=== PATIENT | female | born 1970 | race Caucasian/White ===

== ENCOUNTER 2024-12-01 16:26 | Emergency (ER) | payer OTHER, SELFPAY ==
--- NOTE | ~2024-12-01 | XR_ITS ---
CLINICAL HISTORY: no BM x 5 days, nausea, pain 1 view abdomen Comparison: None provided Findings: No abnormal calcifications. No acute fractures. Large colorectal stool burden. Nonobstructive bowel-gas pattern. Right upper quadrant clips. IMPRESSION: Large colorectal stool burden. This document has been electronically signed by: Chiki Tafoya MD on 12/01/2024 18:13:39
[2024-12-01 16:50] VITALS: BP 136/98; PULSE 112; RESP 16; TEMP 36.6; O2SAT 95; BMI 31.0
--- NOTE | 2024-12-01 16:51 | ED_ITS ---
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 Patient states she is on chronic opiate therapy, she has not had a bowel movement in 5 days. Associated diffuse myalgia, nausea, vomiting and abdominal distention. Patient states she feels as if she is having a lupus flare. Denies inability to pass flatus. Denies fever. Patient is still amidst a steroid taper. Patient states she is currently on Benlysta, she just completed her 3rd infusion. Related Data Home Medications ?Medication ?Instructions ?Recorded ?Confirmed calcium carbonate (Calcium 500) 500 mg PO BID 12/02/24 12/02/24 fludrocortisone 0.1 mg tablet 0.1 mg PO DAILY 12/02/24 folic acid 1 mg tablet 1 mg PO DAILY 12/02/2412/02 gabapentin 400 mg capsule 400 mg PO BEDTIME 12/02/24 0 12/02/24 hydroxychloroquine 200 mg tablet 400 mg PO DAILY 12/0212/02/24 lisdexamfetamine 40 mg capsule 40 mg PO DAILY PRN ADHD 12/02/24 12/02/24 methotrexate sodium 2.5 mg tablet 20 mg PO CLAROS@0900 01/1912/02/24 omeprazole 20 mg capsule,delayed 20 mg PO BEDTIME 01/1912/02/24 release ondansetron 4 mg disintegrating 4 mg PO Q8H PRN nausea /vomiting 12/02/24 12/02/24 tablet oxycodone 10 mg tablet 10 mg PO Q4H PRN Pain (Scale Score 12/02/24 12/02/24 4-6) prednisone 5 mg tablet 15 mg PO DAILY 12/02/240 8/25 semaglutide (weight loss) 1 mg/0.5 1 mg subcut FR@0900 12/02/24 12/02/24 mL subcutaneous pen injector (Tarah) vitamin A 3,000 mcg (10,000 unit) 3,000 mcg PO DAILY 0 12/02/24 12/02/24 capsule Allergies Allergy/AdvReac Type Severity Reaction Status Date / Time metoclopramide (From Reglan) Allergy Anaphylaxis Verified 12/01/24 16:57 ondansetron (From Zofran) Allergy Anaphylaxis Verified 12/01/24 16:57 prochlorperazine (From Allergy Anaphylaxis Verified 12/01/24 16:57 Compazine) promethazine (From Phenergan) Allergy Anaphylaxis Verified 12/01/24 16:57 Review of Systems Review of Systems Yes all other systems are reviewed and are negative Constitutional: Denies fatigue and Denies fever(s) Cardiovascular: Denies chest pain and Denies dyspnea Respiratory: Denies dyspnea Gastrointestinal: Reports abdominal pain, Reports constipation, Reports nausea and Reports vomiting Musculoskeletal: Reports myalgias Skin/Breast: Reports rash Endocrine: Denies fatigue [facility] Past Medical History Attestation statement: The following information was validated with the patient. Social History Social History Smoked in Last 30 Days: No Use of substances other than those prescribed or required for medical reasons: No Advance Directives: No Advance Directives Information Provided: Yes Do you have a plan to hurt others: No Plan Physical Exam ED Vital Signs: Vital Signs - 24 hr 12/03/24 20:48 12/03/24 21:48 Temperature 98.3 F 98.3 F Pulse Rate 87 87 Respiratory Rate 16 1 L Blood Pressure 140/82 H 140/82 H Pulse Oximetry 100 100 Oxygen Delivery Method Room Air Room Air BMI result Body Mass Index 31.0 Const Other: Alert Orientation/consciousness: patient oriented x3 Resp Effort & Inspection: normal respiratory effort Cardio Other: Normal peripheral perfusion GI Other: Abdomen is soft, generalized tenderness to palpation without guarding, no fecal impaction after enema administered, she had a large bowel movement Skin Other: Malar rash noted over cheeks Neuro General: patient oriented x3, gait normal, no focal motor deficits and CN's II- XI intact bilaterally Psych Other: Cooperative, tearful at times Course Course Course Narrative: This is an RME performed by Hunter Thakkar CNP: Additional HPI, ROS, PE not included below will be deferred to primary provider. Patient is a 53-year-old female who presents emergency department for evaluation. Over the past few days she has been experiencing severe left-sided abdominal pain, nausea, a single episode of vomiting. Is concerned about a possible bowel blockage though she has not previously has been, admits no bowel movement for the past 5 days. 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 Denies fevers or chills. Plan: serum labs, urinalysis, KUB Reevaluation(s) Reevaluation #1: I had attempted to admit the patient to the hospital service, I spoke with Dr. Petty, unfortunately we do not have rheumatology coverage. The patient's publication distributor team is at [facility], I will expedite transfer....the patient's publication distributor is name Dr. Gaona Time: 04:37 Reevaluation #2: Spoke with the transfer line at [facility], they are going to reach out to [facility] and call back, they are closed to outside transfers, but given she is a patient there, they may accept her as a transfer Time: 04:52 Reevaluation #3: Patient will be accepted for transfer to [facility] though she will be placed on a wait list as there are no beds available at this time. Do expect a bed by the end of the day today though. Accepting physician Dr. Irish Tate (hospitalist medicine) Time: 06:23 Additional Reevaluation(s): 12/02/24 1400 Juan Antonio De La Cruz MD The patient presented to the emergency department for a flare-up of her lupus which she describes as lower abdominal pain and constipation. The patient did have an enema with a good bowel movement. Patient did receive Solu-Medrol 125 mg IV at 00:17 hours. The patient has required repeat doses of Dilaudid 1 mg IV and Benadryl 25 mg IV. The patient is still waiting for a bed at [facility]. Therefore I ordered Dilaudid 1 mg IV q.4 hours prn pain with Benadryl 25 mg IV. I also ordered Tylenol 650 mg q.6 hours PRN pain. Patient will be started on Solu-Medrol 40 mg IV q.12 hours as well. The patient was also ordered a diet since I do not think that she needs to be kept NPO. 12/03/242147 Juan Antonio De La Cruz MD The patient's inpatient bed at [facility] became available, nursing gave report to the inpatient unit and the patient was transferred via ambulance. 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 Patient states she is on chronic opiate therapy, she has not had a bowel movement in 5 days. Associated diffuse myalgia, nausea, vomiting and abdominal distention. Patient states she feels as if she is having a lupus flare. Denies inability to pass flatus. Denies fever. Patient is still amidst a steroid taper. Patient states she is currently on Benlysta, she just completed her 3rd infusion. Problem: Irion's disease, lupus, chronic pain History: Per patient I have considered the following differential diagnoses: Lupus flare, bowel obstruction, constipation Plan: Screening labs including urinalysis are in process. KUB obtained, the patient is constipated. She is concerned for lupus flare. We will be loading her with 125 mg of Solu-Medrol, managing her pain, treating her nausea with Benadryl. We will give an enema. There was no obstructive pattern on the KUB, she does not require CT scan at this time. I have independently reviewed the following tests: Labs: Leukocytosis of 12.4, left shift noted, not anemic, mild hyponatremia at 1:32 a.m., LFTs minimally elevated at AST 32 and ALT 43, urine not infected, it is turbid, trace protein, no blood KUB:Findings: No abnormal calcifications. No acute fractures. Large colorectal stool burden. Nonobstructive bowel-gas pattern. Right upper quadrant clips. IMPRESSION: Large colorectal stool burden. Admission/Observation Consideration of admission/observation: Escalation of care including admission/observation considered ( yes) Consult Healthcare Provider Management of the patient was discussed with: Employee Development Manager Lab Data MDM Lab Attestation statement: I reviewed the patient's lab results. 12/01/24 17:08 12/01/24 17:08 Labs: Lab Results 12/01/24 12/01/24 Range/Units 17:08 19:36 WBC 12.4 H (4.8-10.8) X10*3/uL RBC 5.51 H (4.20-5.50) X10*6/uL Hgb 16.7 H (12.0-16.0) g/dl Hct 49.3 H (37.0-47.0) % MCV 89.5 (80.0-98.0) fL MCH 30.3 (27.0-33.0) pg MCHC 33.9 (31.0-35.0) g/dl RDW 14.1 (11.0-16.0) % Plt Count 340 (160-400) X10*3/uL MPV 9.8 (9.4-12.3) fL Immature Gran % (Auto) 0.9 H (0.0-0.4) % Neut % (Auto) 87.2 H (45-73) % Lymph % (Auto) 6.7 L (20-40) % Wolfe % (Auto) 4.9 (2-11) % Eos % (Auto) 0.1 (0-4) % Baso % (Auto) 0.2 (0-2) % Lymph # (Auto) 0.8 L (1.2-4.9) X10*3/uL Wolfe # (Auto) 0.6 (0.1-1.2) X10*3/uL Eos # (Auto) 0.0 (0.0-0.4) X10*3/uL Baso # (Auto) 0.0 (0.0-0.2) X10*3/uL Abs Immat Gran (auto) 0.11 H (0.00-0.03) X10*3/uL Absolute Neuts (auto) 10.8 H (2.0-8.3) x10*3/uL Absolute Nucleated RBC 0.000 (0.0-0.012) X10*3/uL Nucleated RBC % (auto) 0.0 (0.0-0.2) /100WBC Sodium 132 L (135-145) mmol/L Potassium 4.8 (3.3-5.1) mmol/L Chloride 102 (96-108) mmol/L Carbon Dioxide 21 L (22-29) mmol/L Anion Gap 14 (12-20) BUN 24 H (9-16) mg/dL Creatinine 0.98 (0.5-1.4) mg/dL Estim Creat Clear Calc 67.0 Estimated GFR 60 Random Glucose 142 H (60-115) mg/dL Lactic Acid 1.4 (0.5-2.0) mmol/L Calcium 10.3 H (8.4-10.2) mg/dL Total Bilirubin 0.8 (0.0-1.0) mg/dL AST 32 H (5-31) U/L ALT 43 H (0-31) U/L Alkaline Phosphatase 75 (39-117) U/L Total Protein 7.8 (6.5-8.0) g/dL Albumin 4.8 (3.5-5.0) g/dL Lipase 23 (8-78) U/L Urine Color Yellow Urine Appearance Turbid Urine pH 8.0 (5.0-9.0) Ur Specific [place] 1.020 (1.005-1.025) Urine Protein Trace (Neg-Trace) mg/dL Urine Glucose (UA) Negative (Negative) mg/dL Urine Ketones Negative (Negative) mg/dL Urine Blood Negative (Negative) Urine Nitrite Negative (Negative) Ur Leukocyte Esterase Negative (Negative) Chronic Conditions Patient?s care impacted by: Other ( lupus, Irion's disease) Medications Administered Discontinued Medications Generic Name Dose Route Start Last Admin Trade Name Freq PRN Reason Stop Dose Admin Diphenhydramine HCl 50 mg 12/02/24 00:17 12/02/24 00:29 Diphenhydramine Hcl 50 Mg/Ml Vial IVPUSH 12/02/24 00:18 50 mg ONCE ONE Administration Diphenhydramine HCl 50 mg 12/02/24 04:43 12/02/24 05:03 Diphenhydramine Hcl 50 Mg/Ml Vial IVPUSH 12/02/24 04:44 50 mg ONCE ONE Administration Diphenhydramine HCl 25 mg 12/02/24 08:35 12/02/24 09:23 Diphenhydramine Hcl 50 Mg/Ml Vial IVPUSH 12/02/24 08:36 25 mg ONCE ONE Administration Diphenhydramine HCl 25 mg 12/02/24 13:50 12/03/24 20:43 Diphenhydramine Hcl 50 Mg/Ml Vial IVPUSH 25 mg Q4H PRN Administration give with dilaudid dose Hydromorphone HCl 1 mg 12/02/24 02:54 12/02/24 03:13 Hydromorphone Hcl 1 Mg/Ml Syringe IVPUSH 12/02/24 02:55 1 mg ONCE ONE Administration Protocol Hydromorphone HCl 1 mg 12/02/24 05:10 12/02/24 05:33 Hydromorphone Hcl 1 Mg/Ml Syringe IVPUSH 12/02/24 05:11 1 mg ONCE ONE Administration Protocol Hydromorphone HCl 1 mg 12/02/24 08:35 12/02/24 09:23 Hydromorphone Hcl 1 Mg/Ml Syringe IVPUSH 12/02/24 08:36 1 mg ONCE STA Administration Protocol Hydromorphone HCl 1 mg 12/02/24 13:50 12/02/24 15:29 Hydromorphone Hcl 1 Mg/Ml Syringe IVPUSH 1 mg ONCE PRN Administration Pain, Severe (Pain Scale 7-10) Protocol Hydromorphone HCl 1 mg 12/02/24 20:27 12/02/24 20:32 Hydromorphone Hcl 1 Mg/Ml Syringe IVPUSH 12/02/24 20:28 1 mg ONCE ONE Administration Protocol Hydromorphone HCl 1 mg 12/02/24 20:28 12/03/24 20:44 Hydromorphone Hcl 1 Mg/Ml Syringe IVPUSH 1 mg Q4H PRN Administration pain, moderate Protocol Sodium Chloride 1,000 mls @ 999 mls/hr 12/02/24 00:30 12/02/24 01:25 Ns IV 12/02/24 01:30 Infused .Q1H1M HUGH Infusion Magnesium Hydroxide 30 ml 12/02/24 04:43 12/02/24 05:03 Milk Of Magnesia 30 Ml Oral.Susp PO 12/02/24 04:44 30 ml ONCE ONE Administration Methylprednisolone Sodium Succinate 125 mg 12/02/24 00:17 12/02/24 00:31 Methylprednisolone Sod Succ 125 Mg/2 Ml Vial IVPUSH 12/02/24 00:18 125 mg ONCE ONE Administration Methylprednisolone Sodium Succinate 40 mg 12/02/24 14:15 12/03/24 13:53 Methylprednisolone Sod Succ 40 Mg Vial IVPUSH 40 mg Q12H HUGH Administration Methylprednisolone Sodium Succinate 40 mg 12/02/24 14:08 12/02/24 15:29 Methylprednisolone Sod Succ 40 Mg Vial IVPUSH 12/02/24 14:09 40 mg ONCE ONE Administration Morphine Sulfate 10 mg 12/02/24 00:19 12/02/24 00:33 Morphine Sulfate 10 Mg/Ml Cartridge IVPUSH 12/02/24 00:20 10 mg ONCE ONE Administration Protocol Scopolamine 1.5 mg 12/02/24 02:54 12/02/24 03:13 Scopolamine 1.5 Mg Patch.Td.3 EAR-BEHIND 12/02/24 02:55 1.5 mg ONCE ONE Administration Sodium Biphosphate/Sodium Phosphate 133 ml 12/02/24 00:17 12/02/24 01:04 Sodium Phosphate,Wolfe-Dibasic 133 Ml Enema GA 12/02/24 00:18 133 ml ONCE ONE Administration Discharge Plan Discharge Clinical Impression: Exacerbation of systemic lupus, Constipation, Nausea & vomiting Patient Disposition: General Acute Hospital Transfer Details: [facility] for rheumatology (accepted by Dr. Tate, hospitalist) Prescriptions: No Action gabapentin 400 mg capsule 400 mg PO BEDTIME prednisone 5 mg tablet 15 mg PO DAILY methotrexate sodium 2.5 mg tablet 20 mg PO CLAROS@0900 omeprazole 20 mg capsule,delayed release(DR/EC) 20 mg PO BEDTIME folic acid 1 mg tablet 1 mg PO DAILY hydroxychloroquine 200 mg tablet 400 mg PO DAILY ondansetron 4 mg tablet,disintegrating 4 mg PO Q8H PRN (Reason: nausea/vomiting) lisdexamfetamine 40 mg capsule 40 mg PO DAILY PRN (Reason: ADHD) oxycodone 10 mg tablet 10 mg PO Q4H PRN (Reason: Pain (Scale Score 4-6)) Wegovy 1 mg/0.5 mL pen injector 1 mg subcut FR@0900 vitamin A 3,000 mcg (10,000 unit) Capsule 3,000 mcg PO DAILY calcium carbonate [Calcium 500] 500 mg calcium (1,250 mg) Tablet,Chewable 500 mg PO BID fludrocortisone 0.1 mg Tablet 0.1 mg PO DAILY Rx Instructions: ONLY TAKES WHEN NOT ON HIGHER DOSE OF PREDNISONE - NOT CURRENTLY TAKING Interventions: Acute Care Transfer Worksheet (ED) Last Done: 12/03/24 21:48 Discharge Date/Time: 12/03/24 20:50 Print Language: Romansh
[2024-12-01 17:17] LABS: MANUAL DIFF FLAG NO
[2024-12-01 17:26] LABS: Hematocrit 49.3 % (37.0-47.0); Hemoglobin 16.7 g/dl (12.0-16.0); Imm Gran Abs Auto 0.11 X10*3/uL (0.00-0.03); Imm Gran Pct Auto 0.9 % (0.0-0.4); Lymphocytes Absolute Auto 0.8 X10*3/uL (1.2-4.9); Mean Corpuscular HGB Conc 33.9 g/dl (31.0-35.0); Mean Corpuscular Hemoglobin 30.3 pg (27.0-33.0); Mean Corpuscular Volume 89.5 fL (80.0-98.0); NRBC Abs Auto 0.000 X10*3/uL (0.0-0.012); NRBC Pct Auto 0.0 /100WBC (0.0-0.2); Platelet Count 340 X10*3/uL (160-400); Red Blood Count 5.51 X10*6/uL (4.20-5.50); White Blood Count 12.4 X10*3/uL (4.8-10.8)
[2024-12-01 17:31] LABS: Alanine Aminotransferase 43 U/L (0-31); Albumin Level 4.8 g/dL (3.5-5.0); Alkaline Phosphatase 75 U/L (39-117); Anion Gap 14 (12-20); Aspartate Amino Transferase 32 U/L (5-31); Blood Urea Nitrogen 24 mg/dL (9-16); Calcium 10.3 mg/dL (8.4-10.2); Carbon Dioxide 21 mmol/L (22-29); Chloride 102 mmol/L (96-108); Creatinine Clr Calc Pharmacy 67.0; Estimated Glomerular Filt Rate 60; Lipase 23 U/L (8-78); Potassium 4.8 mmol/L (3.3-5.1); Sodium 132 mmol/L (135-145); Total Protein 7.8 g/dL (6.5-8.0)
[2024-12-01 19:52] LABS: Appearance Urine Turbid; Glucose Urine UA Negative (Negative); PH 8.0 (5.0-9.0); Specific Gravity - Urine 1.020 (1.005-1.025)
--- NOTE | 2024-12-01 21:24 | PC.NURSE ---
Late Entry During patient's initial triage, frustrated by WC's tight fit into triage room. T/w assisted in wheeling patient into triage. Pt's verbally aggressive with this staff member, threw registration survey clip board at T/W. approximately 2 hours later, pt's knocks on triage door, apologizes for behavior, requesting update on 's status. Informed by provider Daniel additional testing (CT scan) most likely necessary, cannot be done in [place]. Pt's verbalized understanding. approximately @ 1999, pt's returns to triage door, request hot packs. Hot packs given.
[2024-12-02] VITALS (8 sets, daily range): BP systolic 94–140; BP diastolic 65–102; PULSE 79–104; RESP 16–20; TEMP 36.2–37.1; O2SAT 94–99
[2024-12-02] MEDS: Milk of Magnesia 30 ML ORAL.SUSP PO (05:03)
--- NOTE | 2024-12-02 09:35 | PC.NURSE ---
Pt a&ox4. breathing unlabored, skin p/w/d. Pt reporting nausea and 10/10 left-sided abdominal pain, medicated per JUL. +BSx4. Pt aware of plan, awaiting transfer to [facility] for rheumatology consult.
--- NOTE | 2024-12-02 15:28 | MHC.EDTECH ---
Pt resting in bed, requesting medication, RN made aware
--- NOTE | 2024-12-02 16:20 | PHA.MEDREC ---
Pharmacy Consult ? Medication Reconciliation Pharmacy has completed the medication reconciliation. Spoke with patient in overflow. Patient knew all medications and doses. When patient has a flare up her prednisone dose increases, and then does not take fludricortisone. She only takes vyvanse when needed and has not taken it in a few weeks because of her flare up.
[2024-12-03 00:24] VITALS: RESP 16
[2024-12-03 04:44] VITALS: BP 97/59; PULSE 65; RESP 14; TEMP 36.6; O2SAT 95
--- NOTE | 2024-12-03 10:14 | MHC.EDTECH ---
THIS US CALLS [facility] TRANSFER LINE TO INQUIRE ABOUT PATIENT BED PLACEMENT. GEOTHERMAL POWERPLANT MECHANIC ISHAN STATES SHE IS WAITING FOR DISCHARGES BEFORE CONFIRMING BED ASSIGNMENT, BUT STATED THAT THIS PATIENT IS #2 PRIORITY FOR THEM
[2024-12-03 14:04] VITALS: BP 114/74; PULSE 86; RESP 18; TEMP 36.7; O2SAT 98
--- NOTE | 2024-12-03 18:23 | PC.NURSE ---
called report to [address]
[2024-12-03 18:53] VITALS: BP 101/71; PULSE 75; RESP 16; TEMP 36.3; O2SAT 99
[2024-12-03 20:48] VITALS: BP 140/82; PULSE 87; RESP 16; TEMP 36.8; O2SAT 100
[2024-12-03 21:48] VITALS: BP 140/82; PULSE 87; RESP 1; TEMP 36.8; O2SAT 100
== END 2024-12-03 20:50 | disposition short-term general hospital (02) ==
PROVIDERS: Nurse Practitioner Family; Emergency Provider Emergency Medicine
DX: L93.0 Discoid lupus erythematosus (principal); K59.00 Constipation, unspecified; R11.2 Nausea with vomiting, unspecified; Z79.891 Long term (current) use of opiate analgesic
CPT/HCPCS: 36415; 74018; 80053; 81003; 83605; 83690; 85025; 96361; 96374; 96375; 96376; 99285; J1171; J1200; J2270; J2919

== ENCOUNTER → 2024-12-01 16:58 | Outpatient (BNV) | payer SELFPAY | PROVIDERS: Visit Provider Radiology Diagnostic Radiology | DX: K56.41 Fecal impaction (principal) | CPT/HCPCS: 74018 ==

== ENCOUNTER 2024-12-27 04:17 | Inpatient (IN) | payer OTHER, SELFPAY ==
[2024-12-27] VITALS (11 sets, daily range): BP systolic 99–124; BP diastolic 61–75; PULSE 87–97; RESP 14–22; TEMP 36.2–37.5; O2SAT 92–100; BMI 31.4; BMI 32.4
--- NOTE | ~2024-12-27 | CT_ITS ---
CLINICAL HISTORY: redness, swelling CT scan of the elbow with IV contrast. Comparison: None Findings: There is olecranon bursitis with inflammatory changes extending along the ulnar surface into the proximal forearm. There are no acute bony abnormalities. Subchondral cysts are seen in the capitellum. There is no joint effusion. Impression: There is olecranon bursitis with inflammatory changes extending along the ulnar surface into the proximal forearm. This document has been electronically signed by: Humberto Perez MD on 12/27/2024 10:50:13
--- NOTE | 2024-12-27 04:25 | PC.NURSE ---
d/t pt hx and difficult stick, asked MD keller regarding what labs to order including blood cultures, etc. Per MD Keller will see patient first. pt is in ED1. vitals stable, afebrile. pt aware of plan of care.
--- OUTSIDE RECORDS SUMMARY | 2024-12-27 04:45 | XMS_ITS | Encounter Summary ---
Author Organization [facility] Address [address] [place] [address] Care Team Providers Care Salesperson Floor Coverings Name Role Phone Santino Palomino Primary Care Provider Reason for Visit * Reason Onset Date Comments PAC Rx Questions- 08/19/2024 Encounter Details Date Type Department Care Team (Late st Contact Info) Description 08/19/2024 Telephone [facility] [address] [place] [id number] Telephone Intake, Staff PAC Rx Questions- Social History Tobacco Use Types Packs/Day Years Used Date Smoking Tobacco: Never Passive Smoke Exposure: Never Smokeless Tobacco: Never Alcohol Use Standard Drinks/Week Comments Not Currently 0 (1 standard drink = 0.6 oz pur e alcohol) Comments Unknown Sex and Gender Information Value Date Recorded Sex Assigned at Female 11/02/2023 7:47 AM EDT Legal Sex Female 2:55 PM EDT Gender Identity Female 11/02/2023 7:47 AM EDT Sexual Orientation Straight 11/02/2023 7 :47 AM EDT documented as of this encounter Miscellaneous Notes * Telephone Encounter - Amado Smart LPN - 08/20/2024 4:12 PM EDT Nurse LMOM for the pt pharmacist to call office back * Telephone Encounter - Ana Thomas - 08/19/2024 10:15 AM EDT Alexey calling from [facility] pharmacy for patient Pt is established with Patient told pharmacy she was going to be switching over from [facility] & switching back to benlysta Pharmacy just needs someone to confirm Please contact pharmacy @ [phone] and you can ask for alexey Thank you PAC documented in this encounter Plan of Treatment Upcoming Encounters Date Type Department Care Team (Late st Contact Info) Description 01/01/2025 3:20 PM EDT Follow-Up [facility] [address] [place] [id number] Bulk Pallet Builder: Adonis Stone MD [address] [place] [phone] 01/27/2025 9:40 AM EDT Follow-Up [facility] [address] [place] [id number] Bulk Pallet Builder: Maurice England MD [address] [place] [id number] 03/19/2025 1:40 PM EDT Follow-Up [facility] [address] [place] [id number] Bulk Pallet Builder: Adonis Stone MD [address] [place] [phone] documented as of this encounter Visit Diagnoses Not on filedocumented in this encounter Care Teams Salesperson Floor Coverings Relationship Specialty Start Date End Date Santino Palomino PA [address] [place] [address] PCP - General 11/02/23 documented as of this encounter
--- OUTSIDE RECORDS SUMMARY | 2024-12-27 04:46 | XMS_ITS | Clinical Summary ---
Author Organization Patient Business Ser [facility] Address [address] [place] [address] Care Team Providers Care Lump Inspector Name Role Phone Mejia Triplett Primary Care Provider [phone] Allergies Active Allergy Reactions Criticality Noted Date Comments Metoclopramide Anxiety High 11/11/2013 Ondansetron Hcl Anxiety High 11/11/2013 Prochlorperazine Anaphylaxis High 02/11/2013 dysphoric reaction Promethazine Anxiety High 11/11/2013 Medications anifrolumab-fni a (Saphnelo) injection Infuse 2 mL (300 mg total) into a venous catheter 1 (one) time. 4 Active diazePAM (VALIUM) 5 mg tablet Take 1 tablet (5 mg total) by mouth 1 (one) time each day if needed for anxiety. Max Daily Amount: 5 mg 4 Active fludrocortisone (FLORINEF) 0.1 mg tablet Take 1 tablet (0.1 mg total) by mouth 1 (one) time each day. 4 Active folic acid (FOLVITE) 1 mg tablet Take 1 tablet (1,000 mcg total) by mouth 1 (one) time each day. Active gabapentin (NEURONTIN) 400 mg capsule Take 1 capsule (400 mg total) by mouth at bedtime. 5 Active hydroxychloroqu ine (PLAQUENIL) 200 mg tablet Take 2 tablets (400 mg total) by mouth 1 (one) time each day. 4 01/11/20 25 Active Vyvanse 40 mg capsule Take 1 capsule (40 mg total) by mouth 1 (one) time each day in the morning. Max Daily Amount: 40 mg 5 Active methotrexate 2.5 mg tablet Take 8 tablets (20 mg total) by mouth 1 (one) time per week Active methylPREDNISol one acetate (DEPO-Medrol) 40 mg/mL injection Inject 1 mL (40 mg total) into the shoulder, thigh, or buttocks 1 (one) time each day if needed (arthralgia). 4 Active oxyCODONE-aceta minophen (PERCOCET) 7.5-325 mg per tablet Take 1 tablet by mouth 1 (one) time each day if needed for moderate pain. Max Daily Amount: 1 tablet Active Nurtec 75 mg dispersible tablet Take 1 tablet (75 mg total) by mouth 1 (one) time each day if needed for migraine. 4 Active prednisoLONE (STERANE) 5 mg tablet tablet Take 1 tablet (5 mg total) by mouth 1 (one) time each day. Take prednisolone 15 mg daily from 07/11 to 07/12. Then continue with your regular dose 90 each 5 Active diphenhydrAMINE (BENADRYL) 25 mg tablet Take 1 tablet (25 mg total) by mouth every 6 (six) hours if needed (Nausea) for up to 15 doses. 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, [facility] V28) Lupus (systemic lupus erythematosus) ([facility] V2 4, [facility] V28) Neri's disease Social History Tobacco Use Types Packs/Day Years Used Date Smoking Tobacco: Never Smokeless Tobacco: Current Tobacco Cessation:Ready to Q uit: Not Asked; Counseling Given: Not Answered Alcohol Use Standard Drinks/Week Comments Never 0 (1 standard drink = 0.6 oz pur e alcohol) Interpersonal Safety Answer Date Record ed Physical Abuse 07/11/2024 Verbal Abuse 07/11/2024 Comments Unknown Sex and Gender Information Value Date Recorded Sex Assigned at Not on file Legal Sex Female 1:19 AM EST Gender Identity Not on file Sexual Orientation Not on file Obstetrics History Last Filed Vital Signs Vital Sign Reading Time Taken Comments Blood Pressure 91/60 07/11/2024 7:42 AM EST Pulse 72 07/11/2024 7:42 AM EST Temperature 36.2 C (97.2 F) 07/11/2024 7:42 AM EST Respiratory Rate 24 07/11/2024 7:42 AM EST Oxygen Saturation 96% 07/11/2024 7:42 AM EST Inhaled Oxygen Concentration - - Weight 77.1 kg (170 lb) 07/09/2024 1:00 PM EST Height 160 cm (5' 3 ) 07/09/2024 1:00 PM EST Body Mass Index 30.11 07/09/2024 1:00 PM EST Plan of Treatment Health Maintenance Due Date Last Done Comments Breast Cancer Screening 1970 Hepatitis B Vaccines (1 of 3 - 19+ 3-dose series) 12/11/1990 Cervical Cancer Screening: P ap Smear 12/11/1992 Cholesterol Screening (Lipid Panel) 04/07/2021 Colorectal Cancer Screening: Colonoscopy 04/07/2021 HIV Screening 04/07/2021 Hepatitis C Screening 04/07/2021 Social Influencers of Health Screening 04/07/2021 Pneumococcal Vaccine: 50+ Years (1 of 1 - PCV) 12/11/2021 Zoster Vaccines (1 of 2) 12/11/2021 COVID-19 Vaccine (4 - 2023-2 5 season) 2024 05/18/2021, 10/07/2020, 09/16/2020 Depression Screening 05/28/2024 Influenza Vaccine (#1) 2025 DTaP,Tdap,and Td Vaccines (2 - Td or Tdap) 02/12/2030 02/13/2020 HIB Vaccines Aged Out No longer eligi ble based on patient's age to complete this topic HPV Vaccines Aged Out No longer eligi ble based on patient's age to complete this topic Hepatitis A Vaccines Aged Out No long er eligible based on patient's age to complete this topic IPV Vaccines Aged Out No longer eligi ble based on patient's age to complete this topic MMR Vaccines Aged Out No longer eligi ble based on patient's age to complete this topic Meningococcal ACWY Vaccine Aged Out N o longer eligible based on patient's age to complete this topic Meningococcal B Vaccine Aged Out No l onger eligible based on patient's age to complete this topic RSV Immunization Patients Under 20 months Aged Out No longer eligible b ased on patient's age to complete this topic Varicella Vaccines Aged Out No longer eligible based on patient's age to complete this topic Additional Health Concerns Infection Onset Date Last Indicated Coronavirus 07/10/2024 07/10/2024 Insurance [employer] Advance Directives * Full Code - Default (Latest Code Status on File) Date Activated Date Inactivated Comments 07/09/2024 8:45 PM 07/11/2024 2:08 PM This is orde r is used when code status has not been discussed with the patient, or code status is otherwise unknown/unconfirmed To update the patient's code status, place a code status order. Do not modify or discontinue any currently active code status orders. Care Teams Lump Inspector Relationship Specialty Start Date End Date Mejia Triplett PA [address] [place] [address] PCP - General Occupational Medicine 02/15/18
--- OUTSIDE RECORDS SUMMARY | 2024-12-27 04:46 | XMS_ITS ---
Author Name [facility] Organization Unknown Care Team Organization Name Specialty Phone Email Start Date End [facility] 04/17/2024
--- OUTSIDE RECORDS SUMMARY | 2024-12-27 04:46 | XMS_ITS | Encounter Summary ---
Author Organization [facility] Address [address] [place] [address] Phone Care Team Providers Care Electric Motor And Generator Assembler Name Role Phone Santino Palomino PA-C Primary Care Provider [phone] Encounter Details Date Type Department Care Team (Late st Contact Info) Description 11/14/2024 Office Communication [facility] [address] [place] [phone] David Figueroa MD [address] [place] [id number] Social History Tobacco Use Types Packs/Day Years Used Date Smoking Tobacco: Never Assessed Comments Unknown Sex and Gender Information Value Date Recorded Sex Assigned at Not on file Legal Sex Female 2:21 PM EDT Gender Identity Not on file Sexual Orientation Not on file documented as of this encounter Plan of Treatment Upcoming Encounters Date Type Department Care Team (Late st Contact Info) Description 03/27/2025 3:45 PM EDT Office Visit [facility] [address] [place] [phone] Robinson Enciso DO [address] [place] [address] documented as of this encounter Visit Diagnoses Not on filedocumented in this encounter Care Teams Electric Motor And Generator Assembler Relationship Specialty Start Date End Date Santino Palomino PA-C [address] [place] [address] PCP - General Physician [employer] Application Developer 11/11/24 documented as of this encounter
--- NOTE | 2024-12-27 05:18 | PC.NURSE ---
pt a&ox4, respirations even and unlabored. pt reports she had possibly been bit by a tick on her right elbow and she has since developed a rash on the elbow. pt reports she had been seen for a biopsy yesterday in which they noman a [place] around the spot and since it has grown out of the [place]. pt reports it is painful and tender to touch. pt is tearful at this time. 22g placed in left hand, labs obtained, at bedside
--- NOTE | 2024-12-27 05:28 | ED_ITS ---
HPI - Skin/Abscess/Foreign Bdy General Chief complaint: Skin/Abscess/Foreign Body Stated complaint: Elbow bursitis? Time Seen by Provider: 12/27/24 05:10 Source: patient Mode of arrival: ambulatory Limitations: no limitations History of Present Illness ED Provider: Dr. Wilma Day HPI narrative: patient comes to the emergency room complaining of right elbow pain. According to the patient, out 4 days ago she started having erythema around the right elbow. Patient states it is very tender to palpation. Yesterday, she had an appointment in [facility] to get a biopsy of her kidney done, patient known to have lupus. Patient states that she showed the radiologist the erythema in her elbow, it was marked with a purple marker and asked to come to the emergency room if the erythema progress beyond the line. The erythema is progressing. Patient denies fever chills. Patient denies any obvious injuries. Also, patient reports that about a week ago she noted that she had a tick on her right thigh. Patient was able to remove it. Patient states that she does not have any issues in her thigh. However, patient states that it had been latched On her for a proximally 24 hours. Related Data Home Medications ?Medication ?Instructions ?Recorded ?Confirmed calcium carbonate (Calcium 500) 500 mg PO BID 12/02/24 12/02/24 fludrocortisone 0.1 mg tablet 0.1 mg PO DAILY 12/02/24 folic acid 1 mg tablet 1 mg PO DAILY 12/02/2412/02 gabapentin 400 mg capsule 400 mg PO BEDTIME 12/02/24 0 12/02/24 hydroxychloroquine 200 mg tablet 400 mg PO DAILY 12/0212/02/24 lisdexamfetamine 40 mg capsule 40 mg PO DAILY PRN ADHD 12/02/24 12/02/24 methotrexate sodium 2.5 mg tablet 20 mg PO CLAROS@0900 01/1912/02/24 omeprazole 20 mg capsule,delayed 20 mg PO BEDTIME 01/1912/02/24 release ondansetron 4 mg disintegrating 4 mg PO Q8H PRN nausea /vomiting 12/02/24 12/02/24 tablet oxycodone 10 mg tablet 10 mg PO Q4H PRN Pain (Scale Score 12/02/24 12/02/24 4-6) prednisone 5 mg tablet 15 mg PO DAILY 12/02/24 07/01/19 semaglutide (weight loss) 1 mg/0.5 1 mg subcut FR@0900 12/02/24 12/02/24 mL subcutaneous pen injector ([employer]) vitamin A 3,000 mcg (10,000 unit) 3,000 mcg PO DAILY 0 12/02/24 12/02/24 capsule Allergies Allergy/AdvReac Type Severity Reaction Status Date / Time metoclopramide (From Reglan) Allergy Anaphylaxis Verified 12/27/24 04:24 ondansetron (From Zofran) Allergy Anaphylaxis Verified 12/27/24 04:24 prochlorperazine (From Allergy Anaphylaxis Verified 12/27/24 04:24 Compazine) promethazine (From Phenergan) Allergy Anaphylaxis Verified 12/27/24 04:24 Review of Systems 2 Review of Systems: Constitutional : No Weight loss, No Fever, No Chills, No Night Sweats, No Fatigue, No Malaise ENT/Mouth : No Hearing loss, No Ear Pain, No Nasal Congestion, No Sinus Pain, No Hoarseness, No sore throat, No Rhinorrhea, No Swallowing Difficulty Eyes: No Eye Pain, No Swelling, No Redness, No Foreign Body, No Discharge, No Vision Changes Cardiovascular : No Chest Pain, No SOB, No Dyspnea on Exertion, No Orthopnea, No Edema, No Palpitations Respiratory : No Cough, No Sputum, No Wheezing, No Smoke Exposure, No Dyspnea Gastrointestinal : No Nausea, No Vomiting, No Diarrhea, No Constipation, No abdominal Pain, No Hematochezia, No Melena Genitourinary : no irregular bleeding, No Dysuria, No Urinary Frequency, No Hematuria, No Urinary Incontinence, No Urgency, No Flank Pain, No Urinary Flow Changes, No Hesitancy Musculoskeletal : complaining of elbow pain in the right Skin : No Skin Lesions, No rash Neuro : No Weakness, No Numbness, No Paresthesias, No Loss of Consciousness, No Dizziness, No Headache Psych : No Anxiety/Panic, No Depression, No SI/HI/AH/VH, No Social Issues, Heme/Lymph: No Bruising, No Bleeding,No Lymphadenopathy Endocrine : No Polyuria, No Polydipsia, No Temperature Intolerance [facility] Past Medical History Medical History (Updated 12/27/24 @ 08:25 by Wilma Day MD) Lupus (systemic lupus erythematosus) Social History Social History Smoked in Last 30 Days: No Use of substances other than those prescribed or required for medical reasons: No Advance Directives: No Advance Directives Information Provided: No Do you have a plan to hurt others: No Plan Patient : No Physical Exam 2 Exam: Exam: Appearance: Alert. Oriented X3. No acute distress. Eyes: Pupils equal, round and reactive to light. ENT: Pharynx normal. Neck: Normal inspection. Neck supple. No lymph nodes noted. No crepitus CVS: Normal heart rate and rhythm. Pulses normal. Normal S1 and S2 Respiratory: No respiratory distress. Breath sounds normal. No Wheezing. No rales Abdomen: Soft and nontender. No rigidity. No distention. Skin: Skin warm and dry. Normal skin color. Normal skin turgor. she extremities below Extremities: No lower extremity edema. No Lacerations. No Rash. On the right elbow, there is significant erythema, pain to palpation around the elbow, patient is able to flex and extends the elbow but hurts doing so. limited bedside ultrasound at bedside shows cobblestoning pattern around the elbow area with no drainable fluid collection Neuro: Oriented X 3. No motor deficit. No sensory deficit. Moving all extremities. No slurred speech. CN 2 through 12 grossly intact Psych: calm, cooperative, normal affect Vital Signs: Vital Signs: Last Vital Signs Temp 98.7 F 12/27/24 07:52 Pulse 95 12/27/24 07:52 Resp 18 12/27/24 07:52 BP 113/75 12/27/24 07:52 Pulse Ox 100 12/27/24 07:52 O2 Del Method Room Air 12/27/24 07:52 BMI result Body Mass Index 31.4 Course Course Course Narrative: Patient comes in complaining of right elbow pain. Possible bursitis versus septic joint. Patient denies fever or chills. Given her history of lupus, it is most likely that patient has bursitis. However, the skin is warm, erythematous. We will empirically start treatment for cellulitis/septic joint, patient receiving IV fluids, Zosyn and vanco Medications Administered Discontinued Medications Generic Name Dose Route Start Last Admin Trade Name Freq PRN Reason Stop Dose Admin Diphenhydramine HCl 25 mg 12/27/24 07:57 12/27/24 08:07 Diphenhydramine Hcl 50 Mg/Ml Vial IVPUSH 12/27/24 07:58 25 mg ONCE ONE Administration Hydromorphone HCl 1 mg 12/27/24 05:27 12/27/24 05:35 Hydromorphone Hcl 1 Mg/Ml Syringe IVPUSH 12/27/24 05:28 1 mg ONCE ONE Administration Protocol Hydromorphone HCl 1 mg 12/27/24 07:31 12/27/24 07:49 Hydromorphone Hcl 1 Mg/Ml Syringe IVPUSH 12/27/24 07:32 1 mg ONCE ONE Administration Protocol Vancomycin HCl 2,000 mg in 500 mls @ 250 mls/hr 12/27/24 05:26 12/27/24 06:33 Vancomycin/Ns IV 12/27/24 07:25 250 mls/hr ONCE ONE Administration Piperacillin Sod/Tazobactam 50 mls @ 100 mls/hr 12/27/24 05:26 12/27/24 06:13 Sod 3.375 gm/ Sodium Chloride IV 12/27/24 05:55 Infused ONCE ONE Infusion Sodium Chloride 1,000 mls @ 999 mls/hr 12/27/24 05:26 12/27/24 06:33 Ns IVCONT 12/27/24 06:26 Infused .Q1H1M ONE Infusion Medical Decision Making Medical Decision Making [facility] Narrative: my interpretation of labs: Patient's white blood cell count 13, today a bit more anemic than usual. No significant abnormality in patient's electrolytes, lactic acid 2.1, repeat pending. Patient's ESR and CRP slightly elevated. As mentioned above, the bedside ultrasound did not show any fluid collection in the elbow, only cobblestone pattern, mostly consistent with cellulitis. Patient has been getting multiple doses of Dilaudid to control the pain. Patient takes high doses of oxycodone at home. Given patient's past medical history and current presentation , admission has been considered. I discussed the patient with Dr. Jade from the Medicine team, patient getting admitted Differential Diagnosis Differential Diagnoses: The differential diagnosis associated with the presentation includes ( less likely septic joint, bursitis, cellulitis) Admission/Observation Consideration of admission/observation: Escalation of care including admission/observation considered Consult Healthcare Provider Management of the patient was discussed with: Hospitalist Lab Data [facility] Lab Attestation statement: I reviewed the patient's lab results. 12/27/24 05:41 12/27/24 05:41 Labs: Lab Results 12/27/24 Range/Units 05:41 WBC 13.0 H (4.8-10.8) X10*3/uL RBC 3.77 L D (4.20-5.50) X10*6/uL Hgb 11.7 L D (12.0-16.0) g/dl Hct 33.9 L D (37.0-47.0) % MCV 89.9 (80.0-98.0) fL MCH 31.0 (27.0-33.0) pg MCHC 34.5 (31.0-35.0) g/dl RDW 14.4 (11.0-16.0) % Plt Count 254 D (160-400) X10*3/uL MPV 9.0 L (9.4-12.3) fL Immature Gran % (Auto) 0.9 H (0.0-0.4) % Neut % (Auto) 71.2 (45-73) % Lymph % (Auto) 19.4 L (20-40) % Alfalfa % (Auto) 6.5 (2-11) % Eos % (Auto) 1.5 (0-4) % Baso % (Auto) 0.5 (0-2) % Lymph # (Auto) 2.5 (1.2-4.9) X10*3/uL Alfalfa # (Auto) 0.9 (0.1-1.2) X10*3/uL Eos # (Auto) 0.2 (0.0-0.4) X10*3/uL Baso # (Auto) 0.1 (0.0-0.2) X10*3/uL Abs Immat Gran (auto) 0.12 H (0.00-0.03) X10*3/uL Absolute Neuts (auto) 9.3 H (2.0-8.3) x10*3/uL Absolute Nucleated RBC 0.000 (0.0-0.012) X10*3/uL Nucleated RBC % (auto) 0.0 (0.0-0.2) /100WBC ESR 44 H (0-20) MM/HR Sodium 134 L (135-145) mmol/L Potassium 3.5 D (3.3-5.1) mmol/L Chloride 99 (96-108) mmol/L Carbon Dioxide 25 (22-29) mmol/L Anion Gap 14 (12-20) BUN 18 H (9-16) mg/dL Creatinine 0.75 (0.5-1.4) mg/dL Estim Creat Clear Calc 87.1 Estimated GFR > 60 Random Glucose 102 (60-115) mg/dL Lactic Acid 2.1 H* (0.5-2.0) mmol/L Calcium 8.5 D (8.4-10.2) mg/dL Total Bilirubin 0.3 (0.0-1.0) mg/dL Direct Bilirubin 0.1 (0.0-0.5) mg/dL AST 35 H (5-31) U/L ALT 58 H (0-31) U/L Alkaline Phosphatase 92 (39-117) U/L C-Reactive Protein 8.07 H (< or = 0.50) mg/dL Total Protein 6.1 L (6.5-8.0) g/dL Albumin 3.5 (3.5-5.0) g/dL Critical Care Time Critical Care Time Critical Care Time: Yes Total Critical Care Time: 60 Attestation: I have personally provided critical care time. Time includes review of lab data, radiology results, discussion with consultants, and monitoring for potential decompensation. Intervention performed as documented. Discharge Plan Discharge Clinical Impression: Cellulitis Patient Disposition: Admitted As Inpatient Print Language: Ghanaian
[2024-12-27 05:53] LABS: MANUAL DIFF FLAG NO
[2024-12-27 05:56] LABS: Hematocrit 33.9 % (37.0-47.0); Hemoglobin 11.7 g/dl (12.0-16.0); Imm Gran Abs Auto 0.12 X10*3/uL (0.00-0.03); Imm Gran Pct Auto 0.9 % (0.0-0.4); Lymphocytes Absolute Auto 2.5 X10*3/uL (1.2-4.9); Mean Corpuscular HGB Conc 34.5 g/dl (31.0-35.0); Mean Corpuscular Hemoglobin 31.0 pg (27.0-33.0); Mean Corpuscular Volume 89.9 fL (80.0-98.0); NRBC Abs Auto 0.000 X10*3/uL (0.0-0.012); NRBC Pct Auto 0.0 /100WBC (0.0-0.2); Platelet Count 254 X10*3/uL (160-400); Red Blood Count 3.77 X10*6/uL (4.20-5.50); White Blood Count 13.0 X10*3/uL (4.8-10.8)
[2024-12-27 06:10] LABS: Alanine Aminotransferase 58 U/L (0-31); Albumin Level 3.5 g/dL (3.5-5.0); Alkaline Phosphatase 92 U/L (39-117); Anion Gap 14 (12-20); Aspartate Amino Transferase 35 U/L (5-31); Blood Urea Nitrogen 18 mg/dL (9-16); Calcium 8.5 mg/dL (8.4-10.2); Carbon Dioxide 25 mmol/L (22-29); Chloride 99 mmol/L (96-108); Creatinine Clr Calc Pharmacy 87.1; Estimated Glomerular Filt Rate > 60; Potassium 3.5 mmol/L (3.3-5.1); Sodium 134 mmol/L (135-145); Total Protein 6.1 g/dL (6.5-8.0)
[2024-12-27] MEDS: vancomycin/NS 2,000 MG/500 ML PLAST..BAG 250 MG IV (06:33)
--- NOTE | 2024-12-27 07:17 | PC.NURSE ---
RN to bedside to ensure 2 BPs obtained s/p the completion of her IVF. Pt tearful, stating I'm waiting for someone to get me some pain medicine and something for nausea . pt reports 10/10 right elbow pain at this time. Provider to be made aware as soon as they are available.
[2024-12-27 07:49] LABS: Reflex Lactate? Lactic Acid Added
[2024-12-27 08:35] LABS: ~Lactic Acid-LAB USE ONLY 2.1 mmol/L (0.5-2.0)
--- NOTE | 2024-12-27 08:40 | PM.IMHP ---
History of Present Illness Date of Service: 12/27/24 Chief Complaint: skin infection This has a 54-year-old female with pertinent history of SLE, Panora's disease, gastroesophageal reflux disease, peripheral neuropathy, mood disorder who presents to the emergency department for evaluation of elbow pain. Patient states 4 days ago she noted redness around the right elbow. No inciting factor. Patient had an appointment with radiologist for kidney biopsy at [facility] where her erythema was marked with a surgical marker. Patient states the redness has extended beyond the marked site. Also has associated pain and warmth. No fever or chills. Associated swelling present. No chest pain, palpitations, shortness of breath, abdominal pain, changes in urinary or bowel habits. Patient also stated that about a week ago she noticed a tick on her right thigh and was able to remove it after 24 hours. It has been more than 72 hours since she removed the tick. No redness or swelling at the site of tick bite. In the emergency department, patient was found to be septic and initiated on empiric IV antibiotics. Imaging concerning for olecranon bursitis. Review of Systems Constitutional: Constitutional: Reports no additional constitutional complaints Cardiovascular: Cardiovascular: Reports no additional cardiovascular complaints Respiratory: Respiratory: Reports no additional respiratory complaints Gastrointestinal: Gastrointestinal: Reports no additional gastrointestinal complaints Genitourinary: Genitourinary: Reports no additional female genitourinary complaints Musculoskeletal: Musculoskeletal: Reports arthralgias and Reports joint swelling ON LICENSE OF [facility] Medical History Lupus (systemic lupus erythematosus) Pertinent family history: No family history of early CAD Social History Patient Tobacco Use Status: Never used Tobacco Smoked in Last 30 Days: No Use of substances other than those prescribed or required for medical reasons: No Advance Directives: No Advance Directives Information Provided: No Do you have a plan to hurt others: No Plan Nutrition Risks: No Nutritional Risk Patient : No Meds Allergies Allergy/AdvReac Type Severity Reaction Status Date / Time metoclopramide (From Reglan) Allergy Anaphylaxis Verified 12/27/24 04:24 ondansetron (From Zofran) Allergy Anaphylaxis Verified 12/27/24 04:24 prochlorperazine (From Allergy Anaphylaxis Verified 12/27/24 04:24 Compazine) promethazine (From Phenergan) Allergy Anaphylaxis Verified 12/27/24 04:24 Home Medications ?Medication ?Instructions ?Recorded ?Confirmed ?Last Taken ?Type calcium carbonate (Calcium 500) 500 mg PO BID 12/02/24 12/27/24 12/01/24 History fludrocortisone 0.1 mg tablet 0.1 mg PO DAILY 12/02/24 12/27/24 Unknown History folic acid 1 mg tablet 1 mg PO DAILY 12/02/24 12/27/24 11/30/24 History gabapentin 400 mg capsule 400 mg PO BEDTIME 12/02/24 12/27/24 11/30/24 History hydroxychloroquine 200 mg tablet 400 mg PO DAILY 12/02/24 12/27/24 11/30/24 History lisdexamfetamine 40 mg capsule 40 mg PO DAILY PRN ADHD 12/02/24 12/27/24 Unknown History methotrexate sodium 2.5 mg tablet 15 mg PO FR 12/02/24 12/27/24 12/26/24 History omeprazole 20 mg capsule,delayed 20 mg PO BEDTIME 12/02/24 12/27/24 11/30/24 History release ondansetron 4 mg disintegrating 4 mg PO Q8H PRN nausea/vomiting 12/02/24 12/27/24 Unknown History tablet oxycodone 10 mg tablet 10 mg PO Q4H PRN Pain (Scale Score 12/02/24 12/27/24 Unknown History 4-6) semaglutide (weight loss) 1 mg/0.5 1 mg subcut FR@0900 12/02/24 12/27/24 12/26/24 History mL subcutaneous pen injector (Wegovy) vitamin A 3,000 mcg (10,000 unit) 3,000 mcg PO DAILY 12/02/24 12/27/24 Unknown History capsule duloxetine 30 mg capsule,delayed 30 mg PO DAILY 12/27/24 12/27/24 Unknown History release nystatin 100,000 unit/mL oral 5 ml PO QID PRN infection 12/27/24 12/27/24 Unknown History suspension prednisone 1 mg tablet 3 mg PO DAILY 12/27/24 12/27/24 Unknown History prednisone 20 mg tablet 20 mg PO DAILY 12/27/24 12/27/24 Unknown History Physical Exam Vital Signs and Narrative: Vital Signs: Last Vital Signs Temp 98.7 F 12/27/24 07:52 Pulse 95 12/27/24 07:52 Resp 18 12/27/24 07:52 BP 113/75 12/27/24 07:52 Pulse Ox 100 12/27/24 07:52 O2 Del Method Room Air 12/27/24 07:52 BMI result Body Mass Index 31.4 Const: Other: Middle-aged female lying in bed in no distress Neck supple, no JVD Regular rate and rhythm, S1-S2 heard Regular breath sounds bilaterally, no wheezing or crackles appreciated Abdomen soft nontender, no guarding, no rigidity Patient is awake, alert and oriented to self, place, time and person ; no focal motor deficit Psych: Normal mood Erythema, warmth and tenderness around right elbow, limited flexion and extension of elbow due to pain Results Labs 12/27/24 05:41 12/27/24 05:41 Labs: Laboratory Results - last 24 hr 12/27/24 12/27/24 05:41 08:13 MCV 89.9 MCH 31.0 MCHC 34.5 RDW 14.4 Plt Count 254 D MPV 9.0 L Immature Gran % (Auto) 0.9 H Neut % (Auto) 71.2 Lymph % (Auto) 19.4 L [place] % (Auto) 6.5 Eos % (Auto) 1.5 Baso % (Auto) 0.5 Lymph # (Auto) 2.5 [place] # (Auto) 0.9 Eos # (Auto) 0.2 Baso # (Auto) 0.1 Abs Immat Gran (auto) 0.12 H Absolute Neuts (auto) 9.3 H Absolute Nucleated RBC 0.000 Nucleated RBC % (auto) 0.0 ESR 44 H Anion Gap 14 Estim Creat Clear Calc 87.1 Estimated GFR > 60 Random Glucose 102 Lactic Acid 2.1 H* Lactic Acid F/U @ 2Hr 2.1 H* Calcium 8.5 D Total Bilirubin 0.3 Direct Bilirubin 0.1 AST 35 H ALT 58 H Alkaline Phosphatase 92 C-Reactive Protein 8.07 H Total Protein 6.1 L Albumin 3.5 Assessment and Plan (1) Cellulitis: Status: Acute Plan This has a 54-year-old female with pertinent history of SLE, Jun's disease, gastroesophageal reflux disease, peripheral neuropathy, mood disorder who presents to the emergency department for evaluation of elbow pain. #. Sepsis due to right elbow cellulitis: Resuscitated with IV crystalloids. Lactic acid and blood culture obtained. Initiated empiric IV vancomycin. Ortho eval #. 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 Gastroesophageal reflux disease: On PPI #. Peripheral neuropathy: Gabapentin #. SLE: On hydroxychloroquine and methotrexate DVT prophylaxis: Tamarax Full code Admit as inpatient and will require two night minimum hospital stay for IV antibiotics (as above), which is not possible in a lesser acute setting. Quality Stroke Does the patient have a stroke diagnosis?: No VTE Prior VTE?: No VTE Risk Level:: Medical - moderate - high VTE Device Contraindication: Treatment Not Indicated VTE Drug Contraindication: N/A - Med Ordered
[2024-12-27] MEDS: iohexoL 350 MG/ML 100 ML INFUS..BTL IV (09:17)
[2024-12-27 10:16] LABS: Reflex Lactate? 2 Y
--- NOTE | 2024-12-27 10:31 | PHA.MEDREC ---
Addendum entered by Rita Gorman RPh 12/27/24 10:57: reviewed by [facility]. Original Note: Pharmacy Consult ? Medication Reconciliation Pharmacy has completed the medication reconciliation. Spoke with patient to confirm. She takes Wegovy and methotrexate (6 tabs) on Sunday, had both yesterday. She reports she did not start taking risendronate. She is currently taking 23 mg of prednisone daily. She is not taking fludrocortisone right now - see rx comments. Patient reports she last took her medications yesterday morning.
[2024-12-27 11:10] LABS: ~Lactic Acid-LAB USE ONLY 2.0 mmol/L (0.5-2.0)
--- NOTE | 2024-12-27 11:20 | PC.NURSE ---
Pt oral temp 99.5- medicated per MAR with PO Tylenol. Tolerated PO- became nauseous shortly after. No vomiting.
--- NOTE | 2024-12-27 11:50 | PC.NURSE ---
Morning PO meds delayed d/t pt nauseous. Pt medicated per MAR for pain. MD Bolivar made aware of pt nausea/medications delayed. Will reattempt PO meds when pt is more comfortable.
--- NOTE | 2024-12-27 11:54 | PHA.PROG ---
Admission Date/Time: December 27, 2024 08:39 Indication: SEPSIS Weight in k.5 kg Adjusted body weight in K.64 Roy body weight in K.4 Obesity Dosing Indication % IBW: 31.4 BMI Serum Creatinine - Last 168 Hours 12/27/24 05:41 Creatinine 0.75 Estimated CrCl and GFR - Last 168 Hours 12/27/24 05:41 Estim Creat Clear Calc 87.1 Estimated GFR > 60 Vancomycin Loading Dose: 2000 Current Vancomycin Dosing Regimen: 1250 Q12 Vancomycin Monitoring using AUC goal of 400 - 600 range with trough as surrogate marker: Date and Time for next Vancomycin Level to be drawn: 12/28 @1600 Pharmacist Comments on Vancomycin Plan: Vancomycin dosing will take advantage of [employer] as a clinical decision support tool that uses Bayesian modeling to calculate individual patient's pharmacokinetic parameters and forecast the patient's drug concentration time course with the target goal AUC 24 range of 400 - 600 mg/L/hr.
--- NOTE | 2024-12-27 12:28 | PC.NURSE ---
Pt requesting Benadryl for nausea. MD Bolivar made aware. Per JOSE corrigan to give PRN Benadryl early.
--- NOTE | 2024-12-27 14:15 | PC.NURSE ---
Pt medicated per MAR for nausea and reassessed- pt stating she still feels nauseous and doesn't want to take PO medications. Pt to be transferred to room 373. This RN spoke with inpatient primary RN Liberty about pt refusing PO meds. Care of pt transferred at this time.
[2024-12-27] MEDS: 0.9 % Sodium Chloride Flush 3 ML SYRINGE IVFLUSH ×2 (15:55→20:40)
[2024-12-28 00:40] VITALS: BP 109/66
[2024-12-28 03:35] VITALS: BP 114/72; PULSE 86; RESP 20; TEMP 37.2; O2SAT 95
[2024-12-28 07:19] VITALS: BP 106/54; PULSE 82; RESP 16; TEMP 36.6; O2SAT 96
[2024-12-28 07:25] LABS: MANUAL DIFF FLAG NO
[2024-12-28 07:41] LABS: Anion Gap 13 (12-20); Blood Urea Nitrogen 11 mg/dL (9-16); Calcium 8.6 mg/dL (8.4-10.2); Carbon Dioxide 26 mmol/L (22-29); Chloride 100 mmol/L (96-108); Creatinine Clr Calc Pharmacy 100.6; Estimated Glomerular Filt Rate > 60; Potassium 3.5 mmol/L (3.3-5.1); Sodium 135 mmol/L (135-145)
[2024-12-28 07:44] LABS: Hematocrit 34.5 % (37.0-47.0); Hemoglobin 11.7 g/dl (12.0-16.0); Imm Gran Abs Auto 0.13 X10*3/uL (0.00-0.03); Imm Gran Pct Auto 1.0 % (0.0-0.4); Lymphocytes Absolute Auto 2.4 X10*3/uL (1.2-4.9); Mean Corpuscular HGB Conc 33.9 g/dl (31.0-35.0); Mean Corpuscular Hemoglobin 30.5 pg (27.0-33.0); Mean Corpuscular Volume 89.8 fL (80.0-98.0); NRBC Abs Auto 0.000 X10*3/uL (0.0-0.012); NRBC Pct Auto 0.0 /100WBC (0.0-0.2); Platelet Count 272 X10*3/uL (160-400); Red Blood Count 3.84 X10*6/uL (4.20-5.50); White Blood Count 12.4 X10*3/uL (4.8-10.8)
[2024-12-28] MEDS: oxyCODONE HCl Immed Release 5 MG TABLET 10 MG PO ×2 (08:28→12:33)
[2024-12-28] MEDS: 0.9 % Sodium Chloride Flush 3 ML SYRINGE IVFLUSH ×3 (08:29→19:31)
--- NOTE | 2024-12-28 08:49 | P.PNIM_ITS ---
Subjective Subjective Date of Service: 12/28/24 Interval History: Improvement in erythema noted. Continues to have pain and swelling Constitutional Constitutional: Reports no additional constitutional complaints Cardiovascular Cardiovascular: Reports no additional cardiovascular complaints Respiratory Respiratory: Reports no additional respiratory complaints Gastrointestinal Gastrointestinal: Reports no additional gastrointestinal complaints Musculoskeletal Musculoskeletal: Reports arthralgias and Reports joint swelling Physical Exam 2 Vital Signs: Vital Signs: Last Vital Signs Temp 98 F 12/28/24 07:19 Pulse 82 12/28/24 07:19 Resp 16 12/28/24 07:19 BP 106/54 L 12/28/24 07:19 Pulse Ox 96 12/28/24 07:19 O2 Del Method Room Air 12/28/24 07:19 BMI result Body Mass Index 32.4 Const: Other: Middle-aged female lying in bed in no distress Neck supple, no JVD Regular rate and rhythm, S1-S2 heard Regular breath sounds bilaterally, no wheezing or crackles appreciated Abdomen soft nontender, no guarding, no rigidity Patient is awake, alert and oriented to self, place, time and person ; no focal motor deficit Psych: Normal mood Erythema, warmth and tenderness around right elbow, limited flexion and extension of elbow due to pain Objective Data Active Medications Acetaminophen (Acetaminophen 325 Mg Tablet) 650 mg PO Q6H PRN PRN Reason: Pain, Mild 1-3,fever,headache Last Admin: 12/27/24 11:10 Dose: 650 mg Documented By: JOSE Calcium Carbonate (Calcium Carbonate 750 Mg Tab.Chew) 750 mg PO Q4H PRN PRN Reason: Heartburn Diphenhydramine HCl (Diphenhydramine Hcl 50 Mg/Ml Vial) 25 mg IVPUSH Q6H PRN PRN Reason: Nausea and Vomiting Last Admin: 12/28/24 06:26 Dose: 25 mg Documented By: HARSHAL Docusate Sodium (Docusate Sodium 100 Mg Capsule) 200 mg PO ONCE ONE Stop: 12/28/24 08:50 Duloxetine HCl (Duloxetine Hcl 30 Mg Capsule.Dr) 30 mg PO DAILY [facility] Last Admin: 12/28/24 08:27 Dose: 30 mg Documented By: AMAN Enoxaparin Sodium (Enoxaparin Sodium 40 Mg/0.4 Ml Syringe) 40 mg SUBCUT Q24H [facility] Last Admin: 12/28/24 08:28 Dose: 40 mg Documented By: AMAN Folic Acid (Folic Acid 1 Mg Tablet) 1 mg PO DAILY [facility] Last Admin: 12/28/24 08:27 Dose: 1 mg Documented By: AMAN Gabapentin (Gabapentin 400 Mg Capsule) 400 mg PO BEDTIME [facility] Last Admin: 12/27/24 20:39 Dose: 400 mg Documented By: HARSHAL Hydromorphone HCl (Hydromorphone Hcl 1 Mg/Ml Syringe) 1 mg IVPUSH Q4H PRN; Protocol PRN Reason: Pain, Severe (Pain Scale 7-10) Last Admin: 12/28/24 05:45 Dose: 1 mg Documented By: HARSHAL Hydroxychloroquine Sulfate (Hydroxychloroquine Sulfate 200 Mg Tablet) 400 mg PO DAILY [facility] Last Admin: 12/28/24 08:26 Dose: 400 mg Documented By: AMAN Vancomycin HCl 1,250 mg/ (Sodium Chloride) 250 mls @ 166.667 mls/hr IV Q12H [facility] Last Infusion: 12/28/24 08:18 Dose: Infused Documented By: AMAN Magnesium Hydroxide (Milk Of Magnesia 30 Ml Oral.Susp) 30 ml PO DAILY PRN PRN Reason: Constipation Melatonin (Melatonin 3 Mg Tablet) 6 mg PO BEDTIME PRN PRN Reason: Insomnia Methotrexate (Methotrexate Sodium 2.5 Mg Tablet) 15 mg PO FR [facility] Non-Formulary Medication (Lisdexamfetamine) 40 mg PO DAILY PRN PRN Reason: ADHD Omeprazole (Omeprazole 20 Mg Capsule.Dr) 20 mg PO BEDTIME [facility] Last Admin: 12/27/24 20:39 Dose: 20 mg Documented By: HARSHAL Oxycodone HCl (Oxycodone Hcl Immed Release 5 Mg Tablet) 10 mg PO Q4H PRN PRN Reason: Pain (Scale Score 4-6) Last Admin: 12/28/24 08:28 Dose: 10 mg Documented By: AMAN Pharmacy Consult (Consult Rx Vancomycin Dosing) 1 each MISCELLANE DAILY PRN PRN Reason: Consult order Prednisone (Prednisone 1 Mg Tablet) 3 mg PO DAILY [facility] Last Admin: 12/28/24 08:27 Dose: 3 mg Documented By: AMAN Prednisone (Prednisone 20 Mg Tablet) 20 mg PO DAILY [facility] Last Admin: 12/28/24 08:27 Dose: 20 mg Documented By: REGISEBTANI Sodium Chloride (0.9 % Sodium Chloride Flush 3 Ml Syringe) 3 ml IVFLUSH QSHIFT [facility] Last Admin: 12/28/24 08:29 Dose: 3 ml Documented By: LEFEBVA Labs 12/28/24 06:51 12/28/24 06:51 Labs: Laboratory Results - last 24 hr 12/27/24 12/28/24 10:38 06:51 MCV 89.8 MCH 30.5 MCHC 33.9 RDW 14.4 Plt Count 272 MPV 9.3 L Immature Gran % (Auto) 1.0 H Neut % (Auto) 73.1 H Lymph % (Auto) 19.1 L [place] % (Auto) 5.7 Eos % (Auto) 0.8 Baso % (Auto) 0.3 Lymph # (Auto) 2.4 [place] # (Auto) 0.7 Eos # (Auto) 0.1 Baso # (Auto) 0.0 Abs Immat Gran (auto) 0.13 H Absolute Neuts (auto) 9.1 H Absolute Nucleated RBC 0.000 Nucleated RBC % (auto) 0.0 Anion Gap 13 Estim Creat Clear Calc 100.6 Estimated GFR > 60 Random Glucose 98 Lactic Acid F/U @ 4Hr 2.0 Calcium 8.6 Microbiology Microbiology Results: Microbiology 12/27/24 05:38 Blood Culture - Preliminary Blood - Venous No growth after 24 hours. 12/27/24 05:38 Blood Culture - Preliminary Blood - Venous No growth after 24 hours. Assessment and Plan (1) Cellulitis: Status: Acute Plan This has a 54-year-old female with pertinent history of SLE, Rappahannock's disease, gastroesophageal reflux disease, peripheral neuropathy, mood disorder who presents to the emergency department for evaluation of elbow pain. #. Sepsis due to right elbow cellulitis: Improvement in erythema noted with IV vancomycin, continue for 1 more day as she has significant swelling, warmth and tenderness (started: 12/27). Ortho eval pending #. Chronic adrenal insufficiency due to Rappahannock's: On chronic prednisone and fludrocortisone #. Gastroesophageal reflux disease: On PPI #. Peripheral neuropathy: Gabapentin #. SLE: On hydroxychloroquine and methotrexate DVT prophylaxis: Lovenox Full code Reason for continued hospitalization: IV antibiotics. Specialist consult pending Quality Stroke Does the patient have a stroke diagnosis?: No VTE Prior VTE?: No VTE Risk Level:: Medical - moderate - high VTE Device Contraindication: Treatment Not Indicated VTE Drug Contraindication: N/A - Med Ordered
--- NOTE | 2024-12-28 09:52 | P.CONOP_ITS ---
History of Present Illness HPI Consult date: 12/28/24 Chief complaint: Skin infection Narrative: Patient is a 54-year-old female admitted to the hospital for cellulitis of the right elbow with associated olecranon bursitis Patient reports that she has had issues with all tennis elbow in the olecranon bursitis and bilateral elbows in the past, but has never had redness or pain like this before Patient reports that she is on chronic steroids for lupus at baseline Reports that pain and redness have both improved with IV antibiotics Patient reports that her range of motion is still fairly limited due to pain Reports tenderness over the olecranon process of the right elbow, and adjacent to this States all of her pain is on the posterior aspect of the right elbow at skin level, reports no deep pain No other acute complaints or concerns at this time Review of Systems 2 Review of Systems: Yes all other systems are reviewed and are negative PMFSH Past Medical History Medical History Lupus (systemic lupus erythematosus) Social History Social History Household Members: Spouse Housing: House Do you presently have visiting nurse or other home services: Yes Patient Tobacco Use Status: Never used Tobacco Meds Allergies Allergy/AdvReac Type Severity Reaction Status Date / Time metoclopramide (From Reglan) Allergy Anaphylaxis Verified 12/27/24 04:24 ondansetron (From Zofran) Allergy Anaphylaxis Verified 12/27/24 04:24 prochlorperazine (From Allergy Anaphylaxis Verified 12/27/24 04:24 Compazine) promethazine (From Phenergan) Allergy Anaphylaxis Verified 12/27/24 04:24 Active Medications: Current Medications Acetaminophen (Acetaminophen 325 Mg Tablet) 650 mg PO Q6H PRN PRN Reason: Pain, Mild 1-3,fever,headache Last Admin: 12/27/24 11:10 Dose: 650 mg Calcium Carbonate (Calcium Carbonate 750 Mg Tab.Chew) 750 mg PO Q4H PRN PRN Reason: Heartburn Diphenhydramine HCl (Diphenhydramine Hcl 50 Mg/Ml Vial) 25 mg IVPUSH Q6H PRN PRN Reason: Nausea and Vomiting Last Admin: 12/28/24 06:26 Dose: 25 mg Duloxetine HCl (Duloxetine Hcl 30 Mg Capsule.) 30 mg PO DAILY [facility] Last Admin: 12/28/24 08:27 Dose: 30 mg Enoxaparin Sodium (Enoxaparin Sodium 40 Mg/0.4 Ml Syringe) 40 mg SUBCUT Q24H [facility] Last Admin: 12/28/24 08:28 Dose: 40 mg Folic Acid (Folic Acid 1 Mg Tablet) 1 mg PO DAILY [facility] Last Admin: 12/28/24 08:27 Dose: 1 mg Gabapentin (Gabapentin 400 Mg Capsule) 400 mg PO BEDTIME [facility] Last Admin: 12/27/24 20:39 Dose: 400 mg Hydromorphone HCl (Hydromorphone Hcl 1 Mg/Ml Syringe) 1 mg IVPUSH Q4H PRN; Protocol PRN Reason: Pain, Severe (Pain Scale 7-10) Last Admin: 12/28/24 05:45 Dose: 1 mg Hydroxychloroquine Sulfate (Hydroxychloroquine Sulfate 200 Mg Tablet) 400 mg PO DAILY [facility] Last Admin: 12/28/24 08:26 Dose: 400 mg Vancomycin HCl 1,250 mg/ (Sodium Chloride) 250 mls @ 166.667 mls/hr IV Q12H [facility] Last Infusion: 12/28/24 08:18 Dose: Infused Magnesium Hydroxide (Milk Of Magnesia 30 Ml Oral.Susp) 30 ml PO DAILY PRN PRN Reason: Constipation Melatonin (Melatonin 3 Mg Tablet) 6 mg PO BEDTIME PRN PRN Reason: Insomnia Methotrexate (Methotrexate Sodium 2.5 Mg Tablet) 15 mg PO [facility] Non-Formulary Medication (Lisdexamfetamine) 40 mg PO DAILY PRN PRN Reason: ADHD Omeprazole (Omeprazole 20 Mg Capsule.) 20 mg PO BEDTIME [facility] Last Admin: 12/27/24 20:39 Dose: 20 mg Oxycodone HCl (Oxycodone Hcl Immed Release 5 Mg Tablet) 10 mg PO Q4H PRN PRN Reason: Pain (Scale Score 4-6) Last Admin: 12/28/24 08:28 Dose: 10 mg Pharmacy Consult (Consult Rx Vancomycin Dosing) 1 each MISCELLANE DAILY PRN PRN Reason: Consult order Prednisone (Prednisone 1 Mg Tablet) 3 mg PO DAILY [facility] Last Admin: 12/28/24 08:27 Dose: 3 mg Prednisone (Prednisone 20 Mg Tablet) 20 mg PO DAILY [facility] Last Admin: 12/28/24 08:27 Dose: 20 mg Sodium Chloride (0.9 % Sodium Chloride Flush 3 Ml Syringe) 3 ml IVFLUSH QSHIFT [facility] Last Admin: 12/28/24 08:29 Dose: 3 ml Home Medications ?Medication ?Instructions ?Recorded ?Confirmed ?Last Taken ?Type calcium carbonate (Calcium 500) 500 mg PO BID 12/02/24 12/27/24 12/01/24 History fludrocortisone 0.1 mg tablet 0.1 mg PO DAILY 12/02/24 12/27/24 Unknown History folic acid 1 mg tablet 1 mg PO DAILY 12/02/2412/2711/30/24 History gabapentin 400 mg capsule 400 mg PO BEDTIME 12/02/24 0 12/27/24 11/30/24 History hydroxychloroquine 200 mg tablet 400 mg PO DAILY 12/0212/27/24 11/30/24 History lisdexamfetamine 40 mg capsule 40 mg PO DAILY PRN ADHD 12/02/24 12/27/24 Unknown History methotrexate sodium 2.5 mg tablet 15 mg PO FR 12/02/24 12/27/24 12/26/24 History omeprazole 20 mg capsule,delayed 20 mg PO BEDTIME 01/1912/27/24 11/30/24 History release ondansetron 4 mg disintegrating 4 mg PO Q8H PRN nausea /vomiting 12/02/24 12/27/24 Unknown History tablet oxycodone 10 mg tablet 10 mg PO Q4H PRN Pain (Scale Score 12/02/24 12/27/24 Unknown History 4-6) semaglutide (weight loss) 1 mg/0.5 1 mg subcut FR@0912/02/24 12/27/24 12/26/24 History mL subcutaneous pen injector (Wegovy) vitamin A 3,000 mcg (10,000 unit) 3,000 mcg PO DAILY 0 12/02/24 12/27/24 Unknown History capsule duloxetine 30 mg capsule,delayed 30 mg PO DAILY 12/27/24 Unknown History release nystatin 100,000 unit/mL oral 5 ml PO QID PRN infectio n 12/27/24 12/27/24 Unknown History suspension prednisone 1 mg tablet 3 mg PO DAILY 12/27/2412/27 Unknown History prednisone 20 mg tablet 20 mg PO DAILY 12/27/24 08/07/22 Unknown History Physical Exam 2 Vital Signs: Vital Signs: Last Vital Signs Temp 98 F 12/28/24 07:19 Pulse 82 12/28/24 07:19 Resp 16 12/28/24 07:19 BP 106/54 L 12/28/24 07:19 Pulse Ox 96 12/28/24 07:19 O2 Del Method Room Air 12/28/24 07:19 BMI result Body Mass Index 32.4 Extrem: Other: Patient's right elbow is noted to have erythema at and surrounding the olecranon bursa There is noted to be swelling of the olecranon bursa itself Redness does extend slightly into the forearm and up into the proximal arm No lacerations, abrasions, open areas No evidence of infection Patient reports significant tenderness to palpation of the olecranon bursa and surrounding skin of the right elbow Range of motion limited due to pain, patient is able to extend to approximately 30 degrees and is able to flex to approximately 100 degrees Distal sensation intact Capillary refill brisk Results Labs 12/28/24 06:51 12/28/24 06:51 Labs: Abnormal lab results 12/28/24 Range/Units 06:51 WBC 12.4 H (4.8-10.8) X10*3/uL RBC 3.84 L (4.20-5.50) X10*6/uL Hgb 11.7 L (12.0-16.0) g/dl Hct 34.5 L (37.0-47.0) % MPV 9.3 L (9.4-12.3) fL Immature Gran % (Auto) 1.0 H (0.0-0.4) % Neut % (Auto) 73.1 H (45-73) % Lymph % (Auto) 19.1 L (20-40) % Abs Immat Gran (auto) 0.13 H (0.00-0.03) X10*3/uL Absolute Neuts (auto) 9.1 H (2.0-8.3) x10*3/uL H & H 12/27/24 12/28/24 Range/Units 05:41 06:51 Hgb 11.7 L D 11.7 L (12.0-16.0) g/dl Hct 33.9 L D 34.5 L (37.0-47.0) % All other labs normal. Diagnostic results Elbow CT: report reviewed and image reviewed Assessment and Plan (1) Septic olecranon bursitis of right elbow: Status: Acute (2) Cellulitis: Status: Acute Plan 1. Infected olecranon bursitis of right elbow Patient is educated about this condition Patient is educated about the typical recovery course Continue IV antibiotics No aspiration or surgical intervention indicated at this time As pain improves, would recommend OT for range of motion of the right elbow Continue with all other recommendations per Medicine Procedures Date of Service Date of Service: 12/28/24
[2024-12-28 16:00] VITALS: BP 94/59; PULSE 82; RESP 16; TEMP 37; O2SAT 94
--- NOTE | 2024-12-28 16:25 | HE.PHANOTE ---
RE: Vanco Renal function improving, trough returned at 12.2, pt is subtherapeutic. Dose increased to 1,000 q8h with predicted trough 16.2, predicted AUC 528. Next trough 12/29 @ 1600.
--- NOTE | 2024-12-28 16:37 | MHC.CM.PN ---
PT REPORTS SHE LIVES WITH HER AND IS INDEPENDENT WITH CARE SHE HAS ASPIRE FOR ONCE PER MONTH HOME INFUSIONS COPY OF HCP REQUESTED PCP: RAZA FERRARO DCP: HOME WITH NO NEW SERVICES PT TO ARRANGE TRANSPORT
[2024-12-28 18:39] VITALS: BP 107/68; PULSE 92
[2024-12-29 03:12] VITALS: BP 111/72; PULSE 84; RESP 20; TEMP 36.6; O2SAT 97
[2024-12-29 07:53] VITALS: BP 101/71; PULSE 83; RESP 18; TEMP 36; O2SAT 94
[2024-12-29] MEDS: 0.9 % Sodium Chloride Flush 3 ML SYRINGE IVFLUSH ×3 (07:56→20:01)
[2024-12-29 08:55] LABS: MANUAL DIFF FLAG NO
[2024-12-29 08:59] LABS: Hematocrit 34.4 % (37.0-47.0); Hemoglobin 11.6 g/dl (12.0-16.0); Imm Gran Abs Auto 0.25 X10*3/uL (0.00-0.03); Imm Gran Pct Auto 2.6 % (0.0-0.4); Lymphocytes Absolute Auto 2.7 X10*3/uL (1.2-4.9); Mean Corpuscular HGB Conc 33.7 g/dl (31.0-35.0); Mean Corpuscular Hemoglobin 30.6 pg (27.0-33.0); Mean Corpuscular Volume 90.8 fL (80.0-98.0); NRBC Abs Auto 0.000 X10*3/uL (0.0-0.012); NRBC Pct Auto 0.0 /100WBC (0.0-0.2); Platelet Count 270 X10*3/uL (160-400); Red Blood Count 3.79 X10*6/uL (4.20-5.50); White Blood Count 9.5 X10*3/uL (4.8-10.8)
[2024-12-29 09:11] LABS: Anion Gap 12 (12-20); Blood Urea Nitrogen 13 mg/dL (9-16); Calcium 8.6 mg/dL (8.4-10.2); Carbon Dioxide 26 mmol/L (22-29); Chloride 103 mmol/L (96-108); Creatinine Clr Calc Pharmacy 99.0; Estimated Glomerular Filt Rate > 60; Potassium 3.5 mmol/L (3.3-5.1); Sodium 137 mmol/L (135-145)
--- NOTE | 2024-12-29 10:27 | MHC.CM.PN ---
PER MD ROUNDS, PT EXPECTED TO BE CLEARED FOR DC TOMORROW DCP: HOME WITH NO NEW SERVICES VIA PRIVATE TRANSPORT
--- NOTE | 2024-12-29 11:03 | P.PNOP_ITS ---
Subjective Subjective Date of Service: 12/29/24 Interval history: 54-year-old female admitted to the hospital for olecranon bursitis and cellulitis of right elbow Patient resting comfortably in bed this morning Pain fairly well managed Patient reports improvements in redness, swelling, pain since yesterday Reports improved range of motion of the elbow No acute events overnight No other acute complaints or concerns at this time Physical Exam Vital Signs: Vital Signs: Last Vital Signs Temp 96.8 F 12/29/24 07:53 Pulse 83 12/29/24 07:53 Resp 18 12/29/24 07:53 BP 101/71 12/29/24 07:53 Pulse Ox 94 12/29/24 07:53 O2 Del Method Room Air 12/29/24 07:53 BMI result Body Mass Index 32.4 Extrem: Other: Patient's right elbow is noted to have erythema at and surrounding the olecranon bursa, has improved significantly from yesterday There is noted to be swelling of the olecranon bursa itself Redness no longer extends into forearm or proximal arm, has localized around the elbow No lacerations, abrasions, open areas No evidence of infection Patient reports significant tenderness to palpation of the olecranon bursa, mi nimal tenderness to surrounding skin Range of motion limited due to pain, patient is able to extend to approximately 15-20 degrees and is able to flex to approximately 100 degrees Distal sensation intact Capillary refill brisk Procedures Date of Service Date of Service: 12/29/24 Progress Note: A&P Assessment and plan (1) Cellulitis: Status: Acute (2) Septic olecranon bursitis of right elbow: Status: Acute Plan 1. Infected olecranon bursitis of the left elbow Continue IV antibiotics Might recommend OT for range of motion of the elbow Continue pain management No need for acute orthopedic intervention at this time Continue with all other recommendations per Medicine Time Spent With Patient Time: Total time managing care of this patient today ____ minutes. Quality Stroke Does the patient have a stroke diagnosis?: No VTE Prior VTE?: No VTE Risk Level:: Medical - moderate - high VTE Device Contraindication: Treatment Not Indicated VTE Drug Contraindication: N/A - Med Ordered
--- NOTE | 2024-12-29 12:23 | HO.PM.IMPN ---
Subjective Subjective Date of Service: 12/29/24 Interval History: f/u infection right olecranon bursitis Continued pain, and swelling. Improvement of erythema Review of Systems Review of Systems: Yes all other systems are reviewed and are negative Physical Exam Exam: Exam: General: AOx3, no acute distress Resp: CTA bilaterally CVS: S1, S2, RRR GI: +BS, NT, no distention Skin: Warm, dry. Improvement of erythema from marked cellulitis on border. UA was increased warmth concern for since at elbow. Painful to touch. Neuro: Cranial nerves II-XII grossly intact bilaterally. Motor grossly intact bilaterally Extremities: No LE edema Psych: Appropriate affect Vital Signs: Vital Signs: Last Vital Signs Temp 96.8 F 12/29/24 07:53 Pulse 83 12/29/24 07:53 Resp 18 12/29/24 07:53 BP 101/71 12/29/24 07:53 Pulse Ox 94 12/29/24 07:53 O2 Del Method Room Air 12/29/24 07:53 BMI result Body Mass Index 32.4 Objective Data Active Medications Acetaminophen (Acetaminophen 325 Mg Tablet) 650 mg PO Q6H PRN PRN Reason: Pain, Mild 1-3,fever,headache Last Admin: 12/27/24 11:10 Dose: 650 mg Documented By: JOSE Calcium Carbonate (Calcium Carbonate 750 Mg Tab.Chew) 750 mg PO Q4H PRN PRN Reason: Heartburn Diphenhydramine HCl (Diphenhydramine Hcl 50 Mg/Ml Vial) 25 mg IVPUSH Q6H PRN PRN Reason: Nausea and Vomiting Last Admin: 12/29/24 07:54 Dose: 25 mg Documented By: МАРИНА Duloxetine HCl (Duloxetine Hcl 30 Mg Capsule.Dr) 30 mg PO DAILY [facility] Last Admin: 12/29/24 07:56 Dose: 30 mg Documented By: МАРИНА Enoxaparin Sodium (Enoxaparin Sodium 40 Mg/0.4 Ml Syringe) 40 mg SUBCUT Q24H [facility] Last Admin: 12/29/24 08:00 Dose: 40 mg Documented By: МАРИНА Folic Acid (Folic Acid 1 Mg Tablet) 1 mg PO DAILY [facility] Last Admin: 12/29/24 07:56 Dose: 1 mg Documented By: МАРИНА Gabapentin (Gabapentin 400 Mg Capsule) 400 mg PO BEDTIME [facility] Last Admin: 12/28/24 19:31 Dose: 400 mg Documented By: RICARDO Hydromorphone HCl (Hydromorphone Hcl 1 Mg/Ml Syringe) 1 mg IVPUSH Q4H PRN; Protocol PRN Reason: Pain, Severe (Pain Scale 7-10) Last Admin: 12/29/24 07:55 Dose: 1 mg Documented By: МАРИНА Hydroxychloroquine Sulfate (Hydroxychloroquine Sulfate 200 Mg Tablet) 400 mg PO DAILY [facility] Last Admin: 12/29/24 07:56 Dose: 400 mg Documented By: МАРИНА Vancomycin HCl 1,000 mg/ (Sodium Chloride) 270 mls @ 270 mls/hr IV Q8H [facility] Last Infusion: 12/29/24 10:57 Dose: Infused Documented By: МАРИНА Magnesium Hydroxide (Milk Of Magnesia 30 Ml Oral.Susp) 30 ml PO DAILY PRN PRN Reason: Constipation Melatonin (Melatonin 3 Mg Tablet) 6 mg PO BEDTIME PRN PRN Reason: Insomnia Methotrexate (Methotrexate Sodium 2.5 Mg Tablet) 15 mg PO [facility] Non-Formulary Medication (Lisdexamfetamine) 40 mg PO DAILY PRN PRN Reason: ADHD Omeprazole (Omeprazole 20 Mg Capsule.Dr) 20 mg PO BEDTIME [facility] Last Admin: 12/28/24 19:31 Dose: 20 mg Documented By: RICARDO Oxycodone HCl (Oxycodone Hcl Immed Release 5 Mg Tablet) 10 mg PO Q4H PRN PRN Reason: Pain (Scale Score 4-6) Last Admin: 12/28/24 12:33 Dose: 10 mg Documented By: AMAN Pharmacy Consult (Consult Rx Vancomycin Dosing) 1 each MISCELLANE DAILY PRN PRN Reason: Consult order Prednisone (Prednisone 1 Mg Tablet) 3 mg PO DAILY [facility] Last Admin: 12/29/24 07:55 Dose: 3 mg Documented By: МАРИНА Prednisone (Prednisone 20 Mg Tablet) 20 mg PO DAILY [facility] Last Admin: 12/29/24 07:56 Dose: 20 mg Documented By: МАРИНА Sodium Chloride (0.9 % Sodium Chloride Flush 3 Ml Syringe) 3 ml IVFLUSH QSHIFT [facility] Last Admin: 12/29/24 07:56 Dose: 3 ml Documented By: МАРИНА Labs 12/29/24 08:51 12/29/24 08:51 Labs: Laboratory Results - last 24 hr 12/28/24 12/29/24 15:53 08:51 MCV 90.8 MCH 30.6 MCHC 33.7 RDW 14.2 Plt Count 270 MPV 9.0 L Immature Gran % (Auto) 2.6 H Neut % (Auto) 58.7 Lymph % (Auto) 28.7 [place] % (Auto) 7.1 Eos % (Auto) 2.5 Baso % (Auto) 0.4 Lymph # (Auto) 2.7 [place] # (Auto) 0.7 Eos # (Auto) 0.2 Baso # (Auto) 0.0 Abs Immat Gran (auto) 0.25 H Absolute Neuts (auto) 5.6 Absolute Nucleated RBC 0.000 Nucleated RBC % (auto) 0.0 Anion Gap 12 Estim Creat Clear Calc 99.0 Estimated GFR > 60 Random Glucose 89 Calcium 8.6 Vancomycin Trough 12.2 Microbiology Microbiology Results: Microbiology 12/27/24 05:38 Blood Culture - Preliminary Blood - Venous No growth after 48 hours. 12/27/24 05:38 Blood Culture - Preliminary Blood - Venous No growth after 48 hours. Assessment and Plan (1) Septic olecranon bursitis of right elbow: Status: Acute (2) Cellulitis: Status: Acute Plan This has a 54-year-old female with pertinent history of SLE, [place]'s disease, gastroesophageal reflux disease, peripheral neuropathy, mood disorder who presents to the emergency department for evaluation of elbow pain. Sepsis due to right elbow cellulitis, sepsis resolved - Improvement in erythema noted - continue IV vancomycin (started 12/27) - ortho consult: Continue vancomycin. No aspiration or surgical intervention indicated at this time. As pain improves, recommend OT for range of motion. Chronic adrenal insufficiency due to [place]'s - On chronic prednisone and fludrocortisone Gastroesophageal reflux disease - PPI Peripheral neuropathy - Gabapentin SLE - On hydroxychloroquine and methotrexate DVT prophylaxis: Lovenox Full code Reason for continued hospitalization: IV antibiotics, will need OT eval when pain improves Quality Stroke Does the patient have a stroke diagnosis?: No VTE Prior VTE?: No VTE Risk Level:: Medical - moderate - high VTE Device Contraindication: Treatment Not Indicated VTE Drug Contraindication: N/A - Med Ordered
[2024-12-29 15:50] VITALS: BP 94/69; PULSE 78; RESP 16; TEMP 36.8; O2SAT 95
[2024-12-29 19:47] VITALS: BP 102/67; PULSE 101; RESP 17; TEMP 36.6; O2SAT 98
[2024-12-29 20:33] LABS: Lyme Abs Screen <0.90 index
[2024-12-30 00:13] LABS: A. Phagocytphilium DNA,RT-PCR NOT DETECTED (NOT DETECTED); Babesia Microti DNA, RT-PCR NOT DETECTED (NOT DETECTED); Borrelia Miyamotoi,DNA RT-PCR NOT DETECTED (NOT DETECTED); E.Chaffeensis DNA RT-PCR NOT DETECTED (NOT DETECTED); Lyme(Borrelia ssp)DNA RT-PCR NOT DETECTED (NOT DETECTED)
[2024-12-30 02:08] VITALS: BP 123/88; PULSE 94; RESP 18; TEMP 36.6; O2SAT 98
[2024-12-30 05:54] LABS: MANUAL DIFF FLAG NO
[2024-12-30 06:27] LABS: Anion Gap 11 (12-20); Blood Urea Nitrogen 14 mg/dL (9-16); Calcium 8.8 mg/dL (8.4-10.2); Carbon Dioxide 27 mmol/L (22-29); Chloride 103 mmol/L (96-108); Creatinine Clr Calc Pharmacy 99.0; Estimated Glomerular Filt Rate > 60; Potassium 3.2 mmol/L (3.3-5.1); Sodium 138 mmol/L (135-145)
[2024-12-30 06:50] LABS: Hematocrit 36.2 % (37.0-47.0); Hemoglobin 12.2 g/dl (12.0-16.0); Imm Gran Abs Auto 0.41 X10*3/uL (0.00-0.03); Imm Gran Pct Auto 3.7 % (0.0-0.4); Lymphocytes Absolute Auto 3.0 X10*3/uL (1.2-4.9); Mean Corpuscular HGB Conc 33.7 g/dl (31.0-35.0); Mean Corpuscular Hemoglobin 30.0 pg (27.0-33.0); Mean Corpuscular Volume 88.9 fL (80.0-98.0); NRBC Abs Auto 0.000 X10*3/uL (0.0-0.012); NRBC Pct Auto 0.0 /100WBC (0.0-0.2); Platelet Count 322 X10*3/uL (160-400); Red Blood Count 4.07 X10*6/uL (4.20-5.50); White Blood Count 11.1 X10*3/uL (4.8-10.8)
[2024-12-30 07:22] VITALS: BP 106/63; PULSE 77; RESP 16; TEMP 36.5; O2SAT 98
[2024-12-30] MEDS: 0.9 % Sodium Chloride Flush 3 ML SYRINGE IVFLUSH ×2 (08:07→14:04)
--- NOTE | 2024-12-30 14:13 | PC.NURSE ---
Pt in room crying, sobbing in pain, DANIEL osborne connect to give Diludid dose early, Okay to give one hour ealry.
--- NOTE | 2024-12-30 14:34 | P.PNIM_ITS ---
Subjective Subjective Date of Service: 12/30/24 Interval History: f/u infection right olecranon bursitis Continued pain, and swelling but improving. Improvement of erythema Review of Systems Review of Systems: Yes all other systems are reviewed and are negative Physical Exam 2 Exam: Exam: General: AOx3, no acute distress Resp: CTA bilaterally CVS: S1, S2, RRR GI: +BS, NT, no distention Skin: Warm, dry. continued improvement of erythema, still warm and painful to touch. ROM improving. Neuro: Cranial nerves II-XII grossly intact bilaterally. Motor grossly intact bilaterally Extremities: No edema Psych: Appropriate affect Vital Signs: Vital Signs: Last Vital Signs Temp 97.7 F 12/30/24 07:22 Pulse 77 12/30/24 07:22 Resp 16 12/30/24 07:22 BP 106/63 12/30/24 07:22 Pulse Ox 98 12/30/24 07:22 O2 Del Method Room Air 12/30/24 07:22 BMI result Body Mass Index 32.4 Objective Data Active Medications Acetaminophen (Acetaminophen 325 Mg Tablet) 650 mg PO Q6H PRN PRN Reason: Pain, Mild 1-3,fever,headache Last Admin: 12/27/24 11:10 Dose: 650 mg Documented By: JOSE Calcium Carbonate (Calcium Carbonate 750 Mg Tab.Chew) 750 mg PO Q4H PRN PRN Reason: Heartburn Diphenhydramine HCl (Diphenhydramine Hcl 50 Mg/Ml Vial) 25 mg IVPUSH Q6H PRN PRN Reason: Nausea and Vomiting Last Admin: 12/30/24 14:09 Dose: 25 mg Documented By: GUILLERMINA Duloxetine HCl (Duloxetine Hcl 30 Mg Capsule.Dr) 30 mg PO DAILY [facility] Last Admin: 12/30/24 07:59 Dose: 30 mg Documented By: МАРИНА Enoxaparin Sodium (Enoxaparin Sodium 40 Mg/0.4 Ml Syringe) 40 mg SUBCUT Q24H [facility] Last Admin: 12/30/24 07:58 Dose: 40 mg Documented By: МАРИНА Folic Acid (Folic Acid 1 Mg Tablet) 1 mg PO DAILY [facility] Last Admin: 12/30/24 07:58 Dose: 1 mg Documented By: МАРИНА Gabapentin (Gabapentin 400 Mg Capsule) 400 mg PO BEDTIME [facility] Last Admin: 12/29/24 20:00 Dose: 400 mg Documented By: RICARDO Hydromorphone HCl (Hydromorphone Hcl 1 Mg/Ml Syringe) 1 mg IVPUSH Q4H PRN; Protocol PRN Reason: Pain, Severe (Pain Scale 7-10) Last Admin: 12/30/24 14:03 Dose: 1 mg Documented By: GUILLERMINA Hydroxychloroquine Sulfate (Hydroxychloroquine Sulfate 200 Mg Tablet) 400 mg PO DAILY [facility] Last Admin: 12/30/24 07:58 Dose: 400 mg Documented By: МАРИНА Vancomycin HCl 1,250 mg/ (Sodium Chloride) 250 mls @ 166.667 mls/hr IV Q12H [facility] Last Infusion: 12/30/24 07:52 Dose: Infused Documented By: МАРИНА Magnesium Hydroxide (Milk Of Magnesia 30 Ml Oral.Susp) 30 ml PO DAILY PRN PRN Reason: Constipation Melatonin (Melatonin 3 Mg Tablet) 6 mg PO BEDTIME PRN PRN Reason: Insomnia Methotrexate (Methotrexate Sodium 2.5 Mg Tablet) 15 mg PO [facility] Omeprazole (Omeprazole 20 Mg Capsule.Dr) 20 mg PO BEDTIME [facility] Last Admin: 12/29/24 20:01 Dose: 20 mg Documented By: RICARDO Oxycodone HCl (Oxycodone Hcl Immed Release 5 Mg Tablet) 10 mg PO Q4H PRN PRN Reason: Pain (Scale Score 4-6) Last Admin: 12/28/24 12:33 Dose: 10 mg Documented By: AMAN Comments: per pt request Pharmacy Consult (Consult Rx Vancomycin Dosing) 1 each MISCELLANE DAILY PRN PRN Reason: Consult order Prednisone (Prednisone 1 Mg Tablet) 3 mg PO DAILY [facility] Last Admin: 12/30/24 07:59 Dose: 3 mg Documented By: МАРИНА Prednisone (Prednisone 20 Mg Tablet) 20 mg PO DAILY [facility] Last Admin: 12/30/24 07:59 Dose: 20 mg Documented By: МАРИНА Sodium Chloride (0.9 % Sodium Chloride Flush 3 Ml Syringe) 3 ml IVFLUSH QSHIFT [facility] Last Admin: 12/30/24 14:04 Dose: 3 ml Documented By: GUILLERMINA Labs 12/30/24 05:40 12/30/24 05:40 Labs: Laboratory Results - last 24 hr 12/27/24 12/29/24 12/30/24 05:41 14:37 05:40 MCV 88.9 MCH 30.0 MCHC 33.7 RDW 14.1 Plt Count 322 MPV 8.9 L Immature Gran % (Auto) 3.7 H Neut % (Auto) 58.2 Lymph % (Auto) 26.9 [place] % (Auto) 8.9 Eos % (Auto) 1.8 Baso % (Auto) 0.5 Lymph # (Auto) 3.0 [place] # (Auto) 1.0 Eos # (Auto) 0.2 Baso # (Auto) 0.1 Abs Immat Gran (auto) 0.41 H Absolute Neuts (auto) 6.4 Absolute Nucleated RBC 0.000 Nucleated RBC % (auto) 0.0 Anion Gap 11 L Estim Creat Clear Calc 99.0 Estimated GFR > 60 Random Glucose 94 Calcium 8.8 Vancomycin Trough 22.5 H A.phagocytophil DNA PCR NOT DETECTED Babesia microti DNA PCR NOT DETECTED Borrelia sp DNA (PCR) NOT DETECTED Lyme Screen IgG & IgM <0.90 Lyme Progressive Test TNP Borrelia miyamotoi (PCR) NOT DETECTED E.chaffeensis DNA (PCR) NOT DETECTED Tick-borne Disease PCR SEE NOTE Assessment and Plan (1) Septic olecranon bursitis of right elbow: Status: Acute (2) Cellulitis: Status: Acute Plan This has a 54-year-old female with pertinent history of SLE, [place]'s disease, gastroesophageal reflux disease, peripheral neuropathy, mood disorder admitted for sepsis due to infected right elbow olecranon bursitis. Sepsis due to right elbow cellulitis, sepsis resolved - Improvement in erythema noted - continue IV vancomycin (started 12/27) - ortho consult: Continue vancomycin. No aspiration or surgical intervention indicated at this time. As pain improves, recommend OT for range of motion. - OT eval placed Chronic adrenal insufficiency due to Jun's - On chronic prednisone and fludrocortisone Gastroesophageal reflux disease - PPI Peripheral neuropathy - Gabapentin SLE - On hydroxychloroquine and methotrexate DVT prophylaxis: Lovenox Full code Reason for continued hospitalization: IV antibiotics, pain management, OT dispo: D/C home tomorrow with PO abx Quality Stroke Does the patient have a stroke diagnosis?: No VTE Prior VTE?: No VTE Risk Level:: Medical - moderate - high VTE Device Contraindication: Treatment Not Indicated VTE Drug Contraindication: N/A - Med Ordered
[2024-12-30 15:39] VITALS: BP 111/71; PULSE 82; RESP 16; TEMP 36.3; O2SAT 96
[2024-12-30 19:19] VITALS: BP 97/61; PULSE 81; RESP 18; TEMP 35.8; O2SAT 98
[2024-12-31] MEDS: 0.9 % Sodium Chloride Flush 3 ML SYRINGE IVFLUSH ×4 (02:45→20:06)
[2024-12-31 03:30] VITALS: BP 113/54; PULSE 77; RESP 18; TEMP 36.7; O2SAT 95
[2024-12-31 07:01] LABS: Creatinine Clr Calc Pharmacy 93.5; Estimated Glomerular Filt Rate > 60
[2024-12-31 07:51] VITALS: BP 140/85; PULSE 80; RESP 18; TEMP 36.3; O2SAT 99
--- NOTE | 2024-12-31 11:07 | PM.PNORT ---
Subjective Subjective Date of Service: 12/31/24 Interval history: 54-year-old female admitted to the hospital for olecranon bursitis and cellulitis of right elbow on 12/27/24 Patient resting comfortably in bed Pain is managed Patient says right elbow significantly improving - less red and swollen Reports improved range of motion of the elbow No other acute complaints at this time Physical Exam Vital Signs: Vital Signs: Last Vital Signs Temp 97.4 F 12/31/24 07:51 Pulse 80 12/31/24 07:51 Resp 18 12/31/24 07:51 BP 140/85 H 12/31/24 07:51 Pulse Ox 99 12/31/24 07:51 O2 Del Method Room Air 12/31/24 07:51 BMI result Body Mass Index 32.4 Const: General: cooperative, healthy appearing and no acute distress Resp: Effort & Inspection: normal respiratory effort and able to speak in complete sentences Cardio: Rate: regular rate Peripheral pulses: Peripheral pulses 2+ throughout GI: Palpation (GI): Soft to palpation Skin: Lesions: no lesions Rashes: no rashes Extrem: Other: Right elbow: Erythema significantly decreased around the line of demarcation. Tenderness to palpation over the olecranon bursa and mildly edematous. Able to flex and extend as well as pronate and supinate at the elbow. NVI. Procedures Date of Service Date of Service: 12/31/24 Progress Note: A&P Assessment and plan (1) Septic olecranon bursitis of right elbow: Status: Acute (2) Cellulitis: Status: Acute Plan Continue abx per medicine recommendation Pain management as needed May apple RAOUL for gentle compression Encourage ROM Time Spent With Patient Time: Total time managing care of this patient today ____ minutes. Quality Stroke Does the patient have a stroke diagnosis?: No VTE Prior VTE?: No VTE Risk Level:: Medical - moderate - high VTE Device Contraindication: Treatment Not Indicated VTE Drug Contraindication: N/A - Med Ordered
--- NOTE | 2024-12-31 14:47 | MHC.CM.PN ---
Per MD patient not medically cleared for dc. CM will continue to follow.
[2024-12-31 15:32] VITALS: BP 120/74; PULSE 87; RESP 18; TEMP 36.4; O2SAT 96
--- NOTE | 2024-12-31 15:41 | P.PNIM_ITS ---
Subjective Subjective Date of Service: 12/31/24 Interval History: Extremely nauseous this a.m.. Declined switch to p.o. meds at this time Review of Systems Denies chest pain Denies shortness of breath Admits to nausea vomiting but denies diarrhea Denies fever chills Physical Exam 2 Vital Signs: Vital Signs: Last Vital Signs Temp 97.6 F 12/31/24 15:32 Pulse 87 12/31/24 15:32 Resp 18 12/31/24 15:32 BP 120/74 12/31/24 15:32 Pulse Ox 96 12/31/24 15:32 O2 Del Method Room Air 12/31/24 15:32 BMI result Body Mass Index 32.4 Const: Other: Awake alert oriented x3 Resp: Other: Clear to auscultation bilaterally no rales rhonchi or wheezes Cardio: Other: No S4; positive S1-S2; no S3 murmurs rubs or gallops GI: Other: Soft nontender nondistended normoactive bowel sounds Extrem: Other: No edema bilaterally Objective Data Active Medications Acetaminophen (Acetaminophen 325 Mg Tablet) 650 mg PO Q6H PRN PRN Reason: Pain, Mild 1-3,fever,headache Last Admin: 12/27/24 11:10 Dose: 650 mg Documented By: JOSE Calcium Carbonate (Calcium Carbonate 750 Mg Tab.Chew) 750 mg PO Q4H PRN PRN Reason: Heartburn Diphenhydramine HCl (Diphenhydramine Hcl 50 Mg/Ml Vial) 25 mg IVPUSH Q6H PRN PRN Reason: Nausea and Vomiting Last Admin: 12/31/24 11:27 Dose: 25 mg Documented By: BEATRIZ Docusate Sodium (Docusate Sodium 100 Mg Capsule) 200 mg PO BEDTIME [facility] Duloxetine HCl (Duloxetine Hcl 30 Mg Capsule.Dr) 30 mg PO DAILY [facility] Last Admin: 12/31/24 08:51 Dose: 30 mg Documented By: BEATRIZ Enoxaparin Sodium (Enoxaparin Sodium 40 Mg/0.4 Ml Syringe) 40 mg SUBCUT Q24H [facility] Last Admin: 12/31/24 08:51 Dose: 40 mg Documented By: BEATRIZ Folic Acid (Folic Acid 1 Mg Tablet) 1 mg PO DAILY [facility] Last Admin: 12/31/24 08:51 Dose: 1 mg Documented By: BEATRIZ Gabapentin (Gabapentin 400 Mg Capsule) 400 mg PO BEDTIME [facility] Last Admin: 12/30/24 22:31 Dose: 400 mg Documented By: HARLEY Hydromorphone HCl (Hydromorphone Hcl 1 Mg/Ml Syringe) 1 mg IVPUSH Q4H PRN; Protocol PRN Reason: Pain, Severe (Pain Scale 7-10) Last Admin: 12/31/24 12:15 Dose: 1 mg Documented By: BEATRIZ Hydroxychloroquine Sulfate (Hydroxychloroquine Sulfate 200 Mg Tablet) 400 mg PO DAILY [facility] Last Admin: 12/31/24 08:51 Dose: 400 mg Documented By: BEATRIZ Vancomycin HCl 1,250 mg/ (Sodium Chloride) 250 mls @ 166.667 mls/hr IV Q12H [facility] Last Infusion: 12/31/24 08:50 Dose: Infused Documented By: BEATRIZ Magnesium Hydroxide (Milk Of Magnesia 30 Ml Oral.Susp) 30 ml PO DAILY PRN PRN Reason: Constipation Melatonin (Melatonin 3 Mg Tablet) 6 mg PO BEDTIME PRN PRN Reason: Insomnia Methotrexate (Methotrexate Sodium 2.5 Mg Tablet) 15 mg PO [facility] Omeprazole (Omeprazole 20 Mg Capsule.Dr) 20 mg PO BEDTIME [facility] Last Admin: 12/30/24 22:31 Dose: 20 mg Documented By: HARLEY Oxycodone HCl (Oxycodone Hcl Immed Release 5 Mg Tablet) 10 mg PO Q4H PRN PRN Reason: Pain (Scale Score 4-6) Last Admin: 12/28/24 12:33 Dose: 10 mg Documented By: AMAN Comments: per pt request Pharmacy Consult (Consult Rx Vancomycin Dosing) 1 each MISCELLANE DAILY PRN PRN Reason: Consult order Prednisone (Prednisone 1 Mg Tablet) 3 mg PO DAILY [facility] Last Admin: 12/31/24 08:51 Dose: 3 mg Documented By: BEATRIZ Prednisone (Prednisone 20 Mg Tablet) 20 mg PO DAILY [facility] Last Admin: 12/31/24 08:51 Dose: 20 mg Documented By: BEATRIZ Sodium Chloride (0.9 % Sodium Chloride Flush 3 Ml Syringe) 3 ml IVFLUSH QSHIFT [facility] Last Admin: 12/31/24 08:52 Dose: 3 ml Documented By: BEATRIZ Labs 12/30/24 05:40 12/31/24 05:52 Labs: Laboratory Results - last 24 hr 12/30/24 12/31/24 15:19 05:52 Hold Purple Top SEE NOTE Estim Creat Clear Calc 93.5 Estimated GFR > 60 Vancomycin Trough 18.2 Assessment and Plan (1) Septic olecranon bursitis of right elbow: Status: Acute (2) Lupus (systemic lupus erythematosus): Status: Acute Plan This has a 54-year-old female with pertinent history of SLE, Jun's disease, gastroesophageal reflux disease, peripheral neuropathy, mood disorder admitted for sepsis due to infected right elbow olecranon bursitis. 1.Sepsis due to right elbow cellulitis(sepsis resolved) -ortho re-evaluate today appreciated. .. Continues to improve -vancomycin (5).. If nausea continues may need to complete 7 days of IV antibiotics -OT eval placed 2.Chronic adrenal insufficiency due to Jun's -stable and well compensated -continue current therapies 3.SLE -no acute issues -hydroxychloroquine/methotrexate DVT prophylaxis: Lovenox Full code Reason for continued hospitalization: IV antibiotics, pain management, OT dispo: D/C home tomorrow with PO abx Quality Stroke Does the patient have a stroke diagnosis?: No VTE Prior VTE?: No VTE Risk Level:: Medical - moderate - high VTE Device Contraindication: Treatment Not Indicated VTE Drug Contraindication: N/A - Med Ordered
[2024-12-31 19:01] VITALS: BP 110/74; PULSE 81; RESP 17; TEMP 36; O2SAT 98
[2025-01-01 03:19] VITALS: BP 114/64; PULSE 82; RESP 18; TEMP 36.2; O2SAT 98
[2025-01-01 06:48] LABS: Alanine Aminotransferase 42 U/L (0-31); Albumin Level 3.2 g/dL (3.5-5.0); Alkaline Phosphatase 89 U/L (39-117); Anion Gap 16 (12-20); Aspartate Amino Transferase 32 U/L (5-31); Blood Urea Nitrogen 17 mg/dL (9-16); Calcium 8.5 mg/dL (8.4-10.2); Carbon Dioxide 23 mmol/L (22-29); Chloride 104 mmol/L (96-108); Creatinine Clr Calc Pharmacy 86.2; Estimated Glomerular Filt Rate > 60; Potassium 3.5 mmol/L (3.3-5.1); Sodium 139 mmol/L (135-145); Total Protein 5.6 g/dL (6.5-8.0)
[2025-01-01 07:01] LABS: Hematocrit 36.2 % (37.0-47.0); Hemoglobin 12.7 g/dl (12.0-16.0); Mean Corpuscular HGB Conc 35.1 g/dl (31.0-35.0); Mean Corpuscular Hemoglobin 30.7 pg (27.0-33.0); Mean Corpuscular Volume 87.4 fL (80.0-98.0); NRBC Abs Auto 0.000 X10*3/uL (0.0-0.012); NRBC Pct Auto 0.0 /100WBC (0.0-0.2); PLT CLUMP 1; Red Blood Count 4.14 X10*6/uL (4.20-5.50)
[2025-01-01 07:31] VITALS: BP 138/76; PULSE 72; RESP 16; TEMP 36.8; O2SAT 99
[2025-01-01 07:56] LABS: Band Neutrophils Percent 3 % (3-5); Eosinophils Percent Manual 2 % (0-4); Lymphocytes Percent Manual 18 % (20-40); Metamyelocytes Percent 2 %; Monocytes Percent Manual 5 % (2-11); Myelocytes Percent 2 %; Neutrophils Percent Manual 68 % (45-73)
[2025-01-01 07:58] LABS: RBC Morphology NORMAL
[2025-01-01] MEDS: 0.9 % Sodium Chloride Flush 3 ML SYRINGE IVFLUSH ×3 (08:08→20:18)
[2025-01-01 09:09] LABS: Eosinophils Absolute Manual 0.3 X10*3/uL (0.0-0.4); Lymphocytes Absolute Manual 2.3 X10*3/uL (1.2-4.9); Metamyelocytes Absolute 0.3 X10*3/uL; Monocytes Absolute Manual 0.6 X10*3/uL (0.1-1.2); Myelocytes Absolute 0.3 X10*/uL; Neutrophils Absolute Manual 9.2 X10*3/uL (2.0-8.3); Platelet Count 268 X10*3/uL (160-400); White Blood Count 12.9 X10*3/uL (4.8-10.8)
--- NOTE | 2025-01-01 14:46 | HO.PM.IMPN ---
Subjective Subjective Date of Service: 01/01/25 Interval History: Continues to be nauseous and not be able to tolerate p.o. meds Review of Systems Denies chest pain Denies shortness of breath Admits to nausea vomiting but denies diarrhea Denies fever chills Physical Exam Vital Signs: Vital Signs: Last Vital Signs Temp 98.3 F 01/01/25 07:31 Pulse 72 01/01/25 07:31 Resp 16 01/01/25 07:31 BP 138/76 01/01/25 07:31 Pulse Ox 99 01/01/25 07:31 O2 Del Method Room Air 01/01/25 07:31 BMI result Body Mass Index 32.4 Const: Other: Awake alert oriented x3 Resp: Other: Clear to auscultation bilaterally no rales rhonchi or wheezes Cardio: Other: No S4; positive S1-S2; no S3 murmurs rubs or gallops GI: Other: Soft nontender nondistended normoactive bowel sounds Extrem: Other: No edema bilaterally Objective Data Active Medications Acetaminophen (Acetaminophen 325 Mg Tablet) 650 mg PO Q6H PRN PRN Reason: Pain, Mild 1-3,fever,headache Last Admin: 12/27/24 11:10 Dose: 650 mg Documented By: JOSE Calcium Carbonate (Calcium Carbonate 750 Mg Tab.Chew) 750 mg PO Q4H PRN PRN Reason: Heartburn Diphenhydramine HCl (Diphenhydramine Hcl 50 Mg/Ml Vial) 25 mg IVPUSH Q6H PRN PRN Reason: Nausea and Vomiting Last Admin: 01/01/25 12:02 Dose: 25 mg Documented By: GUZMAN Docusate Sodium (Docusate Sodium 100 Mg Capsule) 200 mg PO BEDTIME [facility] Last Admin: 12/31/24 20:06 Dose: 200 mg Documented By: LEXUS Duloxetine HCl (Duloxetine Hcl 30 Mg Capsule.Dr) 30 mg PO DAILY [facility] Last Admin: 01/01/25 08:07 Dose: 30 mg Documented By: GUZMAN Enoxaparin Sodium (Enoxaparin Sodium 40 Mg/0.4 Ml Syringe) 40 mg SUBCUT Q24H [facility] Last Admin: 01/01/25 08:07 Dose: 40 mg Documented By: GUZMAN Folic Acid (Folic Acid 1 Mg Tablet) 1 mg PO DAILY [facility] Last Admin: 01/01/25 08:07 Dose: 1 mg Documented By: GUZMAN Gabapentin (Gabapentin 400 Mg Capsule) 400 mg PO BEDTIME [facility] Last Admin: 12/31/24 20:06 Dose: 400 mg Documented By: LEXUS Hydromorphone HCl (Hydromorphone Hcl 1 Mg/Ml Syringe) 1 mg IVPUSH Q4H PRN PRN Reason: Pain, Severe (Pain Scale 7-10) Last Admin: 01/01/25 12:52 Dose: 1 mg Documented By: GUZMAN Hydroxychloroquine Sulfate (Hydroxychloroquine Sulfate 200 Mg Tablet) 400 mg PO DAILY [facility] Last Admin: 01/01/25 08:07 Dose: 400 mg Documented By: GUZMAN Vancomycin HCl 1,000 mg/ (Sodium Chloride) 270 mls @ 270 mls/hr IV Q12H [facility] Last Infusion: 01/01/25 07:03 Dose: Infused Documented By: GUZMAN Magnesium Hydroxide (Milk Of Magnesia 30 Ml Oral.Susp) 30 ml PO DAILY PRN PRN Reason: Constipation Melatonin (Melatonin 3 Mg Tablet) 6 mg PO BEDTIME PRN PRN Reason: Insomnia Methotrexate (Methotrexate Sodium 2.5 Mg Tablet) 15 mg PO [facility] Omeprazole (Omeprazole 20 Mg Capsule.Dr) 20 mg PO BEDTIME [facility] Last Admin: 12/31/24 20:06 Dose: 20 mg Documented By: LEXUS Oxycodone HCl (Oxycodone Hcl Immed Release 5 Mg Tablet) 10 mg PO Q4H PRN PRN Reason: Pain, Moderate(Pain Scale 4-6) Pharmacy Consult (Consult Rx Vancomycin Dosing) 1 each MISCELLANE DAILY PRN PRN Reason: Consult order Prednisone (Prednisone 1 Mg Tablet) 3 mg PO DAILY [facility] Last Admin: 01/01/25 08:07 Dose: 3 mg Documented By: GUZMAN Prednisone (Prednisone 20 Mg Tablet) 20 mg PO DAILY [facility] Last Admin: 01/01/25 08:07 Dose: 20 mg Documented By: GUZMAN Sodium Chloride (0.9 % Sodium Chloride Flush 3 Ml Syringe) 3 ml IVFLUSH QSHIFT [facility] Last Admin: 01/01/25 08:08 Dose: 3 ml Documented By: GUZMAN Labs 01/01/25 05:26 01/01/25 05:26 Labs: Laboratory Results - last 24 hr 12/31/24 01/01/25 16:09 05:26 MCV 87.4 MCH 30.7 MCHC 35.1 H RDW 14.6 Plt Count 268 MPV 10.0 Immature Gran % (Auto) Cancelled Neut % (Auto) Cancelled Lymph % (Auto) Cancelled [place] % (Auto) Cancelled Eos % (Auto) Cancelled Baso % (Auto) Cancelled Lymph # (Auto) Cancelled [place] # (Auto) Cancelled Eos # (Auto) Cancelled Baso # (Auto) Cancelled Abs Immat Gran (auto) Cancelled Absolute Neuts (auto) Cancelled Absolute Nucleated RBC 0.000 Nucleated RBC % (auto) 0.0 Neutrophils % (Manual) 68 Band Neutrophils % 3 Lymphocytes % (Manual) 18 L Monocytes % (Manual) 5 Eosinophils % (Manual) 2 Metamyelocytes % 2 Myelocytes % 2 Abs Neuts (Manual) 9.2 H Lymphocytes # (Manual) 2.3 Monocytes # (Manual) 0.6 Eosinophils # (Manual) 0.3 Metamyelocytes # 0.3 Myelocytes # 0.3 Platelet Estimate NORMAL Plt Morphology Comment NORMAL RBC Morphology NORMAL Anion Gap 16 Estim Creat Clear Calc 86.2 Estimated GFR > 60 Fasting Glucose 109 H Calcium 8.5 Total Bilirubin 0.2 AST 32 H ALT 42 H Alkaline Phosphatase 89 Total Protein 5.6 L Albumin 3.2 L Random Vancomycin 19.5 Microbiology Microbiology Results: Microbiology 12/27/24 05:38 Blood Culture - Final Blood - Venous No growth after 5 days. 12/27/24 05:38 Blood Culture - Final Blood - Venous No growth after 5 days. Assessment and Plan (1) Septic olecranon bursitis of right elbow: Status: Acute (2) Cellulitis: Status: Acute Plan This has a 54-year-old female with pertinent history of SLE, Titus's disease, gastroesophageal reflux disease, peripheral neuropathy, mood disorder admitted for sepsis due to infected right elbow olecranon bursitis. 1.Sepsis due to right elbow cellulitis(sepsis resolved) -ortho re-evaluate today appreciated. .. Continues to improve -vancomycin (6).. 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
[2025-01-01 15:51] VITALS: BP 95/61; PULSE 76; RESP 18; TEMP 36.1; O2SAT 95
[2025-01-01 19:51] VITALS: BP 91/54; PULSE 75; RESP 18; TEMP 36.1; O2SAT 96
[2025-01-01 21:30] VITALS: BP 97/66; PULSE 82
[2025-01-02 03:18] VITALS: BP 101/73; PULSE 85; RESP 18; TEMP 36.1; O2SAT 100
[2025-01-02 07:01] LABS: Creatinine Clr Calc Pharmacy 81.9; Estimated Glomerular Filt Rate > 60
[2025-01-02 07:22] VITALS: BP 113/59; PULSE 69; RESP 17; TEMP 36; O2SAT 95
--- NOTE | 2025-01-02 11:17 | MHC.CM.PN ---
Per MD rounds patient not medically cleared for dc. CM will continue to follow. DP: home self care
[2025-01-02 16:00] VITALS: BP 95/53; PULSE 80; RESP 18; TEMP 36.6; O2SAT 94
[2025-01-02] MEDS: oxyCODONE HCl Immed Release 5 MG TABLET 10 MG PO ×2 (17:10→21:11)
[2025-01-02] MEDS: 0.9 % Sodium Chloride Flush 3 ML SYRINGE IVFLUSH (17:12)
[2025-01-02 20:00] VITALS: BP 97/60; PULSE 85; RESP 18; TEMP 36; O2SAT 97
[2025-01-02 21:10] VITALS: BP 104/62
[2025-01-03] VITALS (10 sets, daily range): BP systolic 100–119; BP diastolic 54–82; PULSE 76–90; RESP 16–18; TEMP 36–36.7; O2SAT 93–100
[2025-01-03] MEDS: 0.9 % Sodium Chloride Flush 3 ML SYRINGE IVFLUSH ×4 (00:22→23:57)
[2025-01-03] MEDS: oxyCODONE HCl Immed Release 5 MG TABLET 10 MG PO (05:41)
[2025-01-03 06:49] LABS: MANUAL DIFF FLAG NO
[2025-01-03 07:14] LABS: Alanine Aminotransferase 41 U/L (0-31); Albumin Level 3.7 g/dL (3.5-5.0); Alkaline Phosphatase 93 U/L (39-117); Anion Gap 13 (12-20); Aspartate Amino Transferase 30 U/L (5-31); Blood Urea Nitrogen 16 mg/dL (9-16); Calcium 8.9 mg/dL (8.4-10.2); Carbon Dioxide 29 mmol/L (22-29); Chloride 99 mmol/L (96-108); Creatinine Clr Calc Pharmacy 92.1; Estimated Glomerular Filt Rate > 60; Potassium 3.3 mmol/L (3.3-5.1); Sodium 138 mmol/L (135-145); Total Protein 6.3 g/dL (6.5-8.0)
[2025-01-03 07:20] LABS: Hematocrit 40.3 % (37.0-47.0); Hemoglobin 13.2 g/dl (12.0-16.0); Imm Gran Abs Auto 0.43 X10*3/uL (0.00-0.03); Imm Gran Pct Auto 3.1 % (0.0-0.4); Lymphocytes Absolute Auto 2.2 X10*3/uL (1.2-4.9); Mean Corpuscular HGB Conc 32.8 g/dl (31.0-35.0); Mean Corpuscular Hemoglobin 29.7 pg (27.0-33.0); Mean Corpuscular Volume 90.8 fL (80.0-98.0); NRBC Abs Auto 0.000 X10*3/uL (0.0-0.012); NRBC Pct Auto 0.0 /100WBC (0.0-0.2); Platelet Count 357 X10*3/uL (160-400); Red Blood Count 4.44 X10*6/uL (4.20-5.50); White Blood Count 13.9 X10*3/uL (4.8-10.8)
[2025-01-03] MEDS: oxyCODONE HCl Immed Release 15 MG TABLET PO ×3 (11:05→23:54)
--- NOTE | 2025-01-03 13:24 | P.PNIM_ITS ---
Subjective Subjective Date of Service: 01/03/25 Interval History: Pain control poor overnight with Dilaudid Q 8. No other acute events Review of Systems Denies chest pain Denies shortness of breath Admits to nausea vomiting but denies diarrhea Denies fever chills Physical Exam 2 Vital Signs: Vital Signs: Last Vital Signs Temp 97.7 F 01/03/25 07:57 Pulse 78 01/03/25 07:57 Resp 18 01/03/25 07:57 BP 119/82 01/03/25 07:57 Pulse Ox 96 01/03/25 07:57 O2 Del Method Room Air 01/03/25 07:57 BMI result Body Mass Index 32.4 Const: Other: Awake alert oriented x3 Resp: Other: Clear to auscultation bilaterally no rales rhonchi or wheezes Cardio: Other: No S4; positive S1-S2; no S3 murmurs rubs or gallops GI: Other: Soft nontender nondistended normoactive bowel sounds Extrem: Other: No edema bilaterally Objective Data Active Medications Acetaminophen (Acetaminophen 325 Mg Tablet) 650 mg PO Q6H PRN PRN Reason: Pain, Mild 1-3,fever,headache Last Admin: 01/03/25 08:06 Dose: 650 mg Documented By: CATERINA Calcium Carbonate (Calcium Carbonate 750 Mg Tab.Chew) 750 mg PO Q4H PRN PRN Reason: Heartburn Diphenhydramine HCl (Diphenhydramine Hcl 50 Mg/Ml Vial) 25 mg IVPUSH Q6H PRN PRN Reason: Nausea and Vomiting Last Admin: 01/03/25 08:06 Dose: 25 mg Documented By: CATERINA Docusate Sodium (Docusate Sodium 100 Mg Capsule) 200 mg PO BEDTIME [facility] Last Admin: 01/02/25 21:09 Dose: 200 mg Documented By: MARICHUY Duloxetine HCl (Duloxetine Hcl 30 Mg Capsule.Dr) 30 mg PO DAILY [facility] Last Admin: 01/03/25 08:05 Dose: 30 mg Documented By: CATERINA Enoxaparin Sodium (Enoxaparin Sodium 40 Mg/0.4 Ml Syringe) 40 mg SUBCUT Q24H [facility] Last Admin: 01/03/25 08:07 Dose: 40 mg Documented By: CATERINA Folic Acid (Folic Acid 1 Mg Tablet) 1 mg PO DAILY [facility] Last Admin: 01/03/25 08:06 Dose: 1 mg Documented By: CATERINA Gabapentin (Gabapentin 400 Mg Capsule) 400 mg PO BEDTIME [facility] Last Admin: 01/02/25 21:08 Dose: 400 mg Documented By: MARICHUY Hydromorphone HCl (Hydromorphone Hcl 1 Mg/Ml Syringe) 1 mg IVPUSH Q6H PRN PRN Reason: Pain, Severe (Pain Scale 7-10) Hydroxychloroquine Sulfate (Hydroxychloroquine Sulfate 200 Mg Tablet) 400 mg PO DAILY [facility] Last Admin: 01/03/25 08:06 Dose: 400 mg Documented By: CATERINA Vancomycin HCl 1,000 mg/ (Sodium Chloride) 270 mls @ 270 mls/hr IV Q12H [facility] Last Infusion: 01/03/25 07:01 Dose: Infused Documented By: CATERINA Magnesium Hydroxide (Milk Of Magnesia 30 Ml Oral.Susp) 30 ml PO DAILY PRN PRN Reason: Constipation Melatonin (Melatonin 3 Mg Tablet) 6 mg PO BEDTIME PRN PRN Reason: Insomnia Methotrexate (Methotrexate Sodium 2.5 Mg Tablet) 15 mg PO FR [facility] Last Admin: 01/02/25 09:18 Dose: 15 mg Documented By: GUZMAN Omeprazole (Omeprazole 20 Mg Capsule.) 20 mg PO BEDTIME [facility] Last Admin: 01/02/25 21:09 Dose: 20 mg Documented By: MARICHUY Oxycodone HCl (Oxycodone Hcl Immed Release 15 Mg Tablet) 15 mg PO Q4H PRN PRN Reason: Pain, Moderate(Pain Scale 4-6) Last Admin: 01/03/25 11:05 Dose: 15 mg Documented By: CATERINA Pharmacy Consult (Consult Rx Vancomycin Dosing) 1 each MISCELLANE DAILY PRN PRN Reason: Consult order Prednisone (Prednisone 1 Mg Tablet) 3 mg PO DAILY [facility] Last Admin: 01/03/25 08:05 Dose: 3 mg Documented By: CATERINA Prednisone (Prednisone 20 Mg Tablet) 20 mg PO DAILY [facility] Last Admin: 01/03/25 08:06 Dose: 20 mg Documented By: CATERINA Sodium Chloride (0.9 % Sodium Chloride Flush 3 Ml Syringe) 3 ml IVFLUSH QSHIFT [facility] Last Admin: 01/03/25 07:42 Dose: 3 ml Documented By: CATERINA Labs 01/03/25 06:47 01/03/25 06:56 Labs: Laboratory Results - last 24 hr 01/02/25 01/03/25 01/03/25 16:14 05:34 06:47 MCV 90.8 MCH 29.7 MCHC 32.8 RDW 14.5 Plt Count 357 D MPV 9.2 L Immature Gran % (Auto) 3.1 H Neut % (Auto) 73.8 H Lymph % (Auto) 15.6 L [place] % (Auto) 6.2 Eos % (Auto) 0.9 Baso % (Auto) 0.4 Lymph # (Auto) 2.2 [place] # (Auto) 0.9 Eos # (Auto) 0.1 Baso # (Auto) 0.1 Abs Immat Gran (auto) 0.43 H Absolute Neuts (auto) 10.3 H Absolute Nucleated RBC 0.000 Nucleated RBC % (auto) 0.0 Hold Purple Top Cancelled Anion Gap Estim Creat Clear Calc Cancelled Estimated GFR Cancelled Fasting Glucose Calcium Total Bilirubin AST ALT Alkaline Phosphatase Total Protein Albumin Random Vancomycin 15.5 01/03/25 06:56 MCV MCH MCHC RDW Plt Count MPV Immature Gran % (Auto) Neut % (Auto) Lymph % (Auto) [place] % (Auto) Eos % (Auto) Baso % (Auto) Lymph # (Auto) [place] # (Auto) Eos # (Auto) Baso # (Auto) Abs Immat Gran (auto) Absolute Neuts (auto) Absolute Nucleated RBC Nucleated RBC % (auto) Hold Purple Top Anion Gap 13 Estim Creat Clear Calc 92.1 Estimated GFR > 60 Fasting Glucose 127 H Calcium 8.9 Total Bilirubin 0.3 AST 30 ALT 41 H Alkaline Phosphatase 93 Total Protein 6.3 L Albumin 3.7 Random Vancomycin Assessment and Plan (1) Septic olecranon bursitis of right elbow: Status: Acute (2) Lupus (systemic lupus erythematosus): Status: Acute Plan This has a 54-year-old female with pertinent history of SLE, Mason's disease, gastroesophageal reflux disease, peripheral neuropathy, mood disorder admitted for sepsis due to infected right elbow olecranon bursitis. 1.Sepsis due to right elbow cellulitis(sepsis resolved) -ortho re-evaluate today appreciated. .. Continues to improve -vancomycin (7).. DC in a.m. -pain control poor; we will increase oxycodone to 15 mg every 4 hours and make Dilaudid q.6. Patient wishes to be discharged in a.m. if pain control 2.Chronic adrenal insufficiency due to Jun's -stable and well compensated -continue current therapies 3.SLE -no acute issues -hydroxychloroquine/methotrexate DVT prophylaxis: Lovenox Full code Reason for continued hospitalization: IV antibiotics, pain management, OT dispo: D/C home tomorrow with PO abx Quality Stroke Does the patient have a stroke diagnosis?: No VTE Prior VTE?: No VTE Risk Level:: Medical - moderate - high VTE Device Contraindication: Treatment Not Indicated VTE Drug Contraindication: N/A - Med Ordered
[2025-01-04] VITALS (7 sets, daily range): BP systolic 96–120; BP diastolic 58–70; PULSE 75–81; RESP 14–18; TEMP 36.2–36.4; O2SAT 96–99
--- NOTE | 2025-01-04 01:41 | PC.NURSE ---
Patient reports her pain is much more under control this night. She is content, in better spirits, and resting comfortably.
[2025-01-04 06:24] LABS: MANUAL DIFF FLAG NO
[2025-01-04] MEDS: oxyCODONE HCl Immed Release 15 MG TABLET PO ×2 (06:32→12:09)
[2025-01-04 06:36] LABS: Creatinine Clr Calc Pharmacy 93.5; Estimated Glomerular Filt Rate > 60; Hematocrit 36.8 % (37.0-47.0); Hemoglobin 12.4 g/dl (12.0-16.0); Imm Gran Abs Auto 0.32 X10*3/uL (0.00-0.03); Imm Gran Pct Auto 2.7 % (0.0-0.4); Lymphocytes Absolute Auto 2.9 X10*3/uL (1.2-4.9); Mean Corpuscular HGB Conc 33.7 g/dl (31.0-35.0); Mean Corpuscular Hemoglobin 30.3 pg (27.0-33.0); Mean Corpuscular Volume 90.0 fL (80.0-98.0); NRBC Abs Auto 0.000 X10*3/uL (0.0-0.012); NRBC Pct Auto 0.0 /100WBC (0.0-0.2); Platelet Count 339 X10*3/uL (160-400); Red Blood Count 4.09 X10*6/uL (4.20-5.50); White Blood Count 11.7 X10*3/uL (4.8-10.8)
[2025-01-04] MEDS: 0.9 % Sodium Chloride Flush 3 ML SYRINGE IVFLUSH (07:51)
--- NOTE | 2025-01-04 11:22 | P.DS_ITS ---
DS: Providers Provider Date of Service: 01/04/25 Date of admission: 12/27/24 08:39 Date of discharge: 01/04/25 Primary care physician: DANIEL Reo Consults: 12/27/24 10:54 Consult to Orthopedics Routine Consulting Provider: [facility] Reason for consultation: elbow cellulitis with olecronon bursitis DS: Diagnosis Discharge Diagnosis (1) Septic olecranon bursitis of right elbow: Status: Acute (2) Lupus (systemic lupus erythematosus): Status: Acute DS: Summary Hospital Course Hospital Course: 54-year-old female with pertinent history of SLE, Jun's disease, gastroesophageal reflux disease, peripheral neuropathy, mood disorder who presents to the emergency department for evaluation of elbow pain. Patient states 4 days ago she noted redness around the right elbow. No inciting factor. Patient had an appointment with radiologist for kidney biopsy at [facility] where her erythema was marked with a surgical marker. Patient states the redness has extended beyond the marked site. Also has associated pain and warmth. No fever or chills. Associated swelling present. No chest pain, palpitations, shortness of breath, abdominal pain, changes in urinary or bowel habits. Hospital [facility] Patient was admitted to general medical floor and started on IV vancomycin. She progressed slowly but developed extreme nausea. Patient could not tolerate oral therapies. This nausea was intermittent however multiple attempts at oral antibiotics 1 successful. It was decided that she will complete a 7 day course of vancomycin as she will be a high risk of outpatient therapy. She was seen by Orthopedics who felt there was no need for surgical intervention. On the day of discharge, her right elbow range of motion is markedly improved as is her erythema. She will be discharged home to complete a course of oral doxycycline clean and follow up with PCP Time Attestation Discharge Coordination Time (in mins): 35 Quality: Safe Use of Opioids Does Pt have an Active Cancer Diagnosis on the Problem List?: No Quality: Stroke Does the patient have a stroke diagnosis?: No Physical Exam Vital Signs: Vital Signs: Last Vital Signs Temp 97.2 F 01/04/25 07:48 Pulse 75 01/04/25 07:48 Resp 16 01/04/25 09:55 BP 115/68 01/04/25 09:55 Pulse Ox 97 01/04/25 07:48 O2 Del Method Room Air 01/04/25 07:48 BMI result Body Mass Index 32.4 Const: Other: Awake alert oriented x3 Resp: Other: Clear to auscultation bilaterally no rales rhonchi or wheezes Cardio: Other: No S4; positive S1-S2; no S3 murmurs rubs or gallops GI: Other: Soft nontender nondistended normoactive bowel sounds Extrem: Other: No edema bilaterally DS: Data Data Completed and Pending Labs on day of discharge: Laboratory Results - last 24 hr 01/03/25 01/04/25 15:42 06:05 WBC 11.7 H RBC 4.09 L Hgb 12.4 Hct 36.8 L MCV 90.0 MCH 30.3 MCHC 33.7 RDW 14.6 Plt Count 339 MPV 9.1 L Immature Gran % (Auto) 2.7 H Neut % (Auto) 64.8 Lymph % (Auto) 24.8 [place] % (Auto) 5.8 Eos % (Auto) 1.1 Baso % (Auto) 0.8 Lymph # (Auto) 2.9 [place] # (Auto) 0.7 Eos # (Auto) 0.1 Baso # (Auto) 0.1 Abs Immat Gran (auto) 0.32 H Absolute Neuts (auto) 7.6 Absolute Nucleated RBC 0.000 Nucleated RBC % (auto) 0.0 Creatinine 0.71 Estim Creat Clear Calc 93.5 Estimated GFR > 60 Random Vancomycin 14.2 L Discharge Plan Discharge Anticipated Discharge Date/Time: 01/04/25 11:17 Patient Disposition: Home, Self-Care Discharge Diagnosis: Right septic olecranon bursitis Referrals: Santino Palomino PA [Primary Care Provider, Internal Medicine] - 1 Week Discharge Medications: New doxycycline hyclate 100 mg tablet 100 mg PO BID Qty: 14 0RF Continued gabapentin 400 mg capsule 400 mg PO BEDTIME methotrexate sodium 2.5 mg tablet 15 mg PO FR omeprazole 20 mg capsule,delayed release(DR/EC) 20 mg PO BEDTIME folic acid 1 mg tablet 1 mg PO DAILY hydroxychloroquine 200 mg tablet 400 mg PO DAILY ondansetron 4 mg tablet,disintegrating 4 mg PO Q8H PRN (Reason: nausea/vomiting) lisdexamfetamine 40 mg capsule 40 mg PO DAILY PRN (Reason: ADHD) oxycodone 10 mg tablet 10 mg PO Q4H PRN (Reason: Pain (Scale Score 4-6)) Wegovy 1 mg/0.5 mL pen injector 1 mg subcut FR@0900 vitamin A 3,000 mcg (10,000 unit) Capsule 3,000 mcg PO DAILY calcium carbonate [Calcium 500] 500 mg calcium (1,250 mg) Tablet,Chewable 500 mg PO BID fludrocortisone 0.1 mg Tablet 0.1 mg PO DAILY Rx Instructions: ONLY TAKES WHEN NOT ON HIGHER DOSE OF PREDNISONE - NOT CURRENTLY TAKING nystatin 100,000 unit/mL suspension 5 ml PO QID PRN (Reason: infection) prednisone 20 mg tablet 20 mg PO DAILY prednisone 1 mg tablet 3 mg PO DAILY duloxetine 30 mg capsule,delayed release(DR/EC) 30 mg PO DAILY Discharge Orders: Discharge Order (Routine); Ordered 01/04/25 Ordered By: Jefe Soliz Diet: Advance to usual diet Activity on Discharge: As tolerated Stand Alone Forms: Patient Portal Discharge page Print Language: Mongolian Care Plan Goals: Continue all medications as taken prior to hospitalization Health Concerns: Doxycycline 100 mg twice daily x1 week has been added to complete your regimen Plan of Treatment: Follow up with the PCP and supervisor matrix as scheduled Assessment: See discharge summary
--- NOTE | 2025-01-04 12:22 | MHC.CM.PN ---
pt dcd home self care
== END 2025-01-04 12:38 | disposition home or self-care (01) | DRG 872 ==
LOC: HO.ED 08:25 → HO.EDOVER 08:44 → HO.S3 12:19
PROVIDERS: Physician Assistant; Admitting Provider Student in an Organized Health Care Education/Training Program; Emergency Provider Emergency Medicine; PCP Physician Assistant; Visit Provider Hospitalist
DX: A41.9 Sepsis, unspecified organism (principal); L03.113 Cellulitis of right upper limb; E27.1 Primary adrenocortical insufficiency; M71.121 Other infective bursitis, right elbow; G62.9 Polyneuropathy, unspecified; K21.9 Gastro-esophageal reflux disease without esophagitis; M32.9 Systemic lupus erythematosus, unspecified; Z79.52 Long term (current) use of systemic steroids; Z79.631 Long term (current) use of antimetabolite agent; Z79.899 Other long term (current) drug therapy
CPT/HCPCS: 36415; 73201; 80048; 80053; 80076; 80202; 82565; 83605; 85007; 85025; 85027; 85652; 86140; 86617; 86618; 87040; 87468; 87469; 87478; 87484; 87798; 97110; 97165; 99285; J1171; J1200; J1650; J2543; J3373; J3374; Q9967

== ENCOUNTER → 2024-12-27 08:03 | Outpatient (BNV) | payer OTHER, SELFPAY | PROVIDERS: Admitting Provider Student in an Organized Health Care Education/Training Program; Emergency Provider Emergency Medicine; PCP Physician Assistant; Visit Provider Radiology Diagnostic Radiology | DX: M70.21 Olecranon bursitis, right elbow (principal) | CPT/HCPCS: 73201 ==

== ENCOUNTER → 2024-12-27 08:39 | Outpatient (BNV) | payer OTHER, SELFPAY | PROVIDERS: Admitting Provider Student in an Organized Health Care Education/Training Program; Emergency Provider Emergency Medicine; PCP Physician Assistant; Visit Provider Student in an Organized Health Care Education/Training Program | DX: M71.121 Other infective bursitis, right elbow (principal); L03.90 Cellulitis, unspecified | CPT/HCPCS: 99222; 99232 ==

== ENCOUNTER → 2024-12-27 08:39 | Outpatient (BNV) | payer OTHER, SELFPAY | PROVIDERS: Admitting Provider Student in an Organized Health Care Education/Training Program; Emergency Provider Emergency Medicine; PCP Physician Assistant | DX: L03.90 Cellulitis, unspecified (principal); M71.121 Other infective bursitis, right elbow | CPT/HCPCS: 99222; 99232 ==

== ENCOUNTER 2025-01-23 12:43 | Inpatient (IN) | payer OTHER, SELFPAY ==
[2025-01-23] VITALS (7 sets, daily range): BP systolic 93–122; BP diastolic 63–70; PULSE 88–114; RESP 17–18; TEMP 36–36.6; O2SAT 94–99; BMI 30.1
--- NOTE | ~2025-01-23 | CT_ITS ---
EXAMINATION: CT ABDOMEN PELVIS WITHOUT IV CONTRAST HISTORY: Abdominal pain COMPARISON: Comparison is made with the prior examination dated 01/23/2025. TECHNIQUE: CT scan of the abdomen and pelvis was performed without contrast using standard departmental protocol. Coronal and sagittal reformatted images were generated and reviewed. Oral contrast material was not administered at the request of the referring physician. This CT exam was performed with one or more of the following dose reduction techniques: automated exposure control, adjustment of the mA and/or kV according to patient size, use of iterative reconstruction technique. DLP: 506 mGy-cm FINDINGS: LOWER CHEST: The visualized lung bases are clear. There is no pleural effusion. CARDIOVASCULATURE: The heart is normal in size. There is no pericardial effusion. LIVER: The liver is normal in size and contour. Multiple hypodense foci are seen scattered throughout the liver measuring up to 1.5 cm in size. These may represent cysts, although the majority are too small to accurately characterize. GALLBLADDER / BILE DUCTS: The gallbladder is surgically absent. Gas is seen within biliary radicles in the left lobe of the liver and in the common bile duct, compatible with prior sphincterotomy. There is no intra or extrahepatic biliary ductal dilatation. SPLEEN: The spleen is normal in size and has an unremarkable unenhanced appearance. PANCREAS: The pancreas has an unremarkable unenhanced appearance. ADRENAL GLANDS: Unremarkable. KIDNEYS/RETROPERITONEUM: No renal or ureteral calculi are identified. There is no hydronephrosis or hydroureter. Subcentimeter hyperdense foci in the right kidney are again noted which are too small to accurately characterize.. LYMPH NODES: No retroperitoneal lymphadenopathy is identified in the abdomen or pelvis. VASCULATURE: The abdominal aorta is normal in caliber. MESENTERY/PERITONEUM: No free fluid. No masses. There is no free intraperitoneal gas. STOMACH: The stomach is unremarkable. SMALL BOWEL: The small bowel is normal in caliber. COLON: There is diverticulosis of the descending and sigmoid colon, without evidence of diverticulitis. APPENDIX: Normal. URINARY BLADDER/PELVIC ORGANS: The urinary bladder is unremarkable. The patient is status post hysterectomy. BONES / SOFT TISSUES: No suspicious bony or soft tissue abnormalities. CT/CT abdomen pelvis wo IV con IMPRESSION: No acute abnormality is identified on this unenhanced examination. Incidental findings as discussed above. Electronically signed by: Stas Scherer MD 02/03/2025 11:47 AM EDT
--- NOTE | ~2025-01-23 | CT_ITS ---
EXAMINATION: CT ABDOMEN AND PELVIS WITHOUT CONTRAST CLINICAL INFORMATION: Left flank pain COMPARISON: None available. TECHNIQUE: Multidetector volumetric imaging was performed from the superior aspect of the liver through the pubic symphysis. Sagittal and coronal reformatted images were obtained on the technologist's workstation. This CT examination was performed using dose optimization techniques as appropriate, variously including the following: *Automated exposure control *Adjustment of mA and/or kV according to patient size (this includes techniques or standardized protocols for targeted exams where dose is matched to indication/reason for exam; i.e. extremities or head) *Use of iterative reconstruction technique DLP: 573 mGY*cm FINDINGS: LUNG BASES: The visualized lung bases are unremarkable. LIVER, GALLBLADDER, AND BILIARY TREE: Multiple hypoattenuating lesions are present in the liver. Most are too small to characterize. There is a septated lesion in the right hepatic lobe measuring 2.2 cm long axis with fluid density consistent with a benign simple hepatic cyst. The gallbladder is surgically absent and there are clips in the gallbladder fossa. The extra hepatic bile duct is mildly dilated with a gas bubble, likely related to sphincterotomy. PANCREAS: Unremarkable. SPLEEN: Unremarkable. ADRENAL GLANDS: Unremarkable. KIDNEYS AND URETERS: There are 2 foci of medullary nephrocalcinosis in the right kidney. No stones are identified. There is no hydronephrosis or hydroureter. BLADDER: Unremarkable. GASTROINTESTINAL TRACT: Pseudodiverticula are present in the descending and sigmoid colon without wall thickening or inflammatory changes. ABDOMINAL WALL: No significant hernia is appreciated. LYMPH NODES: Normal. VASCULAR: Unremarkable. PELVIC VISCERA: Uterus is surgically absent. Right ovary is unremarkable. Left ovary is not visualized and may be surgically absent. OSSEOUS STRUCTURES: Unremarkable. 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 Pseudodiverticula are present in the descending and sigmoid colon without sign of infection Hysterectomy and probable left oophorectomy. Fleischner guidelines were followed. Electronically signed by: Spencer Gooden MD 01/23/2025 02:43 PM EDT
--- NOTE | 2025-01-23 13:00 | MHC.EDTECH ---
Patient asked me if we can do the blood work at the same time when IV be insert RN and PA aware.
--- NOTE | 2025-01-23 13:03 | ED.GENADULT ---
HPI - General Adult General Chief complaint: General Medical Stated complaint: Kidney pain, blood in stool Time Seen by Provider: 01/23/25 13:19 Source: patient Mode of arrival: ambulatory Limitations: no limitations History of Present Illness ED Provider: HPI narrative: 54-year-old woman with a history of [place]'s disease, being worked up for potential loin pain hematuria syndrome, lupus, on steroid taper now 20 mg, on methotrexate, on hydrochloroquine, follows up at [facility] a new mass, presenting with she describes as abdominal pain and left flank pain/kidney pain, reports diarrhea for the past 6 days and bright red blood in stool. Related Data Home Medications ?Medication ?Instructions ?Recorded ?Confirmed calcium carbonate (Calcium 500) 500 mg PO BID 12/02/24 12/27/24 fludrocortisone 0.1 mg tablet 0.1 mg PO DAILY 12/02/24 12/27/24 folic acid 1 mg tablet 1 mg PO DAILY 12/02/24 12/27/24 gabapentin 400 mg capsule 400 mg PO BEDTIME 12/02/24 12/27/24 hydroxychloroquine 200 mg tablet 400 mg PO DAILY 12/02/24 12/27/24 lisdexamfetamine 40 mg capsule 40 mg PO DAILY PRN ADHD 12/02/24 12/27/24 methotrexate sodium 2.5 mg tablet 15 mg PO FR 12/02/24 12/27/24 omeprazole 20 mg capsule,delayed 20 mg PO BEDTIME 12/02/24 12/27/24 release ondansetron 4 mg disintegrating 4 mg PO Q8H PRN nausea/vomiting 12/02/24 12/27/24 tablet oxycodone 10 mg tablet 10 mg PO Q4H PRN Pain (Scale Score 12/02/24 12/27/24 4-6) semaglutide (weight loss) 1 mg/0.5 1 mg subcut FR@0900 12/02/24 12/27/24 mL subcutaneous pen injector (Olenay) vitamin A 3,000 mcg (10,000 unit) 3,000 mcg PO DAILY 12/02/24 12/27/24 capsule duloxetine 30 mg capsule,delayed 30 mg PO DAILY 12/27/24 12/27/24 release nystatin 100,000 unit/mL oral 5 ml PO QID PRN infection 12/27/24 12/27/24 suspension prednisone 1 mg tablet 3 mg PO DAILY 12/27/24 12/27/24 prednisone 20 mg tablet 20 mg PO DAILY 12/27/24 12/27/24 Previous Rx's ?Medication ?Instructions ?Recorded doxycycline hyclate 100 mg tablet 100 mg PO BID #14 tabs 01/04/25 Allergies Allergy/AdvReac Type Severity Reaction Status Date / Time metoclopramide (From Reglan) Allergy Anaphylaxis Verified 01/23/25 13:07 ondansetron (From Zofran) Allergy Anaphylaxis Verified 01/23/25 13:07 prochlorperazine (From Allergy Anaphylaxis Verified 01/23/25 13:07 Compazine) promethazine (From Phenergan) Allergy Anaphylaxis Verified 01/23/25 13:07 Review of Systems Constitutional: Constitutional: Reports as per [facility] Past Medical History Medical History (Updated 01/23/25 @ 16:06 by Wili Willson DO) Lupus (systemic lupus erythematosus) Social History Social History Household Members: Spouse Housing: House Do you presently have visiting nurse or other home services: Yes Patient Tobacco Use Status: Never used Tobacco Smoked in Last 30 Days: No Use of substances other than those prescribed or required for medical reasons: No Advance Directives: No Advance Directives Information Provided: Yes Patient : No service: No Physical Exam ED Vital Signs: Vital Signs - 24 hr 01/23/25 13:03 01/23/25 14:09 01/23/25 15:51 Temperature 97.9 F Pulse Rate 114 H 88 Respiratory Rate 18 18 18 Blood Pressure 122/68 103/65 Pulse Oximetry 96 94 Oxygen Delivery Method Room Air Room Air 01/23/25 16:00 Temperature 97.9 F Pulse Rate 100 Respiratory Rate 18 Blood Pressure 120/70 Pulse Oximetry 99 Oxygen Delivery Method Room Air BMI result Body Mass Index 30.1 Const Other: Gen: ?In discomfort, body habitus consistent with the chronic steroid use CV: RRR, no obvious murmurs appreciated Resp: ?No wheezing rales rhonchi no stridor moving air well Abd: ?No rebound no rigidity, nonspecific tenderness left mid quadrant, left paraspinal pain and CVA tenderness MSK: FROM, strength 5/5 all extremities Skin: Warm, dry, intact, Neuro: ?Alert and oriented x3, moving upper and lower extremities symmetrically, no obvious facial asymmetry noted Course Course Course Narrative: RME, this is a rapid medical exam performed by Deni Laws please refer to primary provider for complete H&P- 54 year old female with a history of multiple autoimmune disorders presenting for evaluation of abdominal pain and bloody stool. Plan for labs and inflammatory markers as wellas a UA Medications Administered Discontinued Medications Generic Name Dose Route Start Last Admin Trade Name Kailey PRN Reason Stop Dose Admin Dexamethasone Sodium Phosphate 10 mg 01/23/25 15:31 01/23/25 15:47 Dexamethasone Sod Phosphate 10 Mg/Ml Vial IVPUSH 01/23/25 15:32 10 mg ONCE ONE Administration Diphenhydramine HCl 12.5 mg 01/23/25 13:32 01/23/25 14:09 Diphenhydramine Hcl 50 Mg/Ml Vial IVPUSH 01/23/25 13:33 12.5 mg ONCE ONE Administration Hydromorphone HCl 2 mg 01/23/25 13:32 01/23/25 14:09 Hydromorphone Hcl 2 Mg/Ml Vial IVPUSH 01/23/25 13:33 2 mg ONCE ONE Administration Protocol Sodium Chloride 1,000 mls @ 999 mls/hr 01/23/25 13:45 01/23/25 15:46 Ns IV 01/23/25 14:45 Infused .Q1H1M HUGH Infusion Medical Decision Making Medical Decision Making [facility] Narrative: Patient has significant amount of distress, does take immunosuppressants, we will initiate pain medications, imaging for renal stones, abdominal infectious etiology, we will workup for pyelonephritis, SBO, perforation with CT, 15:30 patient re-evaluated, she is stone discomfort, thus far workup has been reassuring still awaiting urinalysis CT without any kidney stones or infectious etiology, leukocytosis fairly chronic and explained by her steroid use, we will dose her up with steroids, nephrocalcinosis without nephrolithiasis should not be causing these issues based on my uptodate research I did research into Werner David outpatient workup at [facility], in 11/08/2024 she was admitted with consideration for lupus nephritis, December 26 patient had left kidney biopsy, 11/08/2024 a [facility] had CT angio abdomen and pelvis with a patent renal arteries and veins. on Benlysta infusions 0356: Patient is still having pain, because of her prior workup at [facility] and similar presentation there on November 12 2024 have attempted to transfer her to [facility] but they are at capacity at this time, patient wishes to be admitted here however I told her that she would be best served with a [facility] but as long as I can admit her at [facility] I will admit her here for pain control. Differential Diagnosis Differential Diagnoses: The differential diagnosis associated with the presentation includes (Renal colic, diverticulitis, lung pain hematuria syndrome, dehydration, endocrine emergency) Admission/Observation Consideration of admission/observation: Escalation of care including admission/observation considered 2022 Emergency Medicine Coding Guide from [employer] on 01/23/2025 All calculations should be rechecked by clinician prior to use RESULT SUMMARY: 5 Estimated Level of Service Problems: High (5) Risk: High (5) Data: Extensive (5) NARRATIVE MDM: This patient's problem complexity is High as patient: may have an acute or chronic illness/injury posing a threat to life or body function. This patient's risk is High due to: overall presentation requiring evaluation for a potentially High-risk process. This patient's data complexity is Extensive due to: -multiple tests ordered/reviewed -independent interpretation of imaging or EKG INPUTS: Number and Complexity ?> 2 = 5: illness/injury w/life or body threat (b) Risk level ?> 4 = High Tests ordered ?> 3 = >= Tests results reviewed (excluding labs) ?> 2 = 2 Prior external notes reviewed ?> 0 = 0 Assessment requiring and independent historian ?> 0 = No Independent interpretation of tests ?> 1 = Yes Discussed management/test interpretation w/external professional ?> 0 = No Lab Data MDM Lab Attestation statement: I reviewed the patient's lab results. 01/23/25 14:00 01/23/25 14:00 Labs: Lab Results 01/23/25 Range/Units 14:00 WBC 16.0 H (4.8-10.8) X10*3/uL RBC 4.88 (4.20-5.50) X10*6/uL Hgb 14.8 (12.0-16.0) g/dl Hct 42.8 (37.0-47.0) % MCV 87.7 (80.0-98.0) fL MCH 30.3 (27.0-33.0) pg MCHC 34.6 (31.0-35.0) g/dl RDW 15.4 (11.0-16.0) % Plt Count 264 (160-400) X10*3/uL MPV 9.2 L (9.4-12.3) fL Immature Gran % (Auto) 1.6 H (0.0-0.4) % Neut % (Auto) 88.6 H (45-73) % Lymph % (Auto) 5.9 L (20-40) % [place] % (Auto) 3.4 (2-11) % Eos % (Auto) 0.1 (0-4) % Baso % (Auto) 0.4 (0-2) % Lymph # (Auto) 0.9 L (1.2-4.9) X10*3/uL [place] # (Auto) 0.6 (0.1-1.2) X10*3/uL Eos # (Auto) 0.0 (0.0-0.4) X10*3/uL Baso # (Auto) 0.1 (0.0-0.2) X10*3/uL Abs Immat Gran (auto) 0.25 H (0.00-0.03) X10*3/uL Absolute Neuts (auto) 14.2 H (2.0-8.3) x10*3/uL Absolute Nucleated RBC 0.000 (0.0-0.012) X10*3/uL Nucleated RBC % (auto) 0.0 (0.0-0.2) /100WBC ESR 7 (0-20) MM/HR Sodium 136 (135-145) mmol/L Potassium 4.7 D (3.3-5.1) mmol/L Chloride 100 (96-108) mmol/L Carbon Dioxide 24 (22-29) mmol/L Anion Gap 17 (12-20) BUN 24 H (9-16) mg/dL Creatinine 1.05 (0.5-1.4) mg/dL Estim Creat Clear Calc 60.9 Estimated GFR 55 Random Glucose 149 H (60-115) mg/dL Calcium 9.4 (8.4-10.2) mg/dL Total Bilirubin 0.3 (0.0-1.0) mg/dL AST 43 H (5-31) U/L ALT 49 H (0-31) U/L Alkaline Phosphatase 78 (39-117) U/L C-Reactive Protein 0.35 (< or = 0.50) mg/dL Total Protein 6.9 (6.5-8.0) g/dL Albumin 4.2 (3.5-5.0) g/dL Lipase 28 (8-78) U/L TSH 0.48 (0.32-4.0) uIU/mL Critical Care Time Critical Care Time Critical Care Time: Yes Total Critical Care Time: 35 Attestation: Time is exclusive of separately billable procedures. Time includes: direct patient care, patient reassessment, coordination of patient care, interpretation of data (laboratory data, pulse oximetry, arterial blood gases and chest xrays), review of patient's medical records, medical consultation and documentation of patient care. Procedures excluded from critical care time: central intravenous line placement and electrocardiography. Discharge Plan Discharge Clinical Impression: Acute left flank pain, Systemic lupus erythematosus Patient Disposition: Admitted As Inpatient Print Language: Kyrgyz
--- OUTSIDE RECORDS SUMMARY | 2025-01-23 13:50 | XMS_ITS | Clinical Summary ---
Author Organization [facility] [address] [address] Phone Care Team Providers Care Sampler First Name Role Phone Santino Palomino PA-C Primary Care Provider Encounters Date Type Department Care Team Description 11/21/2024 Documentation Only [facility] [address] [place] [address] Ana Chau 11/14/2024 Office Communication [facility] [address] [place] [phone] David Figueroa MD from Last 3 Months Social History Tobacco Use Types Packs/Day Years Used Date Smoking Tobacco: Never Assessed Comments Unknown Sex and Gender Information Value Date Recorded Sex Assigned at Not on file Legal Sex Female 2:21 PM EDT Gender Identity Not on file Sexual Orientation Not on file Plan of Treatment Upcoming Encounters Date Type Department Care Team (Late st Contact Info) Description 03/27/2025 3:45 PM EDT Office Visit [facility] [address] [place] [address] Robinson Enciso DO [address] [place] [address] [place] [address] Health Maintenance Due Date Last Done Comments Breast Cancer Screening 1970 Hepatitis B Vaccine (1 of 3 - 19+ 3-dose series) 12/11 Pneumococcal Vaccine: 50+ Years (1 of 2 - PCV) 991 Colorectal Cancer Screening: Annual FOBT 12/11/2020 Colorectal Cancer Screening: Colonoscopy 12/11/2020 Colorectal Cancer Screening: Sigmoidoscopy 12/11/2020 Influenza Vaccine (#1) 2025 Insurance [facility] Care Teams Sampler First Relationship Specialty Start Date End Date Santino Palomino PA-C [address] [place] [address] PCP - General Physician Spray Painting Machine Operator 11/11/24
--- OUTSIDE RECORDS SUMMARY | 2025-01-23 13:50 | XMS_ITS | Encounter Summary ---
Author Organization [facility] Address [address] [place] [address] Care Team Providers Care Physician Specialist Name Role Phone Santino Palmoino Primary Care Provider [phone] Reason for Visit * Reason Onset Date Comments PAC Rx Questions- 08/19/2024 Encounter Details Date Type Department Care Team (Late st Contact Info) Description 08/19/2024 Telephone [facility] [address] [place] [phone] Telephone Intake, Staff PAC Rx Questions- Social [...] 7:47 AM EDT Sexual Orientation Straight 11/02/2023 7: 47 AM EDT documented as of this encounter Miscellaneous Notes * Telephone Encounter - Amado Smart LPN - 08/20/2024 4:12 PM EDT Nurse LMOM for the pt pharmacist to call office back * Telephone Encounter - Ana Thomas - 08/19/2024 10:15 AM EDT Alexey calling from [facility] pharmacy for patient Pt is established with Patient told pharmacy she was going to be switching over from [facility] & switching back to [facility] Pharmacy just needs someone to confirm Please contact pharmacy @ [phone] and you can ask for alexey Thank you PAC documented in this encounter Plan of Treatment Upcoming Encounters Date Type Department Care Team (Late st Contact Info) Description 01/27/2025 9:40 AM EDT Follow-Up [facility] Nephrology [facility] [address] [place] [address] Hearing Dog Trainer: Maurice England MD [address] [place] [phone] 03/19/2025 1:40 PM EDT Follow-Up [facility] Rheumatology Clinic [address] [place] [phone] Hearing Dog Trainer: Adonis Stone MD [address] [place] [phone] 04/17/2025 9:45 AM EST Appointment [facility] [address] [place] [address] documented as of this encounter Visit Diagnoses Not on filedocumented in this encounter Care Teams Physician Specialist Relationship Specialty Start Date End Date Santino Palomino PA [address] [facility] [place] [address] PCP - General 11/02/23 documented as of this encounter
--- OUTSIDE RECORDS SUMMARY | 2025-01-23 13:50 | XMS_ITS | Encounter Summary ---
Author Organization [facility] Address [address] [place] [address] Care Team Providers Care Boss Dyer Name Role Phone Santino Palomino Primary Care Provider [phone] Encounter Details Date Type Department Care Team (Late st Contact Info) Description 01/19/2025 [facility]ICAt Message [facility] Rhe[facility]ology Clinic [address] [place] [address] Talking Books Library Clerk: Adonis Stone MD [address] [place] [address] Please help Social History Tobacco Use Types Packs/Day Years Used Date Smoking Tobacco: Never Passive Smoke Exposure: Never Smokeless Tobacco: Never Alcohol Use Standard Drinks/Week Comments Not Currently 0 (1 standard drink = 0.6 oz pur e alcohol) [facility] Utilities Answer Date Recorded In the past 12 months has e [employer], gas, oil, or water [employer] threatened to shut off services in your home? No 12/04/2024 Hunger Vital Sign Answer Date Recorded Within the past 12 months, y ou worried that your food would run out before you got the money to buy more. Never true 12/05/19 25 Within the past 12 months, t he food you bought just didn't last and you didn't have money to get more. Never true 12/04/2024 Transportation Answer Date Recorded In the past 12 months, has l ack of reliable transportation kept you from medical appointments, meetings, work or from getting things needed for daily living? No 12/04/2024 Housing Answer Date Recorded Housing Risk Low 2 12/03/2024 Housing Risk Medium Not on file 12/03/2024 Housing Risk High Not on file 12/03/2024 What is your living situation today? [facility] 12/03/2024 Comments Unknown Sex and Gender Information Value Date Recorded Sex Assigned at Female 11/02/2023 7:47 AM EDT Legal Sex Female 2:55 PM EDT Gender Identity Female 11/02/2023 7:47 AM EDT Sexual Orientation Straight 11/02/2023 7: 47 AM EDT documented as of this encounter Plan of Treatment Upcoming Encounters Date Type Department Care Team (Late st Contact Info) Description 01/27/2025 9:40 AM EDT Follow-Up [facility] Nephrology Clinic [address] [place] [address] [employer] Library Clerk: Maurice England MD [address] [place] [address] 03/19/2025 1:40 PM EDT Follow-Up [facility] Rheumatology Clinic [address] [place] [address] [employer] Library Clerk: Adonis Stone MD [address] [place] [phone] 04/17/2025 9:45 AM EST Appointment [facility] [address] [place] [address] documented as of this encounter Visit Diagnoses Not on filedocumented in this encounter Care Teams Boss Dyer Relationship Specialty Start Date End Date Santino Palomino PA [address] [facility] [place] [address] PCP - General 11/02/23 documented as of this encounter
--- OUTSIDE RECORDS SUMMARY | 2025-01-23 13:50 | XMS_ITS | Encounter Summary ---
Author Organization [facility] Address [address] [place] [address] Care Team Providers Care Set Up Mechanic Coil Winding Machines Name Role Phone Santino Palomino Primary Care Provider [phone] Encounter Details Date Type Department Care Team (Late st Contact Info) Description 12/23/2024 Telephone [facility] Interventional Radiology [address] [place] [address] Traci Robertson RN Social History Tobacco Use Types Packs/Day Years Used Date Smoking Tobacco: Never Passive Smoke Exposure: Never Smokeless Tobacco: Never Alcohol Use Standard Drinks/Week Comments Not Currently 0 (1 standard drink = 0.6 oz pur e alcohol) [facility] Utilities Answer Date Recorded In the past 12 months has th e electric, gas, oil, or water company threatened to shut off services in your [...] Info) Description 01/27/2025 9:40 AM EDT Follow-Up [facility] Nephrology Clinic [address] [place] [address] Inclusion Internship: Maurice England MD [address] [place] [address] 03/19/2025 1:40 PM EDT Follow-Up [facility] [address] [place] [address] Inclusion Internship: Adonis Stone MD [address] [place] [phone] 04/17/2025 9:45 AM EST Appointment [facility] [address] [place] [address] documented as of this encounter Visit Diagnoses Not on filedocumented in this encounter Care Teams Set Up Mechanic Coil Winding Machines Relationship Specialty Start Date End Date Santino Palomino PA [address] [place] [address] PCP - General 11/02/23 documented as of this encounter
--- OUTSIDE RECORDS SUMMARY | 2025-01-23 13:50 | XMS_ITS | Clinical Summary ---
Author Organization [facility] Address [address] [place] [address] Care Team Providers Care Veterinary Radiologist Name Role Phone Santino Palomino Primary Care Provider [phone] Allergies Active Allergy Reactions Criticality Noted Date Comments Metoclopramide Hcl Anaphylaxis,Dysphoria High 2023 Ondansetron Anaphylaxis,Dysphoria High 11/02/2023 Promethazine Anaphylaxis,Anxiety,Dysphoria High 11/2023 Medications * This document contains information received from the source organization and may not represent a complete record from that organization. Vyvanse 40 mg capsuleIndication s:SLE (systemic lupus erythematosus related syndrome) ([facility]) Take 40 mg by mouth. 020 Active BD Luer-Ovi Syringe 3 mL 18 x 1 05/29 syringeIndication s:SLE (systemic lupus erythematosus related syndrome) ([facility]) USE WITH SOLUMEDROL FOR ADRENAL CRISIS 024 Active hydroxychloroquin e (PLAQUENIL) 200 mg tabletIndications :SLE (systemic lupus erythematosus related syndrome) ([facility]) Take 1 tablet (200 mg total) by mouth 2 times a day. 60 tablet 11 024 Active Additional Information Patient taking differently: 400 mgoralDaily, Reported on 12/04/2024 gabapentin (NEURONTIN) 400 mg capsule SMARTSI Capsule(s) By Mouth Daily Active rimegepant ODT 75 mg (Nurtec ODT) 75 mg tablet,disintegra ting disintegrating tabletIndications :Cervicalgia,Othe r forms of systemic lupus erythematosus, unspecified organ involvement status ([facility]),Cognitive deficits,Other migraine without status migrainosus, not intractable Dissolve 1 tablet (75 mg total) in the mouth as needed (for really bad headache) for up to 9 doses. 9 tablet Active folic acid (FOLVITE) 1 mg tabletIndications :SLE (systemic lupus erythematosus related syndrome) ([facility]) TAKE 1 TABLET BY MOUTH EVERY DAY 30 tablet 5 Active Benlysta 400 mg recon soln IV solutionIndicatio ns:SLE (systemic lupus erythematosus related syndrome) ([facility]) Infuse 5 mL (400 mg total) intravenously every 28 days. 5 mL 2025 Active oxyCODONE IR (ROXICODONE) 10 mg tablet Take 10 mg by mouth every 4 hours as needed for pain. Active omeprazole (PriLOSEC) 20 mg capsule Take 20 mg by mouth once a day. Active semaglutide (WEGOVY SUBCUTANEO) Inject under the skin. Active risedronate (ActoneL) 35 mg tablet Take 1 tablet (35 mg total) by mouth once a week. Take on an empty stomach. Do not lie down or eat for 1/2 hour after taking. 4 tablet 2025 Active predniSONE (DELTASONE) 1 mg tablet Use as directed to facilitate slow prednisone taper 70 tablet Active methotrexate (TREXALL) 2.5 mg tabletIndications :SLE (systemic lupus erythematosus related syndrome) ([facility]) Take 6 tablets (15 mg total) by mouth once a week. [address] (CYMBALTA) 30 mg capsule Take 1 capsule (30 mg total) by mouth once a day. 30 capsule Active predniSONE (DELTASONE) 20 mg tablet Take 24mg daily for 6 days (last day at that dose 12/24), then decrease by 1mg per week until you reach 10mg, then stay at that dose. 14 tablet Active polyethylene glycol 3350 (MIRALAX) 17 gram packet Take 1 packet (17 g total) by mouth 2 times a day. Mix powder in 4 to 8 oz of water, juice, coffee, or tea prior to administration. 2024 bisacodyL (DULCOLAX) 10 mg suppository Insert 1 suppository (10 mg total) into the rectum daily as needed for constipation. 12 suppository 025 2024 Active Problems Problem Noted Date Diagnosed Date Flank pain 12/10/2024 Assessment & Plan (2024 3:29 PM EDT): Outpatient physician president concern for LPHS due to symptom presentation and complex rheumalogic history on multiple immunosuppressive agents. Lower suspicion as doers not have hematuria on latest UA. -Nephrology via [facility] chat said no further workup required inpatient, should follow-up outpatient Assessment & Plan (12/11/2024 5:26 PM EDT): Outpatient physician president concern for LPHS due to symptom presentation and complex rheumalogic history on multiple immunosuppressive agents. -Nephrology via [place] said no further workup required inpatient, should follow-up outpatient Flank pain 12/09/2024 Assessment & Plan (12/17/2024 8:47 AM EDT): Patient's flank pain thus far undifferentiated. Low suspicion for lupus flare given normal ESR/CRP on admission, relatively normal urine studies as above. Does have causes for abdominal pain such as constipation (high stool burden seen on CT AP) and possibly gastroparesis iso GLP-1 given stomach contents seen on CT. CT AP otherwise fairly unremarkable. PVR showed 25 mL residual, indicating no retention. Repeat UAs returned without gross or microscopic hematuria. Outpatient physician president concern for loin pain hematuria syndrome due to symptom presentation and complex rheumalogic history on multiple immunosuppressive agents. Lower suspicion as she does not have hematuria on latest UA. Discussed case with IR; patient is appropriate for outpatient renal biopsy as long as she is otherwise medically stable. - Transaminitis workup as below - Constipation management as below - Patient amenable to kidney biopsy; will follow-up with physician president outpatient Assessment & Plan (12/16/2024 3:03 PM EDT): Patient's flank pain thus far undifferentiated. Low suspicion for lupus flare given normal ESR/CRP on admission, relatively normal urine studies as above. Does have causes for abdominal pain such as constipation (high stool burden seen on CT AP) and possibly gastroparesis iso GLP-1 given stomach contents seen on CT. CT AP otherwise fairly unremarkable. PVR showed 25 mL residual, indicating no retention. Repeat UAs returned without gross or microscopic hematuria. Outpatient physician president concern for loin pain hematuria syndrome due to symptom presentation and complex rheumalogic history on multiple immunosuppressive agents. Lower suspicion as she does not have hematuria on latest UA. Discussed case with IR; patient is appropriate for outpatient renal biopsy as long as she is otherwise medically stable. - Transaminitis workup as below - Constipation management as below - Patient amenable to kidney biopsy; will follow-up with physician president outpatient Assessment & Plan (12/15/2024 1:42 PM EDT): Patient's flank pain thus far undifferentiated. Low suspicion for lupus flare given normal ESR/CRP on admission, relatively normal urine studies as above. Does have causes for abdominal pain such as constipation (high stool burden seen on CT AP) and possibly gastroparesis iso GLP-1 given stomach contents seen on CT. CT AP otherwise fairly unremarkable. PVR showed 25 mL residual, indicating no retention. Repeat UAs returned without gross or microscopic hematuria. Outpatient physician president concern for loin pain hematuria syndrome due to symptom presentation and complex rheumalogic history on multiple immunosuppressive agents. Lower suspicion as she does not have hematuria on latest UA. - Transaminitis workup as below - Constipation management as below - Patient amenable to kidney biopsy; appreciate nephrology recs Assessment & Plan (12/14/2024 11:34 AM EDT): Patient's flank pain thus far undifferentiated. Low suspicion for lupus flare given normal ESR/CRP on admission, relatively normal urine studies as above. Does have causes for abdominal pain such as constipation (high stool burden seen on CT AP) and possibly gastroparesis iso GLP-1 given stomach contents seen on CT. CT AP otherwise fairly unremarkable. PVR showed 25 mL residual, indicating no retention. Repeat UAs returned without gross or microscopic hematuria. Outpatient physician president concern for loin pain hematuria syndrome due to symptom presentation and complex rheumalogic history on multiple immunosuppressive agents. Lower suspicion as she does not have hematuria on latest UA. - Transaminitis workup as below - Constipation management as below - Offered kidney biopsy by nephrology but she declines; outpatient workup of possible LPHS Assessment & Plan (12/13/2024 6:23 PM EDT): Patient's flank pain thus far undifferentiated. Low suspicion for lupus flare given normal ESR/CRP on admission, relatively normal urine studies as above. Does have causes for abdominal pain such as constipation (high stool burden seen on CT AP) and possibly gastroparesis iso GLP-1 given stomach contents seen on CT. CT AP otherwise fairly unremarkable. PVR showed 25 mL residual, indicating no retention. Repeat UAs returned without gross or microscopic hematuria. Outpatient physician president concern for loin pain hematuria syndrome due to symptom presentation and complex rheumalogic history on multiple immunosuppressive agents. Lower suspicion as doers not have hematuria on latest UA. -Transaminitis workup as below -Constipation management as below - Offered kidney biopsy by nephrology but she declines; outpatient workup of possible LPHS Assessment & Plan (2024 3:29 PM EDT): Patient's flank pain thus far undifferentiated. Low suspicion for lupus flare given normal ESR/CRP on admission, relatively normal urine studies as above. Does have causes for abdominal pain such as constipation (high stool burden seen on CT AP) and possibly gastroparesis iso GLP-1 given stomach contents seen on CT. CT AP otherwise fairly unremarkable. PVR showed 25 mL residual, indicating no retention. Repeat UAs returned without gross or microscopic hematuria. -Nephrology consulted, appreciate recs -Transaminitis workup as below -Constipation management as below Assessment & Plan (12/11/2024 5:26 PM EDT): Patient's flank pain thus far undifferentiated. Low suspicion for lupus flare given normal ESR/CRP on admission, relatively normal urine studies as above. Does have causes for abdominal pain such as constipation (high stool burden seen on CT AP) and possibly gastroparesis iso GLP-1 given stomach contents seen on CT. CT AP otherwise fairly unremarkable. PVR showed 25 mL residual, indicating no retention. -Awaiting microalbumin, random urine with creatine and urinalysis w/ reflex to microscope & culture -Transaminitis workup as below -Constipation management as below Assessment & Plan (12/10/2024 5:31 PM EDT): Patient's flank pain thus far undifferentiated. Low suspicion for lupus flare given normal ESR/CRP on admission, relatively normal urine studies as above. Does have causes for abdominal pain such as constipation (high stool burden seen on CT AP) and possibly gastroparesis iso GLP-1 given stomach contents seen on CT. CT AP otherwise fairly unremarkable. -Nephrology consulted as patient said that her physician president informed her that patient may be having loin pain hematuria syndrome [LPHS] -Nephrology via [employer] said no further workup required inpatient, should follow-up outpatient -PVR to assess bladder retention and suprapubic pain -Transaminitis workup as below -Constipation management as below Assessment & Plan (12/10/2024 12:24 PM EDT): Patient's flank pain thus far undifferentiated. Low suspicion for lupus flare given normal ESR/CRP on admission, relatively normal urine studies as above. Does have causes for abdominal pain such as constipation (high stool burden seen on CT AP) and possibly gastroparesis iso GLP-1 given stomach contents seen on CT. CT AP otherwise fairly unremarkable. -Nephrology consulted as patient said that her physician president informed her that patient may be having loin pain hematuria syndrome [LPHS] -Nephrology via [facility] chat said no further workup required inpatient, should follow-up outpatient -PVR to assess bladder retention and suprapubic pain -Transaminitis workup as below -Constipation management as below Assessment & Plan (12/09/2024 5:23 PM EDT): Patient's flank pain thus far undifferentiated. Low suspicion for lupus flare given normal ESR/CRP on admission, relatively normal urine studies as above. Does have causes for abdominal pain such as constipation (high stool burden seen on CT AP) and possibly gastroparesis iso GLP-1 given stomach contents seen on CT. CT AP otherwise fairly unremarkable. - Nephrology consulted as patient said that her physician president informed her that patient may be having loin pain hematuria syndrome [LPHS] - Transaminitis workup as below - Constipation management as below Chronic pain 12/04/2024 Assessment & Plan (12/17/2024 3:53 PM EDT): Home meds: gabapentin 400mg daily, Oxycodone 10mg q4h PRN pain Due to her multiple autoimmune conditions, including Lupus and Stearns's disease, patient experiences chronic pain. This is medically managed by outpatient pain clinic with a multimodal regimen. After discussion with Dr. Lorenz, patient agreed to adding duloxetine to pain regimen. Received one dose of methocarbamol; patient could not tolerate. Reached out to anesthesia pain service for further suggestions. Patient expressed desire to discharge home as soon as tomorrow; will work on weaning off IV dilaudid and benadryl. -Gabapentin to 3 times a day 200, 200, 300mg -PO oxycodone 15mg q4H PRN -Duloxetine 30mg QD -Space out 0.5 mg IV Dilaudid to q8H PRN for breakthrough pain -Bowel regimen as above Assessment & Plan (12/16/2024 3:03 PM EDT): Home meds: gabapentin 400mg daily, Oxycodone 10mg q4h PRN pain Due to her multiple autoimmune conditions, including Lupus and Jun's disease, patient experiences chronic pain. This is medically managed by outpatient pain clinic with a multimodal regimen. After discussion with Dr. Lorenz, patient agreed to adding duoxetine to pain regimen. Reached out to anesthesia pain service for further suggestions. -Changed gabapentin to 3 times a day 200, 200, 300mg -Received one dose of methocarbamol; patient could not tolerate -Start PO oxycodone 15mg q4H PRN -Space out 0.5 mg IV Dilaudid to q8H PRN for breakthrough pain -Started duloxetine 30mg QD -Bowel regimen as above Assessment & Plan (12/15/2024 6:56 AM EDT): Home meds: gabapentin 400mg daily, Oxycodone 10mg q4h PRN pain Due to her multiple autoimmune conditions, including Lupus and Jun's disease, patient experiences chronic pain. This is medically managed by outpatient pain clinic with a multimodal regimen. -Continue home nightly gabapentin -Start PO oxycodone 15mg q4H PRN -Space out 0.5 mg IV Dilaudid to q8H PRN for breakthrough pain -Bowel regimen as above Assessment & Plan (12/14/2024 11:34 AM EDT): Home meds: gabapentin 400mg daily, Oxycodone 10mg q4h PRN pain Due to her multiple autoimmune conditions, including Lupus and Jun's disease, patient experiences chronic pain. This is medically managed by outpatient pain clinic with a multimodal regimen. -Continue home nightly gabapentin -Start PO oxycodone 15mg q4H PRN -Space out 0.5 mg IV Dilaudid to q8H PRN for breakthrough pain -Bowel regimen as above Assessment & Plan (12/13/2024 6:53 AM EDT): Home meds: gabapentin 400mg daily, Oxycodone 10mg q4h PRN pain Due to her multiple autoimmune conditions, including Lupus and Jun's disease, patient experiences chronic pain. This is medically managed by outpatient pain clinic with a multimodal regimen. -Continue home nightly gabapentin -Start PO oxycodone 15mg q4H PRN -Start 0.5 mg IV Dilaudid q6H for breakthrough pain -Bowel regimen as above Assessment & Plan (2024 3:29 PM EDT): Home meds: gabapentin 400mg daily, Oxycodone 10mg q4h PRN pain Due to her multiple autoimmune conditions, including Lupus and Stearns's disease, patient experiences chronic pain. This is medically managed by outpatient pain clinic with a multimodal regimen. -Continue home nightly gabapentin -Start PO oxycodone 15mg q4H PRN -Start 0.5 mg IV Dilaudid q6H for breakthrough pain -Bowel regimen as above Assessment & Plan (12/11/2024 5:26 PM EDT): Home meds: gabapentin 400mg daily, Oxycodone 10mg q4h PRN pain Due to her multiple autoimmune conditions, including Lupus and Jun's disease, patient experiences chronic pain. This is medically managed by outpatient pain clinic with a multimodal regimen. -Continue home nightly gabapentin -Start PO oxycodone 10mg q4H PRN -Discontinue 1 mg IV Dilaudid q6H -Bowel regimen as above Assessment & Plan (12/10/2024 5:31 PM EDT): Home meds: gabapentin 400mg daily, Oxycodone 10mg q4h PRN pain Due to her multiple autoimmune conditions, including Lupus and Stearns's disease, patient experiences chronic pain. This is medically managed by outpatient pain clinic with a multimodal regimen. -Continue home nightly gabapentin -Switch to home oral pain regimen 7/17 -1 mg IV Dilaudid q6H -Bowel regimen as above Assessment & Plan (12/10/2024 1:08 PM EDT): Home meds: gabapentin 400mg daily, Oxycodone 10mg q4h PRN pain Due to her multiple autoimmune conditions, including Lupus and Jun's disease, patient experiences chronic pain. This is medically managed by outpatient pain clinic with a multimodal regimen. -Continue home nightly gabapentin -Switch to home oral pain regimen 7/17 -1 mg IV Dilaudid q6H -Bowel regimen as above Assessment & Plan (12/09/2024 5:23 PM EDT): Home meds: gabapentin 400mg daily, Oxycodone 10mg q4h PRN pain Due to her multiple autoimmune conditions, including Lupus and Stearns's disease, patient experiences chronic pain. This is medically managed by outpatient pain clinic with a multimodal regimen. -Continue home nightly gabapentin -HOLD home oxycodone -1 mg IV Dilaudid Q4H -Bowel regimen as above Assessment & Plan (12/08/2024 3:20 PM EDT): Home meds: gabapentin 400mg daily, Oxycodone 10mg q4h PRN pain Due to her multiple autoimmune conditions, including Lupus and Stearns's disease, patient experiences chronic pain. This is medically managed by outpatient pain clinic with a multimodal regimen. -Continue home nightly gabapentin -HOLD home oxycodone -1 mg IV Dilaudid Q4H -Bowel regimen as above Assessment & Plan (12/07/2024 8:54 AM EDT): Home meds: gabapentin 400mg daily, Oxycodone 10mg q4h PRN pain Due to her multiple autoimmune conditions, including Lupus and Stearns's disease, patient experiences chronic pain. This is medically managed by outpatient pain clinic with a multimodal regimen. -Continue home nightly gabapentin -HOLD home oxycodone -1 mg IV Dilaudid Q4H d/c'd -Bowel regimen as above Assessment & Plan (12/06/2024 12:04 PM EDT): Home meds: gabapentin 400mg daily, Oxycodone 10mg q4h PRN pain Due to her multiple autoimmune conditions, including Lupus and Stearns's disease, patient experiences chronic pain. This is medically managed by outpatient pain clinic with a multimodal regimen. -Continue home nightly gabapentin -HOLD home oxycodone -1 mg IV Dilaudid Q4H d/c'd -Bowel regimen -d/c'd dilaudid, restarted home oxy po -Patient has required 3 doses of dilaudid 1mg x 2 and 0.5 x 1 for breakthrough pain Assessment & Plan (12/05/2024 1:20 PM EDT): Home meds: gabapentin 400mg daily, Oxycodone 10mg q4h PRN pain Due to her multiple autoimmune conditions, including Lupus and Stearns's disease, patient experiences chronic pain. This is medically managed by outpatient pain clinic with a multimodal regimen. -Continue home nightly gabapentin -HOLD home oxycodone -1 mg IV Dilaudid Q4H, consider transitioning back to her home oxycodone once acute flare resolves -Bowel regimen -d/c'd dilaudid, restarted home oxy po Assessment & Plan (12/04/2024 4:35 PM EDT): Home meds: gabapentin 400mg daily, Oxycodone 10mg q4h PRN pain Due to her multiple autoimmune conditions, including Lupus and Stearns's disease, patient experiences chronic pain. This is medically managed by outpatient pain clinic with a multimodal regimen. -Continue home nightly gabapentin -HOLD home oxycodone -1 mg IV Dilaudid Q4H, consider transitioning back to her home oxycodone once acute flare resolves -Bowel regimen Assessment & Plan (12/04/2024 3:37 AM EDT): Due to her multiple autoimmune conditions, including Lupus and Jun's disease, patient experiences chronic pain. This is medically managed by outpatient pain clinic with a multimodal regimen. - Continue home nightly gabapentin - HOLD home oxycodone - 1 mg IV Dilaudid Q4H, consider transitioning back to her home oxycodone once acute flare resolves - bowel regimen Nausea 12/04/2024 Assessment & Plan (12/17/2024 3:53 PM EDT): Home meds: benadryl IV 25mg Patient with nausea, she has anaphylactic reactions to zofran, reglan, and promethazine. Her nausea improves with benadryl. Of note, patient recently started Wegovy which may be exacerbating her GI symptoms. -Transition IV benadryl to PO benadryl Assessment & Plan (12/16/2024 3:03 PM EDT): Home meds: benadryl IV 25mg Patient with nausea, she has anaphylactic reactions to zofran, reglan, and promethazine. Her nausea improves with benadryl. Of note, patient recently started Wegovy which may be exacerbating her GI symptoms. -Continue Benadryl IV 25mg q6h PRN for nausea Assessment & Plan (12/15/2024 6:56 AM EDT): Home meds: benadryl IV 25mg Patient with nausea, she has anaphylactic reactions to zofran, reglan, and promethazine. Her nausea improves with benadryl. Of note, patient recently started Wegovy which may be exacerbating her GI symptoms. -Continue Benadryl 25mg q6h PRN for nausea Assessment & Plan (12/14/2024 11:34 AM EDT): Home meds: benadryl IV 25mg Patient with nausea, she has anaphylactic reactions to zofran, reglan, and promethazine. Her nausea improves with benadryl. Of note, patient recently started Wegovy which may be exacerbating her GI symptoms. -Continue Benadryl 25mg q6h PRN for nausea Assessment & Plan (12/13/2024 6:53 AM EDT): Home meds: benadryl IV 25mg Patient with nausea, she has anaphylactic reactions to zofran, reglan, and promethazine. Her nausea improves with benadryl. Of note, patient recently started Wegovy which may be exacerbating her GI symptoms. -Continue Benadryl 25mg q6h PRN for nausea Assessment & Plan (2024 3:29 PM EDT): Home meds: benadryl IV 25mg Patient with nausea, she has anaphylactic reactions to zofran, reglan, and promethazine. Her nausea improves with benadryl. Of note, patient recently started Wegovy which may be exacerbating her GI symptoms. -Continue Benadryl 25mg q6h PRN for nausea Assessment & Plan (12/11/2024 5:26 PM EDT): Home meds: benadryl IV 25mg Patient with nausea, she has anaphylactic reactions to zofran, reglan, and promethazine. Her nausea improves with benadryl. Of note, patient recently started Wegovy which may be exacerbating her GI symptoms. -Continue Benadryl 25mg q6h PRN for nausea Assessment & Plan (12/10/2024 5:31 PM EDT): Home meds: benadryl IV 25mg Patient with nausea, she has anaphylactic reactions to zofran, reglan, and promethazine. Her nausea improves with benadryl. Of note, patient recently started Wegovy which may be exacerbating her GI symptoms. -Continue Benadryl 25mg q6h PRN for nausea Assessment & Plan (12/10/2024 12:24 PM EDT): Home meds: benadryl IV 25mg Patient with nausea, she has anaphylactic reactions to zofran, reglan, and promethazine. Her nausea improves with benadryl. Of note, patient recently started Wegovy which may be exacerbating her GI symptoms. -Continue Benadryl 25mg q6h PRN for nausea Assessment & Plan (12/09/2024 5:23 PM EDT): Home meds: benadryl IV 25mg Patient with nausea, she has anaphylactic reactions to zofran, reglan, and promethazine. Her nausea improves with benadryl. Of note, patient recently started Wegovy which may be exacerbating her GI symptoms. -Continue Benadryl 25mg q6h PRN for nausea Assessment & Plan (12/08/2024 3:20 PM EDT): Home meds: benadryl IV 25mg Patient with nausea, she has anaphylactic reactions to zofran, reglan, and promethazine. Her nausea improves with benadryl. Of note, patient recently started Wegovy which may be exacerbating her GI symptoms. -Continue Benadryl 25mg q6h PRN for nausea Assessment & Plan (12/07/2024 8:54 AM EDT): Home meds: benadryl IV 25mg Patient with nausea, she has anaphylactic reactions to zofran, reglan, and promethazine. Her nausea improves with benadryl. Of note, patient recently started Wegovy which may be exacerbating her GI symptoms. -Continue Benadryl 25mg q6h PRN for nausea Assessment & Plan (12/06/2024 6:49 AM EDT): Home meds: benadryl IV 25mg Patient with nausea, she has anaphylactic reactions to zofran, reglan, and promethazine. Her nausea improves with benadryl. Of note, patient recently started Wegovy which may be exacerbating her GI symptoms. -Continue Benadryl 12.5mg q4h PRN for nausea Assessment & Plan (12/05/2024 1:20 PM EDT): Home meds: benadryl IV 25mg Patient with nausea, she has anaphylactic reactions to zofran, reglan, and promethazine. Her nausea improves with benadryl. Of note, patient recently started Wegovy which may be exacerbating her GI symptoms. -Continue Benadryl 12.5mg q4h PRN for nausea Assessment & Plan (12/04/2024 4:35 PM EDT): Home meds: benadryl IV 25mg Patient with nausea, she has anaphylactic reactions to zofran, reglan, and promethazine. Her nausea improves with benadryl. Of note, patient recently started Wegovy which may be exacerbating her GI symptoms. -Continue Benadryl 12.5mg q4h PRN for nausea Assessment & Plan (12/04/2024 3:37 AM EDT): Patient with nausea, she has anaphylactic reactions to zofran, reglan and promethazine. Her nausea improve with benadryl. Of note, patient recently started Wegovy which may be exacerbating her GI symptoms. - Continue Benadryl 12.5mg BID PRN for nausea Leukocytosis 12/04/2024 Assessment & Plan (12/17/2024 8:47 AM EDT): Patient has a mild leukocytosis on admission, likely iso chronic steroids. She does not have signs concerning for infection at this time. In the setting of tapering steroids, the patient is having increased leukocytosis. Consulted rheum regarding whether this can be explained by steroid taper. Heme suggests leukocytosis likely due to steroid use, smear unremarkable. -Daily CBC Assessment & Plan (12/16/2024 8:33 AM EDT): Patient has a mild leukocytosis on admission, likely iso chronic steroids. She does not have signs concerning for infection at this time. In the setting of tapering steroids, the patient is having increased leukocytosis. Consulted rheum regarding whether this can be explained by steroid taper. Heme suggests leukocytosis likely due to steroid use, smear unremarkable. -Daily CBC Assessment & Plan (12/15/2024 6:56 AM EDT): Patient has a mild leukocytosis on admission, likely iso chronic steroids. She does not have signs concerning for infection at this time. In the setting of tapering steroids, the patient is having increased leukocytosis. Consulted rheum regarding whether this can be explained by steroid taper. Heme suggests leukocytosis likely due to steroid use, smear unremarkable. -Daily CBC Assessment & Plan (12/14/2024 11:34 AM EDT): Patient has a mild leukocytosis on admission, likely iso chronic steroids. She does not have signs concerning for infection at this time. In the setting of tapering steroids, the patient is having increased leukocytosis. Consulted rheum regarding whether this can be explained by steroid taper. Heme suggests leukocytosis likely due to steroid use, smear unremarkable. -Daily CBC Assessment & Plan (12/13/2024 6:53 AM EDT): Patient has a mild leukocytosis on admission, likely iso chronic steroids. She does not have signs concerning for infection at this time. In the setting of tapering steroids, the patient is having increased leukocytosis. Consulted rheum regarding whether this can be explained by steroid taper. Heme suggests leukocytosis likely due to steroid use, smear unremarkable. -Daily CBC Assessment & Plan (2024 3:29 PM EDT): Patient has a mild leukocytosis on admission, likely iso chronic steroids. She does not have signs concerning for infection at this time. In the setting of tapering steroids, the patient is having increased leukocytosis. Consulted rheum regarding whether this can be explained by steroid taper. Heme suggests leukocytosis likely due to steroid use, smear unremarkable. -Daily CBC Assessment & Plan (12/11/2024 5:26 PM EDT): Patient has a mild leukocytosis on admission, likely iso chronic steroids. She does not have signs concerning for infection at this time. In the setting of tapering steroids, the patient is having increased leukocytosis. Consulted rheum regarding whether this can be explained by steroid taper. Heme suggests leukocytosis likely due to steroid use, smear unremarkable. -Daily CBC Assessment & Plan (12/10/2024 5:31 PM EDT): Patient has a mild leukocytosis on admission, likely iso chronic steroids. She does not have signs concerning for infection at this time. In the setting of tapering steroids, the patient is having increased leukocytosis. Consulted rheum regarding whether this can be explained by steroid taper. Heme suggests leukocytosis likely due to steroid use, smear unremarkable. -Daily CBC Assessment & Plan (12/10/2024 1:08 PM EDT): Patient has a mild leukocytosis on admission, likely iso chronic steroids. She does not have signs concerning for infection at this time. In the setting of tapering steroids, the patient is having increased leukocytosis. Consulted rheum regarding whether this can be explained by steroid taper. Heme suggests leukocytosis likely due to steroid use, smear unremarkable. -Daily CBC Assessment & Plan (12/09/2024 5:23 PM EDT): Patient has a mild leukocytosis on admission, likely iso chronic steroids. She does not have signs concerning for infection at this time. In the setting of tapering steroids, the patient is having increased leukocytosis. Consulted rheum regarding whether this can be explained by steroid taper. Heme suggests leukocytosis likely due to steroid use. -Consulted heme/onc, they recommend monitoring CBC -No blasts or anything remarkable on smear per onc -Daily CBC Assessment & Plan (12/08/2024 3:20 PM EDT): Patient has a mild leukocytosis on admission, likely iso chronic steroids. She does not have signs concerning for infection at this time. In the setting of tapering steroids, the patient is having increased leukocytosis. Consulted rheum regarding whether this can be explained by steroid taper. -consulted Rheum, recs pending -Daily CBC Assessment & Plan (12/07/2024 7:15 AM EDT): Patient has a mild leukocytosis on admission, likely iso chronic steroids. She does not have signs concerning for infection at this time. Downtrending on (12/05). -Daily CBC Assessment & Plan (12/06/2024 6:49 AM EDT): Patient has a mild leukocytosis on admission, likely iso chronic steroids. She does not have signs concerning for infection at this time. Downtrending on (12/05). -Daily CBC Assessment & Plan (12/05/2024 1:20 PM EDT): Patient has a mild leukocytosis on admission, likely iso chronic steroids. She does not have signs concerning for infection at this time. Downtrending on (12/05). -Daily CBC Assessment & Plan (12/04/2024 4:35 PM EDT): Patient has a mild leukocytosis on admission, likely iso chronic steroids. She does not have signs concerning for infection at this time. -Daily CBC Assessment & Plan (12/04/2024 3:37 AM EDT): Patient has a mild leukocytosis on admission, likely iso chronic steroids. She does not have signs concerning for infection at this time. - daily CBC Constipation 12/04/2024 Assessment & Plan (12/17/2024 8:47 AM EDT): Patient passed stool on 12/01/2024 with use of enema. Endorsing constipation, on chronic opioids. Patient was able to make a large BM on 12/05 with a fleet enema. Possible gastroparesis due to recent Wegovy use. -Continue Miralax 17g BID orally -Continue Milk of Magnesia 10mL daily -Continue Colace 100mg BID -Fleet enema PRN -Continue simethicone 80mg PRN Assessment & Plan (12/16/2024 8:33 AM EDT): Patient passed stool on 12/01/2024 with use of enema. Endorsing constipation, on chronic opioids. Patient was able to make a large BM on 12/05 with a fleet enema. Possible gastroparesis due to recent Wegovy use. -Continue Miralax 17g BID orally -Continue Milk of Magnesia 10mL daily -Continue Colace 100mg BID -Fleet enema PRN -Continue simethicone 80mg PRN Assessment & Plan (12/15/2024 6:56 AM EDT): Patient passed stool on 12/01/2024 with use of enema. Endorsing constipation, on chronic opioids. Patient was able to make a large BM on 12/05 with a fleet enema. Possible gastroparesis due to recent Wegovy use. -Continue Miralax 17g BID orally -Continue Milk of Magnesia 10mL daily -Continue Colace 100mg BID -Fleet enema PRN -Continue simethicone 80mg PRN Assessment & Plan (12/14/2024 11:34 AM EDT): Patient passed stool on 12/01/2024 with use of enema. Endorsing constipation, on chronic opioids. Patient was able to make a large BM on 12/05 with a fleet enema. Possible gastroparesis due to recent Wegovy use. -Continue Miralax 17g BID orally -Continue Milk of Magnesia 10mL daily -Continue Colace 100mg BID -Fleet enema PRN -Continue simethicone 80mg PRN Assessment & Plan (12/13/2024 6:53 AM EDT): Patient passed stool on 12/01/2024 with use of enema. Endorsing constipation, on chronic opioids. Patient was able to make a large BM on 12/05 with a fleet enema. Possible gastroparesis due to recent Wegovy use. -Continue Miralax 17g BID orally -Continue Milk of Magnesia 10mL daily -Continue Colace 100mg BID -Fleet enema PRN -Continue simethicone 80mg PRN Assessment & Plan (2024 3:29 PM EDT): Patient passed stool on 12/01/2024 with use of enema. Endorsing constipation, on chronic opioids. Patient was able to make a large BM on 12/05 with a fleet enema. Possible gastroparesis due to recent Wegovy use. -Continue Miralax 17g BID orally -Continue Milk of Magnesia 10mL daily -Continue Colace 100mg BID -Fleet enema PRN -Continue simethicone 80mg PRN Assessment & Plan (12/11/2024 5:26 PM EDT): Patient passed stool on 12/01/2024 with use of enema. Endorsing constipation, on chronic opioids. Patient was able to make a large BM on 12/05 with a fleet enema. Possible gastroparesis due to recent Wegovy use. -Continue Miralax 17g BID orally -Continue Milk of Magnesia 10mL daily -Continue Colace 100mg BID -Fleet enema PRN -Continue simethicone 80mg PRN Assessment & Plan (12/10/2024 5:31 PM EDT): Patient passed stool on 12/01/2024 with use of enema. Endorsing constipation, on chronic opioids. Patient was able to make a large BM on 12/05 with a fleet enema. Possible gastroparesis due to recent Wegovy use. -Continue Miralax 17g BID orally -Continue Milk of Magnesia 10mL daily -Continue Colace 100mg BID -Fleet enema PRN -Continue simethicone 80mg PRN Assessment & Plan (12/10/2024 12:24 PM EDT): Patient passed stool on 12/01/2024 with use of enema. Endorsing constipation, on chronic opioids. Patient was able to make a large BM on 12/05 with a fleet enema. Possible gastroparesis due to recent Wegovy use. -Continue Miralax 17g BID orally -Continue Milk of Magnesia 10mL daily -Continue Colace 100mg BID -Fleet enema PRN -Continue simethicone 80mg PRN Assessment & Plan (12/09/2024 5:23 PM EDT): Patient passed stool on 12/01/2024 with use of enema. Endorsing constipation, on chronic opioids. Patient was able to make a large BM on 12/05 with a fleet enema. Possible gastroparesis due to recent Wegovy use. -Continue Miralax 17g BID orally -Continue Milk of Magnesia 10mL daily -Continue Senna 17.2mg PRN -Continue Colace 100mg BID -Fleet enema PRN Assessment & Plan (12/08/2024 3:20 PM EDT): Patient passed stool on 12/01/2024 with use of enema. Endorsing constipation, on chronic opioids. Has not had a bowel movement since 12/01, but is passing flatus. Patient was able to make a large BM on 12/05 with a fleet enema -Continue Miralax 17g BID orally -Continue Milk of Magnesia 10mL daily -Continue Senna 17.2mg PRN -Continue Colace 100mg BID -Fleet enema PRN Assessment & Plan (12/07/2024 10:07 AM EDT): Patient passed stool on 12/01/2024 with use of enema. Endorsing constipation, on chronic opioids. Has not had a bowel movement since 12/01, but is passing flatus. Patient was able to make a large BM on 12/05 with a fleet enema -Continue Miralax 17g BID orally -Continue Milk of Magnesia 10mL daily -Continue Senna 17.2mg PRN -Continue Colace 100mg BID -Fleet enema PRN Assessment & Plan (12/06/2024 12:04 PM EDT): Patient passed stool on 12/01/2024 with use of enema. Endorsing constipation, on chronic opioids. Has not had a bowel movement since 12/01, but is passing flatus. Patient was able to make a large BM on 12/05 with a fleet enema -Continue Miralax 17g BID orally -Continue Milk of Magnesia 10mL daily -Continue Senna 17.2mg PRN -Added Colace 100mg BID -Fleet enema PRN Assessment & Plan (12/05/2024 1:20 PM EDT): Patient passed stool on 12/01/2024 with use of enema. Endorsing constipation, on chronic opioids. Has not had a bowel movement since 12/01, but is passing flatus. -Continue Miralax 17g BID orally -Continue Milk of Magnesia 10mL daily -Continue Senna 17.2mg PRN -Added Colace 100mg BID Assessment & Plan (12/04/2024 4:35 PM EDT): Patient passed stool on 12/01/2024 with use of enema. Endorsing constipation, on chronic opioids. -Continue Miralax 17g BID orally -Continue Milk of Magnesia 10mL daily -Continue Senna 17.2mg PRN Lupus (systemic lupus erythematosus) 12/03/2024 Assessment & Plan (12/17/2024 2:56 PM EDT): Home meds: Belimumab 200mg/mL weekly, Benlysta 400mg IV q28 days, Hydroxychloroquine 200mg BID daily, Methotrexate 20mg weekly (self discontinued 3 weeks prior to admission), prednisone 15mg daily Patient with hx of seronegative lupus, managed by [facility] rheumatology, receives Benlysta infusions every 28 days. Last infusion November 29, 2024. Patient is on maintenance therapy with plaquenil, methotrexate, and prednisone. She started Wegovy recently and self-discontinued her maintenance methotrexate ~ 3 weeks prior to admission, this may be contributing to her malaise. ESR and CRP not elevated. C3/C4 WNL, protein/cr ratio WNL. Overall low suspicion of active lupus nephritis. CT of the A/P did not show any acute abnormalities; there was evidence of moderate stool burden, could explain abd pain. Noted to have mild hyperkalemia and hyponatremia with elevated urine sodium after dropping steroid dose, concerning for adrenal insufficiency iso chronic steroids. Patient still experiencing abdominal pain even after bowel movements -Consulted endocrine, recs appreciated -Continue PO prednisone 25 mg daily -Prolonged taper with 1mg decrease weekly (decrease on Sunday to 24mg) -Once prednisone daily dose reaches 10mg, closely monitor symptoms, BP, electrolytes to assess if fludrocortisone required -Continue protonix 40mg daily while inpatient for [facility] ppx -Continue home plaquenil 400mg daily -Rheumatology following, appreciate recs -Patient currently on plaquenil and methotrexate, however -Home methotrexate reduced to 15 mg weekly d/t increased liver enzymes Assessment & Plan (12/16/2024 3:03 PM EDT): Home meds: Belimumab 200mg/mL weekly, Benlysta 400mg IV q28 days, Hydroxychloroquine 200mg BID daily, Methotrexate 20mg weekly (self discontinued 3 weeks prior to admission), prednisone 15mg daily Patient with hx of seronegative lupus, managed by [facility] rheumatology, receives Benlysta infusions every 28 days. Last infusion November 29, 2024. Patient is on maintenance therapy with plaquenil, methotrexate, and prednisone. She started Wegovy recently and self-discontinued her maintenance methotrexate ~ 3 weeks prior to admission, this may be contributing to her malaise. ESR and CRP not elevated. C3/C4 WNL, protein/cr ratio WNL. Overall low suspicion of active lupus nephritis. CT of the A/P did not show any acute abnormalities; there was evidence of moderate stool burden, could explain abd pain. Noted to have mild hyperkalemia and hyponatremia with elevated urine sodium after dropping steroid dose, concerning for adrenal insufficiency iso chronic steroids. Patient still experiencing abdominal pain even after bowel movements -Consulted endocrine, recs appreciated -Continue PO prednisone 25 mg daily -Prolonged taper with 1mg decrease weekly (decrease on Sunday to 24mg) -Once prednisone daily dose reaches 10mg, closely monitor symptoms, BP, electrolytes to assess if fludrocortisone required -Started fludrocortisone 0.1mg daily d/t soft BP, electrolyte derangements. -Continue protonix 40mg daily while inpatient for [facility] ppx -Continue home plaquenil 400mg daily -Rheumatology following, appreciate recs -Patient currently on plaquenil and methotrexate, however -Patient's LFTs are showing upward trend,? MASH,? Steroid-induced,? Methotrexate induced. Reduced home methotrexate to 15 mg weekly Assessment & Plan (12/15/2024 1:42 PM EDT): Home meds: Belimumab 200mg/mL weekly, Benlysta 400mg IV q28 days, Hydroxychloroquine 200mg BID daily, Methotrexate 20mg weekly (self discontinued 3 weeks prior to admission), prednisone 15mg daily Patient with hx of seronegative lupus, managed by [facility] rheumatology, receives Benlysta infusions every 28 days. Last infusion November 29, 2024. Patient is on maintenance therapy with plaquenil, methotrexate, and prednisone. She started Wegovy recently and self-discontinued her maintenance methotrexate ~ 3 weeks prior to admission, this may be contributing to her malaise. ESR and CRP not elevated. C3/C4 WNL, protein/cr ratio WNL. Overall low suspicion of active lupus nephritis. CT of the A/P did not show any acute abnormalities; there was evidence of moderate stool burden, could explain abd pain. Noted to have mild hyperkalemia and hyponatremia with elevated urine sodium after dropping steroid dose, concerning for adrenal insufficiency iso chronic steroids. -Consulted endocrine, recs appreciated -Continue PO prednisone 25 mg daily -Prolonged taper with 1mg decrease weekly (decrease on Sunday to 24mg) -Once prednisone daily dose reaches 10mg, closely monitor symptoms, BP, electrolytes to assess if fludrocortisone required -Started fludrocortisone 0.1mg daily d/t soft BP, electrolyte derangements. -Continue protonix 40mg daily while inpatient for [facility] ppx -Continue home plaquenil 400mg daily -Rheumatology following, appreciate recs -Patient currently on plaquenil and methotrexate, however -Patient's LFTs are showing upward trend,? MASH,? Steroid-induced,? Methotrexate induced. Reduced home methotrexate to 15 mg weekly Assessment & Plan (12/14/2024 11:34 AM EDT): Home meds: Belimumab 200mg/mL weekly, Benlysta 400mg IV q28 days, Hydroxychloroquine 200mg BID daily, Methotrexate 20mg weekly (self discontinued 3 weeks prior to admission), prednisone 15mg daily Patient with hx of seronegative lupus, managed by [facility] rheumatology, receives Benlysta infusions every 28 days. Last infusion November 29, 2024. Patient is on maintenance therapy with plaquenil, methotrexate, and prednisone. She started Wegovy recently and self-discontinued her maintenance methotrexate ~ 3 weeks prior to admission, this may be contributing to her malaise. ESR and CRP not elevated. C3/C4 WNL, protein/cr ratio WNL. Overall low suspicion of active lupus nephritis. CT of the A/P did not show any acute abnormalities; there was evidence of moderate stool burden, could explain abd pain. Noted to have mild hyperkalemia and hyponatremia with elevated urine sodium after dropping steroid dose, concerning for adrenal insufficiency iso chronic steroids. -Consulted endocrine, recs appreciated -Continue PO prednisone 25 mg daily -Prolonged taper with 1mg decrease weekly -Once prednisone daily dose reaches 10mg, closely monitor symptoms, BP, electrolytes to assess if fludrocortisone required -Started fludrocortisone 0.1mg daily d/t soft BP, electrolyte derangements. -Continue protonix 40mg daily while inpatient for [facility] ppx -Continue home plaquenil 400mg daily -Rheumatology following, appreciate recs -Patient currently on plaquenil and methotrexate, however -Patient's LFTs are showing upward trend,? MASH,? Steroid-induced,? Methotrexate induced. Reduced home methotrexate to 15 mg weekly Assessment & Plan (12/13/2024 6:23 PM EDT): Home meds: Belimumab 200mg/mL weekly, Benlysta 400mg IV q28 days, Hydroxychloroquine 200mg BID daily, Methotrexate 20mg weekly (self discontinued 3 weeks prior to admission), prednisone 15mg daily Patient with hx of seronegative lupus, managed by [facility] rheumatology, receives Benlysta infusions every 28 days. Last infusion November 29, 2024. Patient is on maintenance therapy with plaquenil, methotrexate, and prednisone. She started Wegovy recently and self-discontinued her maintenance methotrexate ~ 3 weeks prior to admission, this may be contributing to her malaise. ESR and CRP not elevated. C3/C4 WNL, protein/cr ratio WNL. Overall low suspicion of active lupus nephritis. CT of the A/P did not show any acute abnormalities; there was evidence of moderate stool burden, could explain abd pain. Noted to have mild hyperkalemia and hyponatremia with elevated urine sodium after dropping steroid dose, concerning for adrenal insufficiency iso chronic steroids. -Consulted endocrine, recs appreciated -Continue PO prednisone 25 mg daily -Prolonged taper with 1mg decrease weekly -Once prednisone daily dose reaches 10mg, closely monitor symptoms, BP, electrolytes to assess if fludrocortisone required -Started fludrocortisone 0.1mg daily d/t soft BP, electrolyte derangements. - Follow up repeat urine studies -Continue protonix 40mg daily while inpatient for [facility] ppx -Continue home plaquenil 400mg daily -Decrease home methotrexate to 15 mg weekly -Rheumatology following, appreciate recs -Patient currently on plaquenil and methotrexate, however patient LFTs are showing upward trend,? MASH,? Steroid-induced,? Methotrexate induced. Possibly planning to reduce/modify/stop methotrexate Assessment & Plan (2024 3:29 PM EDT): Home meds: Belimumab 200mg/mL weekly, Benlysta 400mg IV q28 days, Hydroxychloroquine 200mg BID daily, Methotrexate 20mg weekly (self discontinued 3 weeks prior to admission), prednisone 15mg daily Patient with hx of seronegative lupus, managed by [facility] rheumatology, receives Benlysta infusions every 28 days. Last infusion November 29, 2024. Patient is on maintenance therapy with plaquenil, methotrexate, and prednisone. She started Wegovy recently and self-discontinued her maintenance methotrexate ~ 3 weeks prior to admission, this may be contributing to her malaise. ESR and CRP not elevated. C3/C4 WNL, protein/cr ratio WNL. Overall low suspicion of active lupus nephritis. CT of the A/P did not show any acute abnormalities; there was evidence of moderate stool burden, could explain abd pain. Noted to have mild hyperkalemia and hyponatremia with elevated urine sodium after dropping steroid dose, concerning for adrenal insufficiency iso chronic steroids. -Continue PO prednisone 25 mg daily -Consulted endocrine, recs appreciated -Will follow up final recs on prednisone dose -Prolonged taper with 1mg decrease weekly -Once prednisone daily dose reaches 10mg, closely monitor symptoms, BP, electrolytes to assess if fludrocortisone required -Start fludrocortisone 0.1mg daily d/t soft BP, electrolyte derangements. check urine studies and BMP 12/13 -Continue protonix 40mg daily while inpatient for [facility] ppx -Continue home plaquenil 400mg daily -Decrease home methotrexate to 15 mg weekly -Rheumatology following, appreciate recs -Patient currently on plaquenil and methotrexate, however patient LFTs are showing upward trend,? MASH,? Steroid-induced,? Methotrexate induced. Possibly planning to reduce/modify/stop methotrexate Assessment & Plan (12/11/2024 5:26 PM EDT): Home meds: Belimumab 200mg/mL weekly, Benlysta 400mg IV q28 days, Hydroxychloroquine 200mg BID daily, Methotrexate 20mg weekly (self discontinued 3 weeks prior to admission), prednisone 15mg daily Patient with hx of seronegative lupus, managed by [facility] rheumatology, receives Benlysta infusions every 28 days. Last infusion November 29, 2024. Patient is on maintenance therapy with plaquenil, methotrexate, and prednisone. She started Wegovy recently and self-discontinued her maintenance methotrexate ~ 3 weeks prior to admission, this may be contributing to her malaise. ESR and CRP not elevated. C3/C4 WNL, protein/cr ratio WNL. Overall low suspicion of active lupus nephritis. CT of the A/P did not show any acute abnormalities; there was evidence of moderate stool burden, could explain abd pain. Noted to have mild hyperkalemia and hyponatremia with elevated urine sodium after dropping steroid dose, concerning for adrenal insufficiency iso chronic steroids. -Start PO prednisone 25 mg daily on 12/10, steroid plan pending endocrine recs -Continue protonix 40mg daily while inpatient for DANIEL ppx -Continue home plaquenil 400mg daily -Decrease home methotrexate to 15 mg weekly -Rheumatology following, appreciate recs -Patient currently on plaquenil and methotrexate, however patient LFTs are showing upward trend,? MASH,? Steroid-induced,? Methotrexate induced. Possibly planning to reduce/modify/stop methotrexate Assessment & Plan (12/10/2024 5:36 PM EDT): Home meds: Belimumab 200mg/mL weekly, Benlysta 400mg IV q28 days, Hydroxychloroquine 200mg BID daily, Methotrexate 20mg weekly (self discontinued 3 weeks prior to admission), prednisone 15mg daily Patient with hx of seronegative lupus, managed by [facility] rheumatology, receives Benlysta infusions every 28 days. Last infusion November 29, 2024. Patient is on maintenance therapy with plaquenil, methotrexate, and prednisone. She started Wegovy recently and self-discontinued her maintenance methotrexate ~ 3 weeks prior to admission, this may be contributing to her malaise. ESR and CRP not elevated. C3/C4 WNL, protein/cr ratio WNL. Overall low suspicion of active lupus nephritis. CT of the A/P did not show any acute abnormalities; there was evidence of moderate stool burden, could explain abd pain. Noted to have mild hyperkalemia and hyponatremia with elevated urine sodium after dropping steroid dose, concerning for adrenal insufficiency iso chronic steroids. -Start PO prednisone 25 mg daily on 12/10, steroid plan pending endocrine recs -Continue protonix 40mg daily while inpatient for DANIEL ppx -Continue home plaquenil 400mg daily -Decreased home methotrexate to 15 mg weekly -Rheumatology following, appreciate recs - Patient currently on plaquenil and methotrexate, however patient LFTs are showing upward trend,? MASH,? Steroid-induced,? Methotrexate induced. Possibly planning to reduce/modify/stop methotrexate Assessment & Plan (12/10/2024 1:08 PM EDT): Home meds: Belimumab 200mg/mL weekly, Benlysta 400mg IV q28 days, Hydroxychloroquine 200mg BID daily, Methotrexate 2.5mg weekly (self discontinued 3 weeks prior to admission), prednisone 15mg daily Patient with hx of seronegative lupus, managed by [facility] rheumatology, receives Benlysta infusions every 28 days. Last infusion November 29, 2024. Patient is on maintenance therapy with plaquenil, methotrexate, and prednisone. She started Wegovy recently and self-discontinued her maintenance methotrexate ~ 3 weeks prior to admission, this may be contributing to her malaise. ESR and CRP not elevated. C3/C4 WNL, protein/cr ratio WNL. Overall low suspicion of active lupus nephritis. CT of the A/P did not show any acute abnormalities; there was evidence of moderate stool burden, could explain abd pain. -Start PO prednisone 25 mg daily on 12/10, steroid plan pending endocrine recs -Continue protonix 40mg daily while inpatient for DANIEL ppx -Continue home plaquenil 400mg daily -Continue home methotrexate -Rheumatology following, appreciate recs - Patient currently on plaquenil and methotrexate, however patient LFTs are showing upward trend,? MASH,? Steroid-induced,? Methotrexate induced. Possibly planning to reduce/modify/stop methotrexate Assessment & Plan (12/09/2024 5:23 PM EDT): Home meds: Belimumab 200mg/mL weekly, Benlysta 400mg IV q28 days, Hydroxychloroquine 200mg BID daily, Methotrexate 2.5mg weekly (self discontinued 3 weeks prior to admission), prednisone 15mg daily Patient with hx of seronegative lupus, managed by [facility] rheumatology, receives Benlysta infusions every 28 days. Last infusion November 29, 2024. Patient is on maintenance therapy with plaquenil, methotrexate, and prednisone. She started Wegovy recently and self-discontinued her maintenance methotrexate ~ 3 weeks prior to admission, this may be contributing to her malaise. ESR and CRP not elevated. UA returned showing a high specific gravity, trace protein and glucose, and 3 RBCs. C3/C4 WNL, protein/cr ratio WNL. Overall low suspicion of active lupus nephritis. CT of the A/P did not show any acute abnormalities; there was evidence of moderate stool burden, could explain abd pain. -Start PO prednisone 25 mg daily on 12/10 -Restart home plaquenil 400mg daily -Continue home methotrexate -Stop IV solumedral 20mg BID 12/09 -Continue protonix 40mg daily while inpatient for DANIEL ppx -Rheumatology following, appreciate recs - Patient currently on plaquenil and methotrexate, however patient LFTs are showing upward trend,? MASH,? Steroid-induced,? Methotrexate induced. Possibly planning to reduce/modify/stop methotrexate - Previous CT scan with large stool burden, likely 2/2 to opiods, which may be contributing to patients symptom -Nephrology consulted, will see her 12/10 in the AM Assessment & Plan (12/08/2024 3:20 PM EDT): Home meds: Belimumab 200mg/mL weekly, Benlysta 400mg IV q28 days, Hydroxychloroquine 200mg BID daily, Methotrexate 2.5mg weekly (self discontinued 3 weeks prior to admission), prednisone 15mg daily Patient with hx of seronegative lupus, managed by [facility] rheumatology, receives Benlysta infusions every 28 days. Last infusion November 29, 2024. Patient is on maintenance therapy with plaquenil, methotrexate, and prednisone. She started Wegovy recently and self-discontinued her maintenance methotrexate ~ 3 weeks prior to admission, this may be contributing to her malaise. ESR and CRP returned unremarkable. UA returned showing a high specific gravity, trace urine and glucose, and 3 RBCs. C3/C4 WNL, protein/cr ratio WNL. CT of the A/P did not show any acute abnormalities; there was evidence of moderate stool burden, could explain abd pain. -HOLD home prednisone -Restart home methotrexate -Restart home plaquenil -Decrease IV solumedral 20mg today, reach out to rheumatology to consider PO steroids 12/08 -Continue protonix 40mg daily while inpatient for DNAIEL ppx while on solumedrol -Consider anti-complement and anti-DS DNA after rheum recommendations -Rheumatology following, appreciate recs Assessment & Plan (12/07/2024 10:07 AM EDT): Home meds: Belimumab 200mg/mL weekly, Benlysta 400mg IV q28 days, Hydroxychloroquine 200mg BID daily, Methotrexate 2.5mg weekly (self discontinued 3 weeks prior to admission), prednisone 15mg daily Patient with hx of seronegative lupus, managed by [facility] rheumatology, receives Benlysta infusions every 28 days. Last infusion November 29, 2024. Patient is on maintenance therapy with plaquenil, methotrexate, and prednisone. She started Wegovy recently and self-discontinued her maintenance methotrexate ~ 3 weeks prior to admission, this may be contributing to her malaise. ESR and CRP returned unremarkable. UA returned showing a high specific gravity, trace urine and glucose, and 3 RBCs. C3/C4 WNL, protein/cr ratio WNL. CT of the A/P did not show any acute abnormalities; there was evidence of moderate stool burden, could explain abd pain. -HOLD home prednisone -Restart home methotrexate -Restart home plaquenil -Decrease IV solumedral 20mg today, reach out to rheumatology to consider PO steroids 12/08 -Continue protonix 40mg daily while inpatient for DANIEL ppx while on solumedrol -Consider anti-complement and anti-DS DNA after rheum recommendations -Rheumatology following, appreciate recs Assessment & Plan (12/06/2024 12:04 PM EDT): Home meds: Belimumab 200mg/mL weekly, Benlysta 400mg IV q28 days, Hydroxychloroquine 200mg BID daily, Methotrexate 2.5mg weekly (self discontinued 3 weeks prior to admission), prednisone 15mg daily Patient with hx of seronegative lupus, managed by [facility] rheumatology, receives Benlysta infusions every 28 days. Last infusion November 29, 2024. Patient is on maintenance therapy with plaquenil, methotrexate, and prednisone. She started Wegovy recently and self-discontinued her maintenance methotrexate ~ 3 weeks prior to admission, this may be contributing to her malaise. ESR and CRP returned unremarkable. UA returned showing a high specific gravity, trace urine and glucose, and 3 RBCs. -HOLD home prednisone -restart home methotrexate -restart home plaquenil -Continue IV solumedrol 40mg BID d/c'd 12/05 -Continue protonix 40mg daily while inpatient for DANIEL ppx while on solumedrol -Consider anti-complement and anti-DS DNA after rheum recommendations -CT of the A/P did not show any acute abnormalities; there was evidence of moderate stool burden, could explain abd pain (fill read of CT above) -Rheumatology following, appreciate recs: - evaluate flank pain for kidney stones - will plan to wean off some steroids starting tomorrow. Suspect steroids used to treat pain - check protein/cr ratio (however it was normal few months ago); results normal - check C3/C4; results normal - continue with Plaqunil and methotrexate - previous CT scan with large stool burden, likely 2/2 to opioids, which may be contributing to patients symptoms. -Weaning steroids -30mg IV solumedrol starting 12/05PM -20mg IV solumedral starting 12/07PM -Potentially PO steroids starting Sunday; defer to rheum Assessment & Plan (12/05/2024 1:20 PM EDT): Home meds: Belimumab 200mg/mL weekly, Benlysta 400mg IV q28 days, Hydroxychloroquine 200mg BID daily, Methotrexate 2.5mg weekly (self discontinued 3 weeks prior to admission), prednisone 15mg daily Patient with hx of seronegative lupus, managed by [facility] rheumatology, receives Benlysta infusions every 28 days. Last infusion November 29, 2024. Patient is on maintenance therapy with plaquenil, methotrexate, and prednisone. She started Wegovy recently and self-discontinued her maintenance methotrexate ~ 3 weeks prior to admission, this may be contributing to her malaise. ESR and CRP returned unremarkable. UA returned showing a high specific gravity, trace urine and glucose, and 3 RBCs. -HOLD home prednisone -restart home methotrexate -restart home plaquenil -Continue IV solumedrol 40mg BID; will plan to taper this week -Continue protonix 40mg daily while inpatient for DANIEL ppx while on solumedrol -Consider anti-complement and anti-DS DNA after rheum recommendations -CT of the A/P did not show any acute abnormalities; there was evidence of moderate stool burden, could explain abd pain (fill read of CT above) -Rheumatology following, appreciate recs: - evaluate flank pain for kidney stones - will plan to wean off some steroids starting tomorrow. Suspect steroids used to treat pain - check protein/cr ratio (however it was normal few months ago); results normal - check C3/C4; results normal - continue with Plaqunil and methotrexate - previous CT scan with large stool burden, likely 2/2 to opioids, which may be contributing to patients symptoms. Assessment & Plan (12/04/2024 4:35 PM EDT): Home meds: Belimumab 200mg/mL weekly, Benlysta 400mg IV q28 days, Hydroxychloroquine 200mg BID daily, Methotrexate 2.5mg weekly (self discontinued 3 weeks prior to admission), prednisone 15mg daily Patient with hx of seronegative lupus, managed by [facility] rheumatology, receives Benlysta infusions every 28 days. Last infusion November 29, 2024. Patient is on maintenance therapy with plaquenil, methotrexate, and prednisone. She started Wegovy recently and self-discontinued her maintenance methotrexate ~ 3 weeks prior to admission, this may be contributing to her malaise. ESR and CRP returned unremarkable. UA returned showing a high specific gravity, trace urine and glucose, and 3 RBCs. -HOLD home prednisone -HOLD home plaquenil -Continue IV solumedrol 40mg BID -Continue protonix 40mg daily while inpatient for DANIEL ppx while on solumedrol -Consider anti-complement and anti-DS DNA after rheum recommendations -Follow up KUB -Rheumatology following, appreciate recs Assessment & Plan (12/04/2024 3:37 AM EDT): Patient with hx of seronegative lupus, managed by [facility] rheumatology, receives Benlysta infusions every 28 days. Last infusion November 29, 2024. Patient is on maintenance therapy with plaquenil, methotrexate and prednisone. She started Wegovy recently and self-discontinued her maintenance methotrexate ~ 3 weeks prior to admission, this may be contributing to her malaise. 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 Patient lab trends suggestive of mild adrenal insufficiency with hyponatremia, hyperkalemia, and high urine sodium iso chronic steroid use. -See Lupus for steroid plan Assessment & Plan (12/16/2024 8:33 AM EDT): Home meds: Fludrocortisone 0.1mh/mL Patient with history of Stearns disease, under good control. Patient lab trends suggestive of mild adrenal insufficiency with hyponatremia, hyperkalemia, and high urine sodium iso chronic steroid use. -See Lupus for steroid plan Assessment & Plan (12/15/2024 6:56 AM EDT): Home meds: Fludrocortisone 0.1mh/mL Patient with history of Stearns disease, under good control. Patient lab trends suggestive of mild adrenal insufficiency with hyponatremia, hyperkalemia, and high urine sodium iso chronic steroid use. -See Lupus for steroid plan Assessment & Plan (12/14/2024 11:34 AM EDT): Home meds: Fludrocortisone 0.1mh/mL Patient with history of Jun disease, under good control. Patient lab trends suggestive of mild adrenal insufficiency with hyponatremia, hyperkalemia, and high urine sodium iso chronic steroid use. -See Lupus for steroid plan Assessment & Plan (12/13/2024 6:53 AM EDT): Home meds: Fludrocortisone 0.1mh/mL Patient with history of Stearns disease, under good control. Patient lab trends suggestive of mild adrenal insufficiency with hyponatremia, hyperkalemia, and high urine sodium iso chronic steroid use. -See Lupus for steroid plan Assessment & Plan (2024 3:29 PM EDT): Home meds: Fludrocortisone 0.1mh/mL Patient with history of Stearns disease, under good control. Patient lab trends suggestive of mild adrenal insufficiency with hyponatremia, hyperkalemia, and high urine sodium iso chronic steroid use. -See Lupus for steroid plan Assessment & Plan (12/11/2024 5:26 PM EDT): Home meds: Fludrocortisone 0.1mh/mL Patient with history of Stearns disease, under good control. Patient lab trends suggestive of mild adrenal insufficiency with hyponatremia, hyperkalemia, and high urine sodium iso chronic steroid use. -Endocrine consulted, recs pending for steroid regimen and fludrocortisone -See Lupus for steroid plan Assessment & Plan (12/10/2024 5:31 PM EDT): Home meds: Fludrocortisone 0.1mh/mL Patient with history of Stearns disease, under good control. Patient lab trends suggestive of mild adrenal insufficiency with hyponatremia and abdominal pain iso chronic steroid use. -Endocrine consulted, recs pending -See Lupus for steroid plan Assessment & Plan (12/10/2024 1:08 PM EDT): Home meds: Fludrocortisone 0.1mh/mL Patient with history of Stearns disease, under good control. Patient lab trends suggestive of mild adrenal insufficiency with hyponatremia and abdominal pain iso chronic steroid use. -Endocrine consulted, recs pending -See Lupus for steroid plan Assessment & Plan (12/09/2024 5:23 PM EDT): Home meds: Fludrocortisone 0.1mh/mL Patient with history of Stearns disease, under good control. -See Lupus for steroid plan Assessment & Plan (12/08/2024 3:20 PM EDT): Home meds: Fludrocortisone 0.1mh/mL Patient with history of Jun disease, under good control. -See Lupus for steroid plan Assessment & Plan (12/07/2024 7:15 AM EDT): Home meds: Fludrocortisone 0.1mh/mL Patient with history of Stearns disease, under good control. -See Lupus for steroid plan Assessment & Plan (12/06/2024 6:49 AM EDT): Home meds: Fludrocortisone 0.1mh/mL Patient with history of Stearns disease, under good control. -See Lupus for steroid plan Assessment & Plan (12/05/2024 1:20 PM EDT): Home meds: Fludrocortisone 0.1mh/mL Patient with history of Stearns disease, under good control. -See Lupus for steroid plan Assessment & Plan (12/04/2024 4:35 PM EDT): Home meds: Fludrocortisone 0.1mh/mL Patient with history of Jun disease, under good control. -See Lupus for steroid plan Assessment & Plan (12/04/2024 3:37 AM EDT): Patient with history of Jun disease, under good control. - see Lupus for steroid plan Neri's thyroiditis 12/15/1991 Resolved Problems Problem Noted Date Diagnosed Date Resolved Date Hyperkalemia 12/10/2024 12/11/2024 Assessment & Plan (12/11/2024 5:26 PM EDT): Mild hyperkalemia noted on BMP. -Given IV saline bolus, will monitor BMP Assessment & Plan (12/10/2024 5:31 PM EDT): Mild hyperkalemia noted on BMP. -Given IV saline bolus, will monitor BMP Assessment & Plan (12/10/2024 1:08 PM EDT): Mild hyperkalemia noted on BMP. -Given IV saline bolus, will monitor BMP Hyponatremia 12/04/2024 12/18/2024 Assessment & Plan (12/17/2024 8:47 AM EDT): Patient reported significant reduction in PO intake since onset of symptoms, likely contributing to low sodium levels. Patient also reported ~20lb weight loss in past few months. Urine studies with high urine sodium and urine osmolality suggestive of SIADH vs. adrenal insufficiency. -Trend BMP Assessment & Plan (12/16/2024 8:33 AM EDT): Patient reported significant reduction in PO intake since onset of symptoms, likely contributing to low sodium levels. Patient also reported ~20lb weight loss in past few months. Urine studies with high urine sodium and urine osmolality suggestive of SIADH vs. adrenal insufficiency. -Trend BMP Assessment & Plan (12/15/2024 6:56 AM EDT): Patient reported significant reduction in PO intake since onset of symptoms, likely contributing to low sodium levels. Patient also reported ~20lb weight loss in past few months. Urine studies with high urine sodium and urine osmolality suggestive of SIADH vs. adrenal insufficiency. -Trend BMP Assessment & Plan (12/14/2024 11:34 AM EDT): Patient reported significant reduction in PO intake since onset of symptoms, likely contributing to low sodium levels. Patient also reported ~20lb weight loss in past few months. Urine studies with high urine sodium and urine osmolality suggestive of SIADH vs. adrenal insufficiency. -Trend BMP Assessment & Plan (12/13/2024 6:53 AM EDT): Patient reported significant reduction in PO intake since onset of symptoms, likely contributing to low sodium levels. Patient also reported ~20lb weight loss in past few months. Urine studies with high urine sodium and urine osmolality suggestive of SIADH vs. adrenal insufficiency. -Trend BMP Assessment & Plan (2024 3:29 PM EDT): Patient reported significant reduction in PO intake since onset of symptoms, likely contributing to low sodium levels. Patient also reported ~20lb weight loss in past few months. Urine studies with high urine sodium and urine osmolality suggestive of SIADH vs. adrenal insufficiency. -Trend BMP Assessment & Plan (12/11/2024 5:26 PM EDT): Patient reported significant reduction in PO intake since onset of symptoms, likely contributing to low sodium levels. Patient also reported ~20lb weight loss in past few months. Urine studies with high urine sodium and urine osmolality suggestive of SIADH vs. adrenal insufficiency. -Trend BMP -See Stearns disease for endocrine recs -Fluid restriction due to decrease in Na levels following IVF Assessment & Plan (12/10/2024 5:31 PM EDT): Patient reported significant reduction in PO intake since onset of symptoms, likely contributing to low sodium levels. Patient also reported ~20lb weight loss in past few months. Urinalysis, urine osmolality, and serum osmolality returned unremarkable, elevated yet within normal range urine sodium. -Daily BMP Assessment & Plan (12/10/2024 1:08 PM EDT): Patient reported significant reduction in PO intake since onset of symptoms, likely contributing to low sodium levels. Patient also reported ~20lb weight loss in past few months. Urinalysis, urine osmolality, and serum osmolality returned unremarkable, elevated yet within normal range urine sodium. -Daily BMP Assessment & Plan (12/09/2024 5:23 PM EDT): Patient reported significant reduction in PO intake since onset of symptoms, likely contributing to low sodium levels. Patient also reported ~20lb weight loss in past few months. -Monitor BMP -Urinalysis, urine osmolality, and serum osmolality returned unremarkable Assessment & Plan (12/08/2024 3:20 PM EDT): Patient reported significant reduction in PO intake since onset of symptoms, likely contributing to low sodium levels. Patient also reported ~20lb weight loss in past few months. -Monitor BMP -Manage nausea in hopes of increasing PO intake Assessment & Plan (12/07/2024 7:15 AM EDT): Patient reported significant reduction in PO intake since onset of symptoms, likely contributing to low sodium levels. Patient also reported ~20lb weight loss in past few months. -Monitor BMP -Manage nausea in hopes of increasing PO intake Assessment & Plan (12/06/2024 6:49 AM EDT): Patient reported significant reduction in PO intake since onset of symptoms, likely contributing to low sodium levels. Patient also reported ~20lb weight loss in past few months. -Monitor BMP -Manage nausea in hopes of increasing PO intake Assessment & Plan (12/05/2024 1:20 PM EDT): Patient reported significant reduction in PO intake since onset of symptoms, likely contributing to low sodium levels. Patient also reported ~20lb weight loss in past few months. -Monitor BMP -Manage nausea in hopes of increasing PO intake Assessment & Plan (12/04/2024 4:35 PM EDT): Patient reported significant reduction in PO intake since onset of symptoms, likely contributing to low sodium levels. Patient also reported ~20lb weight loss in past few months. -Monitor BMP -Manage nausea in hopes of increasing PO intake SLE (systemic lupus erythema tosus related syndrome) 11/02/2023 11/02/2023 Assessment & Plan (11/02/2023 4:46 PM EDT): Her mechanical striper is: Rafael Mcdonough , I will endeavor to contact her On examination today, here with her , rather demoralized, looked unwell, severely cushingoid, conjunctival injection, positive synovitis of the right second and third MCP joints otherwise no specific manifestations of SLE such as aphthous ulcers, patchy alopecia, skin lesions etc. Assessment and plan The presumptive lupus does not seem to be responding to treatments Many of the manifestations may be iatrogenic i.e. corticosteroid related We discussed possible strategies from here to include firstly reduction of prednisone, secondly introduction of a steroid sparing agent such as methotrexate (which she favors) and possibly Saphnelo Commenced low-dose methotrexate, 10 mg with folic acid. Counseled about this treatment. And need to monitor liver function tests which we will repeat in 4 weeks Liaise with her mechanical striper, who is: Rafael Mcdonough Transaminitis 10/12/2023 12/18/2024 Assessment & Plan (12/17/2024 3:53 PM EDT): Mild transaminitis on admission, with multiple liver cysts visualized on OSH CT AP. AST and ALT have been rising. Differential includes MASH or steroid-induced vs drug-induced DILI. Abdominal US and workup of acute viral hepatitis panel, celiac panel, and ceruloplasmin returned unremarkable. AST normalized, ALT trending down, Alk Phos WNL. -Consulted GI, appreciate recs -If steroids needed for lupus, would opt to continue while trending LFTs -Continue to trend LFTs -Outpatient fibroscan -Consulted rheum, decreased methotrexate to 15mg weekly Assessment & Plan (12/16/2024 3:03 PM EDT): Mild transaminitis on admission, with multiple liver cysts visualized on OSH CT AP. AST and ALT have been rising. Differential includes MASH or steroid-induced vs drug-induced DILI. Abdominal US and workup of acute viral hepatitis panel, celiac panel, and ceruloplasmin returned unremarkable. AST normalized, ALT trending down, Alk Phos WNL. -Consulted GI, appreciate recs -If steroids needed for lupus, would opt to continue while trending LFTs -Continue to trend LFTs -Outpatient fibroscan -Consulted rheum, decrease methotrexate to 15mg weekly Assessment & Plan (12/15/2024 6:56 AM EDT): Mild transaminitis on admission, with multiple liver cysts visualized on OSH CT AP. AST and ALT have been rising. Differential includes MASH or steroid-induced vs drug-induced DILI. Abdominal US and workup of acute viral hepatitis panel, celiac panel, and ceruloplasmin returned unremarkable. -Consulted GI, appreciate recs -If steroids needed for lupus, would opt to continue while trending LFTs -Continue to trend LFTs -Outpatient fibroscan -Consulted rheum, decrease methotrexate to 15mg weekly Assessment & Plan (12/14/2024 11:34 AM EDT): Mild transaminitis on admission, with multiple liver cysts visualized on OSH CT AP. AST and ALT have been rising. Differential includes MASH or steroid-induced vs drug-induced DILI. Abdominal US and workup of acute viral hepatitis panel, celiac panel, and ceruloplasmin returned unremarkable. -Consulted GI, appreciate recs -If steroids needed for lupus, would opt to continue while trending LFTs -Continue to trend LFTs -Outpatient fibroscan -Consulted rheum, decrease methotrexate to 15mg weekly Assessment & Plan (12/13/2024 6:53 AM EDT): Mild transaminitis on admission, with multiple liver cysts visualized on OSH CT AP. AST and ALT have been rising. Differential includes MASH or steroid-induced vs drug-induced DILI. Abdominal US and workup of acute viral hepatitis panel, celiac panel, and ceruloplasmin returned unremarkable. -Consulted GI, appreciate recs -If steroids needed for lupus, would opt to continue while trending LFTs -Continue to trend LFTs -Outpatient fibroscan -Consulted rheum, decrease methotrexate to 15mg weekly Assessment & Plan (2024 3:29 PM EDT): Mild transaminitis on admission, with multiple liver cysts visualized on OSH CT AP. AST and ALT have been rising. Differential includes MASH or steroid-induced vs drug-induced DILI. Abdominal US and workup of acute viral hepatitis panel, celiac panel, and ceruloplasmin returned unremarkable. -Consulted GI, appreciate recs -If steroids needed for lupus, would opt to continue while trending LFTs -Continue to trend LFTs -Outpatient fibroscan -Consulted rheum, decrease methotrexate to 15mg weekly Assessment & Plan (12/11/2024 5:26 PM EDT): Mild transaminitis on admission, with multiple liver cysts visualized on OSH CT AP. AST and ALT have been rising. Differential includes MASH or steroid-induced vs drug-induced DILI. Abdominal US and workup of acute viral hepatitis panel, celiac panel, and ceruloplasmin returned unremarkable. -Consulted GI, appreciate recs -If steroids needed for lupus, would opt to continue while trending LFTs -Continue to trend LFTs -Outpatient fibroscan -Consulted rheum, decrease methotrexate to 15mg weekly Assessment & Plan (12/10/2024 5:31 PM EDT): Mild transaminitis on admission, with multiple liver cysts visualized on OSH CT AP. AST and ALT have been rising. Differential includes MASH or steroid-induced vs drug-induced DILI. Abdominal US and workup of acute viral hepatitis panel, celiac panel, and ceruloplasmin returned unremarkable. -Consulted GI, appreciate recs -If steroids needed for lupus would opt to continue while trending LFTs -Continue to trend LFTs, PT-INR -Outpatient fibroscan -Consulted rheum, pending recs regarding methotrexate and elevated LFTs Assessment & Plan (12/10/2024 12:24 PM EDT): Mild transaminitis on admission, with multiple liver cysts visualized on OSH CT AP. AST and ALT have been rising. Differential includes MASH or steroid-induced vs drug-induced DILI. Abdominal US and workup of acute viral hepatitis panel, celiac panel, and ceruloplasmin returned unremarkable. -Consulted GI, appreciate recs -If steroids needed for lupus would opt to continue while trending LFTs -Continue to trend LFTs, PT-INR -Outpatient fibroscan -Consulted rheum, pending recs regarding methotrexate and elevated LFTs Assessment & Plan (12/09/2024 5:23 PM EDT): Mild transaminitis on admission, with multiple liver cysts visualized on OSH CT AP or methotrexate use. AST and ALT have been rising and she developed a new onset RUQ pain. Differential includes MASH or steroid-induced vs drug-induced DILI. -Consulted GI, appreciate recs -If steroids needed for lupus would opt to continue while trending LFTs -Continue to trend LFTs, PT-INR -Abdominal US unremarkable -Acute viral hepatitis panel, including HAV total antibody, HBsAb, and HBcAb to assess for immunity/past exposure -Celiac panel -Ceruloplasmin -Outpatient fibroscan Assessment & Plan (12/08/2024 3:20 PM EDT): Mild transaminitis on admission, likely iso multiple liver cysts visualized on OSH CT AP or methotrexate use. AST and ALT increased from 43 and 52 to 58 and 95 respectively (12/05) to 44 and 84 (12/06). Her LFTs are increasing and she developed a new onset RUQ pain. Will consult GI to differentiate between GI pathology vs. Methotrexate use vs. Related to high dose steroids. -consulted GI -Abdominal ultrasound pending -Monitor LFTs Assessment & Plan (12/07/2024 7:15 AM EDT): Mild transaminitis on admission, likely iso multiple liver cysts visualized on OSH CT AP or methotrexate use. AST and ALT increased from 43 and 52 to 58 and 95 respectively (12/05) to 44 and 84 (12/06). -Monitor LFTs Assessment & Plan (12/06/2024 12:04 PM EDT): Mild transaminitis on admission, likely iso multiple liver cysts visualized on OSH CT AP or methotrexate use. AST and ALT increased from 43 and 52 to 58 and 95 respectively (12/05) to 44 and 84 (12/06). -Monitor LFTs Assessment & Plan (12/05/2024 1:20 PM EDT): Mild transaminitis on admission, likely iso multiple liver cysts visualized on OSH CT AP or methotrexate use. AST and ALT increased from 43 and 52 to 58 and 95 respectively (12/05). -Monitor LFTs Assessment & Plan (12/04/2024 4:35 PM EDT): Mild transaminitis on admission, likely iso multiple liver cysts visualized on OSH CT AP or methotrexate use. -Monitor LFTs Encounters Date Type Department Care Team Description 01/19/2025 [facility] Rheumatology Clinic [address] [place] [id number] Can Stacker: Adnois Stone MD Please help 01/13/2025 [facility] Rhe[facility]ology Clinic [address] [place] [id number] Can Stacker: Adonis Stone MD Last 3 weeks 01/08/2025 [facility] Rheumatology Clinic [address] [place] [phone] Can Stacker: Adonis Stone MD Joao Masterson missed our appt 12/30/2024 Telephone [facility] Interventional Radiology [address] [place] [address] Patricia Clements LPN 12/26/2024 10:05 AM EDT - 12/26/2024 11:59 PM EDT Hospital Encounter [facility] Ultrasound [address] [place] [address] Richa Lorenz, DO Flank pain Discharge Disposition: Home or Self Care () 12/25/2024 Telephone [facility] Interventional Radiology [address] [place] [address] Nicci Brown RN 12/25/2024 Insp[facility] Message [facility] Rheumatology Clinic [address] [place] [address] Can Stacker: Adonis Stone MD New Right Elbow bursitis 12/23/2024 Telephone [facility] Interventional Radiology [address] [place] [address] Traci Robertson RN 12/16/2024 Orders Only [facility] Rheumatology Clinic [address] [place] [phone] Can Stacker: Adonis Stone MD intermediate manager current use of systemic steroids (Primary Dx) 12/16/2024 [facility] Message [facility] Rheumatology Clinic [address] [place] [phone] Can Stacker: Adonis Stone MD Bones and calcium 12/03/2024 10:23 PM EDT - 12/18/2024 3:32 PM EDT Hospital Encounter [facility] [address] [place] [phone] Irish Tate MD PhD Claudette, Neel H, MD ThampattyYudelka MD Hebert, Christine M., MD Esposito, Sara A., Flank pain (Primary Dx); SLE (systemic lupus erythematosus related syndrome) (HCC) Discharge Disposition: Home or Self Care () 11/27/2024 [facility]o Message [facility] Rheumatology Clinic [address] [place] [phone] Can Stacker: Adonis Stone MD Genetic testing 11/07/2024 [facility] Message [facility] Rheumatology Clinic [address] [place] [address] Can Stacker: Adonis Stone MD Discharged yesterday 11/07/2024 Telephone [facility] Rheumatology Clinic [address] [place] [address] Can Stacker: Adonis Stone MD Prior Authorization (PA for [employer] Approved) 11/07/2024 Telephone [facility] Rheumatology [facility] [address] [place] [address] Can Stacker: Adonis Stone MD 11/05/2024 Telephone [facility] Rheumatology [facility] [address] [place] [address] Can Stacker: Maddison Fish Telephone Intake, Staff PAC Provider Requested Call Back 10/29/2024 Orders Only [facility] Rheumatology Clinic [address] [place] [address] Can Stacker: Adonis Stone MD Other forms of systemic lupus erythematosus, unspecified organ involvement status (HCC) (Primary Dx); 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) 10/27/2024 [facility] Rheumatology Clinic [address] [place] [phone] Can Stacker: Adonis Stone MD Benlysta, [place], [facility] 10/24/2024 Refill [facility] Rheumatology Clinic [address] [place] [address] Can Stacker: Adonis Stone MD SLE (systemic lupus erythematosus related syndrome) (HCC) from Last 3 Months Social History Tobacco Use Types Packs/Day Years Used Date Smoking Tobacco: Never Passive Smoke Exposure: Never Smokeless Tobacco: Never Tobacco Cessation:Counseling Given: Not Answered Alcohol Use Standard Drinks/Week Comments Not Currently 0 (1 standard drink = 0.6 oz pur e alcohol) [facility] Utilities Answer Date Recorded In the past [...] Orientation Straight 11/02/2023 7: 47 AM EDT Last Filed Vital Signs Vital Sign Reading Time Taken Comments Blood Pressure 117/79 12/26/2024 1:28 PM EDT Pulse 83 12/26/2024 1:28 PM EDT Temperature 36.8 C (98.2 F) 12/18/2024 7:39 AM EDT Respiratory Rate 18 12/26/2024 1:28 PM EDT Oxygen Saturation 94% 12/26/2024 1:28 PM EDT Inhaled Oxygen Concentration - - Weight 79.1 kg (174 lb 6.1 oz) 12/18/2024 6:00 A M EDT Height 160 cm (5' 3 ) 12/03/2024 10:28 PM EDT Body Mass Index 30.89 12/03/2024 10:28 PM EDT Plan of Treatment Upcoming Encounters Date Type Department Care Team (Late st Contact Info) Description 01/27/2025 9:40 AM EDT Follow-Up [facility] Nephrology Clinic [address] [place] [address] Can Stacker: Maurice England MD [address] [place] [address] 03/19/2025 1:40 PM EDT Follow-Up [facility] Rheumatology Clinic [address] [place] [phone] Can Stacker: Adonis Stone MD [address] [place] [address] 04/17/2025 9:45 AM EST Appointment [facility] ACC Building Bone Density [address] [place] [address] Health Maintenance Due Date Last Done Comments Cervical Cancer Screening 1971 Cologuard 1971 Colon Cancer Screening 1971 Colonoscopy 1971 Controlled Substance Agreement 1971 FOBT / Fit Test 1971 HIV Screening 1971 HPV and Pap Smear 1971 Pap Smear 1971 Sigmoidoscopy 1971 Hepatitis B Vaccines (1 of 3 - 19+ 3-dose series) 12/11/1990 Mammogram 2011 Pneumococcal Vaccine: 50+ Ye ars (1 of 1 - PCV) 12/11/2021 Zoster Vaccines (1 of 2) 12/11/2021 COVID-19 Vaccine (2023-2 5 season) 2024 05/18/2021, 10/07/2020, 09/16/2020 Alcohol/Substance Use Screening 05/28/2024 Depression Screening and Follow-Up 05/28/2024 Influenza Vaccine (#1) 2025 Social Drivers of Health Sommer ual Screening 12/04/2025 12/04/2024 Diabetes Screening 12/19/2027 12/18/2024, 0 12/17/2024, 12/16/2024, Additional history exists DTaP,Tdap,and Td Vaccines (2 - Td or Tdap) 02/12/2030 02/13/2020 RSV Vaccine (60+ years old a nd patients) (1 - 1-dose 75+ series) 12/11/2046 Hepatitis C Screening Completed 12/09/2024 Procedures * Due to [place] state law, this organization might not be sharing negative HIV tests. Procedure Name Priority Date/Time Associated Diagnosis Comments US GUIDED BIOPSY KIDNEY PERCUTANEOUS LEFT Routine 12/26/2024 11:32 AM EDT Flank pain TISSUE EXAM Routine 12/26/2024 11:28 AM EDT Flank pain PROTIME-INR Timed 12/18/2024 1:40 PM EDT HEPATIC FUNCTION PANEL Routine 5 4:41 AM EDT CBC AUTO DIFFERENTIAL Routine 12/18/2024 4:41 AM EDT BASIC METABOLIC PANEL Routine 12/18/2024 4:41 AM EDT HEPATIC FUNCTION PANEL STAT 5 10:03 AM EDT CBC AUTO DIFFERENTIAL STAT 12/17/2024 10:03 AM EDT BASIC METABOLIC PANEL STAT 12/17/2024 10:03 AM EDT HEPATIC FUNCTION PANEL Routine 5 6:19 AM EDT CBC AUTO DIFFERENTIAL Routine 12/16/2024 6:19 AM EDT BASIC METABOLIC PANEL Routine 12/16/2024 6:19 AM EDT HEPATIC FUNCTION PANEL Routine 3:35 AM EDT CBC AUTO DIFFERENTIAL Routine 12/15/2024 3:35 AM EDT BASIC METABOLIC PANEL Routine 12/15/2024 3:35 AM EDT HEPATIC FUNCTION PANEL Routine 5:30 AM EDT CBC AUTO DIFFERENTIAL Routine 12/14/2024 5:30 AM EDT BASIC METABOLIC PANEL Routine 12/14/2024 5:30 AM EDT SODIUM, RANDOM URINE Routine 12/13/2024 9:02 PM EDT URINALYSIS W/REFLEX TO MICROSCOPIC (NO CULTURE) Routine 12/13/2024 9:02 PM EDT HEPATIC FUNCTION PANEL Routine 4:12 AM EDT CBC AUTO DIFFERENTIAL Routine 12/13/2024 4:12 AM EDT BASIC METABOLIC PANEL Routine 12/13/2024 4:12 AM EDT MANUAL DIFFERENTIAL Routine 2024 4 :38 AM EDT HEPATIC FUNCTION PANEL Routine 4:38 AM EDT CBC AUTO DIFFERENTIAL Routine 2024 4:38 AM EDT BASIC METABOLIC PANEL Routine 2024 4:38 AM EDT SHAH TOP, URN Routine 12/11/2024 10:33 AM EDT UA/CULTURE REFLEX Routine 12/11/2024 10: 33 AM EDT URINALYSIS W/REFLEX TO MICROSCOPIC & CULTURE Routine 12/11/2024 10:33 AM EDT MICROALBUMIN, RANDOM URINE WITH CREATININE Routine 12/11/2024 10:33 AM EDT URINE CULTURE, ROUTINE Routine 10:33 AM EDT HEPATIC FUNCTION PANEL Routine 4:55 AM EDT CBC AUTO DIFFERENTIAL Routine 12/11/2024 4:55 AM EDT BASIC METABOLIC PANEL Routine 12/11/2024 4:55 AM EDT BASIC METABOLIC PANEL Timed 12/10/2024 2:56 PM EDT MANUAL DIFFERENTIAL Routine 12/10/2024 4 :32 AM EDT HEPATITIS B SURFACE ANTIBODY Routine 12/10/2024 4:32 AM EDT HEPATITIS A ANTIBODY, TOTAL Routine 12/10/2024 4:32 AM EDT HEPATIC FUNCTION PANEL Routine 4:32 AM EDT CBC AUTO DIFFERENTIAL Routine 12/10/2024 4:32 AM EDT BASIC METABOLIC PANEL Routine 12/10/2024 4:32 AM EDT OSMOLALITY Routine 12/09/2024 5:00 PM EDT [facility] [employer]ER PICC Routine 2:30 PM EDT SODIUM, RANDOM URINE Routine 12/09/2024 11:58 AM EDT OSMOLALITY, URINE Routine 12/09/2024 11: 58 AM EDT URINALYSIS W/REFLEX TO MICROSCOPIC (NO CULTURE) Routine 12/09/2024 11:58 AM EDT HEPATITIS PANEL, ACUTE STAT 11:14 AM EDT CERULOPLASMIN STAT 12/09/2024 11:14 AM EDT MANUAL DIFFERENTIAL Routine 12/09/2024 5 :53 AM EDT FOLLICLE STIMULATING HORMONE Add-On 12/09/2024 5:53 AM EDT HEPATIC FUNCTION PANEL Routine 5:53 AM EDT CBC AUTO DIFFERENTIAL Routine 12/09/2024 5:53 AM EDT BASIC METABOLIC PANEL Routine 12/09/2024 5:53 AM EDT US ABDOMEN COMPLETE Routine 12/08/2024 1 0:43 PM EDT CELIAC DISEASE DIAGNOSITC PANEL Routine 12/08/2024 6:37 PM EDT SMEAR REVIEW Routine 12/08/2024 5:25 AM EDT HEPATIC FUNCTION PANEL Routine 5:25 AM EDT CBC AUTO DIFFERENTIAL Routine 12/08/2024 5:25 AM EDT BASIC METABOLIC PANEL Routine 12/08/2024 5:25 AM EDT XR ABDOMEN 2 VIEWS Routine 12/07/2024 10 :53 AM EDT HEPATIC FUNCTION PANEL Routine 4:10 AM EDT CBC AUTO DIFFERENTIAL Routine 12/07/2024 4:10 AM EDT BASIC METABOLIC PANEL Routine 12/07/2024 4:10 AM EDT HEPATIC FUNCTION PANEL Routine 5:55 AM EDT CBC AUTO DIFFERENTIAL Routine 12/06/2024 5:55 AM EDT BASIC METABOLIC PANEL Routine 12/06/2024 5:55 AM EDT PROTEIN, RANDOM URINE WITH CREATININE Routine 12/05/2024 11:25 AM EDT RED TOP Routine 12/05/2024 7:27 AM EDT EXTRA TUBES Routine 12/05/2024 7:27 AM EDT COMPLEMENT C3C AND C4C Routine 7:20 AM EDT HEPATIC FUNCTION PANEL Routine 6:06 AM EDT CBC AUTO DIFFERENTIAL Routine 12/05/2024 6:06 AM EDT BASIC METABOLIC PANEL Routine 12/05/2024 6:[address] ABDOMEN PELVIS W CONTRAST Routine 12/04/2024 8:23 PM EDT SHAH TOP, URN Routine 12/04/2024 11:40 AM EDT UA/CULTURE REFLEX Routine 12/04/2024 11: 40 AM EDT URINALYSIS W/REFLEX TO MICROSCOPIC & CULTURE Routine 12/04/2024 11:40 AM EDT VITAMIN D 1,25 DIHYDROXY Routine 12/04/2024 4:41 AM EDT TSH REFLEX FREE T4 Routine 12/04/2024 4: 41 AM EDT HEPATIC FUNCTION PANEL Routine 4:41 AM EDT SEDIMENTATION RATE, AUTOMATED Routine 12/04/2024 4:41 AM EDT C-REACTIVE PROTEIN Routine 12/04/2024 4: 41 AM EDT CBC Routine 12/04/2024 4:41 AM EDT BASIC METABOLIC PANEL Routine 12/04/2024 4:41 AM EDT RENAL FUNCTION PANEL STAT 12/03/2024 11:25 PM EDT MAGNESIUM STAT 12/03/2024 11:25 PM EDT CBC AUTO DIFFERENTIAL STAT 12/03/2024 11:25 PM EDT from Last 3 Months Results * Due to [place] state law, this organization might not be sharing negative HIV tests. * US Guided Biopsy Kidney Percutaneous Left (12/26/2024 11:32 AM EDT) Anatomical Region Laterality Modality Body Left Ultrasound Kidney Biopsy Impressions 12/26/2024 3:57 PM EDT Successful ultrasound-guided biopsy of the left kidney. Multiple 18 gauge core needle biopsy samples obtained. Narrative 12/26/2024 3:57 PM EDT Table formatting from the original result was not included. PROCEDURE: Percutaneous biopsy of the left kidney under ultrasound guidance. INDICATION: 54 y.o. female with a PMH of SLE, Jun's disease, Grave's disease, who with left flank pain and hematuria which has been ongoing for several months, intermittently worse. She was admitted at [facility] 10/2024 with similar symptoms and treated for possible lupus flare with IV steroids. 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 ATTENDING: Dr. Gopal Tate MD, the Attending physician, was on site and available for the entire procedure. SALES CONSULTANT: Mahin Vazquez NP MEDICATIONS: Medications Medication Event Details Admin User Admin Time sodium chloride 0.9% (NS) premix infusion Medication New Bag/Syringe Dose: 500 mL; Rate: 100 mL/hr; Route: intravenous Santino Rios RN 12/26/2024 11:15 AM fentaNYL (PF) injection Medication Given Dose: 50 mcg; Route: intravenous Santino Rios RN 12/26/2024 11:16 AM midazolam (VERSED) injection Medication Given Dose: 1 mg; Route: intravenous Santino Rios RN 12/26/2024 11:16 AM midazolam (VERSED) injection Medication Given Dose: 1 mg; Route: intravenous Santino Rios RN 12/26/2024 11:21 AM fentaNYL (PF) injection Medication Given Dose: 50 mcg; Route: intravenous Santino Rios RN 12/26/2024 11:21 AM lidocaine PF (XYLOCAINE) 1% (10 mg/mL) injection Medication Given Dose: 10 mL; Route: subcutaneous; Site: Back Mahin Vazquez NP 12/26/2024 11:22 AM SEDATION: Moderate procedural sedation was monitored by the radiology nursing staff. DURATION: 30 minutes. CONTRAST: None. GUIDANCE: Ultrasound. DEVICE: Temno 18 gauge core needle biopsy device. TECHNIQUE: Informed consent was obtained from the patient after discussion of risks, benefits, and alternatives. Maximal sterile barrier technique and sterile ultrasound technique was used for the entire procedure. A timeout was performed. The patient was positioned prone. Targeted ultrasound was performed of the kidney. Local anesthesia was obtained with 10 cc of 1% lidocaine solution. Under real-time ultrasound guidance, a 17 gauge coaxial needle introducer was positioned near the lower pole of the left kidney. Through the introducer, multiple core biopsy samples were obtained from the of the lower pole kidney by using an 18 gauge Temno core needle biopsy device. Samples were adequate by on site pathologist evaluation. The biopsy device was removed from the introducer needle. As the introducer needle was removed from the patient, gelfoam slurry was injected through it to prevent hemorrhage. A post procedure ultrasound was performed. Patient tolerated the procedure well. FINDINGS: 1. Normal appearance of the left kidney by ultrasound without hydronephrosis. Biopsy images show the biopsy needle traversing the renal cortex. 2. No evidence of post-procedure hematoma or other complication. us Richa Lorenz DO IMG US PROCEDURES Final Resu lt * Tissue Exam (12/26/2024 11:28 AM EDT) Final Diagnosis Left Kidney, Needle Biopsy: - Thin glomerular basement membranes. - Minimal chronic changes. - Global glomerulosclerosis 11% - Tubular atrophy / interstitial fibrosis 5% - Vascular sclerosis none NOTE: Thin glomerular basement membranes are typically the manifestation of a hereditary abnormality in glomerular basement membrane collagens, and generally lead to non-progressive, benign but persistent microscopic hematuria. Ultrastructural features of Alport syndrome are not present. Reference: Kolby SALINAS, et al. Alport syndrome: a unified classification of genetic disorders of collagen IV a345: a position paper of the Alport Syndrome Classification Working Group. [employer] International (2018) 93, 7286-1491. CHRONICITY: # of glomeruli Global Sclerosis Segmental Sclerosis # Active Crescents / Necrosis # Healed Crescents LM 11 1 0 0 0 FM 5 0 0 0 0 EM 3 1 0 0 0 Total 19 2 0 0 0 LIGHT MICROSCOPY DESCRIPTION: Preparations examined: H&E, PAS, PMS (silver), and trichrome. Granado's space No collapse or crescents. Glomerular capillaries No glomerulitis, thrombosis, or intraluminal deposits. Glomerular basement membranes No spikes, craters, or double contours. Mesangium within normal limits. Tubules / casts Rare tubular epithelial cell pigment. Interstitium No significant inflammation. Vessels within normal limits. Other All controls show appropriate reactivity. IMMUNOFLUORESCENCE MICROSCOPY DESCRIPTION: Preparations examined: Frozen sections (IgG, IgA, IgM, kappa, lambda, C3, C1q, albumin, fibrin). Glomeruli No significant immune complexes. Tubules / casts Few IgA-reactive casts. Tubular basement membranes within normal limits. Interstitium Moderate fibrin. Vessels within normal limits. Light chains No restriction. ELECTRON MICROSCOPY DESCRIPTION: Preparations examined: toluidine blue-stained semithins and thin sections. Foot processes Preserved. Glomerular basement membranes Thin lamina densa (163 nm mean harmonic thickness by orthogonal intercept method). Normal texture. No basketweave or lamination. Endothelium Largely intact fenestrations. No tubuloreticular structures. Deposits No deposits. Other No fibrils. [facility] MANUAL 5 10:13 AM EDT [facility] [employer] [facility] at 1013 EDT Clinical History LEFT RENAL [facility] MANUAL 5 10:13 AM T [facility] Gross Description 1. Renal Pelvis, Left Received fresh, labeled with the patient's name, MRN, date of , and left renal biopsy , are multiple gomez, cylindrical soft tissue cores (ranging from 0.6 x 0.1 x 0.1 cm to 1.7 x 0.1 x 0.1 cm). Model Engine Mechanic sections are submitted in cassette 1A. 2. Kidney, Left Received fresh, labeled with the patient's name, MRN, date of , and left renal biopsy , are multiple gomez, cylindrical soft tissue cores (ranging from 0.6 x 0.1 x 0.1 cm to 1.7 x 0.1 x 0.1 cm). A petroleum products sales representative section is submitted in [employer] transport and forwarded to histology for immunofluorescence studies. 3. Kidney, Left Received fresh, labeled with the patient's name, MRN, date of , and left renal biopsy , are multiple gomez, cylindrical soft tissue cores (ranging from 0.6 x 0.1 x 0.1 cm to 1.7 x 0.1 x 0.1 cm). A petroleum products sales representative section is submitted in glutaraldehyde and forwarded for electron microscopy. [facility] MANUAL 5 10:13 AM T [facility] ANATOMIC PATHOLOGY LABORATORY Gross Description User Grossing complete by Marissa Starr on 12/26/2024 1:49 PM [facility] MANUAL 5 10:13 AM T [facility] ANATOMIC PATHOLOGY LABORATORY Embedded Images [facility] MANUAL 5 10:13 AM T [facility] ANATOMIC PATHOLOGY LABORATORY Disclaimer Some of these tests were developed and their performance characteristics determined by the Immunoperoxidase[facility] of [facility]. They have not been cleared or approved by the U.S. Food and Drug Administration. The FDA has determined that such clearance or approval is not necessary. This test is used for clinical purposes. It should not be regarded as investigational or for research. This laboratory is certified under the Clinical Laboratory Improvement Amendments of 1988 (CLIA-88) as qualified to perform high complexity clinical laboratory testing. [facility] MANUAL 5 10:13 AM EDT [facility] [employer] THREE ANATOMIC PATHOLOGY LABORATORY Resulting Agency Case was signed out at [facility], Department of Pathology, [employer] 3 CLIA [id number] [facility] MANUAL 5 10:13 AM EDT [facility] [employer] [facility] ANATOMIC PATHOLOGY LABORATORY Report Header Surgical Pathology Report Case: [id number] Authorizing Provider: Richa Lorenz DO Collected: 12/26/2024 1128 Ordering Location: [facility] Ultrasound Received: 12/26/2024 1138 Pathologist: Jonny Messina MD Specimens: 1) - Renal Pelvis, Left, LEFT RENAL BIOPSY 2) - Kidney, Left 3) - Kidney, Left 10:13 AM EDT [facility] [employer] [facility] PATHOLOG[facility]AT[facility] Tissue Entire left kidney / Unknown 12/26/2024 11:28 AM EDT 12/26/2024 11:38 AM EDT Comment:LEFT RENAL Tissue specimen (specimen) Entire left kidney / Unknown 12/26/2024 11:28 AM EDT 12/26/2024 11:38 AM EDT Tissue specimen (specimen) Entire left kidney / Unknown 12/26/2024 11:28 AM EDT 12/26/2024 11:38 AM EDT us Richa Lorenz DO LAB PATHOLOGY/CYTOLOGY ORDER MONET Final Result [facility] [address] ANATOMIC PATHOLOGY LABORATORY [address] [place] [address], * (ABNORMAL) Protime-INR (12/18/2024 1:40 PM EDT) PT 9.5(L) 9.6 - 12.4 Seconds 12/18/2024 2:01 PM EDT [facility] INR 0.9 0.9 - 1.1 12/18/2024 2:01 PM EDT [facility] Comment:The optimal therapeu tic INR range for patients treated with Vitamin K antagonists (VKAS, e.g., Warfarin) is 2.0 to 3.5. Discuss the desired range with your doctor/care team. Blood Structure of peripheral vein / Unknown Venipuncture / Unknown 12/18/2024 1:40 PM EDT 12/18/2024 1:43 PM EDT us Richa Lorenz DO LAB BLOOD ORDERABLES Final R esult [facility] [address] [place] [address], [place] * (ABNORMAL) CBC Auto Differential (12/18/2024 4:41 AM EDT) Only the most recent of15 resultswithin the time period is included. WBC 12.9(H) 3.8 - 10.8 10*3/uL 12/18/2024 4:57 AM EDT [facility] RBC 4.24 3.80 - 5.10 10*6/uL 12/18/2024 4:57 AM EDT [facility] Hemoglobin 13.0 11.7 - 15.5 g/dL 12/18/2024 4:57 AM EDT [facility] Hematocrit 38.7 35.0 - 45.0 % 12/18/2024 4:57 AM EDT [facility] MCV 91.3 80.0 - 100.0 fL 12/18/2024 4:57 AM EDT [facility] MCH 30.7 27.0 - 33.0 pg 12/18/2024 4:57 AM EDT [facility] MCHC 33.6 32.0 - 36.0 g/dL 12/18/2024 4:57 AM EDT [facility] RDW 13.9 11.0 - 15.0 % 12/18/2024 4:57 AM EDT [facility] Platelets 253 140 - 400 10*3/uL 12/[facility]24 4:[facility] MPV 9.4 7.5 - 12.5 fL 12/18/2024 4:57 AM EDT [facility] Neutrophil % 71.4 % 12/18/2024 4:57 AM EDT [facility] Immature Grans % 1.2(H) 0.0 - 0.9 % 12/18/2024 4:57 AM EDT [facility] Lymphocyte % 19.2 % 12/18/2024 4:57 AM [facility] PATH[facility] Monocyte % 7.5 % 12/18/2024 4:57 [facility] Eosinophil % 0.5 % 12/18/2024 4:57 AM EDT [facility] Basophil % 0.2 % 12/18/2024 4:57 AM EDT [facility] Neutrophil # 9.20(H) 1.50 - 7.80 10*3/uL 12/18/2024 4:57 AM EDT [facility] Immature Grans # 0.16(H) <=0.03 10*3/uL 12/18/2024 4:57 AM EDT [facility] Lymphocyte # 2.50 0.85 - 3.90 10*3/uL 12/18/2024 4:57 AM EDT [facility] Monocyte # 1.00(H) 0.20 - 0.95 10*3/uL 12/18/2024 4:57 AM EDT [facility] Eosinophil # 0.10 0.02 - 0.50 10*3/uL 12/18/2024 4:57 AM [facility] PATHOLOG[facility] Basophil # <0.03 0.00 - 0.20 10*3/uL 12/18/2024 4:57 AM EDT [facility] nRBC % 0.0 /100 WBCs 12/18/2024 4:57 AM EDT [facility] nRBC # <0.01 <0.01 10*3/uL 12/18/2024 4:57 AM EDT [facility] Blood Structure of peripheral vein / Unknown Venipuncture / Unknown 12/18/2024 4:41 AM EDT 12/18/2024 4:47 AM EDT us Yudelka Hickman MD LAB BLOOD ORDERABLES Final Result [facility] [address] [place] [address], [place] * (ABNORMAL) Hepatic function panel (12/18/2024 4:41 AM EDT) Only the most recent of15 resultswithin the time period is included. Total Protein 5.9(L) 6.0 - 8.0 g/dL 12/18/2024 5:26 AM EDT [facility] Albumin 3.5 3.5 - 5.2 g/dL 12/18/2024 5:26 AM EDT [facility] Globulin, Total 2.4 2.1 - 4.2 g/dL 12/18/2024 5:26 AM EDT [facility] Bilirubin, Total <0.2(L) 0.2 - 1.2 mg/dL 12/18/2024 5:26 AM EDT [facility] Bilirubin, Direct <0.1 <=0.4 mg/dL 12/18/2024 5:26 AM EDT [facility] Alkaline Phosphatase 78 35 - 129 U/L 12/18/2024 5:26 AM EDT [facility] AST 30 10 - 40 U/L 12/18/2024 5:26 AM EDT [facility] ALT 64(H) 10 - 40 U/L 12/18/2024 5:26 AM EDT [facility] Bilirubin, Indirect 12/18/2024 5:26 AM EDT [facility] Comment:Unable to calculate A/G Ratio 1.5 1.5 - 3.0 12/18/2024 5:26 AM EDT [facility] Blood Structure of peripheral vein / Unknown Venipuncture / Unknown 12/18/2024 4:41 AM EDT 12/18/2024 4:47 AM EDT us Yudelka Hickman MD LAB BLOOD ORDERABLES Final Result [facility] [address] [place] [address], * (ABNORMAL) Basic metabolic panel (12/18/2024 4:41 AM EDT) Only the most recent of16 resultswithin the time period is included. NA 136 135 - 145 mmol/L 12/18/2024 5:15 AM EDT [facility] K 3.8 3.5 - 5.3 mmol/L 12/18/2024 5:15 AM EDT [facility] Cl 98 98 - 107 mmol/L 12/18/2024 5:15 AM EDT [facility] CO2 28 22 - 32 mmol/L 12/18/2024 5:15 AM EDT [facility] BUN 26(H) 7 - 23 mg/dL 12/18/2024 5:15 AM EDT [facility] Creatinine 0.95 0.50 - 1.20 mg/dL 12/18/2024 5:15 AM EDT [facility] Glucose 105(H) 65 - 99 mg/dL 12/18/2024 5:15 AM EDT [facility] Calcium 8.9 8.6 - 10.5 mg/dL 12/18/2024 5:15 AM EDT [facility] Anion Gap 10 5 - 15 12/18/2024 5:15 AM EDT [facility] eGFR 72 >=60 mL/min/1. 73m2 12/18/2024 5:15 AM EDT [facility] Comment:The estimated glomer ular filtration rate (eGFR) is calculated using a new formula developed by the NKF-ASN task force to eliminate race-based correction factors. The new formula uses serum/plasma creatinine, age, and gender to determine eGFR. A value below 60mls/min might indicate kidney disease and will be flagged. For additional information, see Toribio et al, Am J Kidney Dis. 2021;79(2):268- 288, A Unifying Approach for GFR estimation: Recommendations of the NKF-ASN Task Force on Reassessing the Inclusion of Race in Diagnosing Kidney Disease . Blood Structure of peripheral vein / Unknown Venipuncture / Unknown 12/18/2024 4:41 AM EDT 12/18/2024 4:47 AM EDT us Yudelka Hickman MD LAB BLOOD ORDERABLES Final Result [facility] [address] [place] [address], [place] * (ABNORMAL) Urinalysis W/Reflex to Microscopic (No Culture) (12/13/2024 9:02 PM EDT) Only the most recent of2 resultswithin the time period is included. Color, Urine Yellow Colorless, Light Yellow, Yellow, Dark Yellow 12/13/2024 9:37 PM EDT [facility] Clarity, Urine Clear Clear 12/13/2024 9:37 PM EDT [facility] Specific [place], Urine 1.022 <1.030 12/13/2024 9:37 PM EDT [facility] pH, Urine 6.5 4.6 - 8.0 12/13/2024 9:37 PM EDT [facility] Protein, Urine Trace(A) Negative 12/13/2024 9:37 PM T [facility] Glucose, Urine Normal Normal 12/13/2024 9:37 PM T [facility] Ketones, Urine Negative Negative 12/13/2024 9:37 PM EDT [facility] Bilirubin, Urine Negative Negative 12/13/2024 9:37 PM T [facility] Blood, Urine Negative Negative 12/13/2024 9:37 PM T [facility] Nitrite, Urine Negative Negative 12/13/2024 9:37 PM T [facility] Urobilinogen, Urine Normal Normal 12/13/2024 9:37 PM T [facility] Leukocyte Esterase, Urine 2+(A) Negative 12/13/2024 9:37 PM T [facility] WBC, Urine 7(H) 0 - 2 /HPF 12/13/2024 9:37 PM T [facility] RBC, Urine 6(H) 0 - 2 /HPF 12/13/2024 9:37 PM T [facility] Hyaline Casts, Urine 28(H) 0 - 2 /LPF 12/13/2024 9:37 PM T [facility] Squamous Epithelial Cells, Urine <1 /HPF 12/13/2024 9:37 PM T [facility] Bacteria, Urine Rare(A) None /HPF /HPF 12/13/2024 9:37 PM T [facility] Mucus, Urine Rare /LPF 12/13/2024 9:37 PM [facility] Urine Urine specimen collection, clean catch / Unknown Non-Blood Collection / Unknown 12/13/2024 9:02 PM EDT 12/13/2024 9:14 PM EDT Maisha Willett MD LAB URINE ORDERABLES Sarah l Result Performing Organization Address City/[facility]/ZIP Co de Phone Number [facility] [address] [place] [id number], [place] * Sodium, Random Urine with Creatinine (12/13/2024 9:02 PM EDT) Only the most recent of2 resultswithin the time period is included. Sodium, Urine 76 mmol/L 12/13/2024 9:56 PM EDT [facility] Creatinine, Urine 88 15 - 278 mg/dL 12/13/2024 9:56 PM EDT [facility] Sodium/Creatin ine, Urine Ratio 86 26 - 297 mmol/gmCr 12/13/2024 9:56 PM EDT [facility] Urine Urine specimen collection, clean catch / Unknown Non-Blood Collection / Unknown 12/13/2024 9:02 PM EDT 12/13/2024 9:14 PM EDT us Maisha Willett MD LAB URINE ORDERABLES Sarah l Result Performing Organization Address City/[facility] Co de Phone Number [facility] [address] [place] [id number], [place] * (ABNORMAL) Manual Differential (2024 4:38 AM EDT) Only the most recent of3 resultswithin the time period is included. Neutrophil %, Manual 64 % 2024 5:27 AM EDT [facility] Band % 2 0 - 7 % 2024 5:27 AM EDT [facility] Lymphocyte %, Manual 22 % 2024 5:27 AM EDT [facility] Monocyte %, Manual 7 % 2024 5:27 AM EDT [facility] Eosinophil %, Manual 1 % 2024 5:27 AM EDT [facility] Basophil %, Manual 0 % 2024 5:27 AM EDT [facility] Metamyelocyte % 4 % 5:27 AM EDT [facility] Total Neutrophil #, Manual 17.75(H) 1.50 - 7.80 10*3/uL 2024 5:27 AM EDT [facility] Bands #,Manual 0.54 10*3/uL 2024 5:27 AM T [facility] Total Lymph #, Manual 5.92(H) 0.85 - 3.90 10*3/uL 2024 5:27 AM EDT [facility] Monocyte #, Manual 1.88(H) 0.20 - 0.95 10*3/uL 2024 5:27 AM EDT [facility] Eosinophil #, Manual 0.27 0.02 - 0.50 10*3/uL 2024 5:27 AM EDT [facility] Basophil #, Manual 0.00 0.00 - 0.20 10*3/uL 2024 5:27 AM EDT [facility] Metamyelocyte # 1.08(H) 0.00 10*3/uL 025 5:27 AM EDT [facility] Platelet Estimate Adequate Adequate 2024 5:27 AM [facility] RBC Morphology Present(A) Normal, No clinically significant RBC morphology present (ICSH guidelines, 2015). 2024 5:27 AM T [facility] Hypersegmented Neutrophils Present(A) Not Present 2024 5:27 AM EDT [facility] Total Cells Counted 116 2024 5:27 AM EDT [facility] Blood Structure of peripheral vein / Unknown Venipuncture / Unknown 2024 4:38 AM EDT 2024 4:45 AM EDT Yudelka Hickman MD LAB BLOOD ORDERABLES Final Result Performing Organization Address [facility] Co de Phone Number [facility] [address] [place] [address], [place] * Shah Top, Urine (12/11/2024 10:33 AM EDT) Only the most recent of2 resultswithin the time period is included. Extra Tube Hold for add-ons. 12/11/2024 3:05 PM EDT [facility] Comment:Auto resulted. Urine Urine specimen collection, clean catch / Unknown Non-Blood Collection / Unknown 12/11/2024 10:33 AM EDT 12/11/2024 12:19 PM EDT Maisha Willett MD LAB URINE ORDERABLES Sarah l Result Performing Organization Address [facility] de Phone Number [facility] [address] [place] [phone], [place] * (ABNORMAL) Urinalysis W/Reflex to Microscopic & Culture (12/11/2024 10:33 AM EDT) Only the most recent of2 resultswithin the time period is included. Color, Urine Yellow Colorless, Light Yellow, Yellow, Dark Yellow 12/11/2024 12:30 PM EDT [facility] Clarity, Urine Clear Clear 12/11/2024 12:30 PM EDT [facility] Specific [place], Urine 1.029 <1.030 12/11/2024 12:30 PM EDT [facility] pH, Urine 6.5 4.6 - 8.0 12/11/2024 12:30 PM EDT [facility] Protein, Urine Trace(A) Negative 12/11/2024 12:30 PM T [facility] Glucose, Urine Normal Normal 12/11/2024 12:30 PM T [facility] Ketones, Urine Negative Negative 12/11/2024 12:30 PM EDT [facility] Bilirubin, Urine Negative Negative 12/11/2024 12:30 PM T [facility] Blood, Urine Negative Negative 12/11/2024 12:30 PM T [facility] Nitrite, Urine Negative Negative 12/11/2024 12:30 PM [facility] Urobilinogen, Urine Normal Normal 12/11/2024 12:30 PM [facility] Leukocyte Esterase, Urine Trace(A) Negative 12/11/2024 12:30 PM [facility] WBC, Urine 1 0 - 2 /HPF 12/11/2024 12:30 PM [facility] RBC, Urine 0 0 - 2 /HPF 12/11/2024 12:30 PM [facility] Hyaline Casts, Urine 0 0 - 2 /LPF 12/11/2024 12:30 PM [facility] Squamous Epithelial Cells, Urine <1 /HPF 12/11/2024 12:30 PM T [facility] Bacteria, Urine None Seen None /HPF /HPF 12/11/2024 12:30 PM [facility] Mucus, Urine Rare /LPF 12/11/2024 12:30 PM [facility] Urine Urine specimen collection, clean catch / Unknown Non-Blood Collection / Unknown 12/11/2024 10:33 AM EDT 12/11/2024 12:19 PM EDT Maisha Willett MD LAB URINE ORDERABLES Sarah l Result Performing Organization Address City/[facility]/ZIP Co de Phone Number [facility] [address] [place] [address], * Microalbumin, Random Urine with Creatinine (12/11/2024 10:33 AM EDT) Microalbumin, Urine <2.0 mg/dL 12/11/2024 2:11 PM EDT [facility] Creatinine, Urine 114 15 - 278 mg/dL 12/11/2024 2:11 PM EDT [email or web address] Microalb/Creat Ratio, Random Urine 12/11/2024 2:11 PM EDT [facility] Comment: < 1.0 mcg/mgCr Microalbumin Reference Range: Normal <30 mcg/mg Creatinine Microalbuminuria 30-300 mcg/mg Creatinine Clinical Albuminuria >300 mcg/mg Creatinine Reference: ADA Guideline. Diabetes Care. 2004;27 (suppl 1) Urine Voided urine specimen / Unknown Non-Blood Collection / Unknown 12/11/2024 10:33 AM EDT 12/11/2024 12:19 PM EDT Maisha Willett MD LAB URINE ORDERABLES Sarah l Result Performing Organization Address City/[facility]/ZIP Co de Phone Number [facility] [address] [place] [address], [place] * Urine Culture, Routine (12/11/2024 10:33 AM EDT) Culture Less than 10,000 CFU/mL of single Gram positive organism isolated. No further testing will be performed. 2024 9:05 PM EDT [employer] [facility] Urine Urine specimen collection, clean catch / Unknown Non-Blood Collection / Unknown 12/11/2024 10:33 AM EDT 12/11/2024 12:30 PM EDT [facility] 2024 9:05 PM EDT [facility] Received Date:[id number] MICRO NUMBER: [id number] SPECIMEN QUALITY: Adequate SOURCE: URINE CLEAN CATCH STATUS: FINAL If clinically indicated, recollection using a method to minimize contamination, with prompt transfer to Urine Culture Transport Tube, is recommended. us Maisha Willett MD LAB MICROBIOLOGY - GENERA L ORDERABLES Final Result Performing Organization Address City/[facility]/ZIP Co de Phone Number [facility] [address], [place] [address], [place] [phone] [employer] [address], [place] [address], [place] [phone] * (ABNORMAL) Hepatitis A Antibody, Total (12/10/2024 4:32 AM EDT) Pathologist [facility] Hepatitis A Ab, Total REACTIVE( A) NON-REACT FINA 12/10/2024 10:21 AM EDT [employer] [facility] Comment: For additional information, please refer to http://education.[employer]/faq/CFZ065 (This link is being provided for informational/ educational purposes only.) Blood Structure of peripheral vein / Unknown Venipuncture / Unknown 12/10/2024 4:32 AM EDT 12/10/2024 4:45 AM EDT Lucia Asseta [place] - 12/10/2024 10:21 AM EDT [employer] Received Date:[id number] us Maisha Willett MD LAB BLOOD ORDERABLES Sarah l Result Performing Organization Address City/[facility]/ZIP Co de Phone Number [facility] [place] [address], [place] [address], [place] [phone] [employer] [address], [place] [address], [place] [phone] * Hepatitis B Surface Antibody (12/10/2024 4:32 AM EDT) Pathologist [facility] Hepatitis B Surface Ab Immunity, Qn 148 > OR = 10 mIU/mL 12/10/2024 8:48 AM EDT [employer] [facility] Comment: PATIENT HAS IMMUNITY TO HEPATITIS B VIRUS. For additional information, please refer to http://education.MediaHound/faq/YZZ400 (This link is being provided for informational/ educational purposes only). Blood Structure of peripheral vein / Unknown Venipuncture / Unknown 12/10/2024 4:32 AM EDT 12/10/2024 4:45 AM EDT Narrative [facility] - 12/10/2024 8:48 AM EDT [facility] Received Date:[id number] Maisha Willett MD LAB BLOOD ORDERABLES Sarah l Result Performing Organization Address City/[facility]/ZIP Co de Phone Number [facility] [address] [facility] [address] [facility], [place] [address], [place] [phone] [employer] [facility] [address] [facility] [address] [facility], [place] [address], [place] [phone] * Osmolality, Serum (12/09/2024 5:00 PM EDT) Pathologist [facility] Osmolality 288 279 - 295 mOsm/kg 12/09/2024 6:35 PM EDT [facility] Blood Structure of peripheral vein / Unknown Venipuncture / Unknown 12/09/2024 5:00 PM EDT 12/09/2024 5:20 PM EDT Maisha Willett MD LAB BLOOD ORDERABLES Sarah l Result [facility] [address] [place] [address], [place] * CABLE STRETCHER AND TESTER PICC and Midline (12/09/2024 2:30 PM EDT) Narrative Chary Brothers RN - 12/09/2024 2:30 PM EDT Chary Brothers RN 12/09/2024 2:31 PM Midline catheter insertion Date/Time: 12/09/2024 2:30 PM Performed by: Preet Higginbotham RN Provider type: IV Resource RN Reason for Insertion: poor IV access Successful placement: yes Marion Protocol Patient identity confirmed: Name and with patient, Name and MRN on the patient's armband and Verbally Written consent obtained?: n/a Procedure consent matches procedure to be performed: N/A All relevant documents/tests are correctly identified, labeled, and matched to patient: N/A Relevant tests/ Imaging studies available/reviewed: Yes Correct site marked: Yes Required blood products, implants, devices and special equipment available: N/A Immediately prior to the procedure a time out was called: Yes Pre-Procedure Central Line Bundle Sterile barrier technique: All Elements of full barrier protection used Skin preparation: Chlorhexidine with alcohol Ultrasound: Sterile sheath and gel used Site Assessment Vein Accessed: Left basilic vein Initial Arm Circumference (cm): 34 Procedure Details Local Anesthetic: None Ultrasound guidance: yes Number of attempts: 1 Blood return in all lumens?: Yes All lumens flush freely?: Yes Catheter Secured: Catheter securement device Device Details Catheter Type: Powerglide Pro Midline Catheter Lumens: Single lumen Catheter Size (ga): 20 Lot #: [id number] Catheter Total Length (cm): 10 Catheter External Length (cm): 0 Post-Procedure Central Line Bundle Guidewire Removal Confirmed?: Yes All Ports Capped?: Yes Verification of Line Placement: Not applicable Dressing Applied: Antimicrobial and Transparent Post-Procedure Details Patient tolerance of procedure: Tolerated well, no immediate complications Significant events: None Plan: Midline ready for immediate use Maisah Willett MD IV THERAPY ORDERABLES [facility] Result * Osmolality, Urine (12/09/2024 11:58 AM EDT) Osmolality, Ur 880 70 - 900 mOsm/kg 12/09/2024 1:22 PM EDT [facility] Urine Voided urine specimen / Unknown Non-Blood Collection / Unknown 12/09/2024 11:58 AM EDT 12/09/2024 12:04 PM EDT Maisha Willett MD LAB URINE ORDERABLES Sarah l Result [facility] [address] [place] [address], * Ceruloplasmin (12/09/2024 11:14 AM EDT) Ceruloplasmin 28 14 - 48 mg/dL 12/09/2024 11:53 PM EDT [facility] Blood Structure of peripheral vein / Unknown Venipuncture / Unknown 12/09/2024 11:14 AM EDT 12/09/2024 11:42 AM EDT Narrative [facility] - 12/09/2024 11:53 PM EDT [facility] Received Date:[id number] Maisha Willett MD LAB BLOOD ORDERABLES Sarah l Result Performing Organization Address City/[facility] Co de Phone Number [facility] [address], [place] [address], [facility] [address], [place] [address], * Hepatitis Panel, Acute (12/09/2024 11:14 AM EDT) Pathologist [facility] Hepatitis A IgM NON-REACT FINA NON-REACT FINA 12/10/2024 1:09 AM EDT [facility] Hepatitis B Surface Antigen NON-REACT FINA NON-REACT FNIA 12/10/2024 1:09 AM EDT [facility] Hepatitis B Core Antibody NON-REACT FINA NON-REACT FINA 12/10/2024 1:09 AM EDT [facility] Hepatitis C Antibody NON-REACT FINA NON-REACT FINA 12/10/2024 1:09 AM EDT [facility] Comment: HCV antibody was non-reactive. There is no laboratory evidence of HCV infection. In most cases, no further action is required. However, if recent HCV exposure is suspected, a test for HCV RNA (test code 05427) is suggested. For additional information please refer to http://education.MediaHound/faq/HMB85e6 (This link is being provided for informational/ educational purposes only.) For additional information, please refer to http://School Admissions.[employer]/faq/EGT216 (This link is being provided for informational/ educational purposes only.) Blood Structure of peripheral vein / Unknown Venipuncture / Unknown 12/09/2024 11:14 AM EDT 12/09/2024 11:42 AM EDT Narrative [facility] - 12/10/2024 1:09 AM EDT [facility] Received Date:[id number] Maisha Willett MD LAB BLOOD ORDERABLES Sarah l Result Performing Organization Address City/[facility]/ZIP Co de Phone Number [address], [place] [address], [place] [phone] [facility] [address], [place] [address], [place] [phone] * Follicle Stimulating Hormone (12/09/2024 5:53 AM EDT) FSH 66.4 See Reference Range Comment mIU/mL 12/09/2024 4:45 PM EDT [facility] Comment: Follicular 3.5-12.5 mIU/mL Ovulatory 4.7-21.5 mIU/mL Luteal 1.7-7.7 mIU/mL Post-menopausal 25.8-134.8 mIU/mL Blood Structure of peripheral vein / Unknown Venipuncture / Unknown 12/09/2024 5:53 AM EDT 12/09/2024 6:12 AM EDT Maisha Willett MD LAB BLOOD ORDERABLES Sarah l Result [facility] [address] [place] [address], [place] * US Abdomen Complete (12/08/2024 10:43 PM EDT) Anatomical Region Laterality Modality Body N/A Ultrasound 12/09/2024 8:09 AM EDT Impressions 12/09/2024 8:14 AM EDT No hydronephrosis or abnormal biliary dilatation to correlate with abdominal pain. Limited evaluation of the pancreas. If this radiology report contains a blank impression section, it is an incomplete radiology report. Please contact the interpreting radiologist or applicable radiology division as soon as possible to obtain the completed interpretation. Workstation ID: [id number] Narrative 12/09/2024 8:14 AM EDT EXAMINATION: Abdominal ultrasound. INDICATION: Inpatient with abnormal LFTs and bilateral abdomen pain TECHNIQUE: Complete ultrasound evaluation of the abdomen. Multiple grayscale and color Doppler images were obtained. COMPARISON: No previous abdominal ultrasound. Abdomen CT report 12/04/2024 FINDINGS: LIVER: Normal parenchymal echotexture and echogenicity. No suspicious mass lesion. As reported on the recent CT, tiny cysts are identified throughout the liver, and several tiny echogenic foci are likely related to pneumobilia. The portal vein is patent on color Doppler with hepatopetal flow. BILIARY: Cholecystectomy. No abnormal intrahepatic biliary dilatation. The common bile duct measures 4.2 mm. PANCREAS: Visualized portions are unremarkable, but much of the gland is obscured by overlying bowel gas. No peripancreatic inflammatory fluid is demonstrated. SPLEEN: Normal spleen size and texture. Splenic length 9.1 cm PERITONEUM: No free fluid. RIGHT KIDNEY: The right kidney measures 10.9 cm. Minimal lateral cortical scar. The parenchyma is within normal limits. There is no shadowing stone or hydronephrosis. LEFT KIDNEY: The left kidney measures 10.1 cm. The kidney evaluation is somewhat limited by obscuring bowel gas, but the parenchyma appears to be within normal limits. There is no shadowing stone or hydronephrosis. MIDLINE VASCULATURE: The visualized portion of the inferior vena cava is patent. The visualized portion of the abdominal aorta is normal. Resulting Agency Comment [id number] Procedure Note Ammon Amaya MD - 12/09/2024 EXAMINATION: Abdominal ultrasound. INDICATION: Inpatient with abnormal LFTs and bilateral abdomen pain TECHNIQUE: Complete ultrasound evaluation of the abdomen. Multiplegrayscale and color Doppler images were obtained. COMPARISON: No previous abdominal ultrasound. Abdomen CT [id number]/2024 FINDINGS: LIVER: Normal parenchymal echotexture and echogenicity. No suspicious masslesion. As reported on the recent CT, tiny cysts are identified throughoutthe liver, and several tiny echogenic foci are likely related topneumobilia. The portal vein is patent on color Doppler with hepatopetalflow. BILIARY: Cholecystectomy. No abnormal intrahepatic biliary dilatation. Thecommon bile duct measures 4.2 mm. PANCREAS: Visualized portions are unremarkable, but much of the gland isobscured by overlying bowel gas. No peripancreatic inflammatory fluid isdemonstrated. SPLEEN: Normal spleen size and texture. Splenic length 9.1 cm PERITONEUM: No free fluid. RIGHT KIDNEY: The right kidney measures 10.9 cm. Minimal lateral corticalscar. The parenchyma is within normal limits. There is no shadowing stoneor hydronephrosis. LEFT KIDNEY: The left kidney measures 10.1 cm. The kidney evaluation issomewhat limited by obscuring bowel gas, but the parenchyma appears to bewithin normal limits. There is no shadowing stone or hydronephrosis. MIDLINE VASCULATURE: The visualized portion of the inferior vena cava ispatent. The visualized portion of the abdominal aorta is normal. IMPRESSION: No hydronephrosis or abnormal biliary dilatation to correlate withabdominal pain. Limited evaluation of the pancreas. If this radiology report contains a blank impression section, it is anincomplete radiology report. Please contact the interpreting radiologistor applicable radiology division as soon as possible to obtain thecompleted interpretation. Workstation ID: [id number] Maisha Willett MD [facility] [place] PROCEDURES Final R esult * Celiac Diagnostic Panel w/Gliadin, All Ages (Includes: IgA, tTG IgA/IgG and Giadin IgA/IgG) (12/08/2024 6:37 PM EDT) Tissue Transglutaminase Ab, IgG <1.0 U/mL 12/09/2024 6:06 PM EDT [employer] [facility] Comment: Value Interpretation ----- <15.0 Antibody not detected > or = 15.0 Antibody detected Tissue Transglutaminase Ab, IgA <1.0 U/mL 12/09/2024 6:06 PM EDT [facility] Comment: Value Interpretation ----- <15.0 Antibody not detected > or = 15.0 Antibody detected Gliadin Ab IgA <1.0 U/mL 12/09/2024 6:06 PM EDT [facility] Comment: Value Interpretation ----- <15.0 Antibody not detected > or = 15.0 Antibody detected Gliadin Ab IgG <1.0 U/mL 12/09/2024 6:06 PM EDT [facility] Comment: Value Interpretation ----- <15.0 Antibody not detected > or = 15.0 Antibody detected Immunoglobulin A 177 47 - 310 mg/dL 12/09/2024 6:06 PM EDT [facility] Blood Structure of peripheral vein / Unknown Venipuncture / Unknown 12/08/2024 6:37 PM EDT 12/08/2024 6:48 PM EDT Narrative [facility] - 12/09/2024 6:06 PM EDT [facility] Received Date: Maisha Willett MD LAB BLOOD ORDERABLES Sarah l Result [facility] [address], [place] [address], [facility] [address], [place] [address], [place] [phone] * Smear Review (12/08/2024 5:25 AM EDT) Platelet Estimate Adequate Adequate 12/08/2024 7:18 AM EDT [facility] RBC Morphology Normal Normal, No clinically significant RBC morphology present (BANNERH guidelines, 2015). 12/08/2024 7:18 AM EDT [facility] Blood Structure of peripheral vein / Unknown Venipuncture / Unknown 12/08/2024 5:25 AM EDT 12/08/2024 5:44 AM EDT Yudelka Hickman MD LAB BLOOD ORDERABLES Final Result [facility] [address] [place] [address], [place] * X-Ray Abdomen 2 Views (12/07/2024 10:53 AM EDT) Anatomical Region Laterality Modality Body Computed Radiogr aphy 12/07/2024 1:35 PM EDT Impressions 12/07/2024 1:37 PM EDT Negative. If this radiology report contains a blank impression section, it is an incomplete radiology report. Please contact the interpreting radiologist or applicable radiology division as soon as possible to obtain the completed interpretation. Workstation ID: [id number] Narrative 12/07/2024 1:37 PM EDT EXAMINATION:XR ABDOMEN 2 VIEWS COMPARISON: None FINDINGS: Gas pattern normal. No free air. No undue fecal residue or abnormal calcifications. Negative. Resulting Agency Comment [id number] Procedure Note Leo Ashby MD - 12/07/2024 EXAMINATION:XR ABDOMEN 2 VIEWS COMPARISON: None FINDINGS: Gas pattern normal. No free air. No undue fecal residue orabnormal calcifications. Negative. IMPRESSION: Negative. If this radiology report contains a blank impression section, it is anincomplete radiology report. Please contact the interpreting radiologistor applicable radiology division as soon as possible to obtain thecompleted interpretation. Workstation ID: [id number] Maisha Willett MD IMG XR PROCEDURES Final R esult * Protein, Random Urine with Creatinine (12/05/2024 11:25 AM EDT) Protein, Urine 7 mg/dL 12/05/2024 11:59 AM EDT [facility] Creatinine, Urine 80 15 - 278 mg/dL 12/05/2024 11:59 AM EDT [facility] Protein/Creati nine, Urine Ratio 88 <200 mg/gmCr 12/05/2024 11:59 AM EDT [facility] Urine Voided urine specimen / Unknown Non-Blood Collection / Unknown 12/05/2024 11:25 AM EDT 12/05/2024 11:29 AM EDT Yudelka Hickman MD LAB URINE ORDERABLES Final Result Performing Organization Address City/[facility]/ZIP Co de Phone Number [facility] [address] [place] [address], [place] * Red Top (12/05/2024 7:27 AM EDT) Pathologist [facility] Extra Tube Hold for add-ons. 12/05/2024 12:05 PM EDT [facility] Comment:Auto resulted. Blood Structure of peripheral vein / Unknown 12/05/2024 7:27 AM EDT 12/05/2024 7:27 AM EDT Yudelka Hickman MD LAB BLOOD ORDERABLES Final Result Performing Organization Address City/[facility] Co de Phone Number [facility] [address] [place] [address], [place] * Complement 3c and 4c (12/05/2024 7:20 AM EDT) Complement Component C3C 142 83 - 193 mg/dL 12/05/2024 11:12 AM EDT [facility] Complement Component C4C 23 15 - 57 mg/dL 12/05/2024 11:12 AM EDT [facility] Blood Structure of peripheral vein / Unknown Venipuncture / Unknown 12/05/2024 7:20 AM EDT 12/05/2024 7:25 AM EDT [facility] 12/05/[facility] 11:12 AM EDT [facility] Received Date: Yudelka Hickman MD LAB BLOOD ORDERABLES Final Result [facility] [address] [place] [address], [address] [facility] [place] [address], [place] [phone] [facility] [address], [place] [address], [place] [phone] * CT Abdomen Pelvis with Contrast (12/04/2024 8:23 PM EDT) Anatomical Region Laterality Modality Body Computed Tomogra phy 12/04/2024 9:27 PM EDT Impressions 12/05/2024 12:38 PM EDT 1. No acute abnormality in the abdomen or pelvis. 2. Numerous small hepatic cystic lesions may represent hepatic cysts versus biliary hamartomas. 3. Nonspecific gastric distention containing digested food possibly related to recent meal, however does raise the possibility of delayed gastric emptying secondary to gastroparesis. Recommend correlation with the clinical exam. 4. Moderate stool burden within the colon, suggesting constipation. IKailash, have reviewed the examination and concur with the findings as reported or so edited. Trainee: Benjamín Chua If this radiology report contains a blank impression section, it is an incomplete radiology report. Please contact the interpreting radiologist or applicable radiology division as soon as possible to obtain the completed interpretation. Workstation ID: [id number] Up-to-date CT equipment and radiation dose reduction techniques were employed. CTDIvol: 13.4 mGy. DLP: 615 mGy-cm. Narrative 12/05/2024 12:38 PM EDT EXAMINATION: CT ABDOMEN PELVIS W CONTRAST INDICATION: Abdominal pain, acute, nonlocalized TECHNIQUE: Images of the abdomen and pelvis were obtained with intravenous contrast. Coronal and sagittal reformats were generated. COMPARISON: None available. FINDINGS: LOWER THORAX: The visualized lung bases are clear. HEPATOBILIARY: Scattered hepatic cysts and subcentimeter hypodensities too small to contrast. Patent portal and hepatic veins. Surgically absent gallbladder. No biliary ductal dilatation. Trace pneumobilia attributable to prior sphincterotomy. SPLEEN: No splenomegaly. PANCREAS: No focal masses or ductal dilatation. Diffuse mild atrophy. ADRENAL GLANDS: No adrenal nodules. Symmetric atrophy of the glands are atrophic. KIDNEYS/URETERS: No hydronephrosis, calculi, or solid mass lesions. GI TRACT: Nonspecific gastric distention containing digested food. No bowel distention or wall thickening. Moderate stool burden within the colon. Scattered colonic diverticula without evidence of diverticulitis. Normal appendix. PERITONEUM/RETROPERITONEUM: No ascites or free air. LYMPH NODES: No lymphadenopathy. VESSELS: Unremarkable. PELVIC ORGANS/BLADDER: Underdistended urinary bladder. Status post hysterectomy. No adnexal mass. BONES AND SOFT TISSUES: No acute osseous or soft tissue abnormality. Resulting Agency Comment [id number] Procedure Note Kailash Braxton MD - 12/05/2024 EXAMINATION: CT ABDOMEN PELVIS W CONTRAST INDICATION: Abdominal pain, acute, nonlocalized TECHNIQUE: Images of the abdomen and pelvis were obtained with intravenouscontrast. Coronal and sagittal reformats were generated. COMPARISON: None available. FINDINGS: LOWER THORAX: The visualized lung bases are clear. HEPATOBILIARY: Scattered hepatic cysts and subcentimeter hypodensities toosmall to contrast. Patent portal and hepatic veins. Surgically absentgallbladder. No biliary ductal dilatation. Trace pneumobilia attributableto prior sphincterotomy. SPLEEN: No splenomegaly. PANCREAS: No focal masses or ductal dilatation. Diffuse mild atrophy. ADRENAL GLANDS: No adrenal nodules. Symmetric atrophy of the glands areatrophic. KIDNEYS/URETERS: No hydronephrosis, calculi, or solid mass lesions. GI TRACT: Nonspecific gastric distention containing digested food. Nobowel distention or wall thickening. Moderate stool burden within thecolon. Scattered colonic diverticula without evidence of diverticulitis.Normal appendix. PERITONEUM/RETROPERITONEUM: No ascites or free air. LYMPH NODES: No lymphadenopathy. VESSELS: Unremarkable. PELVIC ORGANS/BLADDER: Underdistended urinary bladder. Status posthysterectomy. No adnexal mass. BONES AND SOFT TISSUES: No acute osseous or soft tissue abnormality. IMPRESSION: 1. No acute abnormality in the abdomen or pelvis. 2. Numerous small hepatic cystic lesions may represent hepatic cystsversus biliary hamartomas. 3. Nonspecific gastric distention containing digested food possiblyrelated to recent meal, however does raise the possibility of delayedgastric emptying secondary to gastroparesis. Recommend correlation withthe clinical exam. 4. Moderate stool burden within the colon, suggesting constipation. I, Kailash Braxton, have reviewed the examination and concur with the findingsas reported or so edited. Trainee: Benjamín Chua If this radiology report contains a blank impression section, it is anincomplete radiology report. Please contact the interpreting radiologistor applicable radiology division as soon as possible to obtain thecompleted interpretation. Workstation ID: [id number] Up-to-date CT equipment and radiation dose reduction techniques wereemployed. CTDIvol: 13.4 mGy. DLP: 615 mGy-cm. Yudelka Hickman MD IMG CT PROCEDURES Final Re sult * TSH Reflex Free T4 (12/04/2024 4:41 AM EDT) TSH 0.624 0.280 - 3.890 uIU/mL 12/04/2024 5:38 AM EDT [facility] Comment: Females: 1st trimester 0.150-4.000 IU/mL 2nd trimester 0.310-4.170 IU/mL 3rd trimester 0.380-4.150 IU/mL Blood Structure of peripheral vein / Unknown Venipuncture / Unknown 12/04/2024 4:41 AM EDT 12/04/2024 5:00 AM EDT Neel Wilkins MD LAB BLOOD ORDERABLES Final Resul t [facility] [address] [place] [address], * Vitamin D 1,25 Dihydroxy (12/04/2024 4:41 AM EDT) Vitamin D,1,25 (OH)2,Total 41 18 - 72 pg/mL 12/07/2024 3:29 PM EDT [employer] ([facility]) Vitamin D3, 1,25 (OH)2 41 pg/mL 12/07/2024 3:29 PM EDT [facility] [facility] ([facility]) Vitamin D2, 1,25 (OH)2 <8 pg/mL 12/07/2024 3:29 PM EDT [facility] ([facility]) Comment: Vitamin D3, 1,25(OH)2 indicates both endogenous production and supplementation. Vitamin D2, 1,25(OH)2 is an indicator of exogenous sources, such as diet or supplementation. Interpretation and therapy are based on measurement of Vitamin D,1,25(OH)2, Total. This test was developed and its analytical performance characteristics have been determined by [employer] [facility], [place], [place]. It has not been cleared or approved by the FDA. This assay has been validated pursuant to the CLIA regulations and is used for clinical purposes. Blood Structure of peripheral vein / Unknown Venipuncture / Unknown 12/04/2024 4:41 AM EDT 12/04/2024 5:00 AM EDT Narrative [facility] 12/07/2024 3:29 PM EDT [facility] Received Date: us Neel Wilkins MD LAB BLOOD ORDERABLES Final Resul t [facility] [address] [place] [address] [address]rd Floor, [place] [address], [place] [phone] [facility] ([place]) [address] [place] [address] , [place] * Sedimentation Rate (12/04/2024 4:41 AM EDT) Sed Rate 8 <30 mm/Hr mm/Hr 12/04/2024 6:11 AM EDT [facility] Blood Structure of peripheral vein / Unknown Venipuncture / Unknown 12/04/2024 4:41 AM EDT 12/04/2024 5:00 AM EDT us Neel Wilkins MD LAB BLOOD ORDERABLES Final Resul t [facility] [address] [place] [address], [place] * (ABNORMAL) CBC (12/04/2024 4:41 AM EDT) WBC 16.3(H) 3.8 - 10.8 10*3/uL 12/04/2024 5:05 AM EDT [facility] RBC 4.80 3.80 - 5.10 10*6/uL 12/04/2024 5:05 AM EDT [facility] Hemoglobin 15.0 11.7 - 15.5 g/dL 12/04/2024 5:05 AM EDT [facility] Hematocrit 43.7 35.0 - 45.0 % 12/04/2024 5:05 AM EDT [facility] MCV 91.0 80.0 - 100.0 fL 12/04/2024 5:05 AM EDT [facility] MCH 31.3 27.0 - 33.0 pg 12/04/2024 5:05 AM EDT [facility] MCHC 34.3 32.0 - 36.0 g/dL 12/04/2024 5:05 AM EDT [facility] RDW 13.7 11.0 - 15.0 % 12/04/2024 5:05 AM EDT [facility] Platelets 289 140 - 400 10*3/uL 12/04/2024 5:05 AM EDT [facility] MPV 10.2 7.5 - 12.5 fL 12/04/2024 5:05 AM EDT [facility] Blood Structure of peripheral vein / Unknown Venipuncture / Unknown 12/04/2024 4:41 AM EDT 12/04/2024 5:00 AM EDT us Neel Wilkins MD LAB BLOOD ORDERABLES Final Resul t [facility] [address] [place] [address], [place] * C-reactive protein (12/04/2024 4:41 AM EDT) C Reactive Protein <3.0 <=9.9 mg/L 12/04/2024 5:40 AM EDT [facility] Blood Structure of peripheral vein / Unknown Venipuncture / Unknown 12/04/2024 4:41 AM EDT 12/04/2024 5:00 AM EDT Neel Wilkins MD LAB BLOOD ORDERABLES Final Resul t Performing Organization Address City/[facility]/ZIP Co de Phone Number [facility] [address] [place] [address], * Magnesium (12/03/2024 11:25 PM EDT) MG 2.1 1.6 - 2.4 mg/dL 12/04/2024 12:03 AM EDT [facility] Blood Structure of peripheral vein / Unknown Venipuncture / Unknown 12/03/2024 11:25 PM EDT 12/03/2024 11:34 PM EDT Neel Wilkins MD LAB BLOOD ORDERABLES Final Resul t Performing Organization Address City/[facility]/ZIP Co de Phone Number [facility] [address] [place] [address], * (ABNORMAL) Renal function panel (12/03/2024 11:25 PM EDT) NA 134(L) 135 - 145 mmol/L 12/04/2024 12:03 AM EDT [facility] K 4.2 3.5 - 5.3 mmol/L 12/04/2024 12:03 AM EDT [facility] Cl 101 98 - 107 mmol/L 12/04/2024 12:03 AM EDT [facility] CO2 21(L) 22 - 32 mmol/L 12/04/2024 12:03 AM [facility] Anion Gap 12 5 - 15 12/04/2024 12:03 AM [facility] Glucose 181(H) 65 - 99 mg/dL 12/04/2024 12:03 AM [facility] BUN 34(H) 7 - 23 mg/dL 12/04/2024 12:03 AM [facility] Creatinine 1.01 0.50 - 1.20 mg/dL 12/04/2024 12:03 AM [facility] Calcium 9.1 8.6 - 10.5 mg/dL 12/04/2024 12:03 AM [facility] Phosphorus 3.6 2.5 - 4.5 mg/dL 12/04/2024 12:03 AM [facility] Albumin 4.1 3.5 - 5.2 g/dL 12/04/2024 12:03 AM [facility] eGFR 67 >=60 mL/min/1. 73m2 12/04/2024 12:03 AM [facility] Comment:The estimated glomer ular filtration rate (eGFR) is calculated using a new formula developed by the NKF-ASN task force to eliminate race-based correction factors. The new formula uses serum/plasma creatinine, age, and gender to determine eGFR. A value below 60mls/min might indicate kidney disease and will be flagged. For additional information, see Rooney et al, Am J Kidney Dis. 2021;79(2):268- 288, A Unifying Approach for GFR estimation: Recommendations of the NKF-ASN Task Force on Reassessing the Inclusion of Race in Diagnosing Kidney Disease . Blood Structure of peripheral vein / Unknown Venipuncture / Unknown 12/03/2024 11:25 PM EDT 12/03/2024 11:34 PM EDT Neel Wilkins MD LAB BLOOD ORDERABLES Final Resul t [facility] [address] [place] [address], [place] from Last 3 Months Insurance [employer] PPO/EPO/IND Advance Directives * Full Code (Latest Code Status on File) Date Activated Date Inactivated Comments 12/04/2024 1:39 AM 12/18/2024 5:38 PM * Presumed Full Code Date Activated Date Inactivated Comments 12/03/2024 11:28 PM 12/04/2024 1:39 AM * Presumed Full Code Date Activated Date Inactivated Comments 12/03/2024 11:11 PM 12/03/2024 11:28 PM Care Teams Veterinary Radiologist Relationship Specialty Start Date End Date Santino Palomino PA [address] [place] [address] PCP - General 11/02/23
--- OUTSIDE RECORDS SUMMARY | 2025-01-23 13:50 | XMS_ITS | Encounter Summary ---
Author Organization [facility] Address [address] [place] [address] Care Team Providers Care Barrel Cooper Name Role Phone Santino Palomino Primary Care Provider [phone] Encounter Details Date Type Department Care Team (Latest Contact Info) Description 01/08/2025 myChart Message [facility] [address] [place] [id number] [employer]: Adonis Stone MD [address] [place] [address] Sorry I missed our appt Social History Tobacco Use Types Packs/Day Years Used Date Smoking Tobacco: Never Passive Smoke Exposure: Never Smokeless Tobacco: Never Alcohol Use Standard Drinks/Week Comments Not Currently 0 (1 standard drink = 0.6 oz pur e alcohol) [facility] Utilities Answer Date Recorded In the past 12 months has [employer], gas, oil, or water [employer] threatened to shut off services in your [...] Info) Description 01/27/2025 9:40 AM EDT Follow-Up [facility] [address] [place] [address] Teacher Elementary School: Maurice England MD [address] [place] [address] 03/19/2025 1:40 PM EDT Follow-Up [facility] [address] [place] [address] Teacher [employer] School: Adonis Stone MD [address] [place] [address] 04/17/2025 9:45 AM EST Appointment [facility] ACC Building Bone Density [address] [place] [address] documented as of this encounter Visit Diagnoses Not on filedocumented in this encounter Care Teams Barrel Cooper Relationship Specialty Start Date End Date Santino Palomino PA [address] [place] [address] PCP - General 11/02/23 documented as of this encounter
--- OUTSIDE RECORDS SUMMARY | 2025-01-23 13:50 | XMS_ITS | Encounter Summary ---
Author Organization [facility] Address [address] [place] [address] Phone Care Team Providers Care Counselor Marriage And Family Name Role Phone Santino Palomino PA-C Primary Care Provider [phone] Encounter Details Date Type Department Care Team (Late st Contact Info) Description 11/21/2024 Documentation Only [facility] [address] [place] [address] Ana Chau [address] [place] [address] Social History Tobacco Use Types Packs/Day Years [...] Visit [facility] [address] [place] [phone] Robinson Enciso DO [address] [place] [address] [place] [address] documented as of this encounter Visit Diagnoses Not on filedocumented in this encounter Care Teams Counselor Marriage And Family Relationship Specialty Start Date End Date Santino Palomino PA-C [address] [place], [place] [id number] PCP - General Physician Knitting Machine Fixer Head 11/11/24 documented as of this encounter
--- OUTSIDE RECORDS SUMMARY | 2025-01-23 13:50 | XMS_ITS | Encounter Summary ---
Author Organization [facility] Address [address] [place] [address] Phone Care Team Providers Care Blood Bank Laboratory Technician Name Role Phone Santino Palomino PA-C Primary Care Provider [phone] Encounter Details Date Type Department Care Team (Late st Contact Info) Description 11/14/2024 Office Communication [facility] [address] [place] [phone] David Figueroa MD [address] [place] [phone] Social History Tobacco Use Types Packs/Day Years [...] Visit [facility] [address] [place] [phone] Robinson Enciso DO [address] [place] [address] documented as of this encounter Visit Diagnoses Not on filedocumented in this encounter Care Teams Blood Bank Laboratory Technician Relationship Specialty Start Date End Date Santino Palomino PA-C [address] [place] [address] PCP - General Physician Train Inspector 11/11/24 documented as of this encounter
--- OUTSIDE RECORDS SUMMARY | 2025-01-23 13:50 | XMS_ITS | Encounter Summary ---
Author Organization [facility] Address [address] [place] [address] Care Team Providers Care Circulation Assistant Name Role Phone Santino Palomino Primary Care Provider [phone] Encounter Details Date Type Department Care Team (Late st Contact Info) Description 01/13/2025 Axiomt Message [facility] [address] [place] [address] Electric Crane Operator: Adonis Stone MD [address] [place] [address] Last 3 weeks Social History Tobacco Use Types Packs/Day Years Used Date Smoking Tobacco: Never Passive Smoke Exposure: Never Smokeless Tobacco: Never Alcohol Use Standard Drinks/Week Comments Not Currently 0 (1 standard drink = 0.6 oz pur e alcohol) [facility] Utilities Answer Date Recorded In the past 12 months has e [employer], gas, oil, or water [employer] threatened to shut off services in your [...] Info) Description 01/27/2025 9:40 AM EDT Follow-Up [facility] [address] [place] [address] Electric Crane Operator: Maurice England MD [address] [place] [address] 03/19/2025 1:40 PM EDT Follow-Up [facility] [address] [place] [address] Electric Crane Operator: Adonis Stone MD [address] [place] [address] 04/17/2025 9:45 AM EST Appointment [facility] ACC Building Bone Density [address] [place] [address] documented as of this encounter Visit Diagnoses Not on filedocumented in this encounter Care Teams Circulation Assistant Relationship Specialty Start Date End Date Santino Palomino PA [address] [place] [address] PCP - General 11/02/23 documented as of this encounter
--- OUTSIDE RECORDS SUMMARY | 2025-01-23 13:50 | XMS_ITS | Encounter Summary ---
Author Organization [facility] Address [address] [place] [address] Care Team Providers Care Equipment Validation Specialist Name Role Phone Santino Palomino Primary Care Provider [phone] Encounter Details Date Type Department Care Team (Latest Contact Info) Description 12/25/2024 Think Upgrade[employer] Message [facility] [address] [place] [address] Coordinator Mining Products: Adonis Stone MD [address] [place] [address] New Right Elbow bursitis Social History Tobacco Use Types Packs/Day Years Used Date Smoking Tobacco: Never Passive Smoke Exposure: Never Smokeless Tobacco: Never Alcohol Use Standard Drinks/Week Comments Not Currently 0 (1 standard drink = 0.6 oz pur e alcohol) [facility] Utilities Answer Date Recorded In the past 12 months has e [employer], gas, oil, or water [email or web address] threatened to shut off services in your [...] Info) Description 01/27/2025 9:40 AM EDT Follow-Up [facility] [address] [place] [address] Coordinator Mining Products: Maurice England MD [address] [place] [address] 03/19/2025 1:40 PM EDT Follow-Up [facility] [address] [place] [address] Coordinator Mining Products: Adonis Stone MD [address] [place] [address] 04/17/2025 9:45 AM EST Appointment [facility] Building Bone Density [address] [place] [address] documented as of this encounter Visit Diagnoses Not on filedocumented in this encounter Care Teams Equipment Validation Specialist Relationship Specialty Start Date End Date Santino Palomino PA [address] [facility] [place] [address] PCP - General 11/02/23 documented as of this encounter
--- OUTSIDE RECORDS SUMMARY | 2025-01-23 13:50 | XMS_ITS | Clinical Summary ---
Author Organization [facility] Address [address] [place] [address] Care Team Providers Care Head Animal Trainer Name Role Phone Mejia Triplett Primary Care Provider [phone] Allergies Active Allergy Reactions Criticality Noted Date [...] total) by mouth at bedtime. 5 Active Vyvanse 40 mg capsule Take 1 [...] to 15 doses. 15 each 5 Active hydroxychloroqu ine (PLAQUENIL) 200 mg tablet Take 2 tablets (400 mg total) by mouth 1 (one) time each day. 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 Care Teams Head Animal Trainer Relationship Specialty Start Date End Date Mejia Triplett PA [address] [place] [address] PCP - General Occupational Medicine 02/15/18
[2025-01-23 14:06] LABS: MANUAL DIFF FLAG NO
[2025-01-23 14:07] LABS: Hematocrit 42.8 % (37.0-47.0); Hemoglobin 14.8 g/dl (12.0-16.0); Imm Gran Abs Auto 0.25 X10*3/uL (0.00-0.03); Imm Gran Pct Auto 1.6 % (0.0-0.4); Lymphocytes Absolute Auto 0.9 X10*3/uL (1.2-4.9); Mean Corpuscular HGB Conc 34.6 g/dl (31.0-35.0); Mean Corpuscular Hemoglobin 30.3 pg (27.0-33.0); Mean Corpuscular Volume 87.7 fL (80.0-98.0); NRBC Abs Auto 0.000 X10*3/uL (0.0-0.012); NRBC Pct Auto 0.0 /100WBC (0.0-0.2); Platelet Count 264 X10*3/uL (160-400); Red Blood Count 4.88 X10*6/uL (4.20-5.50); White Blood Count 16.0 X10*3/uL (4.8-10.8)
[2025-01-23 14:28] LABS: Alanine Aminotransferase 49 U/L (0-31); Albumin Level 4.2 g/dL (3.5-5.0); Alkaline Phosphatase 78 U/L (39-117); Anion Gap 17 (12-20); Aspartate Amino Transferase 43 U/L (5-31); Blood Urea Nitrogen 24 mg/dL (9-16); Calcium 9.4 mg/dL (8.4-10.2); Carbon Dioxide 24 mmol/L (22-29); Chloride 100 mmol/L (96-108); Creatinine Clr Calc Pharmacy 60.9; Estimated Glomerular Filt Rate 55; Lipase 28 U/L (8-78); Potassium 4.7 mmol/L (3.3-5.1); Sodium 136 mmol/L (135-145); Total Protein 6.9 g/dL (6.5-8.0)
[2025-01-23 14:43] LABS: Thyroid Stimulating Hormone 0.48 uIU/mL (0.32-4.0)
--- NOTE | 2025-01-23 16:35 | PM.IMHP ---
History of Present Illness Date of Service: 01/23/25 Chief Complaint: Left flank pain 54-year-old female with pertinent history of much for autoimmune diseases-- SLE, Wilbarger's disease, Sjogren, Neri's, gastroesophageal reflux disease, peripheral neuropathy, mood disorder who presents with left flank pain and blood in his stool. She reports having had a left kidney biopsy around the 26 of December and have him having left flank pain that has been much more pronounced today. Additionally, she has been experiencing blood in his stool for nearly 5 days now associated with diarrhea and nausea. Her pain was becoming excruciating and prompted her to come to the emergency room. Hemoglobin is normal at 14. Kidney functions are normal. There is mild increase in AST and ALT however these are chronic. 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 Review of Systems Review of Systems: Gen: no fever Resp: no sob, no cough CV: no chest, no LOZA, no leg edema GI: + n/v, + abd pain and blood in stool Neuro: No confusion Yes all other systems are reviewed and are negative [facility] Medical History (Updated 01/23/25 @ 16:06 by Wili Willson DO) Lupus (systemic lupus erythematosus) Social History Household Members: Spouse Housing: House Do you presently have visiting nurse or other home services: Yes Patient Tobacco Use Status: Never used Tobacco Smoked in Last 30 Days: No Use of substances other than those prescribed or required for medical reasons: No Advance Directives: No Advance Directives Information Provided: Yes Nutrition Risks: No Nutritional Risk Patient : No service: No Meds Allergies Allergy/AdvReac Type Severity Reaction Status Date / Time metoclopramide (From Reglan) Allergy Anaphylaxis Verified 01/23/25 13:07 ondansetron (From Zofran) Allergy Anaphylaxis Verified 01/23/25 13:07 prochlorperazine (From Allergy Anaphylaxis Verified 01/23/25 13:07 Compazine) promethazine (From Phenergan) Allergy Anaphylaxis Verified 01/23/25 13:07 Home Medications ?Medication ?Instructions ?Recorded ?Confirmed ?Last Taken ?Type calcium carbonate (Calcium 500) 500 mg PO BID 12/02/24 01/23/25 01/23/25 History fludrocortisone 0.1 mg tablet 0.1 mg PO DAILY 12/02/24 12/27/24 Unknown History folic acid 1 mg tablet 1 mg PO DAILY 12/02/24 01/23/25 01/23/25 History gabapentin 400 mg capsule 400 mg PO BEDTIME 12/02/24 01/23/25 01/22/25 History hydroxychloroquine 200 mg tablet 400 mg PO DAILY 12/02/24 01/23/25 01/23/25 History lisdexamfetamine 40 mg capsule 40 mg PO DAILY PRN ADHD 12/02/24 12/27/24 Unknown History methotrexate sodium 2.5 mg tablet 15 mg PO FR 12/02/24 01/23/25 01/23/25 History omeprazole 20 mg capsule,delayed 20 mg PO BEDTIME 12/02/24 01/23/25 01/23/25 History release oxycodone 10 mg tablet 10 mg PO Q4H PRN Pain (Scale Score 12/02/24 01/23/25 01/23/25 History 4-6) vitamin A 3,000 mcg (10,000 unit) 3,000 mcg PO DAILY 12/02/24 01/23/25 01/23/25 History capsule docusate sodium 100 mg capsule 200 mg PO DAILY 01/23/25 01/23/25 01/23/25 History (Colace) prednisone 5 mg tablet See Rx Instructions .Route .COMPLEX 01/23/25 01/23/25 01/23/25 History risedronate 35 mg tablet 35 mg PO [place]@[address]99[address]/23/25 01/23/25 01/19/25 History semaglutide (weight loss) 1.7 1.7 mg subcut CLAROS@89901/23/25 01/23/25 01/18/25 History mg/0.75 mL subcutaneous pen injector (Tarah) Physical Exam Vital Signs and Narrative: Vital Signs: Last Vital Signs Temp 97.9 F 01/23/25 16:00 Pulse 100 01/23/25 16:00 Resp 18 01/23/25 16:25 BP 120/70 01/23/25 16:00 Pulse Ox 99 01/23/25 16:00 O2 Del Method Room Air 01/23/25 16:00 BMI result Body Mass Index 30.1 Results Labs 01/23/25 14:00 01/23/25 14:00 Labs: Laboratory Results - last 24 hr 01/23/25 14:00 MCV 87.7 MCH 30.3 MCHC 34.6 RDW 15.4 Plt Count 264 MPV 9.2 L Immature Gran % (Auto) 1.6 H Neut % (Auto) 88.6 H Lymph % (Auto) 5.9 L Bertie % (Auto) 3.4 Eos % (Auto) 0.1 Baso % (Auto) 0.4 Lymph # (Auto) 0.9 L Bertie # (Auto) 0.6 Eos # (Auto) 0.0 Baso # (Auto) 0.1 Abs Immat Gran (auto) 0.25 H Absolute Neuts (auto) 14.2 H Absolute Nucleated RBC 0.000 Nucleated RBC % (auto) 0.0 ESR 7 Anion Gap 17 Estim Creat Clear Calc 60.9 Estimated GFR 55 Random Glucose 149 H Calcium 9.4 Total Bilirubin 0.3 AST 43 H ALT 49 H Alkaline Phosphatase 78 C-Reactive Protein 0.35 Total Protein 6.9 Albumin 4.2 Lipase 28 TSH 0.48 Imaging Radiologist's Impressions: Impressions Abdomen/Pelvis CT 01/23/25 14:18 IMPRESSION: 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 Pseudodiverticula are present in the descending and sigmoid colon without sign of infection Hysterectomy and probable left oophorectomy. Fleischner guidelines were followed. Electronically signed by: Spencer Gooden MD 01/23/2025 02:43 PM EDT Assessment and Plan (1) Acute left flank pain: Status: Acute (2) Systemic lupus erythematosus: Qualifiers: Systemic lupus erythematosus organ involvement: glomerular disease Systemic lupus erythematosus type: unspecified Qualified Code(s): M32.14 - Glomerular disease in systemic lupus erythematosus Status: Acute Plan 54-year-old female with pertinent history of much for autoimmune diseases-- SLE, Wilbarger's disease, Sjogren, Neri's, gastroesophageal reflux disease, peripheral neuropathy, mood disorder who presents with left flank pain and blood in his stool. 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 -Pain control with Dilaudid -IVF hydration -consider Nephro consult Blood in stoo, H/H normal ? no evidence of colitis Monitor H/H and if worsening or not improving, then GI consult Autoimmune d/o including Wilbarger continue Prednisone at increase dose of 40 mg daily, presently on 20 at home. DVT prophylaxis: hold chemical in light of report of blood in the stool Full code Quality Stroke Does the patient have a stroke diagnosis?: No VTE Prior VTE?: No VTE Risk Level:: Medical - moderate - high VTE Device Contraindication: N/A - Device Ordered VTE Drug Contraindication: N/A - Med Ordered
[2025-01-23] MEDS: Lactated Ringers 1,000 ML 100 ML IVCONT (18:41)
[2025-01-23 19:15] LABS: Appearance Urine Clear; Glucose Urine UA 100 mg/dL (Negative); PH 6.0 (5.0-9.0); Specific Gravity - Urine >= 1.030 (1.005-1.025); UMIC TRIGGER UACC YES
--- NOTE | 2025-01-23 19:15 | PHA.MEDREC ---
Pharmacy Consult ? Medication Reconciliation Pharmacy has completed the medication reconciliation. Patient currently on pred 20mg and decreasing by 1mg weekly on sat. next dose 01/24 for 19mg. patient on lisdexamfetamine prn but doesnt want here. Patient currently not taking fludrocortisone but will once pred reaches around 15mg daily
[2025-01-24] VITALS (8 sets, daily range): BP systolic 94–113; BP diastolic 65–76; PULSE 76–93; RESP 16–18; TEMP 36–36.9; O2SAT 95–100; BMI 30.1
[2025-01-24] MEDS: Lactated Ringers 1,000 ML 100 ML IVCONT ×3 (03:48→23:04)
--- NOTE | 2025-01-24 10:37 | P.PNIM_ITS ---
Subjective Subjective Date of Service: 01/24/25 Interval History: f/u on left flank pain and blood in stool, H/H is normal Has peristent pain today and think Prednisone neeeds to be higher Physical Exam 2 Vital Signs: Vital Signs: Last Vital Signs Temp 97.8 F 01/24/25 08:00 Pulse 85 01/24/25 08:00 Resp 18 01/24/25 08:00 BP 94/76 01/24/25 08:00 Pulse Ox 100 01/24/25 08:00 O2 Del Method Room Air 01/24/25 08:00 BMI result Body Mass Index 30.1 Const: Other: General: AO X 3, no acute distress Resp: CTA bilateral CVS: S1,S2,RRR GI: +BS, NT, no distention, minila left flank tenderness Skin: No rash Neuro: motor grossly intact Psych: appropriate affect Objective Data Active Medications Acetaminophen (Acetaminophen 325 Mg Tablet) 650 mg PO Q6H PRN PRN Reason: Pain, Mild 1-3,fever,headache Calcium Carbonate (Calcium Carbonate 750 Mg Tab.Chew) 750 mg PO Q4H PRN PRN Reason: Heartburn Calcium Carbonate (Calcium Carbonate 750 Mg Tab.Chew) 750 mg PO BID [facility] Last Admin: 01/24/25 09:27 Dose: 750 mg Documented By: GUZMAN Diphenhydramine HCl (Diphenhydramine Hcl 50 Mg/Ml Vial) 25 mg IVPUSH Q6H PRN PRN Reason: Nausea and Vomiting Last Admin: 01/24/25 09:27 Dose: 25 mg Documented By: GUZMAN Docusate Sodium (Docusate Sodium 100 Mg Capsule) 200 mg PO DAILY [facility] Last Admin: 01/24/25 09:27 Dose: 200 mg Documented By: GUZMAN Folic Acid (Folic Acid 1 Mg Tablet) 1 mg PO DAILY [facility] Last Admin: 01/24/25 09:31 Dose: 1 mg Documented By: GUZMAN Gabapentin (Gabapentin 400 Mg Capsule) 400 mg PO BEDTIME [facility] Last Admin: 01/23/25 20:36 Dose: 400 mg Documented By: LEXUS Hydromorphone HCl (Hydromorphone Hcl 1 Mg/Ml Syringe) 1 mg IVPUSH Q4H PRN; Protocol PRN Reason: Pain, Severe (Pain Scale 7-10) Last Admin: 01/24/25 09:27 Dose: 1 mg Documented By: GUZMAN Hydroxychloroquine Sulfate (Hydroxychloroquine Sulfate 200 Mg Tablet) 400 mg PO DAILY [facility] Last Admin: 01/24/25 09:31 Dose: 400 mg Documented By: GUZMAN Lactated Ringer's (Lr) 1,000 mls @ 100 mls/hr IVCONT .Q10H [facility] Last Admin: 01/24/25 03:48 Dose: 100 mls/hr Documented By: LEXUS Magnesium Hydroxide (Milk Of Magnesia 30 Ml Oral.Susp) 30 ml PO DAILY PRN PRN Reason: Constipation Melatonin (Melatonin 3 Mg Tablet) 6 mg PO BEDTIME PRN PRN Reason: Insomnia Methotrexate (Methotrexate Sodium 2.5 Mg Tablet) 15 mg PO FR [facility] Omeprazole (Omeprazole 20 Mg Capsule.Dr) 20 mg PO BEDTIME [facility] Last Admin: 01/23/25 20:36 Dose: 20 mg Documented By: LEXUS Oxycodone HCl (Oxycodone Hcl Immed Release 5 Mg Tablet) 10 mg PO Q4H PRN PRN Reason: Pain (Scale Score 4-6) Prednisone (Prednisone 20 Mg Tablet) 40 mg PO DAILY [facility] Last Admin: 01/24/25 10:07 Dose: 40 mg Documented By: GUZMAN Sodium Chloride (0.9 % Sodium Chloride Flush 3 Ml Syringe) 3 ml IVFLUSH QSHIFT [facility] Last Admin: 01/24/25 09:15 Dose: Not Given Documented By: GUZMAN Non-Admin Reason: IV Running Labs 01/23/25 14:00 01/23/25 14:00 Labs: Laboratory Results - last 24 hr 01/23/25 01/23/25 14:00 18:59 MCV 87.7 MCH 30.3 MCHC 34.6 RDW 15.4 Plt Count 264 MPV 9.2 L Immature Gran % (Auto) 1.6 H Neut % (Auto) 88.6 H Lymph % (Auto) 5.9 L [place] % (Auto) 3.4 Eos % (Auto) 0.1 Baso % (Auto) 0.4 Lymph # (Auto) 0.9 L [place] # (Auto) 0.6 Eos # (Auto) 0.0 Baso # (Auto) 0.1 Abs Immat Gran (auto) 0.25 H Absolute Neuts (auto) 14.2 H Absolute Nucleated RBC 0.000 Nucleated RBC % (auto) 0.0 ESR 7 Anion Gap 17 Estim Creat Clear Calc 60.9 Estimated GFR 55 Random Glucose 149 H Calcium 9.4 Total Bilirubin 0.3 AST 43 H ALT 49 H Alkaline Phosphatase 78 C-Reactive Protein 0.35 Total Protein 6.9 Albumin 4.2 Lipase 28 TSH 0.48 Urine Color Yellow Urine Appearance Clear Urine pH 6.0 Ur Specific [place] >= 1.030 H Urine Protein Negative Urine Glucose (UA) 100 H Urine Ketones Negative Urine Blood Trace Urine Nitrite Negative Ur Leukocyte Esterase Negative Urine RBC 0-2 Urine WBC 0-5 Ur Squamous Epith Cells 0-2 Urine Bacteria None Seen Hyaline Casts 0-2 Assessment and Plan (1) Acute left flank pain: Status: Acute (2) Systemic lupus erythematosus: Status: Acute Plan 54-year-old female with pertinent history of much for autoimmune diseases-- SLE, Talcott's disease, Sjogren, Neri's, gastroesophageal reflux disease, peripheral neuropathy, mood disorder who presents with left flank pain and blood in his stool. 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 -Pain control with Dilaudid, add PO oxyc -IVF hydration -consider Nephro consult if not improving Blood in stoo, H/H normal ? no evidence of colitis Monitor H/H, GI consult Autoimmune d/o including [place] continue Prednisone at increase dose of 40 mg daily, presently on 20 at home. DVT prophylaxis: hold chemical in light of report of blood in the stool Full code out of bed and ambulate Quality Stroke Does the patient have a stroke diagnosis?: No VTE Prior VTE?: No VTE Risk Level:: Medical - moderate - high VTE Device Contraindication: N/A - Device Ordered VTE Drug Contraindication: N/A - Med Ordered
--- NOTE | 2025-01-24 11:49 | PC.NURSE ---
Patient is a 54-year-old female with pertinent history of much for autoimmune diseases-- SLE, [place]'s disease, Sjogren, Neri's, gastroesophageal reflux disease, peripheral neuropathy, mood disorder who presents with left flank pain and blood in his stool. She reports having had a left kidney biopsy around the 26 of December and having left flank pain that has been much more pronounced today. Additionally, she has been experiencing blood in his stool for nearly 5 days now associated with diarrhea and nausea. Her pain was becoming excruciating and prompted her to come to the emergency room. Hgb and renal fxn was normal. 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 Pseudodiverticula are present in the descending and sigmoid colon without sign of infection Patient is alert and oriented. Lungs clear bilat. Respirations even and non-labored. Abdomen soft with positive bowel sounds. Good pain control noted with dilaudid. Positive pedal pulses.
[2025-01-24 12:16] LABS: MANUAL DIFF FLAG NO
[2025-01-24 12:22] LABS: Hematocrit 37.2 % (37.0-47.0); Hemoglobin 12.9 g/dl (12.0-16.0); Imm Gran Abs Auto 0.21 X10*3/uL (0.00-0.03); Imm Gran Pct Auto 1.3 % (0.0-0.4); Lymphocytes Absolute Auto 2.1 X10*3/uL (1.2-4.9); Mean Corpuscular HGB Conc 34.7 g/dl (31.0-35.0); Mean Corpuscular Hemoglobin 30.8 pg (27.0-33.0); Mean Corpuscular Volume 88.8 fL (80.0-98.0); NRBC Abs Auto 0.000 X10*3/uL (0.0-0.012); NRBC Pct Auto 0.0 /100WBC (0.0-0.2); Platelet Count 223 X10*3/uL (160-400); Red Blood Count 4.19 X10*6/uL (4.20-5.50); White Blood Count 16.1 X10*3/uL (4.8-10.8)
[2025-01-24] MEDS: oxyCODONE HCl Immed Release 5 MG TABLET 10 MG PO (15:38)
--- NOTE | 2025-01-24 17:16 | PM.EVENT ---
Event Note Date of Service: 01/24/25 Event Note: GI Consult-Full note dictated Imp/Recs: 1. Chronic nausea/GERD-will change to an IV PPI while here to try to give her some better relief 2. Rectal bleeding/rectal burning-probable perianal source from a fissure/hemorrhoid--she describes previous colonoscopies--her BM's are irregular with having finished a recent course of antibiotics. Will order stool for Cdiff and a topical anesthetic for perianal burning, F/U Hgb. I don't think she needs any endoscopic intervention at this time. D/W patient in detail. She is comfortable with this plan. Thanks Time Spent With Patient Time: Total time managing care of this patient today ____ minutes.
--- NOTE | 2025-01-24 21:09 | CONS_ITS ---
DATE OF SERVICE: 01/24/2025 REASON FOR CONSULTATION: Rectal bleeding, nausea, and abdominal discomfort. HISTORY OF PRESENT ILLNESS: The patient is a 54-year-old female with a complicated underlying history of multiple autoimmune and endocrinology diseases who was admitted here for evaluation of primarily left flank plain but has also reported some hematochezia with rectal discomfort. She had a left kidney biopsy at the beginning of the month and has continued to have some pain from that. She describes a chronic history of reflux for which she is on omeprazole and tends to have some chronic GI complaints including nausea, intermittent anorexia, irregular bowel movements with several days of no bowel movements, and occasional diarrhea. She had just been in the hospital here recently earlier this month for an infected bursitis and was treated with antibiotics for that. She describes having finished that about 2 weeks ago. Since being here in the hospital, she has had a couple of bowel movements in which she describes some rectal pain and bright red blood on the paper and in the toilet bowl. The stools themselves were brown. She has had her ongoing nausea, but no vomiting. She has had intermittent abdominal pain which comes and goes. She describes previous colonoscopies with the most recent one about a year or 2 ago, which were nonrevealing. She describes a history of previous ERCPs with sphincterotomies at [facility]. She has had upper endoscopies as well. Since being here in the hospital, her hemoglobin has remained quite stable at 14.8 on admission and then 12.9 today. Her hemoglobin on January 04 was 12.4. Her BUN was 24 on admission compared to [address] scan on admission revealed a normal biliary tree with what appeared to be some air consistent with her previous history of sphincterotomy. The pancreas appeared normal. GI tract was negative for any sign of inflammation or obstruction. PRESENT MEDICATIONS: Include acetaminophen, Tums, Benadryl p.r.n., Colace, folic acid, gabapentin, Dilaudid p.r.n., Plaquenil, melatonin, methotrexate, oxycodone p.r.n., milk of magnesia p.r.n., and prednisone 40 mg daily. PAST MEDICAL HISTORY: Surgeries include cholecystectomy, left oophorectomy, hysterectomy due to fibroids, ankle reconstruction. She has also had C-sections. Her medical problems include [place] disease, Graves disease, lupus, Sjogren's disease, gastroesophageal reflux, neuropathy, medullary nephrocalcinosis in the right kidney. She denies a history of diabetes, heart disease, stroke, or lung disease. SOCIAL HISTORY: She is . 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 She denies tobacco or alcohol. REVIEW OF SYSTEMS: CONSTITUTIONAL: She has been feeling somewhat tired and overall poorly in relation to her autoimmune diseases and recent kidney biopsy. CARDIAC: No chest pain. PULMONARY: No coughing or hemoptysis. GI: As above. URINARY: No dysuria, no hematuria. NEUROLOGIC: No headache or seizures. PHYSICAL EXAMINATION: GENERAL: The patient is a pleasant, alert female. HEENT: Cushingoid faces. Anicteric sclerae. NECK: Supple without lymphadenopathy. CARDIAC: Normal S1, S2. ABDOMEN: Soft. Normal bowel sounds. Nondistended. There is some mild diffuse tenderness without mass, rebound, or guarding. NEUROLOGICAL: She is alert and oriented and answers questions appropriately. LABORATORIES: CT scan report as above. White blood cell count 16.1, hemoglobin 12.9, platelets 223,000. Normal electrolytes, BUN 24, creatinine 1.1 total bilirubin 0.3, AST 43, ALT 49, alkaline phosphatase 78. C-reactive protein 0.35, albumin 4.2, lipase 28, TSH 0.48.. IMPRESSION: Overall the patient appears stable from a GI standpoint. She does have multiple chronic complaints from a GI standpoint with nausea, some irregular bowel movements, and abdominal discomfort, which may reflect some underlying irritable bowel syndrome. Based on her CT scan and laboratories, there does not appear to be any acute intraabdominal process occurring. In regard to the chronic nausea and history of reflux, I did recommend a trial of some IV PPI while she is here to see if that gives her any better relief than her p.o. PPI. She can continue her diet as tolerated. I do not think an upper endoscopy is required. I do not think any further imaging studies of the abdomen are required. In regard to the bleeding, this sounds consistent with a perianal source such as a hemorrhoid or possible fissure. I did review this with her. She reports that she is already on a stool softener which seems to help. I did recommend a trial of some topical lidocaine to the perianal area as needed. Given her recent course of antibiotics, I did order stool for C difficile in the event she begins having any diarrhea. I do not think a colonoscopy is presently required given her history of previous colonoscopies and the minimal nature of the bleeding, which sounds quite consistent with a perianal source. I did advise that certainly if after discharge her bleeding persists, she should then follow up with her primary care doctor and be referred back to GI, which seems to be predominantly at [facility] since that is where she had a previous colonoscopy and ERCP. Again, I do not think a colonoscopy is required while she is here, but certainly contact me if anything changes in that regard such as increased bleeding I did review this in detail with the patient and she is comfortable with this plan. Thank you for the consultation. MD BOBBI De Santiago/ADRIANE / [phone] MTDD
[2025-01-25] VITALS (7 sets, daily range): BP systolic 93–124; BP diastolic 51–89; PULSE 80–89; RESP 16–20; TEMP 36–37.1; O2SAT 94–99
[2025-01-25 06:34] LABS: MANUAL DIFF FLAG NO
[2025-01-25 06:40] LABS: Hematocrit 38.6 % (37.0-47.0); Hemoglobin 13.2 g/dl (12.0-16.0); Imm Gran Abs Auto 0.19 X10*3/uL (0.00-0.03); Imm Gran Pct Auto 1.6 % (0.0-0.4); Lymphocytes Absolute Auto 3.0 X10*3/uL (1.2-4.9); Mean Corpuscular HGB Conc 34.2 g/dl (31.0-35.0); Mean Corpuscular Hemoglobin 30.6 pg (27.0-33.0); Mean Corpuscular Volume 89.4 fL (80.0-98.0); NRBC Abs Auto 0.000 X10*3/uL (0.0-0.012); NRBC Pct Auto 0.0 /100WBC (0.0-0.2); Platelet Count 202 X10*3/uL (160-400); Red Blood Count 4.32 X10*6/uL (4.20-5.50); White Blood Count 11.9 X10*3/uL (4.8-10.8)
[2025-01-25 06:57] LABS: Blood Urea Nitrogen 16 mg/dL (9-16); Calcium 9.0 mg/dL (8.4-10.2); Creatinine Clr Calc Pharmacy 83.0; Estimated Glomerular Filt Rate > 60
[2025-01-25 07:07] LABS: Anion Gap 15 (12-20); Carbon Dioxide 26 mmol/L (22-29); Chloride 102 mmol/L (96-108); Potassium 3.6 mmol/L (3.3-5.1); Sodium 139 mmol/L (135-145)
--- NOTE | 2025-01-25 08:19 | HO.PM.IMPN ---
Subjective Subjective Date of Service: 01/25/25 Interval History: f/u on left flank pain and blood in stool, H/H is normal has persistent pain, nausea and loose stool Physical Exam Vital Signs: Vital Signs: Last Vital Signs Temp 96.8 F 01/25/25 07:28 Pulse 80 01/25/25 07:28 Resp 16 01/25/25 07:28 BP 124/89 01/25/25 07:28 Pulse Ox 97 01/25/25 07:28 O2 Del Method Room Air 01/25/25 07:28 BMI result Body Mass Index 30.1 Const: Other: General: AO X 3, no acute distress Resp: CTA bilateral CVS: S1,S2,RRR GI: +BS, NT, no distention, minila left flank tenderness Skin: No rash Neuro: motor grossly intact Psych: appropriate affect Objective Data Active Medications Acetaminophen (Acetaminophen 325 Mg Tablet) 650 mg PO Q6H PRN PRN Reason: Pain, Mild 1-3,fever,headache Last Admin: 01/24/25 15:38 Dose: 650 mg Documented By: AMAN Calcium Carbonate (Calcium Carbonate 750 Mg Tab.Chew) 750 mg PO Q4H PRN PRN Reason: Heartburn Calcium Carbonate (Calcium Carbonate 750 Mg Tab.Chew) 750 mg PO BID [facility] Last Admin: 01/24/25 20:47 Dose: 750 mg Documented By: LEXUS Diphenhydramine HCl (Diphenhydramine Hcl 50 Mg/Ml Vial) 25 mg IVPUSH Q6H PRN PRN Reason: Nausea and Vomiting Last Admin: 01/25/25 03:28 Dose: 25 mg Documented By: LEXUS Docusate Sodium (Docusate Sodium 100 Mg Capsule) 200 mg PO DAILY [facility] Last Admin: 01/24/25 09:27 Dose: 200 mg Documented By: GUZMAN Folic Acid (Folic Acid 1 Mg Tablet) 1 mg PO DAILY [facility] Last Admin: 01/24/25 09:31 Dose: 1 mg Documented By: GUZMAN Gabapentin (Gabapentin 400 Mg Capsule) 400 mg PO BEDTIME [facility] Last Admin: 01/24/25 20:47 Dose: 400 mg Documented By: LEXUS Hydromorphone HCl (Hydromorphone Hcl 1 Mg/Ml Syringe) 1 mg IVPUSH Q4H PRN; Protocol PRN Reason: Pain, Severe (Pain Scale 7-10) Last Admin: 01/25/25 05:38 Dose: 1 mg Documented By: LEXUS Hydroxychloroquine Sulfate (Hydroxychloroquine Sulfate 200 Mg Tablet) 400 mg PO DAILY [facility] Last Admin: 01/24/25 09:31 Dose: 400 mg Documented By: GUZMAN Lactated Ringer's (Lr) 1,000 mls @ 100 mls/hr IVCONT .Q10H [facility] Last Admin: 01/24/25 23:04 Dose: 100 mls/hr Documented By: LEXUS Lidocaine (Lidocaine 5 % Ointment 35 Gm) 1 appl TOPICAL Q6H PRN; Protocol PRN Reason: Perineal Discomfort Magnesium Hydroxide (Milk Of Magnesia 30 Ml Oral.Susp) 30 ml PO DAILY PRN PRN Reason: Constipation Melatonin (Melatonin 3 Mg Tablet) 6 mg PO BEDTIME PRN PRN Reason: Insomnia Methotrexate (Methotrexate Sodium 2.5 Mg Tablet) 15 mg PO FR [facility] Oxycodone HCl (Oxycodone Hcl Immed Release 5 Mg Tablet) 10 mg PO Q4H PRN PRN Reason: Pain (Scale Score 4-6) Last Admin: 01/24/25 15:38 Dose: 10 mg Documented By: LEFEBTANI Pantoprazole Sodium (Pantoprazole Sodium 40 Mg/10 Ml Vial) 40 mg IVPUSH BID@0630,1630 [facility] Last Admin: 01/25/25 05:34 Dose: 40 mg Documented By: LEXUS Prednisone (Prednisone 20 Mg Tablet) 40 mg PO DAILY [facility] Last Admin: 01/24/25 10:07 Dose: 40 mg Documented By: GUZMAN Sodium Chloride (0.9 % Sodium Chloride Flush 3 Ml Syringe) 3 ml IVFLUSH QSHIFT [facility] Last Admin: 01/24/25 21:22 Dose: Not Given Documented By: LEXUS Non-Admin Reason: IV Running Labs 01/25/25 05:47 01/25/25 05:47 Labs: Laboratory Results - last 24 hr 01/24/25 01/25/25 12:11 05:47 MCV 88.8 89.4 MCH 30.8 30.6 MCHC 34.7 34.2 RDW 15.5 15.6 Plt Count 223 202 MPV 9.3 L 9.2 L Immature Gran % (Auto) 1.3 H 1.6 H Neut % (Auto) 79.2 H 65.8 Lymph % (Auto) 12.8 L 25.2 [place] % (Auto) 6.3 6.4 Eos % (Auto) 0.2 0.7 Baso % (Auto) 0.2 0.3 Lymph # (Auto) 2.1 3.0 [place] # (Auto) 1.0 0.8 Eos # (Auto) 0.0 0.1 Baso # (Auto) 0.0 0.0 Abs Immat Gran (auto) 0.21 H 0.19 H Absolute Neuts (auto) 12.7 H 7.9 Absolute Nucleated RBC 0.000 0.000 Nucleated RBC % (auto) 0.0 0.0 Anion Gap 15 Estim Creat Clear Calc 83.0 Estimated GFR > 60 Random Glucose 75 Calcium 9.0 Assessment and Plan (1) Acute left flank pain: Status: Acute (2) Systemic lupus erythematosus: Status: Acute Plan 54-year-old female with pertinent history of much for autoimmune diseases-- SLE, Jun's disease, Sjogren, Neri's, gastroesophageal reflux disease, peripheral neuropathy, mood disorder who presents with left flank pain and blood in his stool. 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 -Pain control with Dilaudid and PO Oxy -IVF hydration, antiemetic -consider Nephro consult if not improving or impairment in renal function Blood in stool, H/H normal ? no evidence of colitis Seen by GI (Dr. Tran), IV PPI added and stool study Diet as tolerated, IVF Autoimmune d/o including [place] continue Prednisone at increase dose of 40 mg daily, presently on 20 at home. DVT prophylaxis: hold chemical in light of report of blood in the stool, ambulation encouraged Full code out of bed and ambulate Quality Stroke Does the patient have a stroke diagnosis?: No VTE Prior VTE?: No VTE Risk Level:: Medical - moderate - high VTE Device Contraindication: N/A - Device Ordered VTE Drug Contraindication: N/A - Med Ordered
[2025-01-25] MEDS: Lactated Ringers 1,000 ML 100 ML IVCONT ×2 (09:40→18:33)
--- NOTE | 2025-01-25 15:30 | MHC.CM.PN ---
PT REPORTS SHE LIVES WITH HER AND IS INDEPENDENT WITH CARE SHE HAS HOME INFUSIONS ONCE PER MONTH DONE BY CHANDNI MALAVE COPY OF HCP REQUESTED PCP: RAZA FERRARO OBSERVATION NOTICE DELIVERED DCP: HOME VIA PRIVATE TRANSPORT
[2025-01-25] MEDS: 0.9 % Sodium Chloride Flush 3 ML SYRINGE IVFLUSH (22:40)
[2025-01-26] VITALS (7 sets, daily range): BP systolic 95–126; BP diastolic 55–81; PULSE 75–99; RESP 18; TEMP 36–36.5; O2SAT 96–99
[2025-01-26] MEDS: Lactated Ringers 1,000 ML 100 ML IVCONT ×3 (03:43→23:31)
--- NOTE | 2025-01-26 08:26 | P.PNIM_ITS ---
Subjective Subjective Date of Service: 01/26/25 Interval History: pt with multiple autoimmune diseases-- SLE, Jun's disease, Sjogren, Neri's, gastroesophageal reflux disease, peripheral neuropathy, mood disorder who presents with left flank pain and blood in his stool. H/H has been normal, she is still c/o the pain, nausea and able to eat i feel worse . She had a left kidney Bx at [facility] last month, result not available Physical Exam 2 Vital Signs: Vital Signs: Last Vital Signs Temp 97.4 F 01/26/25 08:00 Pulse 79 01/26/25 08:00 Resp 18 01/26/25 08:00 BP 95/61 01/26/25 08:00 Pulse Ox 97 01/26/25 08:00 O2 Del Method Room Air 01/26/25 08:00 BMI result Body Mass Index 30.1 Const: Other: General: AO X 3, no acute distress Resp: CTA bilateral CVS: S1,S2,RRR GI: +BS, NT, no distention, minila left flank tenderness Skin: No rash Neuro: motor grossly intact Psych: appropriate affect Objective Data Active Medications Acetaminophen (Acetaminophen 325 Mg Tablet) 650 mg PO Q6H PRN PRN Reason: Pain, Mild 1-3,fever,headache Last Admin: 01/24/25 15:38 Dose: 650 mg Documented By: AMAN Calcium Carbonate (Calcium Carbonate 750 Mg Tab.Chew) 750 mg PO Q4H PRN PRN Reason: Heartburn Calcium Carbonate (Calcium Carbonate 750 Mg Tab.Chew) 750 mg PO BID [facility] Last Admin: 01/25/25 19:38 Dose: 750 mg Documented By: RICHARD Diphenhydramine HCl (Diphenhydramine Hcl 50 Mg/Ml Vial) 25 mg IVPUSH Q6H PRN PRN Reason: Nausea and Vomiting Last Admin: 01/26/25 04:52 Dose: 25 mg Documented By: RICHARD Docusate Sodium (Docusate Sodium 100 Mg Capsule) 200 mg PO DAILY [facility] Last Admin: 01/25/25 09:41 Dose: 200 mg Documented By: AMAN Folic Acid (Folic Acid 1 Mg Tablet) 1 mg PO DAILY [facility] Last Admin: 01/25/25 09:42 Dose: 1 mg Documented By: AMAN Gabapentin (Gabapentin 400 Mg Capsule) 400 mg PO BEDTIME [facility] Last Admin: 01/25/25 19:38 Dose: 400 mg Documented By: RICHARD Hydromorphone HCl (Hydromorphone Hcl 1 Mg/Ml Syringe) 1 mg IVPUSH Q4H PRN; Protocol PRN Reason: Pain, Severe (Pain Scale 7-10) Last Admin: 01/26/25 06:36 Dose: 1 mg Documented By: RICHARD Hydroxychloroquine Sulfate (Hydroxychloroquine Sulfate 200 Mg Tablet) 400 mg PO DAILY [facility] Last Admin: 01/25/25 09:41 Dose: 400 mg Documented By: AMAN Lactated Ringer's (Lr) 1,000 mls @ 100 mls/hr IVCONT .Q10H [facility] Last Admin: 01/26/25 03:43 Dose: 100 mls/hr Documented By: RICHARD Lidocaine (Lidocaine 5 % Ointment 35 Gm) 1 appl TOPICAL Q6H PRN; Protocol PRN Reason: Perineal Discomfort Magnesium Hydroxide (Milk Of Magnesia 30 Ml Oral.Susp) 30 ml PO DAILY PRN PRN Reason: Constipation Melatonin (Melatonin 3 Mg Tablet) 6 mg PO BEDTIME PRN PRN Reason: Insomnia Methotrexate (Methotrexate Sodium 2.5 Mg Tablet) 15 mg PO FR [facility] Oxycodone HCl (Oxycodone Hcl Immed Release 5 Mg Tablet) 10 mg PO Q4H PRN PRN Reason: Pain (Scale Score 4-6) Last Admin: 01/24/25 15:38 Dose: 10 mg Documented By: AMAN Pantoprazole Sodium (Pantoprazole Sodium 40 Mg/10 Ml Vial) 40 mg IVPUSH BID@0630,1630 [facility] Last Admin: 01/26/25 06:01 Dose: 40 mg Documented By: RICHARD Prednisone (Prednisone 20 Mg Tablet) 40 mg PO DAILY [facility] Last Admin: 01/25/25 09:39 Dose: 40 mg Documented By: AMAN Sodium Chloride (0.9 % Sodium Chloride Flush 3 Ml Syringe) 3 ml IVFLUSH QSHIFT [facility] Last Admin: 01/25/25 22:40 Dose: 3 ml Documented By: EUGENEQC Labs 01/25/25 05:47 01/25/25 05:47 Labs: Laboratory Results - last 24 hr 01/24/25 01/25/25 12:11 05:47 MCV 88.8 89.4 MCH 30.8 30.6 MCHC 34.7 34.2 RDW 15.5 15.6 Plt Count 223 202 MPV 9.3 L 9.2 L Immature Gran % (Auto) 1.3 H 1.6 H Neut % (Auto) 79.2 H 65.8 Lymph % (Auto) 12.8 L 25.2 [place] % (Auto) 6.3 6.4 Eos % (Auto) 0.2 0.7 Baso % (Auto) 0.2 0.3 Lymph # (Auto) 2.1 3.0 [place] # (Auto) 1.0 0.8 Eos # (Auto) 0.0 0.1 Baso # (Auto) 0.0 0.0 Abs Immat Gran (auto) 0.21 H 0.19 H Absolute Neuts (auto) 12.7 H 7.9 Absolute Nucleated RBC 0.000 0.000 Nucleated RBC % (auto) 0.0 0.0 Anion Gap 15 Estim Creat Clear Calc 83.0 Estimated GFR > 60 Random Glucose 75 Calcium 9.0 Assessment and Plan (1) Acute left flank pain: Status: Acute (2) Systemic lupus erythematosus: Status: Acute Plan 54-year-old female with pertinent history of much for autoimmune diseases-- SLE, Mathews's disease, Sjogren, Neri's, gastroesophageal reflux disease, peripheral neuropathy, mood disorder who presents with left flank pain and blood in his stool. 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 Had Bx at [facility] last month, no result -Pain control with Dilaudid and PO Oxy -IVF hydration, antiemetic -consider Nephro consult if not improving or impairment in renal function Blood in stool, H/H normal ? no evidence of colitis Seen by GI (Dr. Tran), IV PPI added and stool study Diet as tolerated, IVF Autoimmune d/o includingSLE, Mathews's disease, Sjogren, continue Prednisone at increase dose of 40 mg daily, presently on 20 at home. Ideally should be eval by Rheum but not available inpatient DVT prophylaxis: hold chemical in light of report of blood in the stool, ambulation encouraged Full code out of bed and ambulate Quality Stroke Does the patient have a stroke diagnosis?: No VTE Prior VTE?: No VTE Risk Level:: Medical - moderate - high VTE Device Contraindication: N/A - Device Ordered VTE Drug Contraindication: N/A - Med Ordered
[2025-01-26 09:05] LABS: Hematocrit 40.4 % (37.0-47.0); Hemoglobin 13.9 g/dl (12.0-16.0); Mean Corpuscular HGB Conc 34.4 g/dl (31.0-35.0); Mean Corpuscular Hemoglobin 30.5 pg (27.0-33.0); Mean Corpuscular Volume 88.8 fL (80.0-98.0); NRBC Abs Auto 0.000 X10*3/uL (0.0-0.012); NRBC Pct Auto 0.0 /100WBC (0.0-0.2); Platelet Count 197 X10*3/uL (160-400); Red Blood Count 4.55 X10*6/uL (4.20-5.50); White Blood Count 12.6 X10*3/uL (4.8-10.8)
[2025-01-26 09:30] LABS: Anion Gap 13 (12-20); Blood Urea Nitrogen 14 mg/dL (9-16); Calcium 8.7 mg/dL (8.4-10.2); Carbon Dioxide 26 mmol/L (22-29); Chloride 102 mmol/L (96-108); Creatinine Clr Calc Pharmacy 79.9; Estimated Glomerular Filt Rate > 60; Potassium 3.6 mmol/L (3.3-5.1); Sodium 137 mmol/L (135-145)
[2025-01-26] MEDS: 0.9 % Sodium Chloride Flush 3 ML SYRINGE IVFLUSH (23:23)
[2025-01-27 04:00] VITALS: BP 109/66; PULSE 76; PULSE 79; RESP 18; RESP 20; TEMP 36.3; O2SAT 97; O2SAT 98
[2025-01-27] MEDS: Lactated Ringers 1,000 ML 100 ML IVCONT ×2 (07:48→22:38)
[2025-01-27 07:53] VITALS: BP 112/77; PULSE 88; RESP 16; TEMP 36; O2SAT 96
[2025-01-27 16:00] VITALS: BP 105/58; PULSE 87; RESP 18; TEMP 36.6; O2SAT 96
--- NOTE | 2025-01-27 16:43 | P.PNIM_ITS ---
Subjective Subjective Date of Service: 01/27/25 Interval History: Tearful by bedside today. Prolonged hospital admissions; multiple medical issues over multiple years. Patient expresses significant frustration with arthralgias, bursites, weakness and fatigability, chronic steroid use. She laments over negative affects on quality of life due to diagnosis, and multiple issues. She expresses frustration with lack of a formal/definitive diagnosis. Review of Systems Review of Systems: Yes all other systems are reviewed and are negative Physical Exam 2 Exam: Exam: General: A&O x3, oriented to time place person and situation, comfortable, no pain. Cushingoid facies. Cardiac: S1, S2 auscultated with no S3/4, no MRG. Well perfused. Respiratory: Normal breath sounds auscultated throughout all lung zones, without wheezing, rales. Normal rate. GI/ : No abdominal pain on palpation, no masses or distentions. MSK: Normal ambulation without pain at bony prominences or musculature Neurological: Normal neurological examination on overview, without obvious CN II-XII abnormalities. Vital Signs: Vital Signs: Last Vital Signs Temp 97.9 F 01/27/25 16:00 Pulse 87 01/27/25 16:00 Resp 18 01/27/25 16:00 BP 105/58 L 01/27/25 16:00 Pulse Ox 96 01/27/25 16:00 O2 Del Method Room Air 01/27/25 16:00 BMI result Body Mass Index 30.1 Objective Data Active Medications Acetaminophen (Acetaminophen 325 Mg Tablet) 650 mg PO Q6H PRN PRN Reason: Pain, Mild 1-3,fever,headache Last Admin: 01/26/25 21:40 Dose: 650 mg Documented By: ODESSA Calcium Carbonate (Calcium Carbonate 750 Mg Tab.Chew) 750 mg PO Q4H PRN PRN Reason: Heartburn Calcium Carbonate (Calcium Carbonate 750 Mg Tab.Chew) 750 mg PO BID [facility] Last Admin: 01/27/25 07:45 Dose: 750 mg Documented By: EMILE Diphenhydramine HCl (Diphenhydramine Hcl 50 Mg/Ml Vial) 25 mg IVPUSH Q6H PRN PRN Reason: Nausea and Vomiting Last Admin: 01/27/25 12:04 Dose: 25 mg Documented By: ELDA Docusate Sodium (Docusate Sodium 100 Mg Capsule) 200 mg PO DAILY [facility] Last Admin: 01/27/25 07:45 Dose: 200 mg Documented By: EMILE Folic Acid (Folic Acid 1 Mg Tablet) 1 mg PO DAILY [facility] Last Admin: 01/27/25 07:45 Dose: 1 mg Documented By: EMILE Gabapentin (Gabapentin 400 Mg Capsule) 400 mg PO BEDTIME [facility] Last Admin: 01/26/25 20:59 Dose: 400 mg Documented By: ODESSA Hydromorphone HCl (Hydromorphone Hcl 1 Mg/Ml Syringe) 1 mg IVPUSH Q4H PRN; Protocol PRN Reason: Pain, Severe (Pain Scale 7-10) Last Admin: 01/27/25 16:05 Dose: 1 mg Documented By: EMILE Hydroxychloroquine Sulfate (Hydroxychloroquine Sulfate 200 Mg Tablet) 400 mg PO DAILY [facility] Last Admin: 01/27/25 07:45 Dose: 400 mg Documented By: EMILE Lactated Ringer's (Lr) 1,000 mls @ 100 mls/hr IVCONT .Q10H [facility] Last Admin: 01/27/25 07:48 Dose: 100 mls/hr Documented By: EMILE Lidocaine (Lidocaine 5 % Ointment 35 Gm) 1 appl TOPICAL Q6H PRN; Protocol PRN Reason: Perineal Discomfort Magnesium Hydroxide (Milk Of Magnesia 30 Ml Oral.Susp) 30 ml PO DAILY PRN PRN Reason: Constipation Melatonin (Melatonin 3 Mg Tablet) 6 mg PO BEDTIME PRN PRN Reason: Insomnia Methotrexate (Methotrexate Sodium 2.5 Mg Tablet) 15 mg PO [facility] Oxycodone HCl (Oxycodone Hcl Immed Release 5 Mg Tablet) 10 mg PO Q4H PRN PRN Reason: Pain (Scale Score 4-6) Last Admin: 01/24/25 15:38 Dose: 10 mg Documented By: LEFEBTANI Pantoprazole Sodium (Pantoprazole Sodium 40 Mg/10 Ml Vial) 40 mg IVPUSH BID@0630,1630 [facility] Last Admin: 01/27/25 15:29 Dose: 40 mg Documented By: EMILE Prednisone (Prednisone 20 Mg Tablet) 40 mg PO DAILY [facility] Last Admin: 01/27/25 07:45 Dose: 40 mg Documented By: EMILE Sodium Chloride (0.9 % Sodium Chloride Flush 3 Ml Syringe) 3 ml IVFLUSH QSHIFT [facility] Last Admin: 01/27/25 13:58 Dose: Not Given Documented By: EMILE Non-Admin Reason: Previously Administered Labs 01/26/25 08:45 01/26/25 08:45 Assessment and Plan (1) Systemic lupus erythematosus: Status: Acute (2) Acute left flank pain: Status: Acute Plan 54-year-old female with pertinent history of SLE, Sjogren's, Neri's, [place]'s disease at 16 years old, GERD, peripheral neuropathy, 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 Had Bx at [facility] last month, no result -Pain control with Dilaudid and PO Oxy -IVF hydration, antiemetic -consider Nephro consult if not improving or impairment in renal function Blood in stool, H/H normal ? no evidence of colitis Seen by GI (Dr. Tran), IV PPI added and stool study Diet as tolerated, IVF Autoimmune d/o includingSLE, [place]'s disease, Sjogren, continue Prednisone at increase dose of 40 mg daily, presently on 20 at home. Ideally should be eval by Rheum but not available inpatient DVT prophylaxis: hold chemical in light of report of blood in the stool, ambulation encouraged Full code out of bed and ambulate Total time managing care of this patient today: 35 minutes. Quality Stroke Does the patient have a stroke diagnosis?: No VTE Prior VTE?: No VTE Risk Level:: Medical - moderate - high VTE Device Contraindication: N/A - Device Ordered VTE Drug Contraindication: N/A - Med Ordered
[2025-01-27 20:00] VITALS: BP 116/73; PULSE 80; RESP 18; TEMP 36.8; O2SAT 96
[2025-01-27] MEDS: 0.9 % Sodium Chloride Flush 3 ML SYRINGE IVFLUSH (20:06)
[2025-01-28 03:29] VITALS: BP 110/78; PULSE 75; RESP 18; TEMP 36; O2SAT 97
[2025-01-28 07:26] VITALS: BP 118/73; PULSE 70; RESP 16; TEMP 36.1; O2SAT 99
[2025-01-28 15:43] VITALS: BP 95/68; PULSE 92; RESP 16; TEMP 36.8; O2SAT 96
--- NOTE | 2025-01-28 15:57 | PC.NURSE ---
informed that pt had a BM with scant amount of bright red blood in stool.
--- NOTE | 2025-01-28 16:16 | MHC.CM.PN ---
Per MD rounds discharge is anticipated 1-2 days. DP home self care. She will arrange for transportation home.
--- NOTE | 2025-01-28 17:14 | P.PNIM_ITS ---
Subjective Subjective Date of Service: 01/28/25 Interval History: No new complaints during hospitalization. Multiple chronic medical issues ongoing for many years. Renal biopsy from [facility] reveals no significant changes or findings; some IgA casts. Pending formal transfer of data to EMR. Attempting to discuss case with Rheumatology outpatient to clarify ongoing workup & diagnoses. Review of Systems Review of Systems: Yes all other systems are reviewed and are negative Physical Exam 2 Exam: Exam: General: A&O x3, oriented to time place person and situation, comfortable, no pain. Cushingoid facies. Cardiac: S1, S2 auscultated with no S3/4, no MRG. Well perfused. Respiratory: Normal breath sounds auscultated throughout all lung zones, without wheezing, rales. Normal rate. GI/ : No abdominal pain on palpation, no masses or distentions. MSK: Normal ambulation without pain at bony prominences or musculature Neurological: Normal neurological examination on overview, without obvious CN II-XII abnormalities. Vital Signs: Vital Signs: Last Vital Signs Temp 98.2 F 01/28/25 15:43 Pulse 92 01/28/25 15:43 Resp 16 01/28/25 15:43 BP 95/68 01/28/25 15:43 Pulse Ox 96 01/28/25 15:43 O2 Del Method Room Air 01/28/25 15:43 BMI result Body Mass Index 30.1 Objective Data Active Medications Acetaminophen (Acetaminophen 325 Mg Tablet) 650 mg PO Q6H PRN PRN Reason: Pain, Mild 1-3,fever,headache Last Admin: 01/28/25 06:12 Dose: 650 mg Documented By: ODESSA Calcium Carbonate (Calcium Carbonate 750 Mg Tab.Chew) 750 mg PO Q4H PRN PRN Reason: Heartburn Calcium Carbonate (Calcium Carbonate 750 Mg Tab.Chew) 750 mg PO BID [facility] Last Admin: 01/28/25 08:22 Dose: 750 mg Documented By: EMILE Diphenhydramine HCl (Diphenhydramine Hcl 50 Mg/Ml Vial) 25 mg IVPUSH Q6H PRN PRN Reason: Nausea and Vomiting Last Admin: 01/28/25 12:15 Dose: 25 mg Documented By: EMILE Docusate Sodium (Docusate Sodium 100 Mg Capsule) 200 mg PO DAILY [facility] Last Admin: 01/28/25 08:22 Dose: 200 mg Documented By: EMILE Folic Acid (Folic Acid 1 Mg Tablet) 1 mg PO DAILY [facility] Last Admin: 01/28/25 08:22 Dose: 1 mg Documented By: EMILE Gabapentin (Gabapentin 400 Mg Capsule) 400 mg PO BEDTIME [facility] Last Admin: 01/27/25 20:05 Dose: 400 mg Documented By: ODESSA Hydroxychloroquine Sulfate (Hydroxychloroquine Sulfate 200 Mg Tablet) 400 mg PO DAILY [facility] Last Admin: 01/28/25 08:22 Dose: 400 mg Documented By: EMILE Lidocaine (Lidocaine 5 % Ointment 35 Gm) 1 appl TOPICAL Q6H PRN; Protocol PRN Reason: Perineal Discomfort Magnesium Hydroxide (Milk Of Magnesia 30 Ml Oral.Susp) 30 ml PO DAILY PRN PRN Reason: Constipation Melatonin (Melatonin 3 Mg Tablet) 6 mg PO BEDTIME PRN PRN Reason: Insomnia Methotrexate (Methotrexate Sodium 2.5 Mg Tablet) 15 mg PO FR [facility] Oxycodone HCl (Oxycodone Hcl Immed Release 5 Mg Tablet) 10 mg PO Q4H PRN PRN Reason: Pain (Scale Score 4-6) Last Admin: 01/24/25 15:38 Dose: 10 mg Documented By: LEFEBTANI Pantoprazole Sodium (Pantoprazole Sodium 40 Mg/10 Ml Vial) 40 mg IVPUSH BID@0630,1630 [facility] Last Admin: 01/28/25 15:53 Dose: 40 mg Documented By: EMILE Prednisone (Prednisone 20 Mg Tablet) 40 mg PO DAILY [facility] Last Admin: 01/28/25 08:22 Dose: 40 mg Documented By: EMILE Sodium Chloride (0.9 % Sodium Chloride Flush 3 Ml Syringe) 3 ml IVFLUSH QSHIFT [facility] Last Admin: 01/28/25 12:13 Dose: Not Given Documented By: EMILE Non-Admin Reason: Previously Administered Labs 01/26/25 08:45 01/26/25 08:45 Assessment and Plan (1) Acute left flank pain: Status: Acute (2) Systemic lupus erythematosus: Status: Acute Plan 54-year-old female with pertinent history of SLE, Sjogren's, Neri's, [place]'s disease at 16 years old, GERD, peripheral neuropathy, 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 Had Bx at [facility] last month, no result Creatinine stable. -Pain control with Dilaudid and PO Oxy -IVF hydration, antiemetic -consider Nephro consult if not improving or impairment in renal function -Formal request for documentation fax over to [facility] Blood in stool, H/H normal No evidence of colitis Seen by GI (Dr. Tran), IV PPI added and stool study Diet as tolerated, IVF Autoimmune d/o including SLE, [place]'s disease, Sjogren, Continue Prednisone at increase dose of 40 mg daily, presently on 20 at home. Ideally should be eval by Rheum but not available inpatient Attempting to obtain outpatient workup and information regarding ongoing treatment and diagnoses. Differential diagnosis could also include seronegative vasculitis, IgG4 disease, MCTD? QUALITY [employer]RICS - VTE: SCDs - CODE STATUS: Full code - DIET: Regular Total time managing care of this patient today: 35 minutes. Quality Stroke Does the patient have a stroke diagnosis?: No VTE Prior VTE?: No VTE Risk Level:: Medical - moderate - high VTE Device Contraindication: N/A - Device Ordered VTE Drug Contraindication: N/A - Med Ordered
[2025-01-28 19:42] VITALS: BP 110/61; PULSE 85; RESP 18; TEMP 36.4; O2SAT 96
[2025-01-28] MEDS: 0.9 % Sodium Chloride Flush 3 ML SYRINGE IVFLUSH (20:32)
[2025-01-29 03:19] VITALS: BP 102/72; PULSE 75; RESP 16; TEMP 36.1; O2SAT 96
[2025-01-29 06:22] LABS: MANUAL DIFF FLAG NO
[2025-01-29 06:23] LABS: Hematocrit 41.5 % (37.0-47.0); Hemoglobin 14.4 g/dl (12.0-16.0); Imm Gran Abs Auto 0.32 X10*3/uL (0.00-0.03); Imm Gran Pct Auto 2.3 % (0.0-0.4); Lymphocytes Absolute Auto 2.7 X10*3/uL (1.2-4.9); Mean Corpuscular HGB Conc 34.7 g/dl (31.0-35.0); Mean Corpuscular Hemoglobin 30.3 pg (27.0-33.0); Mean Corpuscular Volume 87.4 fL (80.0-98.0); NRBC Abs Auto 0.000 X10*3/uL (0.0-0.012); NRBC Pct Auto 0.0 /100WBC (0.0-0.2); Platelet Count 260 X10*3/uL (160-400); Red Blood Count 4.75 X10*6/uL (4.20-5.50); White Blood Count 13.7 X10*3/uL (4.8-10.8)
[2025-01-29 06:40] LABS: Anion Gap 14 (12-20); Blood Urea Nitrogen 13 mg/dL (9-16); Calcium 9.7 mg/dL (8.4-10.2); Carbon Dioxide 25 mmol/L (22-29); Chloride 102 mmol/L (96-108); Creatinine Clr Calc Pharmacy 69.4; Estimated Glomerular Filt Rate > 60; Potassium 3.7 mmol/L (3.3-5.1); Sodium 137 mmol/L (135-145)
[2025-01-29 07:31] VITALS: BP 94/72; PULSE 84; RESP 16; TEMP 36.2; O2SAT 96
[2025-01-29] MEDS: 0.9 % Sodium Chloride Flush 3 ML SYRINGE IVFLUSH ×3 (08:45→20:56)
[2025-01-29 16:00] VITALS: BP 130/93; PULSE 101; RESP 18; TEMP 36.4; O2SAT 95
--- NOTE | 2025-01-29 16:34 | HO.PM.IMPN ---
Subjective Subjective Date of Service: 01/29/25 Interval History: No new interval changes compared to yesterday. Still having some intermittent scant BRBPR. The patient endorses multiple complaints including arthralgia, myalgias, facial swelling. Prolonged historical course suffering with autoimmune + disease. Attempted to connect with outpatient Rheumatology. Review of Systems Review of Systems: Yes all other systems are reviewed and are negative Physical Exam Exam: Exam: General: A&O x3, oriented to time place person and situation, comfortable, no pain. Cushingoid facies. Cardiac: S1, S2 auscultated with no S3/4, no MRG. Well perfused. Respiratory: Normal breath sounds auscultated throughout all lung zones, without wheezing, rales. Normal rate. GI/ : No abdominal pain on palpation, no masses or distentions. MSK: Normal ambulation without pain at bony prominences or musculature Neurological: Normal neurological examination on overview, without obvious CN II-XII abnormalities. Vital Signs: Vital Signs: Last Vital Signs Temp 97.6 F 01/29/25 16:00 Pulse 101 H 01/29/25 16:00 Resp 18 01/29/25 16:00 BP 130/93 H 01/29/25 16:00 Pulse Ox 95 01/29/25 16:00 O2 Del Method Room Air 01/29/25 16:00 BMI result Body Mass Index 30.1 Objective Data Active Medications Acetaminophen (Acetaminophen 325 Mg Tablet) 650 mg PO Q6H PRN PRN Reason: Pain, Mild 1-3,fever,headache Last Admin: 01/28/25 06:12 Dose: 650 mg Documented By: ODESSA Calcium Carbonate (Calcium Carbonate 750 Mg Tab.Chew) 750 mg PO Q4H PRN PRN Reason: Heartburn Calcium Carbonate (Calcium Carbonate 750 Mg Tab.Chew) 750 mg PO BID [facility] Last Admin: 01/29/25 08:45 Dose: 750 mg Documented By: BEATRIZ Diphenhydramine HCl (Diphenhydramine Hcl 50 Mg/Ml Vial) 25 mg IVPUSH Q6H PRN PRN Reason: Nausea and Vomiting Last Admin: 01/29/25 12:36 Dose: 25 mg Documented By: BEATRIZ Docusate Sodium (Docusate Sodium 100 Mg Capsule) 200 mg PO DAILY [facility] Last Admin: 01/29/25 08:45 Dose: 200 mg Documented By: BEATRIZ Folic Acid (Folic Acid 1 Mg Tablet) 1 mg PO DAILY [facility] Last Admin: 01/29/25 08:45 Dose: 1 mg Documented By: BEATRIZ Gabapentin (Gabapentin 400 Mg Capsule) 400 mg PO BEDTIME [facility] Last Admin: 01/28/25 20:32 Dose: 400 mg Documented By: RICARDO Hydromorphone HCl (Hydromorphone Hcl 1 Mg/Ml Syringe) 1 mg IVPUSH Q4H PRN; Protocol PRN Reason: Pain, Severe (Pain Scale 7-10) Last Admin: 01/29/25 12:40 Dose: 1 mg Documented By: BEATRIZ Hydroxychloroquine Sulfate (Hydroxychloroquine Sulfate 200 Mg Tablet) 400 mg PO DAILY [facility] Last Admin: 01/29/25 08:45 Dose: 400 mg Documented By: BEATRIZ Lidocaine (Lidocaine 5 % Ointment 35 Gm) 1 appl TOPICAL Q6H PRN; Protocol PRN Reason: Perineal Discomfort Magnesium Hydroxide (Milk Of Magnesia 30 Ml Oral.Susp) 30 ml PO DAILY PRN PRN Reason: Constipation Melatonin (Melatonin 3 Mg Tablet) 6 mg PO BEDTIME PRN PRN Reason: Insomnia Methotrexate (Methotrexate Sodium 2.5 Mg Tablet) 15 mg PO [facility] Pantoprazole Sodium (Pantoprazole Sodium 40 Mg/10 Ml Vial) 40 mg IVPUSH BID@0630,1630 [facility] Last Admin: 01/29/25 06:22 Dose: 40 mg Documented By: RICARDO Prednisone (Prednisone 20 Mg Tablet) 40 mg PO DAILY [facility] Last Admin: 01/29/25 08:45 Dose: 40 mg Documented By: BEATRIZ Sodium Chloride (0.9 % Sodium Chloride Flush 3 Ml Syringe) 3 ml IVFLUSH QSHIFT [facility] Last Admin: 01/29/25 08:45 Dose: 3 ml Documented By: BEATRIZ Labs 01/29/25 06:05 01/29/25 06:05 Labs: Laboratory Results - last 24 hr 01/29/25 06:05 MCV 87.4 MCH 30.3 MCHC 34.7 RDW 15.4 Plt Count 260 D MPV 9.0 L Immature Gran % (Auto) 2.3 H Neut % (Auto) 68.7 Lymph % (Auto) 19.6 L [place] % (Auto) 7.8 Eos % (Auto) 1.0 Baso % (Auto) 0.6 Lymph # (Auto) 2.7 [place] # (Auto) 1.1 Eos # (Auto) 0.1 Baso # (Auto) 0.1 Abs Immat Gran (auto) 0.32 H Absolute Neuts (auto) 9.4 H Absolute Nucleated RBC 0.000 Nucleated RBC % (auto) 0.0 Anion Gap 14 Estim Creat Clear Calc 69.4 Estimated GFR > 60 Random Glucose 99 Calcium 9.7 D Assessment and Plan (1) Acute left flank pain: Status: Acute (2) Systemic lupus erythematosus: Status: Acute (3) BRBPR (bright red blood per rectum): Status: Acute Plan 54-year-old female with pertinent history of SLE, Sjogren's, Neri's, [place]'s disease at 16 years old, GERD, peripheral neuropathy, 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 Had Bx at [facility] last month, no result Creatinine stable. -Pain control with Dilaudid and PO Oxy -IVF hydration, antiemetic -consider Nephro consult if not improving or impairment in renal function -Formal request for documentation fax over to [facility] Likely perianal fissure versus hemorrhoid Blood in stool, H/H normal No evidence of colitis Seen by GI (Dr. Tran), transitioned from IV to oral PPI Diet as tolerated, IVF Autoimmune d/o including SLE, [place]'s disease, Sjogren, Continue Prednisone at increase dose of 40 mg daily, presently on 20 at home. Ideally should be eval by Rheum but not available inpatient Attempting to obtain outpatient workup and information regarding ongoing treatment and diagnoses. Differential diagnosis could also include seronegative vasculitis, IgG4 disease, MCTD? QUALITY METRICS - VTE: SCDs - CODE STATUS: Full code - DIET: Regular Total time managing care of this patient today: 35 minutes. Quality Stroke Does the patient have a stroke diagnosis?: No VTE Prior VTE?: No VTE Risk Level:: Medical - moderate - high VTE Device Contraindication: N/A - Device Ordered VTE Drug Contraindication: N/A - Med Ordered
[2025-01-29 20:00] VITALS: BP 112/65; PULSE 80; RESP 16; TEMP 36.4; O2SAT 95
[2025-01-30 03:49] VITALS: BP 107/74; PULSE 80; RESP 18; TEMP 36.8; O2SAT 95
[2025-01-30 06:56] LABS: MANUAL DIFF FLAG NO
[2025-01-30 06:57] LABS: Hematocrit 45.0 % (37.0-47.0); Hemoglobin 15.1 g/dl (12.0-16.0); Mean Corpuscular Volume 90.2 fL (80.0-98.0); Red Blood Count 4.99 X10*6/uL (4.20-5.50); White Blood Count 12.4 X10*3/uL (4.8-10.8)
[2025-01-30 06:58] LABS: Imm Gran Abs Auto 0.25 X10*3/uL (0.00-0.03); Imm Gran Pct Auto 2.0 % (0.0-0.4); Lymphocytes Absolute Auto 2.8 X10*3/uL (1.2-4.9); Mean Corpuscular HGB Conc 33.6 g/dl (31.0-35.0); Mean Corpuscular Hemoglobin 30.3 pg (27.0-33.0); NRBC Abs Auto 0.000 X10*3/uL (0.0-0.012); NRBC Pct Auto 0.0 /100WBC (0.0-0.2); Platelet Count 264 X10*3/uL (160-400)
[2025-01-30 07:15] LABS: Anion Gap 18 (12-20); Blood Urea Nitrogen 13 mg/dL (9-16); Calcium 9.4 mg/dL (8.4-10.2); Carbon Dioxide 24 mmol/L (22-29); Chloride 101 mmol/L (96-108); Creatinine Clr Calc Pharmacy 67.3; Estimated Glomerular Filt Rate > 60; Potassium 3.9 mmol/L (3.3-5.1); Sodium 139 mmol/L (135-145)
[2025-01-30 08:00] VITALS: BP 100/68; PULSE 95; RESP 16; TEMP 36.6; O2SAT 95
[2025-01-30] MEDS: 0.9 % Sodium Chloride Flush 3 ML SYRINGE IVFLUSH ×3 (09:08→21:09)
--- NOTE | 2025-01-30 12:21 | MHC.CM.PN ---
Per MD rounds patient is not medically cleared to discharge today. Per MD Rheumatology INPT pending. DP Home self care Spouse will transport.
[2025-01-30 15:28] VITALS: BP 98/58; PULSE 83; RESP 16; TEMP 36; O2SAT 95
--- NOTE | 2025-01-30 16:12 | P.PNIM_ITS ---
Subjective Subjective Date of Service: 01/30/25 Interval History: Extensive discussion held between patient and her by bedside. The patient reports suffering with persistent and worsening left flank pain. She denies dysuria, pyuria, hematuria. Still urinating regularly. No increased frequency. The patient has suffered multiple hospital admissions, with long-term stays as inpatient; could be contributing to physical deconditioning and muscle wasting. Etiology of patient's pain could also be 2/2 muscle spasm. Other etiologies could be 2/2 nephrolithiasis that was identified on CT scan, versus muscle spasms. Furthermore, the patient's BRBPR is likely 2/2 hemorrhoids and fissures as evaluated by Gastroenterology. We discussed the possibility that her symptoms could be caused by autoimmune pathophysiology, however, given the extensive workup that the patient has already had, we discussed avoiding duplicating workup & testing until she can be evaluated by her primary care physician, her outpatient green hide inspector and chief airline radio operator. Furthermore, we discussed that if further testing returned negative or positive, it would not change course of treatment regarding use of prednisone at this time; and we would still require the assistance of rheumatology to definitively treat any underlying issue. Counseling was held that the patient's flank pain could be from secondary etiology such as more common issues. Reorientation regarding common pathophysiology that could be superimposed on other diagnoses. We extensively discussed the difference between causation and correlation; in regards to her symptoms and presentation. Review of Systems Review of Systems: Yes all other systems are reviewed and are negative Physical Exam 2 Exam: Exam: General: A&O x3, oriented to time place person and situation, comfortable, no pain. Cushingoid facies. Cardiac: S1, S2 auscultated with no S3/4, no MRG. Well perfused. Respiratory: Normal breath sounds auscultated throughout all lung zones, without wheezing, rales. Normal rate. GI/ : No abdominal pain on palpation, no masses or distentions. MSK: Normal ambulation without pain at bony prominences or musculature Neurological: Normal neurological examination on overview, without obvious CN II-XII abnormalities. Vital Signs: Vital Signs: Last Vital Signs Temp 96.8 F 01/30/25 15:28 Pulse 83 01/30/25 15:28 Resp 16 01/30/25 15:28 BP 98/58 L 01/30/25 15:28 Pulse Ox 95 01/30/25 15:28 O2 Del Method Room Air 01/30/25 15:28 BMI result Body Mass Index 30.1 Objective Data Active Medications Acetaminophen (Acetaminophen 325 Mg Tablet) 650 mg PO Q6H PRN PRN Reason: Pain, Mild 1-3,fever,headache Last Admin: 01/28/25 06:12 Dose: 650 mg Documented By: ODESSA Calcium Carbonate (Calcium Carbonate 750 Mg Tab.Chew) 750 mg PO Q4H PRN PRN Reason: Heartburn Calcium Carbonate (Calcium Carbonate 750 Mg Tab.Chew) 750 mg PO BID [facility] Last Admin: 01/30/25 08:57 Dose: 750 mg Documented By: BEATRIZ Cyclobenzaprine HCl (Cyclobenzaprine Hcl 5 Mg Tablet) 5 mg PO TID PRN PRN Reason: back pain/ spasms Diphenhydramine HCl (Diphenhydramine Hcl 50 Mg/Ml Vial) 25 mg IVPUSH Q6H PRN PRN Reason: Nausea and Vomiting Last Admin: 01/30/25 15:04 Dose: 25 mg Documented By: BEATRIZ Docusate Sodium (Docusate Sodium 100 Mg Capsule) 200 mg PO DAILY [facility] Last Admin: 01/30/25 08:57 Dose: 200 mg Documented By: BEATRIZ Folic Acid (Folic Acid 1 Mg Tablet) 1 mg PO DAILY [facility] Last Admin: 01/30/25 08:57 Dose: 1 mg Documented By: BEATRIZ Gabapentin (Gabapentin 400 Mg Capsule) 400 mg PO BEDTIME [facility] Last Admin: 01/29/25 20:56 Dose: 400 mg Documented By: RICARDO Hydromorphone HCl (Hydromorphone Hcl 1 Mg/Ml Syringe) 1 mg IVPUSH Q4H PRN; Protocol PRN Reason: Pain, Severe (Pain Scale 7-10) Last Admin: 01/30/25 12:58 Dose: 1 mg Documented By: BEATRIZ Hydroxychloroquine Sulfate (Hydroxychloroquine Sulfate 200 Mg Tablet) 400 mg PO DAILY [facility] Last Admin: 01/30/25 08:57 Dose: 400 mg Documented By: BEATRIZ Lidocaine (Lidocaine 5 % Ointment 35 Gm) 1 appl TOPICAL Q6H PRN; Protocol PRN Reason: Perineal Discomfort Magnesium Hydroxide (Milk Of Magnesia 30 Ml Oral.Susp) 30 ml PO DAILY PRN PRN Reason: Constipation Melatonin (Melatonin 3 Mg Tablet) 6 mg PO BEDTIME PRN PRN Reason: Insomnia Methotrexate (Methotrexate Sodium 2.5 Mg Tablet) 15 mg PO FR [facility] Last Admin: 01/30/25 10:28 Dose: 15 mg Documented By: BEATRIZ Prednisone (Prednisone 20 Mg Tablet) 40 mg PO DAILY [facility] Last Admin: 01/30/25 08:57 Dose: 40 mg Documented By: BEATRIZ Sodium Chloride (0.9 % Sodium Chloride Flush 3 Ml Syringe) 3 ml IVFLUSH QSHIFT [facility] Last Admin: 01/30/25 15:11 Dose: 3 ml Documented By: BEATRIZ Tamsulosin HCl (Tamsulosin Hcl 0.4 Mg Capsule) 0.4 mg PO DAILY [facility] Labs 01/30/25 06:04 01/30/25 06:04 Labs: Laboratory Results - last 24 hr 01/30/25 06:04 MCV 90.2 MCH 30.3 MCHC 33.6 RDW 15.5 Plt Count 264 MPV 9.8 Immature Gran % (Auto) 2.0 H Neut % (Auto) 65.6 Lymph % (Auto) 22.5 [place]clennan % (Auto) 7.4 Eos % (Auto) 1.9 Baso % (Auto) 0.6 Lymph # (Auto) 2.8 [place]cl[place] # (Auto) 0.9 Eos # (Auto) 0.2 Baso # (Auto) 0.1 Abs Immat Gran (auto) 0.25 H Absolute Neuts (auto) 8.1 Absolute Nucleated RBC 0.000 Nucleated RBC % (auto) 0.0 Anion Gap 18 Estim Creat Clear Calc 67.3 Estimated GFR > 60 Random Glucose 103 Calcium 9.4 Assessment and Plan (1) BRBPR (bright red blood per rectum): Status: Acute (2) Acute left flank pain: Status: Acute (3) Systemic lupus erythematosus: Status: Acute (4) Autonomic dysfunction: Status: Acute (5) Nephrolithiasis: Status: Acute Plan 54-year-old female with pertinent history of SLE, Sjogren's, Neri's, [place]'s disease at 16 years old, GERD, peripheral neuropathy, 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 Had Bx at [facility] last month, no result. History of nephrolithiasis treated at [facility] around 4 weeks ago Creatinine stable. -Pain control with Dilaudid and PO Oxy -IVF hydration, antiemetic -consider Nephro consult if not improving or impairment in renal function - start tamsulosin 0.4-0.8 mg - start cyclobenzaprine 5 mg t.i.d. for possible muscle spasm left flank Likely perianal fissure versus hemorrhoid Blood in stool, H/H normal No evidence of colitis Seen by GI (Dr. Tran), transitioned from IV to oral PPI Diet as tolerated, IVF Autoimmune d/o including SLE, [place]'s disease, Sjogren, Continue Prednisone at increase dose of 40 mg daily, presently on 20 at home. Ideally should be eval by Rheum but not available inpatient Attempting to obtain outpatient workup and information regarding ongoing treatment and diagnoses. Differential diagnosis could also include seronegative vasculitis, IgG4 disease, MCTD? Further evaluation of seronegative autoimmune conditions should be conducted by the patient's primary care provider versus outpatient Rheumatology given the high complexity of this patient's case, presentation, symptoms and extensive workup done in the past. This was discussed in depth with the patient as well as the outpatient chief airline radio operator; in agreement. Autonomic dysfunction Orthostatic hypotension Physical deconditioning Muscular wasting The patient has had extensive medical workup and in prolonged hospital stays over the past few years. The patient reports previously being very athletic, however is frustrated with her decline in quality of life and functionality. Discussed that extensive hospital stays, use of steroids and AI disease have likely contributed to the patient's progressive muscular wasting, physical deconditioning, and orthostatic hypotension. Depending on subtype of AI disease, the patient may also be suffering with autonomic dysfunction 2/2 neuropathy (example vasculitis 2/2 PN) Recommend the patient to hydrate well Re-engage in exercise when possible Follow up with outpatient chief airline radio operator for definitive diagnosis and management strategy [employer] - VTE: SCDs - CODE STATUS: Full code - DIET: Regular Total time managing care of this patient today: 60 minutes. Quality Stroke Does the patient have a stroke diagnosis?: No VTE Prior VTE?: No VTE Risk Level:: Medical - moderate - high VTE Device Contraindication: N/A - Device Ordered VTE Drug Contraindication: N/A - Med Ordered
[2025-01-30 19:34] VITALS: BP 100/64; PULSE 85; RESP 18; TEMP 36; O2SAT 95
[2025-01-31 03:07] VITALS: BP 118/78; PULSE 87; RESP 18; TEMP 37; O2SAT 98
[2025-01-31 06:39] LABS: MANUAL DIFF FLAG NO
[2025-01-31 07:31] LABS: Hematocrit 43.5 % (37.0-47.0); Hemoglobin 14.8 g/dl (12.0-16.0); Imm Gran Abs Auto 0.17 X10*3/uL (0.00-0.03); Imm Gran Pct Auto 1.7 % (0.0-0.4); Lymphocytes Absolute Auto 2.5 X10*3/uL (1.2-4.9); Mean Corpuscular HGB Conc 34.0 g/dl (31.0-35.0); Mean Corpuscular Hemoglobin 30.4 pg (27.0-33.0); Mean Corpuscular Volume 89.3 fL (80.0-98.0); NRBC Abs Auto 0.000 X10*3/uL (0.0-0.012); NRBC Pct Auto 0.0 /100WBC (0.0-0.2); Platelet Count 239 X10*3/uL (160-400); Red Blood Count 4.87 X10*6/uL (4.20-5.50); White Blood Count 10.0 X10*3/uL (4.8-10.8)
[2025-01-31 07:32] LABS: Anion Gap 13 (12-20); Blood Urea Nitrogen 19 mg/dL (9-16); Calcium 9.0 mg/dL (8.4-10.2); Carbon Dioxide 27 mmol/L (22-29); Chloride 103 mmol/L (96-108); Creatinine Clr Calc Pharmacy 65.9; Estimated Glomerular Filt Rate > 60; Potassium 3.5 mmol/L (3.3-5.1); Sodium 139 mmol/L (135-145)
--- NOTE | 2025-01-31 07:34 | P.PNIM_ITS ---
Subjective Subjective Date of Service: 01/31/25 Interval History: Patient received from Rheumatology and Nephrology [facility]. Left renal pain ongoing x several months without definitive diagnosis Patient was admitted to [facility] 11/29/2024 with worsening left flank pain. She was transferred to [place] campus at that time for rheumatology inpatient evaluation ? Loin Pain Hematuria Syndrome raised by Nephrology outpatient. The patient reports that the tamsulosin may be helping her clinically. Discussed in depth regarding the possibility of discharge in the next 1-2 days when symptoms improve progressively. Extensive discussion regarding maintaining primary team (outpt Rheumatology & Nephrology) and current continuation of prednisone with taper for this acute episode and presentation. Review of Systems Review of Systems: Yes all other systems are reviewed and are negative Physical Exam 2 Exam: Exam: General: A&O x3, oriented to time place person and situation, comfortable, no pain. Cushingoid facies. Cardiac: S1, S2 auscultated with no S3/4, no MRG. Well perfused. Respiratory: Normal breath sounds auscultated throughout all lung zones, without wheezing, rales. Normal rate. GI/ : No abdominal pain on palpation, no masses or distentions. MSK: Normal ambulation without pain at bony prominences or musculature Neurological: Normal neurological examination on overview, without obvious CN II-XII abnormalities. Vital Signs: Vital Signs: Last Vital Signs Temp 98.6 F 01/31/25 03:07 Pulse 87 01/31/25 03:07 Resp 18 01/31/25 03:07 BP 118/78 01/31/25 03:07 Pulse Ox 98 01/31/25 03:07 O2 Del Method Room Air 01/31/25 03:07 BMI result Body Mass Index 30.1 Objective Data Active Medications Acetaminophen (Acetaminophen 325 Mg Tablet) 650 mg PO Q6H PRN PRN Reason: Pain, Mild 1-3,fever,headache Last Admin: 01/28/25 06:12 Dose: 650 mg Documented By: ODESSA Calcium Carbonate (Calcium Carbonate 750 Mg Tab.Chew) 750 mg PO Q4H PRN PRN Reason: Heartburn Calcium Carbonate (Calcium Carbonate 750 Mg Tab.Chew) 750 mg PO BID [facility] Last Admin: 01/30/25 21:05 Dose: 750 mg Documented By: RAY Cyclobenzaprine HCl (Cyclobenzaprine Hcl 5 Mg Tablet) 5 mg PO TID PRN PRN Reason: back pain/ spasms Diphenhydramine HCl (Diphenhydramine Hcl 50 Mg/Ml Vial) 25 mg IVPUSH Q6H PRN PRN Reason: Nausea and Vomiting Last Admin: 01/31/25 03:05 Dose: 25 mg Documented By: RAY Docusate Sodium (Docusate Sodium 100 Mg Capsule) 200 mg PO DAILY [facility] Last Admin: 01/30/25 08:57 Dose: 200 mg Documented By: BEATRIZ Folic Acid (Folic Acid 1 Mg Tablet) 1 mg PO DAILY [facility] Last Admin: 01/30/25 08:57 Dose: 1 mg Documented By: BEATRIZ Gabapentin (Gabapentin 400 Mg Capsule) 400 mg PO BEDTIME [facility] Last Admin: 01/30/25 21:05 Dose: 400 mg Documented By: RAY Hydromorphone HCl (Hydromorphone Hcl 1 Mg/Ml Syringe) 1 mg IVPUSH Q4H PRN; Protocol PRN Reason: Pain, Severe (Pain Scale 7-10) Last Admin: 01/31/25 05:13 Dose: 1 mg Documented By: RAY Hydroxychloroquine Sulfate (Hydroxychloroquine Sulfate 200 Mg Tablet) 400 mg PO DAILY [facility] Last Admin: 01/30/25 08:57 Dose: 400 mg Documented By: BEATRIZ Lidocaine (Lidocaine 5 % Ointment 35 Gm) 1 appl TOPICAL Q6H PRN; Protocol PRN Reason: Perineal Discomfort Magnesium Hydroxide (Milk Of Magnesia 30 Ml Oral.Susp) 30 ml PO DAILY PRN PRN Reason: Constipation Melatonin (Melatonin 3 Mg Tablet) 6 mg PO BEDTIME PRN PRN Reason: Insomnia Methotrexate (Methotrexate Sodium 2.5 Mg Tablet) 15 mg PO [facility] Last Admin: 01/30/25 10:28 Dose: 15 mg Documented By: BEATRIZ Prednisone (Prednisone 20 Mg Tablet) 40 mg PO DAILY [facility] Last Admin: 01/30/25 08:57 Dose: 40 mg Documented By: BEATRIZ Sodium Chloride (0.9 % Sodium Chloride Flush 3 Ml Syringe) [facility] Last Admin: 01/30/25 21:09 Dose: 3 ml Documented By: RAY Tamsulosin HCl (Tamsulosin Hcl 0.4 Mg Capsule) 0.4 mg PO DAILY [facility] Last Admin: 01/30/25 17:02 Dose: 0.4 mg Documented By: BEATRIZ Labs 01/31/25 06:18 01/31/25 06:18 Labs: Laboratory Results - last 24 hr 01/31/25 06:18 MCV 89.3 MCH 30.4 MCHC 34.0 RDW 15.5 Plt Count 239 MPV 9.6 Immature Gran % (Auto) 1.7 H Neut % (Auto) 59.1 Lymph % (Auto) 24.8 [place] % (Auto) 10.6 Eos % (Auto) 3.3 Baso % (Auto) 0.5 Lymph # (Auto) 2.5 [place] # (Auto) 1.1 Eos # (Auto) 0.3 Baso # (Auto) 0.1 Abs Immat Gran (auto) 0.17 H Absolute Neuts (auto) 5.9 Absolute Nucleated RBC 0.000 Nucleated RBC % (auto) 0.0 Anion Gap 13 Estim Creat Clear Calc 65.9 Estimated GFR > 60 Random Glucose 92 Calcium 9.0 Assessment and Plan (1) BRBPR (bright red blood per rectum): Status: Acute (2) Acute left flank pain: Status: Acute (3) Nephrolithiasis: Status: Acute (4) Systemic lupus erythematosus: Status: Acute (5) Autonomic dysfunction: Status: Acute Plan 54-year-old female with pertinent history of SLE, Sjogren's, Neri's, [place]'s disease at 16 years old, GERD, peripheral neuropathy, 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 Had Bx at [facility] last month, no result. 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 -Pain control with Dilaudid and PO Oxy -IVF hydration, antiemetic -consider Nephro consult if not improving or impairment in renal function - start tamsulosin 0.4-0.8 mg - start cyclobenzaprine 5 mg t.i.d. for possible muscle spasm left flank Likely perianal fissure versus hemorrhoid Blood in stool, H/H normal No evidence of colitis Seen by GI (Dr. Tran), transitioned from IV to oral PPI Diet as tolerated, IVF Autoimmune d/o including SLE, [place]'s disease, Sjogren, Continue Prednisone at increase dose of 40 mg daily, presently on 20 at home. Ideally should be eval by Rheum but not available inpatient Attempting to obtain outpatient workup and information regarding ongoing treatment and diagnoses. Differential diagnosis could also include seronegative vasculitis, IgG4 disease, MCTD? Further evaluation of seronegative autoimmune conditions should be conducted by the patient's primary care provider versus outpatient Rheumatology given the high complexity of this patient's case, presentation, symptoms and extensive workup done in the past. This was discussed in depth with the patient as well as the outpatient electrical logger; in agreement. Autonomic dysfunction Orthostatic hypotension Physical deconditioning Muscular wasting The patient has had extensive medical workup and in prolonged hospital stays over the past few years. The patient reports previously being very athletic, however is frustrated with her decline in quality of life and functionality. Discussed that extensive hospital stays, use of steroids and AI disease have likely contributed to the patient's progressive muscular wasting, physical deconditioning, and orthostatic hypotension. Depending on subtype of AI disease, the patient may also be suffering with autonomic dysfunction 2/2 neuropathy (example vasculitis 2/2 PN) Recommend the patient to hydrate well Re-engage in exercise when possible Follow up with outpatient electrical logger for definitive diagnosis and management strategy [employer] - VTE: SCDs - CODE STATUS: Full code - DIET: Regular Total time managing care of this patient today: 60 minutes. Quality Stroke Does the patient have a stroke diagnosis?: No VTE Prior VTE?: No VTE Risk Level:: Medical - moderate - high VTE Device Contraindication: N/A - Device Ordered VTE Drug Contraindication: N/A - Med Ordered
[2025-01-31 07:48] VITALS: BP 111/84; PULSE 98; RESP 18; TEMP 36.7; O2SAT 96
[2025-01-31] MEDS: 0.9 % Sodium Chloride Flush 3 ML SYRINGE IVFLUSH ×3 (09:22→20:35)
[2025-01-31 15:23] VITALS: BP 104/60; PULSE 102; RESP 18; TEMP 36.4; O2SAT 94
[2025-01-31 19:27] VITALS: BP 105/71; PULSE 88; RESP 18; TEMP 36.4; O2SAT 96
[2025-02-01 03:13] VITALS: BP 113/79; PULSE 88; RESP 18; TEMP 36.2; O2SAT 97
[2025-02-01] MEDS: 0.9 % Sodium Chloride Flush 3 ML SYRINGE IVFLUSH ×3 (07:36→20:57)
[2025-02-01 07:41] VITALS: BP 100/60; PULSE 96; RESP 18; TEMP 36; O2SAT 98
--- NOTE | 2025-02-01 15:02 | HO.PM.IMPN ---
Subjective Subjective Date of Service: 02/01/25 Interval History: Still having flank pain Reports some improvement overall in her symptoms. Reports that progress has been slow but notable. Believe that tamsulosin may be having an effect. Denies further BRBPR Review of Systems Review of Systems: Yes all other systems are reviewed and are negative Physical Exam Exam: Exam: General: A&O x3, oriented to time place person and situation, comfortable, no pain. Cushingoid facies. Cardiac: S1, S2 auscultated with no S3/4, no MRG. Well perfused. Respiratory: Normal breath sounds auscultated throughout all lung zones, without wheezing, rales. Normal rate. GI/ : No abdominal pain on palpation, no masses or distentions. MSK: Normal ambulation without pain at bony prominences or musculature Neurological: Normal neurological examination on overview, without obvious CN II-XII abnormalities. Vital Signs: Vital Signs: Last Vital Signs Temp 96.8 F 02/01/25 07:41 Pulse 96 02/01/25 07:41 Resp 18 02/01/25 07:41 BP 100/60 02/01/25 07:41 Pulse Ox 98 02/01/25 07:41 O2 Del Method Room Air 02/01/25 07:41 BMI result Body Mass Index 30.1 Objective Data Active Medications Acetaminophen (Acetaminophen 325 Mg Tablet) 650 mg PO Q6H PRN PRN Reason: Pain, Mild 1-3,fever,headache Last Admin: 01/28/25 06:12 Dose: 650 mg Documented By: ODESSA Calcium Carbonate (Calcium Carbonate 750 Mg Tab.Chew) 750 mg PO Q4H PRN PRN Reason: Heartburn Last Admin: 02/01/25 11:52 Dose: 750 mg Documented By: STEVE Calcium Carbonate (Calcium Carbonate 750 Mg Tab.Chew) 750 mg PO BID [facility] Last Admin: 02/01/25 07:39 Dose: 750 mg Documented By: STEVE Cyclobenzaprine HCl (Cyclobenzaprine Hcl 5 Mg Tablet) 5 mg PO TID PRN PRN Reason: back pain/ spasms Diphenhydramine HCl (Diphenhydramine Hcl 50 Mg/Ml Vial) 25 mg IVPUSH Q6H PRN PRN Reason: Nausea and Vomiting Last Admin: 02/01/25 11:46 Dose: 25 mg Documented By: STEVE Docusate Sodium (Docusate Sodium 100 Mg Capsule) 200 mg PO DAILY [facility] Last Admin: 02/01/25 07:39 Dose: 200 mg Documented By: STEVE Folic Acid (Folic Acid 1 Mg Tablet) 1 mg PO DAILY [facility] Last Admin: 02/01/25 07:39 Dose: 1 mg Documented By: STEVE Gabapentin (Gabapentin 400 Mg Capsule) 400 mg PO BEDTIME [facility] Last Admin: 01/31/25 20:34 Dose: 400 mg Documented By: RAY Hydromorphone HCl (Hydromorphone Hcl 1 Mg/Ml Syringe) 1 mg IVPUSH Q4H PRN; Protocol PRN Reason: Pain, Severe (Pain Scale 7-10) Last Admin: 02/01/25 11:46 Dose: 1 mg Documented By: STEVE Hydroxychloroquine Sulfate (Hydroxychloroquine Sulfate 200 Mg Tablet) 400 mg PO DAILY [facility] Last Admin: 02/01/25 07:39 Dose: 400 mg Documented By: STEVE Lidocaine (Lidocaine 5 % Ointment 35 Gm) 1 appl TOPICAL Q6H PRN; Protocol PRN Reason: Perineal Discomfort Magnesium Hydroxide (Milk Of Magnesia 30 Ml Oral.Susp) 30 ml PO DAILY PRN PRN Reason: Constipation Melatonin (Melatonin 3 Mg Tablet) 6 mg PO BEDTIME PRN PRN Reason: Insomnia Methotrexate (Methotrexate Sodium 2.5 Mg Tablet) 15 mg PO FR [facility] Last Admin: 01/30/25 10:28 Dose: 15 mg Documented By: BEATRIZ Omeprazole (Omeprazole 20 Mg Capsule.) 20 mg PO DAILY@0630 [facility] Last Admin: 02/01/25 06:24 Dose: 20 mg Documented By: RAY Prednisone (Prednisone 20 Mg Tablet) 40 mg PO DAILY [facility] Last Admin: 02/01/25 07:39 Dose: 40 mg Documented By: STEVE Sodium Chloride (0.9 % Sodium Chloride Flush 3 Ml Syringe) 3 ml IVFLUSH QSHIFT [facility] Last Admin: 02/01/25 07:36 Dose: 3 ml Documented By: TSEVE Tamsulosin HCl (Tamsulosin Hcl 0.4 Mg Capsule) 0.4 mg PO DAILY [facility] Last Admin: 02/01/25 07:39 Dose: 0.4 mg Documented By: STEVE Labs 01/31/25 06:18 01/31/25 06:18 Assessment and Plan (1) BRBPR (bright red blood per rectum): Status: Acute (2) Acute left flank pain: Status: Acute (3) Nephrolithiasis: Status: Acute (4) Systemic lupus erythematosus: Status: Acute (5) Autonomic dysfunction: Status: Acute Plan 54-year-old female with pertinent history of SLE, Sjogren's, Neri's, Jun's disease at 16 years old, GERD, peripheral neuropathy, 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 Had Bx at [facility] last month, no result. Possible Loin Pain Haematuria Syndrome (LPHS) History of nephrolithiasis treated at [facility] around 4 weeks ago Creatinine stable. -Pain control with Dilaudid and PO Oxy -IVF hydration, antiemetic -consider Nephro consult if not improving or impairment in renal function - start tamsulosin 0.4-0.8 mg - start cyclobenzaprine 5 mg t.i.d. for possible muscle spasm left flank Likely perianal fissure versus hemorrhoid Blood in stool, H/H normal No evidence of colitis Seen by GI (Dr. Tran), transitioned from IV to oral PPI Diet as tolerated, IVF Autoimmune d/o including SLE, [place]'s disease, Sjogren, Continue Prednisone at increase dose of 40 mg daily, presently on 20 at home. Ideally should be eval by Rheum but not available inpatient Attempting to obtain outpatient workup and information regarding ongoing treatment and diagnoses. Differential diagnosis could also include seronegative vasculitis, IgG4 disease, MCTD? Further evaluation of seronegative autoimmune conditions should be conducted by the patient's primary care provider versus outpatient Rheumatology given the high complexity of this patient's case, presentation, symptoms and extensive workup done in the past. This was discussed in depth with the patient as well as the outpatient criminal defense attorney; in agreement. Autonomic dysfunction Orthostatic hypotension Physical deconditioning Muscular wasting The patient has had extensive medical workup and in prolonged hospital stays over the past few years. The patient reports previously being very athletic, however is frustrated with her decline in quality of life and functionality. Discussed that extensive hospital stays, use of steroids and AI disease have likely contributed to the patient's progressive muscular wasting, physical deconditioning, and orthostatic hypotension. Depending on subtype of AI disease, the patient may also be suffering with autonomic dysfunction 2/2 neuropathy (example vasculitis 2/2 PN) Recommend the patient to hydrate well Re-engage in exercise when possible Follow up with outpatient criminal defense attorney for definitive diagnosis and management strategy [employer] - VTE: SCDs - CODE STATUS: Full code - DIET: Regular Total time managing care of this patient today: 45 minutes. Quality Stroke Does the patient have a stroke diagnosis?: No VTE Prior VTE?: No VTE Risk Level:: Medical - moderate - high VTE Device Contraindication: N/A - Device Ordered VTE Drug Contraindication: N/A - Med Ordered
[2025-02-01 15:15] VITALS: BP 101/75; PULSE 93; RESP 18; TEMP 36.4; O2SAT 95
[2025-02-01 18:57] VITALS: BP 109/73; PULSE 87; RESP 18; TEMP 36.4; O2SAT 95
[2025-02-02 04:00] VITALS: BP 98/60; PULSE 93; RESP 19; TEMP 36.2; O2SAT 97
[2025-02-02 08:00] VITALS: BP 100/72; PULSE 90; RESP 19; TEMP 36.7; O2SAT 95
[2025-02-02] MEDS: 0.9 % Sodium Chloride Flush 3 ML SYRINGE IVFLUSH ×3 (08:59→20:19)
--- NOTE | 2025-02-02 13:55 | P.PNIM_ITS ---
Subjective Subjective Date of Service: 02/02/25 Interval History: Persistent pain, somewhat better, however the patient is unsure. She endorses some nausea today, without abdominal pain or diarrhea. There are no acute complaints otherwise. Review of Systems Review of Systems: Yes all other systems are reviewed and are negative Physical Exam 2 Exam: Exam: General: A&O x3, oriented to time place person and situation, comfortable, no pain. Cushingoid facies. Cardiac: S1, S2 auscultated with no S3/4, no MRG. Well perfused. Respiratory: Normal breath sounds auscultated throughout all lung zones, without wheezing, rales. Normal rate. GI/ : No abdominal pain on palpation, no masses or distentions. MSK: Normal ambulation without pain at bony prominences or musculature Neurological: Normal neurological examination on overview, without obvious CN II-XII abnormalities. Vital Signs: Vital Signs: Last Vital Signs Temp 98.1 F 02/02/25 08:00 Pulse 90 02/02/25 08:00 Resp 19 02/02/25 08:00 BP 100/72 02/02/25 08:00 Pulse Ox 95 02/02/25 08:00 O2 Del Method Room Air 02/02/25 08:00 BMI result Body Mass Index 30.1 Objective Data Active Medications Acetaminophen (Acetaminophen 325 Mg Tablet) 650 mg PO Q6H PRN PRN Reason: Pain, Mild 1-3,fever,headache Last Admin: 01/28/25 06:12 Dose: 650 mg Documented By: ODESSA Calcium Carbonate (Calcium Carbonate 750 Mg Tab.Chew) 750 mg PO Q4H PRN PRN Reason: Heartburn Last Admin: 02/01/25 11:52 Dose: 750 mg Documented By: STEVE Calcium Carbonate (Calcium Carbonate 750 Mg Tab.Chew) 750 mg PO BID [facility] Last Admin: 02/02/25 08:59 Dose: 750 mg Documented By: DEEPIKA Cyclobenzaprine HCl (Cyclobenzaprine Hcl 5 Mg Tablet) 5 mg PO TID PRN PRN Reason: back pain/ spasms Diphenhydramine HCl (Diphenhydramine Hcl 50 Mg/Ml Vial) 25 mg IVPUSH Q6H PRN PRN Reason: Nausea and Vomiting Last Admin: 02/02/25 12:20 Dose: 25 mg Documented By: DEEPIKA Docusate Sodium (Docusate Sodium 100 Mg Capsule) 200 mg PO DAILY [facility] Last Admin: 02/02/25 08:59 Dose: 200 mg Documented By: DEEPIKA Folic Acid (Folic Acid 1 Mg Tablet) 1 mg PO DAILY [facility] Last Admin: 02/02/25 08:59 Dose: 1 mg Documented By: DEEPIKA Gabapentin (Gabapentin 400 Mg Capsule) 400 mg PO BEDTIME [facility] Last Admin: 02/01/25 20:57 Dose: 400 mg Documented By: ODESSA Hydromorphone HCl (Hydromorphone Hcl 1 Mg/Ml Syringe) 1 mg IVPUSH Q4H PRN; Protocol PRN Reason: Pain, Severe (Pain Scale 7-10) Last Admin: 02/02/25 13:05 Dose: 1 mg Documented By: DEEPIKA Hydroxychloroquine Sulfate (Hydroxychloroquine Sulfate 200 Mg Tablet) 400 mg PO DAILY [facility] Last Admin: 02/02/25 08:59 Dose: 400 mg Documented By: DEEPIKA Lidocaine (Lidocaine 5 % Ointment 35 Gm) 1 appl TOPICAL Q6H PRN; Protocol PRN Reason: Perineal Discomfort Magnesium Hydroxide (Milk Of Magnesia 30 Ml Oral.Susp) 30 ml PO DAILY PRN PRN Reason: Constipation Melatonin (Melatonin 3 Mg Tablet) 6 mg PO BEDTIME PRN PRN Reason: Insomnia Methotrexate (Methotrexate Sodium 2.5 Mg Tablet) 15 mg PO FR [facility] Last Admin: 01/30/25 10:28 Dose: 15 mg Documented By: BEATRIZ Omeprazole (Omeprazole 20 Mg Capsule.) 20 mg PO DAILY@0630 [facility] Last Admin: 02/02/25 06:18 Dose: 20 mg Documented By: ODESSA Prednisone (Prednisone 20 Mg Tablet) 40 mg PO DAILY [facility] Last Admin: 02/02/25 08:59 Dose: 40 mg Documented By: DEEPIKA Sodium Chloride (0.9 % Sodium Chloride Flush 3 Ml Syringe) 3 ml IVFLUSH QSHIFT [facility] Last Admin: 02/02/25 08:59 Dose: 3 ml Documented By: DEEPIKA Tamsulosin HCl (Tamsulosin Hcl 0.4 Mg Capsule) 0.4 mg PO BID [facility] Last Admin: 02/02/25 08:59 Dose: 0.4 mg Documented By: DEEPIKA Labs 01/31/25 06:18 01/31/25 06:18 Assessment and Plan (1) Acute left flank pain: Status: Acute (2) Nephrolithiasis: Status: Acute (3) Systemic lupus erythematosus: Status: Acute (4) Autonomic dysfunction: Status: Acute Plan 54-year-old female with pertinent history of SLE, Sjogren's, Neri's, Steuben's disease at 16 years old, GERD, peripheral neuropathy, 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 Unclear etiology of persistent left flank pain. 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 Had Bx at [facility] last month, no result. 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 -Pain control with Dilaudid and PO Oxy -IVF hydration, antiemetic -consider Nephro consult if not improving or impairment in renal function - continue tamsulosin 0.8 mg - continue cyclobenzaprine 5 mg t.i.d. for possible muscle spasm left flank Likely perianal fissure versus hemorrhoid Blood in stool, H/H normal No evidence of colitis Seen by GI (Dr. Tran), transitioned from IV to oral PPI Diet as tolerated, IVF Autoimmune d/o including SLE, Steuben's disease, Sjogren, Continue Prednisone at increase dose of 40 mg daily, presently on 20 at home. Ideally should be eval by Rheum but not available inpatient Attempting to obtain outpatient workup and information regarding ongoing treatment and diagnoses. Differential diagnosis could also include seronegative vasculitis, IgG4 disease, MCTD? Further evaluation of seronegative autoimmune conditions should be conducted by the patient's primary care provider versus outpatient Rheumatology given the high complexity of this patient's case, presentation, symptoms and extensive workup done in the past. This was discussed in depth with the patient as well as the outpatient mattress and foundation sewer; in agreement. Autonomic dysfunction Orthostatic hypotension Physical deconditioning Muscular wasting The patient has had extensive medical workup and in prolonged hospital stays over the past few years. The patient reports previously being very athletic, however is frustrated with her decline in quality of life and functionality. Discussed that extensive hospital stays, use of steroids and AI disease have likely contributed to the patient's progressive muscular wasting, physical deconditioning, and orthostatic hypotension. Depending on subtype of AI disease, the patient may also be suffering with autonomic dysfunction 2/2 neuropathy (example vasculitis 2/2 PN) Recommend the patient to hydrate well Re-engage in exercise when possible Follow up with outpatient mattress and foundation sewer for definitive diagnosis and management strategy [employer] - VTE: SCDs - CODE STATUS: Full code - DIET: Regular Total time managing care of this patient today: 35 minutes. Quality Stroke Does the patient have a stroke diagnosis?: No VTE Prior VTE?: No VTE Risk Level:: Medical - moderate - high VTE Device Contraindication: N/A - Device Ordered VTE Drug Contraindication: N/A - Med Ordered
[2025-02-02 15:34] VITALS: BP 126/68; PULSE 99; RESP 18; TEMP 36.6; O2SAT 95
--- NOTE | 2025-02-02 16:11 | MHC.CM.PN ---
PER ROUNDS PT NOT MEDICALLY READY FOR DC FOR 1 TO 2 DAYS PLAN REMAINS HOME N/S
[2025-02-02 19:54] VITALS: BP 109/70; PULSE 94; RESP 18; TEMP 37; O2SAT 97
[2025-02-03 03:27] VITALS: BP 100/67; PULSE 108; RESP 17; TEMP 36.7; O2SAT 86
[2025-02-03 07:51] VITALS: BP 101/72; PULSE 110; RESP 18; TEMP 36; O2SAT 90
[2025-02-03] MEDS: 0.9 % Sodium Chloride Flush 3 ML SYRINGE IVFLUSH ×3 (08:49→20:11)
--- NOTE | 2025-02-03 09:52 | P.PNIM_ITS ---
Subjective Subjective Date of Service: 02/03/25 Interval History: Admitted since 01/23 with abdominal, n/v, work up fairly unremarkable. She has had persistent pain, n/v and continues to be on IV Pain medication for pain control. She is reporting having more symptoms today and very resistant to the idea of advancing diet, ore switching to oral pain medication. Review of Systems Review of Systems: Yes all other systems are reviewed and are negative Physical Exam 2 Exam: Exam: General: A&O x3, oriented to time place person and situation, comfortable, no pain. Cushingoid facies. Cardiac: S1, S2 auscultated with no S3/4, no MRG. Well perfused. Respiratory: Normal breath sounds auscultated throughout all lung zones, without wheezing, rales. Normal rate. GI/ : No abdominal pain on palpation, no masses or distentions. MSK: Normal ambulation without pain at bony prominences or musculature Neurological: Normal neurological examination on overview, without obvious CN II-XII abnormalities. Vital Signs: Vital Signs: Last Vital Signs Temp 96.8 F 02/03/25 07:51 Pulse 110 H 02/03/25 07:51 Resp 18 02/03/25 07:51 BP 101/72 02/03/25 07:51 Pulse Ox 90 L 02/03/25 07:51 O2 Del Method Room Air 02/03/25 07:51 BMI result Body Mass Index 30.1 Objective Data Active Medications Acetaminophen (Acetaminophen 325 Mg Tablet) 650 mg PO Q6H PRN PRN Reason: Pain, Mild 1-3,fever,headache Last Admin: 01/28/25 06:12 Dose: 650 mg Documented By: ODESSA Calcium Carbonate (Calcium Carbonate 750 Mg Tab.Chew) 750 mg PO BID [facility] Last Admin: 02/03/25 09:49 Dose: 750 mg Documented By: DEEPIKA Calcium Carbonate (Calcium Carbonate 750 Mg Tab.Chew) 750 mg PO Q4H PRN PRN Reason: Heartburn/ Nausea Last Admin: 02/02/25 22:47 Dose: 750 mg Documented By: RAY Cyclobenzaprine HCl (Cyclobenzaprine Hcl 5 Mg Tablet) 5 mg PO TID PRN PRN Reason: back pain/ spasms Dicyclomine HCl (Dicyclomine Hcl 10 Mg Capsule) 10 mg PO QIDACHS PRN PRN Reason: abdominal pain/ spasms Diphenhydramine HCl (Diphenhydramine Hcl 50 Mg/Ml Vial) 25 mg IVPUSH Q6H PRN PRN Reason: Nausea and Vomiting Last Admin: 02/03/25 08:46 Dose: 25 mg Documented By: DEEPIKA Docusate Sodium (Docusate Sodium 100 Mg Capsule) 200 mg PO DAILY [facility] Last Admin: 02/03/25 09:49 Dose: 200 mg Documented By: DEEPIKA Folic Acid (Folic Acid 1 Mg Tablet) 1 mg PO DAILY [facility] Last Admin: 02/03/25 09:49 Dose: 1 mg Documented By: DEEPIKA Gabapentin (Gabapentin 400 Mg Capsule) 400 mg PO BEDTIME [facility] Last Admin: 02/02/25 20:19 Dose: 400 mg Documented By: RAY Hydromorphone HCl (Hydromorphone Hcl 0.5 Mg/0.5 Ml Syringe) 0.5 mg IVPUSH Q4H PRN; Protocol PRN Reason: Breakthrough Pain Last Admin: 02/03/25 07:50 Dose: 0.5 mg Documented By: DEEPIKA Hydroxychloroquine Sulfate (Hydroxychloroquine Sulfate 200 Mg Tablet) 400 mg PO DAILY [facility] Last Admin: 02/03/25 09:49 Dose: 400 mg Documented By: DEEPIKA Lidocaine (Lidocaine 5 % Ointment 35 Gm) 1 appl TOPICAL Q6H PRN; Protocol PRN Reason: Perineal Discomfort Magnesium Hydroxide (Milk Of Magnesia 30 Ml Oral.Susp) 30 ml PO DAILY PRN PRN Reason: Constipation Melatonin (Melatonin 3 Mg Tablet) 6 mg PO BEDTIME PRN PRN Reason: Insomnia Methotrexate (Methotrexate Sodium 2.5 Mg Tablet) 15 mg PO [facility] Last Admin: 01/30/25 10:28 Dose: 15 mg Documented By: BEATRIZ Omeprazole (Omeprazole 20 Mg Capsule.Dr) 20 mg PO DAILY@0630 [facility] Last Admin: 02/03/25 06:05 Dose: 20 mg Documented By: RAY Prednisone (Prednisone 20 Mg Tablet) 40 mg PO DAILY [facility] Last Admin: 02/03/25 09:49 Dose: 40 mg Documented By: DEEPIKA Sodium Chloride (0.9 % Sodium Chloride Flush 3 Ml Syringe) 3 ml IVFLUSH QSHIFT [facility] Last Admin: 02/03/25 08:49 Dose: 3 ml Documented By: DEEPIKA Tamsulosin HCl (Tamsulosin Hcl 0.4 Mg Capsule) 0.4 mg PO BID [facility] Last Admin: 02/03/25 09:49 Dose: 0.4 mg Documented By: DEEPIKA Labs 01/31/25 06:18 01/31/25 06:18 Assessment and Plan (1) Acute left flank pain: Status: Acute (2) Nephrolithiasis: Status: Acute (3) Systemic lupus erythematosus: Status: Acute (4) Autonomic dysfunction: Status: Acute Plan 54-year-old female with pertinent history of SLE, Sjogren's, Neri's, Walton's disease at 16 years old, GERD, peripheral neuropathy, 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 Unclear etiology of persistent left flank pain. 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 Had Bx at [facility] last month, no result. Possible Loin Pain Haematuria Syndrome (LPHS) History of nephrolithiasis treated at [facility] around 4 weeks ago Creatinine stable. -Pain control with Dilaudid and PO Oxy--> Transition to all PO -IVF hydration as needed, antiemetic - Nephrology consult, repeat CT of abdomen and pelvis, check cbc, bmp - continue tamsulosin 0.8 mg - continue cyclobenzaprine 5 mg t.i.d. for possible muscle spasm left flank Likely perianal fissure versus hemorrhoid Blood in stool, H/H normal No evidence of colitis Seen by GI (Dr. Tran)--conservative management, no invasive testing Diet as tolerated, IVF Autoimmune d/o including SLE, Jun's disease, Sjogren, Continue Prednisone at increase dose of 40 mg daily, presently on 20 at home. Ideally should be eval by Rheum but not available inpatient Attempting to obtain outpatient workup and information regarding ongoing treatment and diagnoses. Differential diagnosis could also include seronegative vasculitis, IgG4 disease, MCTD? Further evaluation of seronegative autoimmune conditions should be conducted by the patient's primary care provider versus outpatient Rheumatology given the high complexity of this patient's case, presentation, symptoms and extensive workup done in the past. This was discussed in depth with the patient as well as the outpatient plant electrical engineer; in agreement. Autonomic dysfunction Orthostatic hypotension Physical deconditioning Muscular wasting The patient has had extensive medical workup and in prolonged hospital stays over the past few years. The patient reports previously being very athletic, however is frustrated with her decline in quality of life and functionality. Discussed that extensive hospital stays, use of steroids and AI disease have likely contributed to the patient's progressive muscular wasting, physical deconditioning, and orthostatic hypotension. Depending on subtype of AI disease, the patient may also be suffering with autonomic dysfunction 2/2 neuropathy (example vasculitis 2/2 PN) Recommend the patient to hydrate well Re-engage in exercise when possible Follow up with outpatient plant electrical engineer for definitive diagnosis and management strategy Overall goal is to advance diet, transition to ormal pain meds and discharg [employer] - VTE: SCDs - CODE STATUS: Full code - DIET: Regular Total time managing care of this patient today: 35 minutes. Quality Stroke Does the patient have a stroke diagnosis?: No VTE Prior VTE?: No VTE Risk Level:: Medical - moderate - high VTE Device Contraindication: N/A - Device Ordered VTE Drug Contraindication: N/A - Med Ordered
[2025-02-03 10:44] LABS: Hematocrit 44.4 % (37.0-47.0); Hemoglobin 15.7 g/dl (12.0-16.0); Mean Corpuscular HGB Conc 35.4 g/dl (31.0-35.0); Mean Corpuscular Hemoglobin 30.8 pg (27.0-33.0); Mean Corpuscular Volume 87.2 fL (80.0-98.0); NRBC Abs Auto 0.000 X10*3/uL (0.0-0.012); NRBC Pct Auto 0.0 /100WBC (0.0-0.2); Platelet Count 304 X10*3/uL (160-400); Red Blood Count 5.09 X10*6/uL (4.20-5.50); White Blood Count 14.3 X10*3/uL (4.8-10.8)
[2025-02-03 10:52] LABS: Anion Gap 15 (12-20); Blood Urea Nitrogen 17 mg/dL (9-16); Calcium 12.0 mg/dL (8.4-10.2); Carbon Dioxide 27 mmol/L (22-29); Chloride 96 mmol/L (96-108); Creatinine Clr Calc Pharmacy 61.5; Estimated Glomerular Filt Rate 55; Potassium 4.0 mmol/L (3.3-5.1); Sodium 134 mmol/L (135-145)
[2025-02-03 11:01] LABS: Parathyroid Hormone Intact 7.4 pg/mL (8.7-77.1)
--- NOTE | 2025-02-03 11:15 | P.CONNP_ITS ---
History of Present Illness Reason for Consult Consult date: 02/03/25 Chief Complaint Chief complaint: left flank pain History of Present Illness Narrative: 54 y/o female with autoimmune diseases- patient reports 6 different diagnoses including SLE, Jun's disease, Sjogren, Neri's, gastroesophageal reflux disease, peripheral neuropathy, mood disorder. Presented 01/23 with left flank pain and blood in his stool. Nephrology consulted for loin pain syndrome patient's creatinine has been 0.66-1.04 since admission she does not have any proteinuria on UA, though not quantified. No blood, WBCs or other cells. 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 no stones or hydro. vitals are stable. patient reports she has had ongoing pain for some time in her left kidney. States she is certain it is kidney pain because of its location. Described pain as pinballs bouncing around. States she is on high-dose prednisone which causes bad side effects, but that when she reduces dose below 20mg she has flare of pain which includes the left flank pain, urinary symptoms and GI symptoms as well. States she follows a manager global communications as well as two kidney doctors, one at [facility] and locally sees Dr Enciso as well. States she has had a kidney biopsy and showed some small amounts of IgA- specific results unclear. Review of Systems Review of Systems Yes all other systems are reviewed and are negative PMFSH Past Medical History Medical History Lupus (systemic lupus erythematosus) Social History Social History Household Members: Significant Other Housing: House Do you presently have visiting nurse or other home services: No Patient Tobacco Use Status: Never used Tobacco Smoked in Last 30 Days: No Use of substances other than those prescribed or required for medical reasons: No Currently Displaying Signs/Symptoms of Drug Intoxication Withdrawal: No Have you been hit, kicked, punched, or otherwise hurt by someone within the past year? If so, by whom?: No Do you feel safe in your current relationship?: Yes Is there a partner from a previous relationship who is making you feel unsafe now?: No Are you made to feel afraid or neglected: No Advance Directives: No Advance Directives Information Provided: Yes Recently lost weight without trying: No Nutrition Risks: No Nutritional Risk Patient : No : No Poor oral hygiene: No service: No Meds Allergies Allergy/AdvReac Type Severity Reaction Status Date / Time metoclopramide (From Reglan) Allergy Anaphylaxis Verified 01/23/25 13:07 ondansetron (From Zofran) Allergy Anaphylaxis Verified 01/23/25 13:07 prochlorperazine (From Allergy Anaphylaxis Verified 01/23/25 13:07 Compazine) promethazine (From Phenergan) Allergy Anaphylaxis Verified 01/23/25 13:07 Active Medications: Current Medications Acetaminophen (Acetaminophen 325 Mg Tablet) 650 mg PO Q6H PRN PRN Reason: Pain, Mild 1-3,fever,headache Last Admin: 01/28/25 06:12 Dose: 650 mg Calcium Carbonate (Calcium Carbonate 750 Mg Tab.Chew) 750 mg PO BID [facility] Last Admin: 02/03/25 09:49 Dose: 750 mg Calcium Carbonate (Calcium Carbonate 750 Mg Tab.Chew) 750 mg PO Q4H PRN PRN Reason: Heartburn/ Nausea Last Admin: 02/02/25 22:47 Dose: 750 mg Cyclobenzaprine HCl (Cyclobenzaprine Hcl 5 Mg Tablet) 5 mg PO TID PRN PRN Reason: back pain/ spasms Dicyclomine HCl (Dicyclomine Hcl 10 Mg Capsule) 10 mg PO QIDACHS PRN PRN Reason: abdominal pain/ spasms Diphenhydramine HCl (Diphenhydramine Hcl 50 Mg/Ml Vial) 25 mg IVPUSH Q6H PRN PRN Reason: Nausea and Vomiting Last Admin: 02/03/25 08:46 Dose: 25 mg Docusate Sodium (Docusate Sodium 100 Mg Capsule) 200 mg PO DAILY [facility] Last Admin: 02/03/25 09:49 Dose: 200 mg Folic Acid (Folic Acid 1 Mg Tablet) 1 mg PO DAILY [facility] Last Admin: 02/03/25 09:49 Dose: 1 mg Gabapentin (Gabapentin 400 Mg Capsule) 400 mg PO BEDTIME [facility] Last Admin: 02/02/25 20:19 Dose: 400 mg Hydromorphone HCl (Hydromorphone Hcl 0.5 Mg/0.5 Ml Syringe) 0.5 mg IVPUSH Q4H PRN; Protocol PRN Reason: Breakthrough Pain Last Admin: 02/03/25 11:59 Dose: 0.5 mg Hydroxychloroquine Sulfate (Hydroxychloroquine Sulfate 200 Mg Tablet) 400 mg PO DAILY [facility] Last Admin: 02/03/25 09:49 Dose: 400 mg Lidocaine (Lidocaine 5 % Ointment 35 Gm) 1 appl TOPICAL Q6H PRN; Protocol PRN Reason: Perineal Discomfort Magnesium Hydroxide (Milk Of Magnesia 30 Ml Oral.Susp) 30 ml PO DAILY PRN PRN Reason: Constipation Melatonin (Melatonin 3 Mg Tablet) 6 mg PO BEDTIME PRN PRN Reason: Insomnia Methotrexate (Methotrexate Sodium 2.5 Mg Tablet) 15 mg PO [facility] Last Admin: 01/30/25 10:28 Dose: 15 mg Omeprazole (Omeprazole 20 Mg Capsule.Dr) 20 mg PO DAILY@0630 [facility] Last Admin: 02/03/25 06:05 Dose: 20 mg Prednisone (Prednisone 20 Mg Tablet) 40 mg PO DAILY [facility] Last Admin: 02/03/25 09:49 Dose: 40 mg Sodium Chloride (0.9 % Sodium Chloride Flush 3 Ml Syringe) 3 ml IVFLUSH QSHIFT [facility] Last Admin: 02/03/25 08:49 Dose: 3 ml Tamsulosin HCl (Tamsulosin Hcl 0.4 Mg Capsule) 0.4 mg PO BID [facility] Last Admin: 02/03/25 09:49 Dose: 0.4 mg Home Medications ?Medication ?Instructions ?Recorded ?Confirmed ?Last Taken ?Type calcium carbonate (Calcium 500) 500 mg PO BID 12/02/24 01/23/25 01/23/25 History fludrocortisone 0.1 mg tablet 0.1 mg PO DAILY 12/02/24 12/27/24 Unknown History folic acid 1 mg tablet 1 mg PO DAILY 12/02/2401/2301/23/25 History gabapentin 400 mg capsule 400 mg PO BEDTIME 12/02/24 0 01/23/25 01/22/25 History hydroxychloroquine 200 mg tablet 400 mg PO DAILY 12/0201/23/25 01/23/25 History lisdexamfetamine 40 mg capsule 40 mg PO DAILY PRN ADHD 12/02/24 12/27/24 Unknown History methotrexate sodium 2.5 mg tablet 15 mg PO FR 12/02/24 01/23/25 01/23/25 History omeprazole 20 mg capsule,delayed 20 mg PO BEDTIME 01/1901/23/25 01/23/25 History release oxycodone 10 mg tablet 10 mg PO Q4H PRN Pain (Scale Score 12/02/24 01/23/25 01/23/25 History 4-6) vitamin A 3,000 mcg (10,000 unit) 3,000 mcg PO DAILY 0 12/02/24 01/23/25 01/23/25 History capsule docusate sodium 100 mg capsule 200 mg PO DAILY 5 01/23/25 01/23/25 History (Colace) prednisone 5 mg tablet See Rx Instructions .Route . COMPLEX 01/23/25 01/23/25 01/23/25 History risedronate 35 mg tablet 35 mg PO MO@89901/23/2501/19/25 History semaglutide (weight loss) 1.7 1.7 mg subcut CLAROS@89901/23/25 01/18/25 History mg/0.75 mL subcutaneous pen injector (Tarah) Physical Exam Vital Signs: Last Vital Signs Temp 96.8 F 02/03/25 07:51 Pulse 110 H 02/03/25 07:51 Resp 18 02/03/25 07:51 BP 101/72 02/03/25 07:51 Pulse Ox 90 L 02/03/25 07:51 O2 Del Method Room Air 02/03/25 07:51 BMI result Body Mass Index 30.1 Const General: no acute distress, alert and awake Resp Effort & Inspection: normal respiratory effort and able to speak in complete sentences Other: No CVA tenderness on exam. She does have some point tenderness underneath her left side just below rib cage, point tenderness with palpation of this region. General: Yes no CVA tenderness Back/Spine/Pelvis Back: no CVA tenderness Skin Rashes: other (facial flushing ) Extrem General: No edema Results Lab Results 02/03/25 10:24 02/03/25 10:24 Lab results: Chemistry 02/03/25 10:24 Sodium 134 L Potassium 4.0 Carbon Dioxide 27 BUN 17 H Creatinine 1.04 Calcium 12.0 H D Hematology 02/03/25 10:24 WBC 14.3 H Hgb 15.7 Plt Count 304 D Assessment and Plan (1) Acute left flank pain: Status: Acute Plan Chronic left flank pain Patient's pain does not seem to be from her kidney based on physical exam. She does not have any concerning findings on ultrasound to explain her pain. Her renal function is normal. Will quantify urine protein to ensure no proteinuria given report of seronegative SLE. Will sign off, happy to follow up if any changes or new concerns arise. Discussed with Dr Velásquez. Procedures Date of Service Date of Service: 02/03/25
[2025-02-03 15:32] VITALS: BP 108/74; PULSE 121; RESP 18; TEMP 36.3; O2SAT 96
[2025-02-03] MEDS: Lactated Ringers 1,000 ML 125 ML IVCONT (16:05)
[2025-02-03 19:56] VITALS: BP 125/71; PULSE 119; RESP 18; TEMP 36.2
[2025-02-04] MEDS: Lactated Ringers 1,000 ML 125 ML IVCONT ×4 (00:11→23:02)
[2025-02-04 03:40] VITALS: BP 130/80; PULSE 97; RESP 18; TEMP 36.2; O2SAT 95
[2025-02-04 07:53] VITALS: BP 98/66; PULSE 95; RESP 18; TEMP 36.8; O2SAT 96
[2025-02-04] MEDS: 0.9 % Sodium Chloride Flush 3 ML SYRINGE IVFLUSH ×3 (08:20→21:17)
--- NOTE | 2025-02-04 09:50 | HO.PM.IMPN ---
Subjective Subjective Date of Service: 02/04/25 Interval History: Admitted since 01/23 with abdominal, n/v, work up fairly unremarkable. She has had persistent pain, n/v and continues to be on IV Pain medication for pain control. She is reporting some much better today. She is able to eat some and nausea is much better. Review of Systems Review of Systems: Yes all other systems are reviewed and are negative Physical Exam Exam: Exam: General: A&O x3, oriented to time place person and situation, comfortable, no pain. Cushingoid facies. Cardiac: S1, S2 auscultated with no S3/4, no MRG. Well perfused. Respiratory: Normal breath sounds auscultated throughout all lung zones, without wheezing, rales. Normal rate. GI/ : No abdominal pain on palpation, no masses or distentions. MSK: Normal ambulation without pain at bony prominences or musculature Neurological: Normal neurological examination on overview, without obvious CN II-XII abnormalities. Vital Signs: Vital Signs: Last Vital Signs Temp 98.3 F 02/04/25 07:53 Pulse 95 02/04/25 07:53 Resp 18 02/04/25 07:53 BP 98/66 02/04/25 07:53 Pulse Ox 96 02/04/25 07:53 O2 Del Method Room Air 02/04/25 07:53 O2 Flow Rate 98 02/03/25 19:56 BMI result Body Mass Index 30.1 Objective Data Active Medications Acetaminophen (Acetaminophen 325 Mg Tablet) 650 mg PO Q6H PRN PRN Reason: Pain, Mild 1-3,fever,headache Last Admin: 01/28/25 06:12 Dose: 650 mg Documented By: ODSESA Calcium Carbonate (Calcium Carbonate 750 Mg Tab.Chew) 750 mg PO BID HUGH Last Admin: 02/04/25 08:21 Dose: 750 mg Documented By: ELDA Calcium Carbonate (Calcium Carbonate 750 Mg Tab.Chew) 750 mg PO Q4H PRN PRN Reason: Heartburn/ Nausea Last Admin: 02/03/25 14:49 Dose: 750 mg Documented By: DEEPIKA Cyclobenzaprine HCl (Cyclobenzaprine Hcl 5 Mg Tablet) 5 mg PO TID PRN PRN Reason: back pain/ spasms Dicyclomine HCl (Dicyclomine Hcl 10 Mg Capsule) 10 mg PO QIDACHS PRN PRN Reason: abdominal pain/ spasms Last Admin: 02/03/25 14:59 Dose: 10 mg Documented By: DEEPIKA Diphenhydramine HCl (Diphenhydramine Hcl 50 Mg/Ml Vial) 25 mg IVPUSH Q6H PRN PRN Reason: Nausea and Vomiting Last Admin: 02/04/25 04:32 Dose: 25 mg Documented By: RAY Docusate Sodium (Docusate Sodium 100 Mg Capsule) 200 mg PO DAILY [facility] Last Admin: 02/04/25 08:21 Dose: 200 mg Documented By: ELDA Folic Acid (Folic Acid 1 Mg Tablet) 1 mg PO DAILY [facility] Last Admin: 02/04/25 08:21 Dose: 1 mg Documented By: ELDA Gabapentin (Gabapentin 400 Mg Capsule) 400 mg PO BEDTIME [facility] Last Admin: 02/03/25 20:07 Dose: 400 mg Documented By: RAY Hydromorphone HCl (Hydromorphone Hcl 0.5 Mg/0.5 Ml Syringe) 0.5 mg IVPUSH Q4H PRN; Protocol PRN Reason: Breakthrough Pain Last Admin: 02/04/25 08:21 Dose: 0.5 mg Documented By: ELDA Hydroxychloroquine Sulfate (Hydroxychloroquine Sulfate 200 Mg Tablet) 400 mg PO DAILY [facility] Last Admin: 02/04/25 08:21 Dose: 400 mg Documented By: ELDA Lactated Ringer's (Lr) 1,000 mls @ 125 mls/hr IVCONT .Q8H [facility] Last Admin: 02/04/25 08:20 Dose: 125 mls/hr Documented By: ELDA Lidocaine (Lidocaine 5 % Ointment 35 Gm) 1 appl TOPICAL Q6H PRN; Protocol PRN Reason: Perineal Discomfort Magnesium Hydroxide (Milk Of Magnesia 30 Ml Oral.Susp) 30 ml PO DAILY PRN PRN Reason: Constipation Melatonin (Melatonin 3 Mg Tablet) 6 mg PO BEDTIME PRN PRN Reason: Insomnia Methotrexate (Methotrexate Sodium 2.5 Mg Tablet) 15 mg PO FR [facility] Last Admin: 01/30/25 10:28 Dose: 15 mg Documented By: BEATRIZ Omeprazole (Omeprazole 20 Mg Capsule.Dr) 20 mg PO DAILY@0630 [facility] Last Admin: 02/04/25 05:40 Dose: 20 mg Documented By: RAY Prednisone (Prednisone 10 Mg Tablet) 30 mg PO DAILY [facility] Last Admin: 02/04/25 08:30 Dose: 30 mg Documented By: ELDA Sodium Chloride (0.9 % Sodium Chloride Flush 3 Ml Syringe) 3 ml IVFLUSH QSHIFT [facility] Last Admin: 02/04/25 08:20 Dose: 3 ml Documented By: ELDA Tamsulosin HCl (Tamsulosin Hcl 0.4 Mg Capsule) 0.4 mg PO BID [facility] Last Admin: 02/04/25 08:21 Dose: 0.4 mg Documented By: ELDA Labs 02/03/25 10:24 02/03/25 10:24 Labs: Laboratory Results - last 24 hr 02/03/25 02/03/25 02/04/25 10:24 10:30 08:15 MCV 87.2 MCH 30.8 MCHC 35.4 H RDW 15.0 Plt Count 304 D MPV 9.6 Absolute Nucleated RBC 0.000 Nucleated RBC % (auto) 0.0 Hold Purple Top SEE NOTE Anion Gap 15 Estim Creat Clear Calc 61.5 Estimated GFR 55 Random Glucose 100 Calcium 12.0 H D PTH Intact 7.4 L Assessment and Plan (1) Acute left flank pain: Status: Acute (2) Nephrolithiasis: Status: Acute (3) Systemic lupus erythematosus: Status: Acute (4) Autonomic dysfunction: Status: Acute Plan 54-year-old female with pertinent history of SLE, Sjogren's, Neri's, Jun's disease at 16 years old, GERD, peripheral neuropathy, 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 Unclear etiology of persistent left flank pain. 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 Had Bx at [facility] last month, no result. 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 -Pain control with Dilaudid and PO Oxy--> Transition to all PO -IVF hydration as needed, antiemetic - Nephrology consult, repeat CT of abdomen and pelvis 02/03 no acute finding, - continue tamsulosin 0.8 mg - continue cyclobenzaprine 5 mg t.i.d. for possible muscle spasm left flank -24 hr urine per nephro Likely perianal fissure versus hemorrhoid Blood in stool, H/H normal No evidence of colitis Seen by GI (Dr. Tran)--conservative management, no invasive testing Diet as tolerated, IVF Autoimmune d/o including SLE, [place]'s disease, Sjogren, Continue Prednisone at increase dose of 30 mg daily, presently on 19 at home. Ideally should be eval by Rheum but not available inpatient Attempting to obtain outpatient workup and information regarding ongoing treatment and diagnoses. Differential diagnosis could also include seronegative vasculitis, IgG4 disease, MCTD? Further evaluation of seronegative autoimmune conditions should be conducted by the patient's primary care provider versus outpatient Rheumatology given the high complexity of this patient's case, presentation, symptoms and extensive workup done in the past. This was discussed in depth with the patient as well as the outpatient laboratory administrative director; in agreement. Autonomic dysfunction Orthostatic hypotension Physical deconditioning Muscular wasting The patient has had extensive medical workup and in prolonged hospital stays over the past few years. The patient reports previously being very athletic, however is frustrated with her decline in quality of life and functionality. Discussed that extensive hospital stays, use of steroids and AI disease have likely contributed to the patient's progressive muscular wasting, physical deconditioning, and orthostatic hypotension. Depending on subtype of AI disease, the patient may also be suffering with autonomic dysfunction 2/2 neuropathy (example vasculitis 2/2 PN) Recommend the patient to hydrate well Re-engage in exercise when possible Follow up with outpatient laboratory administrative director for definitive diagnosis and management strategy Overall goal is to advance diet, transition to oral pain meds and discharg QUALITY METRICS - VTE: SCDs - CODE STATUS: Full code - DIET: Regular I anticipate discharge in 1-2 days Azucena discussed with the patient with RN present Total time managing care of this patient today: 35 minutes. Quality Stroke Does the patient have a stroke diagnosis?: No VTE Prior VTE?: No VTE Risk Level:: Medical - moderate - high VTE Device Contraindication: N/A - Device Ordered VTE Drug Contraindication: N/A - Med Ordered
[2025-02-04 10:24] LABS: Anion Gap 19 (12-20); Blood Urea Nitrogen 16 mg/dL (9-16); Calcium 10.4 mg/dL (8.4-10.2); Carbon Dioxide 19 mmol/L (22-29); Chloride 101 mmol/L (96-108); Creatinine Clr Calc Pharmacy 60.3; Estimated Glomerular Filt Rate 54; Potassium 4.9 mmol/L (3.3-5.1); Sodium 134 mmol/L (135-145)
--- NOTE | 2025-02-04 12:46 | MHC.CM.PN ---
EMR REVIEWED AND PER MD ROUNDS, PT IS NOT MEDICALLY CLEARED FOR DC (CONTINUES ON IV PAIN MEDS, CONTINUES TO C/O SOME NAUSEA BUT IMPROVING) CM WILL CONTINUE TO FOLLOW FOR ANY CHANGE TO DC PLAN/NEEDS.
[2025-02-04 15:27] VITALS: BP 104/67; PULSE 93; RESP 18; TEMP 36.7; O2SAT 96
[2025-02-04 20:00] VITALS: BP 124/70; PULSE 99; RESP 20; TEMP 35.8; O2SAT 94
[2025-02-05] MEDS: Lactated Ringers 1,000 ML 125 ML IVCONT (05:10)
[2025-02-05 06:26] LABS: Hematocrit 37.2 % (37.0-47.0); Hemoglobin 12.5 g/dl (12.0-16.0); Mean Corpuscular HGB Conc 33.6 g/dl (31.0-35.0); Mean Corpuscular Hemoglobin 30.3 pg (27.0-33.0); Mean Corpuscular Volume 90.3 fL (80.0-98.0); NRBC Abs Auto 0.000 X10*3/uL (0.0-0.012); NRBC Pct Auto 0.0 /100WBC (0.0-0.2); Platelet Count 180 X10*3/uL (160-400); Red Blood Count 4.12 X10*6/uL (4.20-5.50); White Blood Count 9.4 X10*3/uL (4.8-10.8)
[2025-02-05 06:53] LABS: Anion Gap 10 (12-20); Blood Urea Nitrogen 13 mg/dL (9-16); Calcium 9.3 mg/dL (8.4-10.2); Carbon Dioxide 28 mmol/L (22-29); Chloride 104 mmol/L (96-108); Creatinine Clr Calc Pharmacy 65.2; Estimated Glomerular Filt Rate 59; Potassium 3.7 mmol/L (3.3-5.1); Sodium 138 mmol/L (135-145)
[2025-02-05 07:46] VITALS: BP 96/56; PULSE 92; RESP 14; TEMP 36.6; O2SAT 100
[2025-02-05] MEDS: 0.9 % Sodium Chloride Flush 3 ML SYRINGE IVFLUSH ×2 (09:12→21:52)
[2025-02-05 10:17] LABS: Total Volume 24 Hour Urine 2275 mL
--- NOTE | 2025-02-05 11:11 | HO.PM.IMPN ---
Subjective Subjective Date of Service: 02/05/25 Interval History: Doing better, no n/v Review of Systems Review of Systems: Yes all other systems are reviewed and are negative Physical Exam Exam: Exam: General: A&O x3, oriented to time place person and situation, comfortable, no pain. Cushingoid facies. Cardiac: S1, S2 auscultated with no S3/4, no MRG. Well perfused. Respiratory: Normal breath sounds auscultated throughout all lung zones, without wheezing, rales. Normal rate. GI/ : No abdominal pain on palpation, no masses or distentions. MSK: Normal ambulation without pain at bony prominences or musculature Neurological: Normal neurological examination on overview, without obvious CN II-XII abnormalities. Vital Signs: Vital Signs: Last Vital Signs Temp 97.9 F 02/05/25 07:46 Pulse 92 02/05/25 07:46 Resp 14 02/05/25 07:46 BP 96/56 L 02/05/25 07:46 Pulse Ox 100 02/05/25 07:46 O2 Del Method Room Air 02/05/25 07:46 O2 Flow Rate 98 02/03/25 19:56 BMI result Body Mass Index 30.1 Objective Data Active Medications Acetaminophen (Acetaminophen 325 Mg Tablet) 650 mg PO Q6H PRN PRN Reason: Pain, Mild 1-3,fever,headache Last Admin: 01/28/25 06:12 Dose: 650 mg Documented By: ODESSA Calcium Carbonate (Calcium Carbonate 750 Mg Tab.Chew) 750 mg PO BID HUGH Last Admin: 02/05/25 09:12 Dose: 750 mg Documented By: ELDA Calcium Carbonate (Calcium Carbonate 750 Mg Tab.Chew) 750 mg PO Q4H PRN PRN Reason: Heartburn/ Nausea Last Admin: 02/04/25 14:20 Dose: 750 mg Documented By: ELDA Cyclobenzaprine HCl (Cyclobenzaprine Hcl 5 Mg Tablet) 5 mg PO TID PRN PRN Reason: back pain/ spasms Dicyclomine HCl (Dicyclomine Hcl 10 Mg Capsule) 10 mg PO QIDACHS PRN PRN Reason: abdominal pain/ spasms Last Admin: 02/03/25 14:59 Dose: 10 mg Documented By: DEEPIKA Diphenhydramine HCl (Diphenhydramine Hcl 50 Mg/Ml Vial) 25 mg IVPUSH Q6H PRN PRN Reason: Nausea and Vomiting Last Admin: 02/05/25 05:10 Dose: 25 mg Documented By: RICARDO Docusate Sodium (Docusate Sodium 100 Mg Capsule) 200 mg PO DAILY [facility] Last Admin: 02/05/25 09:12 Dose: 200 mg Documented By: ELDA Folic Acid (Folic Acid 1 Mg Tablet) 1 mg PO DAILY [facility] Last Admin: 02/05/25 09:13 Dose: 1 mg Documented By: ELDA Gabapentin (Gabapentin 400 Mg Capsule) 400 mg PO BEDTIME [facility] Last Admin: 02/04/25 21:06 Dose: 400 mg Documented By: RICARDO Hydromorphone HCl (Hydromorphone Hcl 0.5 Mg/0.5 Ml Syringe) 0.5 mg IVPUSH Q4H PRN; Protocol PRN Reason: Breakthrough Pain Last Admin: 02/05/25 09:12 Dose: 0.5 mg Documented By: ELDA Hydroxychloroquine Sulfate (Hydroxychloroquine Sulfate 200 Mg Tablet) 400 mg PO DAILY [facility] Last Admin: 02/05/25 09:12 Dose: 400 mg Documented By: ELDA Lactated Ringer's (Lr) 1,000 mls @ 125 mls/hr IVCONT .Q8H [facility] Last Admin: 02/05/25 05:10 Dose: 125 mls/hr Documented By: RICARDO Lidocaine (Lidocaine 5 % Ointment 35 Gm) 1 appl TOPICAL Q6H PRN; Protocol PRN Reason: Perineal Discomfort Magnesium Hydroxide (Milk Of Magnesia 30 Ml Oral.Susp) 30 ml PO DAILY PRN PRN Reason: Constipation Melatonin (Melatonin 3 Mg Tablet) 6 mg PO BEDTIME PRN PRN Reason: Insomnia Methotrexate (Methotrexate Sodium 2.5 Mg Tablet) 15 mg PO [facility] Last Admin: 01/30/25 10:28 Dose: 15 mg Documented By: BEATRIZ Omeprazole (Omeprazole 20 Mg Capsule.Dr) 20 mg PO DAILY@0630 [facility] Last Admin: 02/05/25 05:10 Dose: 20 mg Documented By: RICARDO Prednisone (Prednisone 10 Mg Tablet) 30 mg PO DAILY [facility] Last Admin: 02/05/25 09:13 Dose: 30 mg Documented By: ELDA Sodium Chloride (0.9 % Sodium Chloride Flush 3 Ml Syringe) 3 ml IVFLUSH QSHIFT [facility] Last Admin: 02/05/25 09:12 Dose: 3 ml Documented By: ELDA Tamsulosin HCl (Tamsulosin Hcl 0.4 Mg Capsule) 0.4 mg PO BID [facility] Last Admin: 02/05/25 09:12 Dose: 0.4 mg Documented By: ELDA Labs 02/05/25 06:08 02/05/25 06:08 Labs: Laboratory Results - last 24 hr 02/05/25 02/05/25 06:08 09:04 MCV 90.3 MCH 30.3 MCHC 33.6 RDW 15.6 Plt Count 180 D MPV 9.2 L Absolute Nucleated RBC 0.000 Nucleated RBC % (auto) 0.0 Anion Gap 10 L Estim Creat Clear Calc 65.2 Estimated GFR 59 Random Glucose 79 Calcium 9.3 D Ur 24 Hour Volume 2275 Assessment and Plan (1) Acute left flank pain: Status: Acute (2) Nephrolithiasis: Status: Acute (3) Systemic lupus erythematosus: Status: Acute (4) Autonomic dysfunction: Status: Acute Plan 54-year-old female with pertinent history of SLE, Sjogren's, Neri's, [place]'s disease at 16 years old, GERD, peripheral neuropathy, 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 Unclear etiology of persistent left flank pain. 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 Had Bx at [facility] last month, no result. 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 -Pain control with Dilaudid and PO Oxy--> Transition to all PO -IVF hydration as needed, antiemetic - Nephrology consult, repeat CT of abdomen and pelvis 02/03 no acute finding, - continue tamsulosin 0.8 mg - continue cyclobenzaprine 5 mg t.i.d. for possible muscle spasm left flank -24 hr urine per nephro collected Likely perianal fissure versus hemorrhoid Blood in stool, H/H normal No evidence of colitis Seen by GI (Dr. Tran)--conservative management, no invasive testing Diet as tolerated, IVF Autoimmune d/o including SLE, Louisa's disease, Sjogren, Continue Prednisone at increase dose of 30 mg daily, presently on 19 at home. Ideally should be eval by Rheum but not available inpatient Attempting to obtain outpatient workup and information regarding ongoing treatment and diagnoses. Differential diagnosis could also include seronegative vasculitis, IgG4 disease, MCTD? Further evaluation of seronegative autoimmune conditions should be conducted by the patient's primary care provider versus outpatient Rheumatology given the high complexity of this patient's case, presentation, symptoms and extensive workup done in the past. This was discussed in depth with the patient as well as the outpatient customs and border protection inspector; in agreement. Autonomic dysfunction Orthostatic hypotension Physical deconditioning Muscular wasting The patient has had extensive medical workup and in prolonged hospital stays over the past few years. The patient reports previously being very athletic, however is frustrated with her decline in quality of life and functionality. Discussed that extensive hospital stays, use of steroids and AI disease have likely contributed to the patient's progressive muscular wasting, physical deconditioning, and orthostatic hypotension. Depending on subtype of AI disease, the patient may also be suffering with autonomic dysfunction 2/2 neuropathy (example vasculitis 2/2 PN) Recommend the patient to hydrate well Re-engage in exercise when possible Follow up with outpatient customs and border protection inspector for definitive diagnosis and management strategy Overall goal is to advance diet, transition to oral pain meds and discharg QUALITY METRICS - VTE: SCDs - CODE STATUS: Full code - DIET: Regular Plan discussed with pt Total time managing care of this patient today: 35 minutes. Quality Stroke Does the patient have a stroke diagnosis?: No VTE Prior VTE?: No VTE Risk Level:: Medical - moderate - high VTE Device Contraindication: N/A - Device Ordered VTE Drug Contraindication: N/A - Med Ordered
[2025-02-05 11:58] LABS: Creatinine, mg/dL 39.86; Phosphorus mg/dL 17.8 mg/dL; Potassium, 24 Hr Urine 41.9 mmol/Day (25-125); Potassium, 24U 18.4 mmol/L; Sodium, 24 Hr Urine 110.0 mmol/L
[2025-02-05 15:41] VITALS: BP 100/59; PULSE 86; RESP 14; TEMP 36.9; O2SAT 97
[2025-02-05 18:22] LABS: Appearance Urine Clear; Glucose Urine UA Negative (Negative); PH 8.5 (5.0-9.0); Specific Gravity - Urine 1.010 (1.005-1.025)
[2025-02-05 18:41] LABS: Total Protein Urine Random < 7 mg/dL (<12)
[2025-02-05 19:58] VITALS: BP 98/62; PULSE 84; RESP 18; TEMP 36.5; O2SAT 98
[2025-02-06 03:21] VITALS: BP 98/59; PULSE 84; RESP 1; TEMP 36.1; O2SAT 98
[2025-02-06 07:54] VITALS: BP 106/76; PULSE 96; RESP 18; TEMP 36.9; O2SAT 98
[2025-02-06] MEDS: 0.9 % Sodium Chloride Flush 3 ML SYRINGE IVFLUSH (07:56)
--- NOTE | 2025-02-06 10:15 | PM.DS ---
DS: Providers Provider Date of Service: 02/06/25 Date of admission: 01/27/25 09:00 Date of discharge: 02/06/25 Primary care physician: DANIEL Roe Consults: 01/24/25 10:20 Consult to Gastroenterology Routine Consulting Provider: [facility] Sheets Reason for consultation: gi bleeding Has provider been notified: No 02/03/25 10:12 Consult to Nephrology Routine Consulting Provider: [facility] Reason for consultation: loin pain syndrome Has provider been notified: No DS: Diagnosis Discharge Diagnosis (1) Acute left flank pain: Status: Acute (2) Nephrolithiasis: Status: Inactive (3) Systemic lupus erythematosus: Status: Acute (4) Autonomic dysfunction: Status: Acute DS: Summary Hospital Course Hospital Course: admission hpi Chief Complaint: Left flank pain 54-year-old female with pertinent history of much for autoimmune diseases-- SLE, [place]'s disease, Sjogren, Neri's, gastroesophageal reflux disease, peripheral neuropathy, mood disorder who presents with left flank pain and blood in his stool. She reports having had a left kidney biopsy around the 26 of December and have him having left flank pain that has been much more pronounced today. Additionally, she has been experiencing blood in his stool for nearly 5 days now associated with diarrhea and nausea. Her pain was becoming excruciating and prompted her to come to the emergency room. Hemoglobin is normal at 14. Kidney functions are normal. There is mild increase in AST and ALT however these are chronic. 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 Hospital course: 54-year-old female with pertinent history of SLE, Sjogren's, Neri's, [place]'s disease at 16 years old, GERD, peripheral neuropathy, 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 Unclear etiology of persistent left flank pain. She had 2 CT of abdomen and pelvis that showed no acute finding. She initially reported some blood in stool and so was seen by GI and did not required intervention and H/H had been stable. The left flank pain was attributed to chronic kidney issues, Lupus.. She relates that she does not have history of nephrocalcinosis and CT here did not reveal that. Her main stay of treatment here was IV fluid, IV pain medication specifically Dilaudid and antiemetic. Her usual steroid of 19 mg was increased to 40 mg to treat her autoimmune diseases including [place]'s. She was also seen by Nephrology team and 24 hour urine was collected and result are pending and should be followed up on on outpatient basis. Her hospital course was long and protracted because of continuing pain and this has been the case in past as well. At the present time her pain is better, no nausea and vomiting. We discussed the need for expert evaluation for chronic pain management and she said that she has a pain specialist that she will followed up with. She also said she has pain medication at home Time Attestation Discharge Coordination Time (in mins): 45 Quality: Safe Use of Opioids Does Pt have an Active Cancer Diagnosis on the Problem List?: No Quality: Stroke Does the patient have a stroke diagnosis?: No Physical Exam Vital Signs: Vital Signs: Last Vital Signs Temp 98.4 F 02/06/25 07:54 Pulse 96 02/06/25 07:54 Resp 18 02/06/25 07:54 BP 106/76 02/06/25 07:54 Pulse Ox 98 02/06/25 07:54 O2 Del Method Room Air 02/06/25 07:54 O2 Flow Rate 98 02/03/25 19:56 BMI result Body Mass Index 30.1 DS: Data Data Completed and Pending Labs on day of discharge: Laboratory Results - last 24 hr 02/05/25 02/05/25 09:04 Unknown Urine Color Yellow Urine Appearance Clear Urine pH 8.5 Ur Specific [place] 1.010 Urine Protein Negative Urine Glucose (UA) Negative Urine Ketones Negative Urine Blood Negative Urine Nitrite Negative Ur Leukocyte Esterase Negative Urine RBC 0-2 Urine WBC 0-5 Ur Squamous Epith Cells 0-2 Urine Bacteria None Seen Hyaline Casts 0-2 U Random Total Protein < 7 Ur 24 Hour Volume 2275 Urine Creatinine 20.64 Ur Creatinine mg/dL 39.86 Ur Creatinine 24 Hour 0.9 L Ur Total Protein 24 Hr < 159 H Protein/Creatinin Ratio TNP Ur Sodium 24 Hour 250.3 H Ur Potassium 24 Hour 41.9 Ur Phosphorus 24 Hr 0.4 Discharge Plan Discharge Anticipated Discharge Date/Time: 02/06/25 09:07 Patient Disposition: Home, Self-Care Discharge Diagnosis: Left flank pain Referrals: Santino Palomino PA [Primary Care Provider, Internal Medicine] - 1 Week Rafi Velásquez MD [Physician, Critical Care ([facility])] - 1 Week Discharge Medications: Continued gabapentin 400 mg capsule 400 mg PO BEDTIME methotrexate sodium 2.5 mg tablet 15 mg PO FR omeprazole 20 mg capsule,delayed release(DR/EC) 20 mg PO BEDTIME folic acid 1 mg tablet 1 mg PO DAILY hydroxychloroquine 200 mg tablet 400 mg PO DAILY lisdexamfetamine 40 mg capsule 40 mg PO DAILY PRN (Reason: ADHD) oxycodone 10 mg tablet 10 mg PO Q4H PRN (Reason: Pain (Scale Score 4-6)) vitamin A 3,000 mcg (10,000 unit) Capsule 3,000 mcg PO DAILY calcium carbonate [Calcium 500] 500 mg calcium (1,250 mg) Tablet,Chewable 500 mg PO BID fludrocortisone 0.1 mg Tablet 0.1 mg PO DAILY Rx Instructions: ONLY TAKES WHEN NOT ON HIGHER DOSE OF PREDNISONE - NOT CURRENTLY TAKING PATIENT TAKES ONLY WHEN ON 15MG OF PRED risedronate 35 mg tablet 35 mg PO MO@0900 Wegovy 1.7 mg/0.75 mL pen injector 1.7 mg subcut CLAROS@0900 prednisone 5 mg tablet See Rx Instructions .ROUTE .COMPLEX Rx Instructions: PATIENT DECREASING BY 1MG PER WEEK. CURRENTLY ON 20 AND DECREASING TO 19MG DSTARTING 01/24 docusate sodium [Colace] 100 mg Capsule 200 mg PO DAILY Discharge Orders: Discharge Order (Routine); Ordered 02/06/25 Ordered By: Yousuf Jade Diet: Advance to usual diet Activity on Discharge: As tolerated Stand Alone Forms: Patient Portal Discharge page Print Language: Tunisian Care Plan Goals: recovery from left pain Health Concerns: left flank pain, acut on chronic Plan of Treatment: Pain control with oxycodone continue Prednisone sammy under ghe guidance of your bus and trolley dispatcher and further testing Follow up with your Kidney team Follow up with your primary care doctor within a week Take oxycodone as needed for pain Assessment: See above
--- NOTE | 2025-02-06 11:07 | MHC.CM.PN ---
PT CLEARED TO DC HOME TODAY WITH NO SERVICES
[2025-02-06 18:08] LABS: Calcium/Creatinine Ratio 445 mg/g creat (30-275); Creatinine 24Hr Urine 1.00 g/24 h (0.50-2.15)
[2025-02-07 13:39] LABS: VITAMIN D (1,25 OH) D3 22 pg/mL; Vit D (1,25-Dihydroxy) Total 22 pg/mL (18-72); Vitamin D (1,25 OH) D2 <8 pg/mL
[2025-02-10 20:58] LABS: 24hr Urine Total Volume 2275 mL; Citric Acid, 24hr Urine 628 mg/24 h (100-1300); Citric Acid/Creat Ratio 24U 597 mg/g creat (180-1070); Creatinine, 24U 1.05 g/24 h (0.50-2.15)
[2025-02-11 02:03] LABS: Creatinine, 24H Ur 1.02 g/24 h (0.50-2.15); Magnesium, 24H Urine 55 mg/24 h (18-130); Magnesium, Urine 24H/g Creat 54 mg/g creat (30-135); Total Volume 2275 mL
[2025-02-12 21:38] LABS: 24hr Urine Total Volume 2275 mL; Oxalic Acid 24 Urine 16.5 mg/24 h (3.6-38.0)
[2025-02-16 10:32] LABS: Vitamin D 25-OH, D2 <4 ng/mL; Vitamin D 25-OH, D3 36 ng/mL; Vitamin D 25-OH, Total 36 ng/mL (30-100)
== END 2025-02-06 12:57 | disposition home or self-care (01) | DRG 546 ==
LOC: HO.ED 16:16 → HO.EDOVER 17:03 → HO.S3 01-24 11:13
PROVIDERS: Hospitalist; Internal Medicine; Internal Medicine Critical Care Medicine; Nurse Practitioner Family; Physician Assistant; Admitting Provider Internal Medicine; Emergency Provider Emergency Medicine; PCP Physician Assistant; Visit Provider Internal Medicine
DX: M32.14 Glomerular disease in systemic lupus erythematosus (principal); E27.1 Primary adrenocortical insufficiency; M35.00 Sjogren syndrome, unspecified; E06.3 Autoimmune thyroiditis; I95.1 Orthostatic hypotension; K60.2 Anal fissure, unspecified; K64.9 Unspecified hemorrhoids; R53.81 Other malaise; E83.59 Other disorders of calcium metabolism; N29 Other disorders of kidney and ureter in diseases classified elsewhere; G90.9 Disorder of the autonomic nervous system, unspecified; K21.9 Gastro-esophageal reflux disease without esophagitis; G62.9 Polyneuropathy, unspecified; Z79.52 Long term (current) use of systemic steroids; Z79.631 Long term (current) use of antimetabolite agent; Z79.899 Other long term (current) drug therapy
CPT/HCPCS: 36415; 74176; 80048; 80053; 81001; 82306; 82340; 82507; 82570; 82652; 83690; 83735; 83945; 83970; 84105; 84133; 84156; 84300; 84443; 85025; 85027; 85652; 86140; 97161; 99285; J0131; J1100; J1171; J1200; J2470; J7120

== ENCOUNTER → 2025-01-23 13:32 | Outpatient (BNV) | payer OTHER, SELFPAY | PROVIDERS: Emergency Provider Emergency Medicine; PCP Physician Assistant; Visit Provider Radiology Diagnostic Radiology | DX: E83.59 Other disorders of calcium metabolism (principal); Z90.710 Acquired absence of both cervix and uterus | CPT/HCPCS: 74176 ==

== ENCOUNTER → 2025-01-23 16:55 | Outpatient (BNV) | payer OTHER, SELFPAY | PROVIDERS: Admitting Provider Internal Medicine; Emergency Provider Emergency Medicine; PCP Physician Assistant; Visit Provider Internal Medicine | DX: R10.9 Unspecified abdominal pain (principal); N20.0 Calculus of kidney; M32.14 Glomerular disease in systemic lupus erythematosus; G90.9 Disorder of the autonomic nervous system, unspecified | CPT/HCPCS: 99223; 99232 ==

== ENCOUNTER 2025-01-27 09:00 | Outpatient (BNV) | payer OTHER, SELFPAY | END 2025-02-03 11:17 | PROVIDERS: Admitting Provider Internal Medicine; Emergency Provider Emergency Medicine; PCP Physician Assistant; Visit Provider Radiology Diagnostic Radiology | DX: R10.9 Unspecified abdominal pain (principal) | CPT/HCPCS: 74176 ==

== ENCOUNTER → 2025-01-27 09:00 | Outpatient (BNV) | payer OTHER, SELFPAY | PROVIDERS: Admitting Provider Internal Medicine; Emergency Provider Emergency Medicine; PCP Physician Assistant; Visit Provider Nurse Practitioner Family | DX: R10.9 Unspecified abdominal pain (principal) | CPT/HCPCS: 99221 ==

== ENCOUNTER 2025-03-22 22:04 | Observation (INO) | payer OTHER, SELFPAY ==
--- OUTSIDE RECORDS SUMMARY | 2025-03-19 13:40 | XMS_ITS | Encounter Summary ---
Author Organization [facility] Address [address] [place] [address] Care Team Providers Care Ring Sewer Name Role Phone Santino Palomino Primary Care Provider [phone] Reason for Visit * Consultation (Routine) - Authorized Specialty Diagnoses / Procedures Referred By David marr Referred To Contact Rheumatology Diagnoses lupus Procedures FOLLOW UP [address] [address] Adonis Peterson MD [address] [place] [address] Phone: tel: fax: Referral ID Status Reason Start Date Expiration Date V isits Requested Visits Authorized [id number] Authorized 03/19/2025 09/18/2026 6 6 Encounter Details Date Type Department Care Team (Late st Contact Info) Description 03/19/2025 1:40 PM EDT Follow-Up [facility] [address] [place] [address] Laboratory Coordinator: Adonis Stone MD [address] [place] [address] [phone] web content executive current use of systemic steroids (Primary Dx); SLE (systemic lupus erythematosus related syndrome) Social History Tobacco Use Types Packs/Day Years Used Date Smoking Tobacco: Never Passive Smoke Exposure: Never Smokeless Tobacco: Never Tobacco Cessation:Counseling Given: Not Answered Alcohol Use Standard Drinks/Week Comments Not Currently 0 (1 standard drink = 0.6 oz pur e alcohol) [facility] Utilities Answer Date Recorded In the past 12 months has [employer], gas, oil, or water company threatened to [...] AM EDT documented as of this encounter Last Filed Vital Signs Vital Sign Reading Time Taken Comments Blood Pressure 98/72 03/19/2025 1:42 PM EDT Pulse 96 03/19/2025 1:42 PM EDT Temperature - - Respiratory Rate 18 03/19/2025 1:42 PM EDT Oxygen Saturation 96% 03/19/2025 1:42 PM EDT Inhaled Oxygen Concentration - - Weight 78.9 kg (174 lb) 03/19/2025 1:42 PM EDT Height 160 cm (5' 3 ) 03/19/2025 1:42 PM EDT Body Mass Index 30.82 03/19/2025 1:42 PM EDT documented in this encounter Progress Notes * Adonis Peterson MD - 03/19/2025 1:54 PM EDT The provider would like to use a new technology product that will automatically document your encounter based on a recording of your conversation today. This will allow them to spend more time focused on you. Is it okay with you if we record your conversation? - Patient consents to be recorded by the [employer] system. History of Present Illness The patient is a female who presents for chronic pain, especially kidney pain, profound fatigue, presumptive lupus. She has been experiencing intermittent kidney pain, alternating between the right and left kidneys,but predominantly in the left kidney over the past year. A cystoscopy revealed blood originating from her ureters, more so from the left than the right. Her eGFR has been decreasing, with recent readings around 57, down from previous readings above 90. She also notes that her blood pressure is typically low, around 98 systolic, which she attributes to her [place]'s disease. She has been monitoring her urine at home and has noticed trace amounts of protein, a new development for her. A 24-hour urine test confirmed the presence of protein and high glucose levels, which she suspects may be related to her steroid use. She has been experiencing nausea and vomiting, with a recent episode on Sunday. Her symptoms have been fluctuating, with periods of relief followed by weeks of discomfort. She has been dealing with these issues for several years, but they have been worsening recently. She has been on a regimen of 30 mg of steroids daily, which she has been gradually reducing due to concerns about toxicity. She is currently on 10 mg of prednisone and is also taking hydroxychloroquine, Benlysta, and methotrexate 15 mg daily. She has been experiencing widespread pain with flare-ups, fatigue, and other symptoms. She has tried various medications, including Cymbalta, but has not found them h elpful. She has been experiencing shortness of breath, particularly when climbing stairs, and occasional joint flare-ups and sausage fingers. She has also experienced hair loss and scabby rashes, which have improved since starting Benlysta. POS: malar rash, photosensitivity, aphthous ulcers, dry eyes, mouth, joint pains, migraines, visualdisturbance, atypical chest pains, history of abnormal blood counts, kidney problems Kidney biopsy Dec 2024: Thin glomerular basement membranes are typically the manifestation of a hereditary abnormality in glomerular basement membrane collagens, and generally lead to non-progressive, benign but persistent microscopic hematuria. Ultrastructural features of [place] syndrome are not present. Physical examination Appeared unwell, cushingoid, ecchymotic. Malar erythema. No clinically evident manifestations typical of systemic rheumatologic disorders such as nodules, tophi, aphthae, livedo or other associated skin lesions, vasculitis. No finger clubbing, peripheral pulses were intact, external eye examination was normal, no thyromegaly, parotids normal. Musculoskeletal: No clinically evident synovial thickening or tenderness in any of the peripheral joints Tinel's Phalen's Lab Results Component Value Date ALT 64 (H) 12/18/2024 AST 30 12/18/2024 CREATININE 0.95 12/18/2024 Lab Results Component Value Date WBC 12.9 (H) 12/18/2024 HGB 13.0 12/18/2024 HCT 38.7 12/18/2024 MCV 91.3 12/18/2024 PLT 253 12/18/2024 Lab Results Component Value Date CRP <3.0 12/04/2024 Lab Results Component Value Date SEDRATE 8 12/04/2024 Assessment & Plan Long discussion today about her situation, prominent manifestations especially pain fatigue and other diverse manifestations which have predicated the presumption of lupus-like disorder though the lab test did not consistently confirmatory. Moreover the symptoms have not convincingly responded to tr eatment, though she does report some aspects improving eventually after instituting Benlysta. Discussed the potential to seek an additional perspective. Clear imperative to minimize her dose of prednisone and maintain a consistent daily low-dose. She is eager to continue the Benlysta and methotrexate which she has tolerated well. Discussed rituximab though it would be good to have a fresh perspective before proceeding down that route. documented in this encounter Plan of Treatment Upcoming Encounters Date Type Department Care Team (Late st Contact Info) Description 04/17/2025 9:45 AM EST Appointment [facility] Building [facility] Density [address] [place] [address] Scheduled Orders Name Type Priority Associated Diagnoses Orde r Schedule C-Reactive Protein Lab Routine shelter current use of systemic steroids SLE (systemic lupus erythematosus related syndrome) Expected: 03/19/2025, Expires: 03/19/2026 Comprehensive Metabolic Panel Lab Routine web content executive current use of systemic steroids SLE (systemic lupus erythematosus related syndrome) Expected: 03/19/2025, Expires: 03/19/2026 Rheumatoid Factor Lab Routine shelter current use of systemic steroids SLE (systemic lupus erythematosus related syndrome) Expected: 03/19/2025, Expires: 03/19/2026 ANAlyzeR OFE, IFA w/Rfx Ttr/Pat, Systemic Autoimmune Panel 1 (includes OFE, IFA w/Rfx, DNA (ds) w/Rfx to Ttr, Chromatin, Sm, SM/MEDICAL STAFFING COORDINATOR, MEDICAL STAFFING COORDINATOR, SSA, SSB, Scl70, Jo1, CENPB, C3c, C4c, Cardiolipin IgA/G/M, B2-GPI IgA/G/M, RF IgA/G/M, CCP IgG, MCV Ab Lab Routine shelter current use of systemic steroids SLE (systemic lupus erythematosus related syndrome) Ordered: 03/19/2025 Creatine Kinase Lab Routine shelter current use of systemic steroids SLE (systemic lupus erythematosus related syndrome) Expected: 03/19/2025, Expires: 03/19/2026 Aldolase Lab Routine shelter current use of systemic steroids SLE (systemic lupus erythematosus related syndrome) Ordered: 03/19/2025 Hemoglobin A1c Lab Routine shelter current use of systemic steroids SLE (systemic lupus erythematosus related syndrome) Expected: 03/19/2025, Expires: 03/19/2026 Sedimentation Rate Lab Routine web content executive current use of systemic steroids SLE (systemic lupus erythematosus related syndrome) Ordered: 03/19/2025 CBC Auto Differential Lab Routine shelter current use of systemic steroids SLE (systemic lupus erythematosus related syndrome) Expected: 03/19/2025, Expires: 03/19/2026 Complement C3 Lab Routine shelter current use of systemic steroids SLE (systemic lupus erythematosus related syndrome) Expected: 03/19/2025, Expires: 03/19/2026 Complement C4 Lab Routine shelter current use of systemic steroids SLE (systemic lupus erythematosus related syndrome) Expected: 03/19/2025, Expires: 03/19/2026 documented as of this encounter Visit Diagnoses Diagnosis web content executive current use of systemic steroids- Primary SLE (systemic lupus erythematosus related syndrome) Systemic lupus erythematosus documented in this encounter Care Teams Ring Sewer Relationship Specialty Start Date End Date Santino Palomino PA [address] [place] [address] PCP - General 11/02/23 documented as of this encounter
--- OUTSIDE RECORDS SUMMARY | 2025-03-19 13:40 | XMS_ITS | Encounter Summary ---
Author Organization [facility] Address [address] [place] [address] Care Team Providers Care Sweet Dough Mixer Name Role Phone Santino aPlomino Primary Care Provider [phone] Reason for Visit * Consultation (Routine) - Authorized Specialty Diagnoses / Procedures Referred By David marr Referred To Contact Rheumatology Diagnoses lupus Procedures FOLLOW UP [address] [address] Adonis Peterson MD [address] [place] [address] Phone: tel: fax: Referral ID Status Reason Start Date Expiration Date V isits Requested Visits Authorized [id number] Authorized 03/19/2025 09/18/2026 6 6 Encounter Details Date Type Department Care Team (Late st Contact Info) Description 03/19/2025 1:40 PM EDT Follow-Up [facility] [address] [place] [address] Crew Boat Operator: Adonis Stone MD [address] [place] [address] [id number] tool crib manager current use of systemic steroids (Primary Dx); SLE (systemic lupus erythematosus related syndrome) Social History Tobacco Use Types Packs/Day Years Used Date Smoking Tobacco: Never Passive Smoke Exposure: Never Smokeless Tobacco: Never Tobacco Cessation:Counseling Given: Not Answered Alcohol Use Standard Drinks/Week Comments Not Currently 0 (1 standard drink = 0.6 oz pur e alcohol) [facility] Utilities Answer Date Recorded In the past 12 months has [employer], gas, oil, or water company threatened to [...] Patient consents to be recorded by the [employer] system. History of Present Illness The patient [...] 98 systolic, which she attributes to her [place]'s disease. She has been monitoring her urine [...] Info) Description 04/17/2025 9:45 AM EST Appointment [facility] Building Bone Density [address] [place] [address] Scheduled Orders Name Type Priority Associated Diagnoses Orde r Schedule C-Reactive Protein Lab Routine correction current use of systemic steroids SLE (systemic lupus erythematosus related syndrome) Expected: 03/19/2025, Expires: 03/19/2026 Comprehensive Metabolic Panel Lab Routine tool crib manager current use of systemic steroids SLE (systemic lupus erythematosus related syndrome) Expected: 03/19/2025, Expires: 03/19/2026 Rheumatoid Factor Lab Routine correction current use of systemic steroids SLE (systemic lupus erythematosus related syndrome) Expected: 03/19/2025, Expires: 03/19/2026 ANAlyzeR OFE, IFA w/Rfx Ttr/Pat, Systemic Autoimmune Panel 1 (includes OFE, IFA w/Rfx, DNA (ds) w/Rfx to Ttr, Chromatin, Sm, SM/RADIO SCRIPT WRITER, RADIO SCRIPT WRITER, SSA, SSB, Scl70, Jo1, CENPB, C3c, C4c, Cardiolipin IgA/G/M, B2-GPI IgA/G/M, RF IgA/G/M, CCP IgG, MCV Ab Lab Routine correction current use of systemic steroids SLE (systemic lupus erythematosus related syndrome) Ordered: 03/19/2025 Creatine Kinase Lab Routine correction current use of systemic steroids SLE (systemic lupus erythematosus related syndrome) Expected: 03/19/2025, Expires: 03/19/2026 Aldolase Lab Routine correction current use of systemic steroids SLE (systemic lupus erythematosus related syndrome) Ordered: 03/19/2025 Hemoglobin A1c Lab Routine correction current use of systemic steroids SLE (systemic lupus erythematosus related syndrome) Expected: 03/19/2025, Expires: 03/19/2026 Sedimentation Rate Lab Routine tool crib manager current use of systemic steroids SLE (systemic lupus erythematosus related syndrome) Ordered: 03/19/2025 CBC Auto Differential Lab Routine correction current use of systemic steroids SLE (systemic lupus erythematosus related syndrome) Expected: 03/19/2025, Expires: 03/19/2026 Complement C3 Lab Routine correction current use of systemic steroids SLE (systemic lupus erythematosus related syndrome) Expected: 03/19/2025, Expires: 03/19/2026 Complement C4 Lab Routine correction current use of systemic steroids SLE (systemic lupus erythematosus related syndrome) Expected: 03/19/2025, Expires: 03/19/2026 documented as of this encounter Visit Diagnoses Diagnosis tool crib manager current use of systemic steroids- Primary SLE (systemic lupus erythematosus related syndrome) Systemic lupus erythematosus documented in this encounter Care Teams Sweet Dough Mixer Relationship Specialty Start Date End Date Santino Palomino PA [address] [place] [address] PCP - General 11/02/23 documented as of this encounter
[2025-03-22 22:07] VITALS: BP 110/87; PULSE 105; RESP 20; TEMP 36.6; O2SAT 95; BMI 29.8
--- OUTSIDE RECORDS SUMMARY | 2025-03-22 22:28 | XMS_ITS | Encounter Summary ---
Author Organization [facility] Address [address] [place] [address] Care Team Providers Care Motion Picture Cameraman Name Role Phone Santino Palomino Primary Care Provider [phone] Encounter Details Date Type Department Care Team (Late st Contact Info) Description 12/23/2024 Telephone [facility] Interventional Radiology [address] [place] [address] Traci Robertson RN Social History Tobacco Use Types Packs/Day Years Used Date Smoking Tobacco: Never Passive Smoke Exposure: Never Smokeless Tobacco: Never Alcohol Use Standard Drinks/Week Comments Not Currently 0 (1 standard drink = 0.6 oz pur e alcohol) [facility] Utilities Answer Date Recorded In the [...] Info) Description 04/17/2025 9:45 AM EST Appointment [facility] Building Bone Density [address] [place] [address] documented as of this encounter Visit Diagnoses Not on filedocumented in this encounter Care Teams Motion Picture Cameraman Relationship Specialty Start Date End Date Santino Palomino PA [address] [place] [address] PCP - General 11/02/23 documented as of this encounter
--- OUTSIDE RECORDS SUMMARY | 2025-03-22 22:28 | XMS_ITS | Encounter Summary ---
Author Organization [facility] Address [address] [place] [address] Phone Care Team Providers Care Corporate Lawyer Name Role Phone Santino Palomino PA-C Primary Care Provider [phone] Encounter Details Date Type Department Care Team (Late st Contact Info) Description 11/14/2024 Office Communication [facility] [address] [place] [phone] David Figueroa MD [address] [place] [phone] Social History Tobacco Use Types Packs/Day Years [...] Visit [facility] [address] [place] [phone] Robinson Enciso DO [address] [place] [address] documented as of this encounter Visit Diagnoses Not on filedocumented in this encounter Care Teams Corporate Lawyer Relationship Specialty Start Date End Date Santino Palomino PA-C [address] [place] [address] PCP - General Physician Making Line Worker 11/11/24 documented as of this encounter
--- OUTSIDE RECORDS SUMMARY | 2025-03-22 22:28 | XMS_ITS | Clinical Summary ---
Author Organization [facility] [address] [place] [address] Phone Care Team Providers Care Negative Cutter Name Role Phone Santino Palomino PA-C Primary Care Provider Social History Tobacco Use Types Packs/Day Years [...] Visit [facility] [place], [address] [place] [address] Robinson Enciso, [address] [place] [phone] Health Maintenance Due Date Last Done Comments Breast Cancer Screening 1970 Hepatitis B Vaccine (1 of 3 - 19+ 3-dose series) 12/11 Pneumococcal Vaccine: 50+ Years (1 of 2 - PCV) 991 Colorectal Cancer Screening: Annual FOBT 12/11/2020 Colorectal Cancer Screening: Colonoscopy 12/11/2020 Colorectal Cancer Screening: Sigmoidoscopy 12/11/2020 Influenza Vaccine (#1) 2025 Insurance [employer] Care Teams Negative Cutter Relationship Specialty Start Date End Date Santino Palomino PA-C [address] [place] [address] PCP - General Physician Cattle Dipper 11/11/24
--- OUTSIDE RECORDS SUMMARY | 2025-03-22 22:28 | XMS_ITS | Encounter Summary ---
Author Organization [facility] Address [address] [place] [address] Care Team Providers Care Production Broaching Machine Operator Name Role Phone Santino Palomino Primary Care Provider [phone] Reason for Visit * Reason Onset Date Comments PAC Rx Questions- 08/19/2024 Encounter Details Date Type Department Care Team (Late st Contact Info) Description 08/19/2024 Telephone [facility] [address] [place] [phone] Telephone Intake, Staff PAC Rx Questions- Social [...] 08/19/2024 10:15 AM EDT Alexey calling from [facility] pharmacy for patient Pt is established with Patient told pharmacy she was going to be switching over from [facility] & switching back to benlysta Pharmacy just needs someone to confirm Please contact pharmacy @ [phone] and you can ask for alexey Thank you PAC documented in this encounter Plan of Treatment Upcoming Encounters Date Type Department Care Team (Late st Contact Info) Description 04/17/2025 9:45 AM EST Appointment [facility] Building Bone Density [address] [place] [address] documented as of this encounter Visit Diagnoses Not on filedocumented in this encounter Care Teams Production Broaching Machine Operator Relationship Specialty Start Date End Date Santino Palomino PA [address] [place] [address] PCP - General 11/02/23 documented as of this encounter
--- OUTSIDE RECORDS SUMMARY | 2025-03-22 22:28 | XMS_ITS | Encounter Summary ---
Author Organization [facility] Address [address] [place] [address] Phone Care Team Providers Care Merchandise Manager Name Role Phone Santino Palomino PA-C Primary Care Provider [phone] Encounter Details Date Type Department Care Team (Late st Contact Info) Description 11/21/2024 Documentation Only [facility] [address] [place] [address] Ana Chau [address] [place] [address] Social History Tobacco Use Types [...] Visit [facility] [address] [place] [phone] Robinson Enciso DO [address] [place] [address] [place] [address] documented as of this encounter Visit Diagnoses Not on filedocumented in this encounter Care Teams Merchandise Manager Relationship Specialty Start Date End Date Santino Palomino PA-C [address] [place], [place] [phone] PCP - General Physician Post Hole Digger 11/11/24 documented as of this encounter
--- OUTSIDE RECORDS SUMMARY | 2025-03-22 22:28 | XMS_ITS | Clinical Summary ---
Author Organization [facility] Address [address] [place] [address] Care Team Providers Care Malware Analyst Name Role Phone Santino Palomino Primary Care Provider [phone] Allergies Active Allergy Reactions Criticality Noted Date Comments Metoclopramide Anxiety,Delirium High 11/11/2013 Metoclopramide Hcl Anaphylaxis,Dysphoria High 2023 Ondansetron Anaphylaxis,Dysphoria High 11/02/2023 Promethazine Anaphylaxis,Anxiety,Dysphoria High 11/2023 Medications * This document contains information received from the source organization and may not represent a complete record from that organization. Vyvanse 40 mg capsuleIndications :SLE (systemic lupus erythematosus related syndrome) Take 40 mg by mouth. 05/14/20 20 Active BD Luer-Ovi Syringe 3 mL 18 x 1 1/2 syringeIndications :SLE (systemic lupus erythematosus related syndrome) USE WITH SOLUMEDROL FOR ADRENAL CRISIS 10/03/19 24 Active gabapentin (NEURONTIN) 400 mg capsule SMARTSI Capsule(s) By Mouth Daily Active rimegepant ODT 75 mg (Nurtec ODT) 75 mg tablet,disintegrat ing disintegrating tabletIndications: Cervicalgia,Other forms of systemic lupus erythematosus, unspecified organ involvement status,Cognitive deficits,Other migraine without status migrainosus, not intractable Dissolve 1 tablet (75 mg total) in the mouth as needed (for really bad headache) for up to 9 doses. 9 tablet 07/07/19 25 Active Benlysta 400 mg recon soln IV solutionIndication s:SLE (systemic lupus erythematosus related syndrome) Infuse 5 mL (400 mg total) intravenously every 28 days. 5 mL 11 08/21/19 Active oxyCODONE IR (ROXICODONE) 10 mg tablet [...] for 1/2 hour after taking. 4 tablet 12/23/19 25 Active predniSONE (DELTASONE) 1 mg tablet Use as directed to facilitate slow prednisone taper 70 tablet 12/19/19 Active methotrexate (TREXALL) 2.5 mg tabletIndications: SLE (systemic lupus erythematosus related syndrome) Take 6 tablets (15 mg total) by mouth once a week. 72 each 12/23/[address] (CYMBALTA) 30 mg capsule Take 1 capsule (30 mg total) by mouth once a day. 30 capsule 12/20/19 Active Additional Information Patient not taking.Reported on 03/19/2025 predniSONE (DELTASONE) 20 mg tablet Take 24mg daily for 6 days (last day at that dose 12/24), then decrease by 1mg per week until you reach 10mg, then stay at that dose. 14 tablet 12/20/19 Active folic acid (FOLVITE) 1 mg tabletIndications: SLE (systemic lupus erythematosus related syndrome) TAKE 1 TABLET BY MOUTH EVERY DAY 30 tablet 5 02/20/20 Active hydroxychloroquine (PLAQUENIL) 200 mg tabletIndications: SLE (systemic lupus erythematosus related syndrome) Take 2 tablets (400 mg total) by mouth once a day. 60 tablet 02/20/20 Active Active Problems Problem Noted Date Diagnosed Date Flank pain 12/10/2024 Assessment & Plan (2024 3:29 PM EDT): Outpatient drive away driver concern for LPHS due to symptom presentation and complex rheumalogic history on multiple immunosuppressive agents. Lower suspicion as doers not have hematuria on latest UA. -Nephrology via [employer] secure chat said no further workup required inpatient, should follow-up outpatient Assessment & Plan (12/11/2024 5:26 PM EDT): Outpatient drive away driver concern for LPHS due to symptom presentation and complex rheumalogic history on multiple immunosuppressive agents. -Nephrology via [employer] said no further workup required inpatient, should [...] returned without gross or microscopic hematuria. Outpatient drive away driver concern for loin pain hematuria syndrome due [...] amenable to kidney biopsy; will follow-up with drive away driver outpatient Assessment & Plan (12/16/2024 3:03 PM [...] returned without gross or microscopic hematuria. Outpatient drive away driver concern for loin pain hematuria syndrome due [...] amenable to kidney biopsy; will follow-up with drive away driver outpatient Assessment & Plan (12/15/2024 1:42 PM [...] returned without gross or microscopic hematuria. Outpatient drive away driver concern for loin pain hematuria syndrome due [...] returned without gross or microscopic hematuria. Outpatient drive away driver concern for loin pain hematuria syndrome due [...] returned without gross or microscopic hematuria. 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 This is [...] her multiple autoimmune conditions, including Lupus and Pemiscot's disease, patient experiences chronic pain. This is [...] her multiple autoimmune conditions, including Lupus and Pemiscot's disease, patient experiences chronic pain. This is [...] her multiple autoimmune conditions, including Lupus and Pemiscot's disease, patient experiences chronic pain. This is [...] her multiple autoimmune conditions, including Lupus and Pemiscot's disease, patient experiences chronic pain. This is [...] her multiple autoimmune conditions, including Lupus and Pemiscot's disease, patient experiences chronic pain. This is medically managed by outpatient pain clinic with a multimodal regimen. -Continue home nightly gabapentin -Switch to home oral pain regimen 12/11 -1 mg IV Dilaudid q6H -Bowel regimen as above Assessment & Plan (12/10/2024 1:08 PM EDT): Home meds: gabapentin 400mg daily, Oxycodone 10mg q4h PRN pain Due to her multiple autoimmune conditions, including Lupus and Pemiscot's disease, patient experiences chronic pain. This is medically managed by outpatient pain clinic with a multimodal regimen. -Continue home nightly gabapentin -Switch to home oral pain regimen 12/11 -1 mg IV Dilaudid q6H -Bowel regimen as above Assessment & Plan (12/09/2024 5:23 PM EDT): Home meds: gabapentin 400mg daily, Oxycodone 10mg q4h PRN pain Due to her multiple autoimmune conditions, including Lupus and Pemiscot's disease, patient experiences chronic pain. This is [...] her multiple autoimmune conditions, including Lupus and Pemiscot's disease, patient experiences chronic pain. This is medically managed by outpatient pain clinic with a multimodal regimen. -Continue home nightly gabapentin -HOLD home oxycodone -1 mg IV Dilaudid Q4H d/c'd -Bowel regimen as above Assessment & Plan (12/06/2024 12:04 PM EDT): Home meds: gabapentin 400mg daily, Oxycodone 10mg q4h PRN pain Due to her multiple autoimmune conditions, including Lupus and Pemiscot's disease, patient experiences chronic pain. This is [...] her multiple autoimmune conditions, including Lupus and Pemiscot's disease, patient experiences chronic pain. This is [...] her multiple autoimmune conditions, including Lupus and Pemiscot's disease, patient experiences chronic pain. This is [...] with hx of seronegative lupus, managed by [facility] rheumatology, receives Benlysta infusions every [...] with hx of seronegative lupus, managed by [facility] rheumatology, receives Benlysta infusions every [...] with hx of seronegative lupus, managed by [facility] rheumatology, receives Benlysta infusions every [...] with hx of seronegative lupus, managed by [facility] rheumatology, receives Benlysta infusions every [...] with hx of seronegative lupus, managed by [facility] rheumatology, receives Benlysta infusions every [...] with hx of seronegative lupus, managed by [facility] rheumatology, receives Benlysta infusions every [...] with hx of seronegative lupus, managed by [facility] rheumatology, receives Benlysta infusions every [...] with hx of seronegative lupus, managed by [facility] rheumatology, receives Benlysta infusions every [...] with hx of seronegative lupus, managed by [facility] rheumatology, receives Benlysta infusions every [...] with hx of seronegative lupus, managed by [facility] rheumatology, receives Benlysta infusions every [...] with hx of seronegative lupus, managed by [facility] rheumatology, receives Benlysta infusions every [...] with hx of seronegative lupus, managed by [facility] rheumatology, receives Benlysta infusions every [...] with hx of seronegative lupus, managed by [facility] rheumatology, receives Benlysta infusions every [...] symptoms. -Weaning steroids -30mg IV solumedrol starting -20mg IV solumedral starting -Potentially PO steroids starting Sunday; defer to rheum Assessment & Plan (12/05/2024 1:20 PM EDT): Home meds: Belimumab 200mg/mL weekly, Benlysta 400mg IV q28 days, Hydroxychloroquine 200mg BID daily, Methotrexate 2.5mg weekly (self discontinued 3 weeks prior to admission), prednisone 15mg daily Patient with hx of seronegative lupus, managed by [facility] rheumatology, receives Benlysta infusions every [...] with hx of seronegative lupus, managed by [facility] rheumatology, receives Benlysta infusions every [...] with hx of seronegative lupus, managed by [facility] rheumatology, receives Benlysta infusions every [...] Thrush 10/11/2023 Graves' disease in remission 06/08/2003 Jun disease 12/15/1991 Assessment & Plan (12/17/2024 8:47 AM EDT): Home meds: Fludrocortisone 0.1mh/mL Patient with history of Pemiscot disease, under good control. Patient lab trends suggestive of mild adrenal insufficiency with hyponatremia, hyperkalemia, and high urine sodium iso chronic steroid use. -See Lupus for steroid plan Assessment & Plan (12/16/2024 8:33 AM EDT): Home meds: Fludrocortisone 0.1mh/mL Patient with history of Pemiscot disease, under good control. Patient lab trends suggestive of mild adrenal insufficiency with hyponatremia, hyperkalemia, and high urine sodium iso chronic steroid use. -See Lupus for steroid plan Assessment & Plan (12/15/2024 6:56 AM EDT): Home meds: Fludrocortisone 0.1mh/mL Patient with history of Pemiscot disease, under good control. Patient lab trends [...] meds: Fludrocortisone 0.1mh/mL Patient with history of Pemiscot disease, under good control. Patient lab trends suggestive of mild adrenal insufficiency with hyponatremia, hyperkalemia, and high urine sodium iso chronic steroid use. -See Lupus for steroid plan Assessment & Plan (2024 3:29 PM EDT): Home meds: Fludrocortisone 0.1mh/mL Patient with history of Pemiscot disease, under good control. Patient lab trends suggestive of mild adrenal insufficiency with hyponatremia, hyperkalemia, and high urine sodium iso chronic steroid use. -See Lupus for steroid plan Assessment & Plan (12/11/2024 5:26 PM EDT): Home meds: Fludrocortisone 0.1mh/mL Patient with history of Pemiscot disease, under good control. Patient lab trends suggestive of mild adrenal insufficiency with hyponatremia, hyperkalemia, and high urine sodium iso chronic steroid use. -Endocrine consulted, recs pending for steroid regimen and fludrocortisone -See Lupus for steroid plan Assessment & Plan (12/10/2024 5:31 PM EDT): Home meds: Fludrocortisone 0.1mh/mL Patient with history of Pemiscot disease, under good control. Patient lab trends suggestive of mild adrenal insufficiency with hyponatremia and abdominal pain iso chronic steroid use. -Endocrine consulted, recs pending -See Lupus for steroid plan Assessment & Plan (12/10/2024 1:08 PM EDT): Home meds: Fludrocortisone 0.1mh/mL Patient with history of Pemiscot disease, under good control. Patient lab trends [...] meds: Fludrocortisone 0.1mh/mL Patient with history of Pemiscot disease, under good control. -See Lupus for steroid plan Assessment & Plan (12/07/2024 7:15 AM EDT): Home meds: Fludrocortisone 0.1mh/mL Patient with history of Pemiscot disease, under good control. -See Lupus for steroid plan Assessment & Plan (12/06/2024 6:49 AM EDT): Home meds: Fludrocortisone 0.1mh/mL Patient with history of Pemiscot disease, under good control. -See Lupus for steroid plan Assessment & Plan (12/05/2024 1:20 PM EDT): Home meds: Fludrocortisone 0.1mh/mL Patient with history of Pemiscot disease, under good control. -See Lupus for steroid plan Assessment & Plan (12/04/2024 4:35 PM EDT): Home meds: Fludrocortisone 0.1mh/mL Patient with history of Pemiscot disease, under good control. -See Lupus for [...] SIADH vs. adrenal insufficiency. -Trend BMP -See Pemiscot disease for endocrine recs -Fluid restriction due [...] & Plan (11/02/2023 4:46 PM EDT): Her shake packer is: Rafael Mcdonough , I will endeavor [...] repeat in 4 weeks Liaise with her shake packer, who is: Rafael Mcdonough Transaminitis 10/12/2023 12/18/2024 [...] Encounters Date Type Department Care Team Description 03/19/2025 1:40 PM EDT Follow-Up [facility] [address] [place] [phone] Damaged Freight Inspector: Adonis Stone MD alf current use of systemic steroids (Primary Dx); SLE (systemic lupus erythematosus related syndrome) 02/18/2025 Refill [facility] [address] [place] [phone] Damaged Freight Inspector: Marie Giles MD Cervicalgia; Other forms of systemic lupus erythematosus, unspecified organ involvement status (HCC); Cognitive deficits; Other migraine without status migrainosus, not intractable 02/18/2025 Refill [facility] [address] [place] [phone] Damaged Freight Inspector: Adonis Stone MD SLE (systemic lupus erythematosus related syndrome) (HCC) 02/07/2025 myChart Message [facility] [address] [place] [phone] Damaged Freight Inspector: Adonis Stone MD Stopping prednisone 01/27/2025 Telephone [facility] [address] [place] [phone] Damaged Freight Inspector: Adonis Stone MD 01/19/2025 OZ SafeRoomshart Message [facility] [address] [place] [address] Damaged Freight Inspector: Adonis Stone MD Please help 01/13/2025 OZ SafeRoomshart Message [facility] [address] [place] [phone] Damaged Freight Inspector: Adonis Stone MD Last 3 weeks 01/08/2025 OZ [employer]Room[employer]art Message [facility] [address] [place] [phone] Damaged Freight Inspector: Adonis Stone MD Joao Masterson missed our appt 12/30/2024 Telephone [facility] Interventional Radiology [address] [place] [phone] Patricia Clements LPN 12/26/2024 10:05 AM EDT - 12/26/2024 11:59 PM EDT Hospital Encounter [facility] Ultrasound [address] [place] [phone] Richa Lorenz, Flank pain Discharge Disposition: Home or Self Care () 12/25/2024 Telephone [facility] Interventional Radiology [address] [place] [phone] Nicci Brown, ALBA 12/25/2024 OZ [employer]Roomshart Message [facility] [address] [place] [phone] Damaged Freight Inspector: Adonis Stone MD New Right Elbow bursitis 12/23/2024 Telephone [facility] Interventional Radiology [address] [place] [phone] Traci Robertson RN from Last 3 Months Social History Tobacco Use Types Packs/Day Years Used Date Smoking Tobacco: Never Passive Smoke Exposure: Never Smokeless Tobacco: Never Tobacco Cessation:Counseling Given: Not Answered Alcohol Use Standard Drinks/Week Comments Not Currently 0 (1 standard drink = 0.6 oz pur e alcohol) [facility] Utilities Answer Date Recorded In [...] Pulse 96 03/19/2025 1:42 PM EDT Temperature 36.8 C (98.2 F) 12/18/2024 7:39 AM EDT Respiratory Rate 18 03/19/2025 1:42 PM EDT Oxygen Saturation 96% 03/19/2025 1:42 PM EDT Inhaled Oxygen Concentration - - Weight 78.9 kg (174 lb) 03/19/2025 1:42 PM EDT Height 160 cm (5' 3 ) 03/19/2025 1:42 PM EDT Body Mass Index 30.82 03/19/2025 1:42 PM EDT Plan of Treatment Upcoming Encounters Date Type Department Care Team (Late st Contact Info) Description 04/17/2025 9:45 AM EST Appointment [facility] Building Bone Density [address] [place] [address] Health Maintenance Due Date Last Done Comments Cervical Cancer Screening 1971 Cologuard 1971 Colon Cancer Screening 1971 Colonoscopy 1971 FOBT / Fit Test 1971 HIV Screening 1971 HPV and Pap Smear 1971 Pap Smear 1971 Sigmoidoscopy 1971 Hepatitis B Vaccines (1 of 3 - 19+ 3-dose series) 12/11/1990 Mammogram 2011 Pneumococcal Vaccine: 50+ Ye ars (1 of 1 - PCV) 12/11/2021 Zoster Vaccines (1 of 2) 12/11/2021 Alcohol/Substance Use Screening 05/28/2024 Depression Screening and Follow-Up 05/28/2024 COVID-19 Vaccine (4 - 2024-2 6 season) 2025 05/18/2021, 10/07/2020, 09/16/2020 Influenza Vaccine (#1) 2025 Social Drivers of Health Sommer ual Screening 12/04/2025 12/04/2024 Diabetes Screening 12/19/2027 12/18/2024, 0 12/17/2024, 12/16/2024, Additional history exists DTaP,Tdap,and Td Vaccines (2 - Td or Tdap) 02/12/2030 02/13/2020 RSV Vaccine (60+ years old a nd patients) (1 - 1-dose 75+ series) 12/11/2046 Hepatitis C Screening Completed 12/09/2024 Procedures * Due to [place] state law, this organization might not be sharing negative HIV tests. Procedure Name Priority Date/Time Associated Diagnosis Comments US GUIDED BIOPSY KIDNEY PERCUTANEOUS LEFT Routine 12/26/2024 11:32 AM EDT Flank pain TISSUE EXAM Routine 12/26/2024 11:28 AM EDT Flank pain BASIC METABOLIC PANEL Routine 12/18/2024 4:41 AM EDT HEPATITIS PANEL, ACUTE STAT 12/09/2024 11:14 AM EDT from Last 3 Months or Most Recently Relevant to Health Maintenance Results * Due to [place] state law, this organization might not be [...] y.o. female with a PMH of SLE, Pemiscot's disease, Grave's disease, who with left flank pain and hematuria which has been ongoing for several months, intermittently worse. She was admitted at [facility] 10/2024 with similar symptoms and treated for possible lupus flare with IV steroids. 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 ATTENDING: Dr. Gopal Tate MD, the Attending physician, was on site and available for the entire procedure. SECURITY PATROL OFFICER: Mahin Vazquez NP MEDICATIONS: Medications Medication Event [...] or other complication. us Richa Lorenz DO [facility] US PROCEDURES Final Resu lt * Tissue [...] Classification Working Group. Kid[employer] International (2018) 93, 5109-8919. CHRONICITY: # of glomeruli Global Sclerosis Segmental [...] structures. Deposits No deposits. Other No fibrils. [facility] MANUAL 5 10:13 AM [facility] at 1013 EDT Clinical History LEFT RENAL [facility] MANUAL 5 10:13 AM [facility] Gross Description 1. Renal Pelvis, Left Received fresh, labeled with the patient's name, MRN, date of , and left renal biopsy , are multiple gomez, cylindrical soft tissue cores (ranging from 0.6 x 0.1 x 0.1 cm to 1.7 x 0.1 x 0.1 cm). Bruise Trimmer sections are submitted in cassette 1A. 2. Kidney, Left Received fresh, labeled with the patient's name, MRN, date of , and left renal biopsy , are multiple gomez, cylindrical soft tissue cores (ranging from 0.6 x 0.1 x 0.1 cm to 1.7 x 0.1 x 0.1 cm). A physician representative section is submitted in Vinay's transport and forwarded to histology for immunofluorescence studies. 3. Kidney, Left Received fresh, labeled with the patient's name, MRN, date of , and left renal biopsy , are multiple gomez, cylindrical soft tissue cores (ranging from 0.6 x 0.1 x 0.1 cm to 1.7 x 0.1 x 0.1 cm). A physician representative section is submitted in glutaraldehyde and forwarded for electron microscopy. [facility] MANUAL 5 10:13 AM EDT [facility] Gross Description User Grossing complete by Marissa Starr on 12/26/2024 1:49 PM [facility] MANUAL 5 10:13 AM EDT e|tab [facility] Embedded Images [facility] MANUAL 5 10:13 AM EDT [facility] Disclaimer Some of these tests were developed and their performance characteristics determined by the [facility]operox[facility] of [facility]. They have not been cleared or approved [...] to perform high complexity clinical laboratory testing. [facility] MANUAL 5 10:13 AM EDT [email or web address] Resulting Agency Case was signed out at [facility], Department of Pathology, [employer] 3 CLIA [id number] [facility] MANUAL 5 10:13 AM EDT [email or web address] Report Header Surgical Pathology Report Case: [id number] Authorizing Provider: Richa Lorenz DO Collected: 12/26/2024 1128 Ordering Location: [facility] Ultrasound Received: 12/26/2024 1138 Pathologist: Jonny Messina MD Specimens: 1) - Renal Pelvis, Left, LEFT RENAL BIOPSY 2) - Kidney, Left 3) - Kidney, Left 10:13 AM EDT [facility] Tissue Entire left kidney / Unknown 12/26/2024 11:28 AM EDT 12/26/2024 11:38 AM EDT Comment:LEFT RENAL Tissue specimen (specimen) Entire left kidney / Unknown 12/26/2024 11:28 AM EDT 12/26/2024 11:38 AM EDT Tissue specimen (specimen) Entire left kidney / Unknown 12/26/2024 11:28 AM EDT 12/26/2024 11:38 AM EDT us Richa Lorenz DO LAB PATHOLOGY/CYTOLOGY ORDER MONET Final Result [facility] [address] [place] [address], [facility] [address] [place] [address] * (ABNORMAL) Basic metabolic panel (12/18/2024 4:41 AM EDT) NA 136 135 - 145 mmol/L 12/18/2024 5:15 AM EDT [facility] K 3.8 3.5 - 5.3 mmol/L 12/18/2024 5:15 AM EDT [facility] Cl 98 98 - 107 mmol/L 12/18/2024 5:15 AM EDT [facility] CO2 28 22 - 32 mmol/L 12/18/2024 5:15 AM EDT [facility] BUN 26(H) 7 - 23 mg/dL 12/18/2024 5:15 AM EDT [facility] Creatinine 0.95 0.50 - 1.20 mg/dL 12/18/2024 5:15 AM EDT [facility] Glucose 105(H) 65 - 99 mg/dL 12/18/2024 5:15 AM EDT [facility] Calcium 8.9 8.6 - 10.5 mg/dL 12/18/2024 5:15 AM EDT [facility] Anion Gap 10 5 - 15 12/18/2024 5:15 AM EDT [facility] eGFR 72 >=60 mL/min/1. 73m2 12/18/2024 5:15 AM EDT [facility] Comment:The estimated glomer [...] 4:41 AM EDT 12/18/2024 4:47 AM EDT Yudelka Hickman MD LAB BLOOD ORDERABLES Final Result [facility] [address] [place] [address], * Hepatitis Panel, Acute (12/09/2024 11:14 AM EDT) Hepatitis A IgM NON-REACT FINA NON-REACT FINA 12/10/2024 1:09 AM EDT [employer] [facility] Hepatitis B Surface Antigen NON-REACT FINA NON-REACT FINA 12/10/2024 1:09 AM EDT [facility] [facility] Hepatitis B Core Antibody NON-REACT FINA NON-REACT FINA 12/10/2024 1:09 AM EDT [facility] Hepatitis C Antibody NON-REACT FINA NON-REACT FINA 12/10/2024 1:09 AM EDT [facility] Comment: HCV antibody was non-reactive. There is no laboratory evidence of HCV infection. In most cases, no further action is required. However, if recent HCV exposure is suspected, a test for HCV RNA (test code 89169) is suggested. For additional information please refer to http://[facility].[employer]berHeart/faq/XNG71e6 (This link is being provided for informational/ educational purposes only.) For additional information, please refer to http://[facility]/faq/QUT133 (This link is being provided for informational/ educational purposes only.) Blood Structure of peripheral vein / Unknown Venipuncture / Unknown 12/09/2024 11:14 AM EDT 12/09/2024 11:[address] [facility] - 12/10/2024 1:09 AM EDT [facility] Received Date:[id number] Maisha Willett MD LAB BLOOD ORDERABLES Sarah l Result [facility] [address] [facility] 3[address] Floor, [place] [address], [facility] [address], [place] [address], from Last 3 Months or Most Recently Relevant to Health Maintenance Insurance [employer] PPO/EPO/IND Advance Directives * Full Code (Latest Code Status on File) Date Activated Date Inactivated Comments 12/04/2024 1:39 AM 12/18/2024 5:38 PM * Presumed Full Code Date Activated Date Inactivated Comments 12/03/2024 11:28 PM 12/04/2024 1:39 AM * Presumed Full Code Date Activated Date Inactivated Comments 12/03/2024 11:11 PM 12/03/2024 11:28 PM Care Teams Malware Analyst Relationship Specialty Start Date End Date Santino Palomino PA [address] [place] [address] PCP - General 11/02/23"
--- OUTSIDE RECORDS SUMMARY | 2025-03-22 22:28 | XMS_ITS | Clinical Summary ---
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, [facility] V28) Lupus (systemic lupus erythematosus) ([facility] V2 4, [facility] V28) Neri's disease Social History Tobacco Use Types Packs/Day Years Used Date Smoking Tobacco: Never Smokeless Tobacco: Current Tobacco Cessation:Ready to Q uit: Not Asked; Counseling Given: Not Answered Alcohol Use Standard Drinks/Week Comments Never 0 (1 standard drink = 0.6 oz pur e alcohol) Interpersonal Safety Answer Date Record ed Physical Abuse Unrecognized value 07/11/2024 Verbal Abuse Unrecognized value 07/11/2024 Comments Unknown Sex and Gender Information [...] Last Done Comments Breast Cancer Screening 1971 Colorectal Cancer Screening: Colonoscopy 1971 Hepatitis B Vaccines (1 of 3 - 19+ 3-dose series) 12/11/1990 Cervical Cancer Screening: P ap Smear 12/11/1992 Cholesterol Screening (Lipid Panel) 04/07/2021 HIV Screening 04/07/2021 Hepatitis C Screening 04/07/2021 Social Influencers of Health Screening 04/07/2021 Pneumococcal Vaccine: 50+ Years (1 of 1 - PCV) 12/11/2021 RSV Immunization Adult Patients (1 - Risk 50-74 years 1-dose series) 12/11/2021 Zoster Vaccines (1 of 2) 12/11/2021 Depression Screening 05/28/2024 COVID-19 Vaccine (4 - 2024-2 6 season) 2025 05/18/2021, 10/07/2020, 09/16/2020 Influenza Vaccine (#1) 2025 DTaP,Tdap,and Td Vaccines [...] currently active code status orders. Care Teams Ball Winder Relationship Specialty Start Date End Date Mejia Triplett PA [address] [place] [address] PCP - General Occupational Medicine 02/15/18
--- NOTE | 2025-03-22 22:59 | PC.NURSE ---
assumed care of pt, port accessed on R by ALBA Kennedy, this RN at bedside. pt reports 10/10 kidney pain w/ nausea. respirations even and unlabored.
[2025-03-22 23:00] LABS: MANUAL DIFF FLAG NO
[2025-03-22 23:02] LABS: Hematocrit 42.3 % (37.0-47.0); Hemoglobin 14.3 g/dl (12.0-16.0); Imm Gran Abs Auto 0.03 X10*3/uL (0.00-0.03); Imm Gran Pct Auto 0.4 % (0.0-0.4); Lymphocytes Absolute Auto 1.1 X10*3/uL (1.2-4.9); Mean Corpuscular HGB Conc 33.8 g/dl (31.0-35.0); Mean Corpuscular Hemoglobin 29.9 pg (27.0-33.0); Mean Corpuscular Volume 88.5 fL (80.0-98.0); NRBC Abs Auto 0.000 X10*3/uL (0.0-0.012); NRBC Pct Auto 0.0 /100WBC (0.0-0.2); Platelet Count 266 X10*3/uL (160-400); Red Blood Count 4.78 X10*6/uL (4.20-5.50); White Blood Count 6.8 X10*3/uL (4.8-10.8)
[2025-03-22 23:17] LABS: Alanine Aminotransferase 57 U/L (0-31); Albumin Level 4.3 g/dL (3.5-5.0); Alkaline Phosphatase 72 U/L (39-117); Anion Gap 12 (12-20); Aspartate Amino Transferase 50 U/L (5-31); Blood Urea Nitrogen 15 mg/dL (9-16); Calcium 9.9 mg/dL (8.4-10.2); Carbon Dioxide 25 mmol/L (22-29); Chloride 100 mmol/L (96-108); Creatinine Clr Calc Pharmacy 74.9; Estimated Glomerular Filt Rate > 60; Lipase 17 U/L (8-78); Magnesium 1.9 mg/dL (1.6-2.6); Potassium 4.2 mmol/L (3.3-5.1); Sodium 133 mmol/L (135-145); Total Protein 6.7 g/dL (6.5-8.0)
[2025-03-23] MEDS: Lactated Ringers 1,000 ML 999 ML IV (01:08)
--- NOTE | 2025-03-23 01:22 | PC.NURSE ---
pt medicated per MAR.
[2025-03-23] MEDS: Ketamine HCl/NS 100 MG/10 ML SYRINGE 23 MG IVPUSH (03:56)
[2025-03-23 03:59] VITALS: BP 126/81; PULSE 94; RESP 18; TEMP 36.6; O2SAT 95
--- NOTE | 2025-03-23 04:01 | PC.NURSE ---
provider Dr Thompson ordered 23 mg of ketamine for pain, unavailable in [facility], clau Reilly suggested we contact pharmacy. Pharmacy states the ketamine ordered as is was unavailable until morning. with charge accounts audit clerk we saw that we only had 50 mg available, this was pulled from [facility] through an override and wasted 27 mg, eaving 23 mg for pt, this was then put into a 50 cc bag and hung over 30 minutes.
--- NOTE | 2025-03-23 04:46 | MHC.EDTECH ---
T/W attempted to get a urine sample, pt is unable to go at this time, pt stated I will have to go soon T/W will re-attempt
--- NOTE | 2025-03-23 05:25 | ED.ABDPAIN ---
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 She states that ?steroids are running my life? and she feels as though she can not tolerate going below a certain threshold however, when she does go below that threshold, all of her symptoms flare up again and she can not tolerate the pain or vomiting. Unable to hold down anything today. Last dose of pain medication was around 2:00 p.m.. Since that time has had severe abdominal pain and vomiting. No aldo hematuria. No bowel changes. Last bowel movement was 2 days ago. No reported hematochezia. No reported fever, chest pain, cough or cold-type symptoms. She has an appointment with her public policy coordinator on Sunday to ?figure this out once and for all?. Related Data Home Medications ?Medication ?Instructions ?Recorded ?Confirmed calcium carbonate (Calcium 500) 500 mg PO BID 12/02/24 01/23/25 fludrocortisone 0.1 mg tablet 0.1 mg PO DAILY 12/02/24 12/27/24 folic acid 1 mg tablet 1 mg PO DAILY 12/02/24 01/23/25 gabapentin 400 mg capsule 400 mg PO BEDTIME 12/02/24 01/23/25 hydroxychloroquine 200 mg tablet 400 mg PO DAILY 12/02/24 01/23/25 lisdexamfetamine 40 mg capsule 40 mg PO DAILY PRN ADHD 12/02/24 12/27/24 methotrexate sodium 2.5 mg tablet 15 mg PO FR 12/02/24 01/23/25 omeprazole 20 mg capsule,delayed 20 mg PO BEDTIME 12/02/24 01/23/25 release oxycodone 10 mg tablet 10 mg PO Q4H PRN Pain (Scale Score 12/02/24 01/23/25 4-6) vitamin A 3,000 mcg (10,000 unit) 3,000 mcg PO DAILY 12/02/24 01/23/25 capsule docusate sodium 100 mg capsule 200 mg PO DAILY 01/23/25 01/23/25 (Colace) prednisone 5 mg tablet See Rx Instructions .Route .COMPLEX 01/23/25 01/23/25 risedronate 35 mg tablet 35 mg PO MO@89901/23/25 01/23/25 semaglutide (weight loss) 1.7 1.7 mg subcut CLAROS@89901/23/25 01/23/25 mg/0.75 mL subcutaneous pen injector ([employer]) Allergies Allergy/AdvReac Type Severity Reaction Status Date / Time metoclopramide (From Reglan) Allergy Anaphylaxis Verified 03/22/25 22:12 ondansetron (From Zofran) Allergy Anaphylaxis Verified 03/22/25 22:12 prochlorperazine (From Allergy Anaphylaxis Verified 03/22/25 22:12 Compazine) promethazine (From Phenergan) Allergy Anaphylaxis Verified 03/22/25 22:12 Review of Systems Review of Systems as per HPI, full review of systems performed and negative but for the above mentioned pertinent positives and negatives. [facility] Past Medical History Medical History Systemic lupus erythematosus Lupus (systemic lupus erythematosus) Social History Social History Household Members: Significant Other Housing: House Do you presently have visiting nurse or other home services: No Patient Tobacco Use Status: Never used Tobacco Advance Directives: No Advance Directives Information Provided: No Do you have a plan to hurt others: No Plan service: No Physical Exam ED Exam Exam: GENERAL: Anxious, tearful. SKIN: Normal skin color for ethnicity, warm, dry, intact, no rashes noted. HEENT: Normocephalic, atraumatic, no stridor, posterior oropharynx nonerythematous, dentition intact, EOMI. NECK: Soft, supple, full ROM, midline structures nontender, no step-offs, no deformities, no lymphadenopathy. CHEST: Heart regular tachycardia, no murmurs, symmetric chest rise and fall, no crepitus. PULMONARY: Clear to auscultation bilaterally, no labored breathing, no wheezes/rhales/ rhonchi. ABDOMINAL: Soft, nondistended, diffusely tender to palpation without rebound or guarding, quiet bowel sounds in all quadrants. : Deferred. MUSCULOSKELETAL: Normal tone, full range of motion, no deformities, no peripheral edema. NEURO: Alert and oriented x3, CN II through XII intact, equal strength and sensation bilateral upper and lower extremities, no focal neurologic deficits. PSYCHIATRIC: Anxious affect, tearful, fluid speech, good eye contact and appropriate demeanor. Vital Signs: Vital Signs - 24 hr 03/22/25 22:07 03/23/25 03:59 Temperature 98 F 98 F Pulse Rate 105 H 94 Respiratory Rate 20 18 Blood Pressure 110/87 126/81 Pulse Oximetry 95 95 Oxygen Delivery Method Room Air Room Air BMI result Body Mass Index 29.8 Medical Decision Making Medical Decision Making MDM Narrative: Patient presented today with a chief complaint of flank pain.? Differential diagnosis is certainly broad and includes but is not limited to kidney stone, infection such as pyelonephritis, vascular pathology, among many others.? 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 She is on multiple medications including steroids which she has been trying to wean off of or at least go down to a lower dose. Admits that once she goes below 20 mg daily, she starts to have worsening symptoms however, feels as though steroids are ?slowly killing her? and she feels that she needs to have lower doses to survive. She has not vomited in my presence. Medicated with Haldol, Benadryl, Dilaudid. Patient with continued pain and nausea despite above interventions. We will give ketamine for pain. Attempted to discharge patient however, she states that she ?does not feel good about going home and is unwilling to take anything by mouth?. Feels as though ?she needs to be stabilized in the hospital?. Plan for admission to hospitalist for further care and evaluation. Holding off on steroids at this time. Her blood work is normal and she has normal vital signs and has been sleeping for the last several hours. Far as I can tell she has been comfortable and until she was about to be discharged, she had no complaints. No evidence of infection. Slightly elevated liver enzymes are baseline, likely in the setting of fatty liver disease. We will add on a CRP. She has no protein in or bacteria in her urine. Admitted in guarded condition. Differential Diagnosis Differential Diagnoses: The differential diagnosis associated with the presentation includes (as above) Admission/Observation Consideration of admission/observation: Escalation of care including admission/observation considered Consult Healthcare Provider Management of the patient was discussed with: Hospitalist Lab Data MDM Lab Attestation statement: I reviewed the patient's lab results. 03/22/25 22:55 03/22/25 22:55 Labs: Lab Results 03/22/25 Range/Units 22:55 WBC 6.8 (4.8-10.8) X10*3/uL RBC 4.78 (4.20-5.50) X10*6/uL Hgb 14.3 (12.0-16.0) g/dl Hct 42.3 (37.0-47.0) % MCV 88.5 (80.0-98.0) fL MCH 29.9 (27.0-33.0) pg MCHC 33.8 (31.0-35.0) g/dl RDW 14.3 (11.0-16.0) % Plt Count 266 D (160-400) X10*3/uL MPV 9.4 (9.4-12.3) fL Immature Gran % (Auto) 0.4 (0.0-0.4) % Neut % (Auto) 75.2 H (45-73) % Lymph % (Auto) 16.1 L (20-40) % [place] % (Auto) 7.5 (2-11) % Eos % (Auto) 0.4 (0-4) % Baso % (Auto) 0.4 (0-2) % Lymph # (Auto) 1.1 L (1.2-4.9) X10*3/uL [place] # (Auto) 0.5 (0.1-1.2) X10*3/uL Eos # (Auto) 0.0 (0.0-0.4) X10*3/uL Baso # (Auto) 0.0 (0.0-0.2) X10*3/uL Abs Immat Gran (auto) 0.03 (0.00-0.03) X10*3/uL Absolute Neuts (auto) 5.1 (2.0-8.3) x10*3/uL Absolute Nucleated RBC 0.000 (0.0-0.012) X10*3/uL Nucleated RBC % (auto) 0.0 (0.0-0.2) /100WBC Sodium 133 L (135-145) mmol/L Potassium 4.2 (3.3-5.1) mmol/L Chloride 100 (96-108) mmol/L Carbon Dioxide 25 (22-29) mmol/L Anion Gap 12 (12-20) BUN 15 (9-16) mg/dL Creatinine 0.85 (0.5-1.4) mg/dL Estim Creat Clear Calc 74.9 Estimated GFR > 60 Random Glucose 98 (60-115) mg/dL Calcium 9.9 D (8.4-10.2) mg/dL Magnesium 1.9 (1.6-2.6) mg/dL Total Bilirubin 0.7 (0.0-1.0) mg/dL AST 50 H (5-31) U/L ALT 57 H (0-31) U/L Alkaline Phosphatase 72 (39-117) U/L Total Protein 6.7 (6.5-8.0) g/dL Albumin 4.3 (3.5-5.0) g/dL Lipase 17 (8-78) U/L External Record Review External record reviewed: Inpatient record Chronic Conditions Patient?s care impacted by: Other (Jun's disease, lupus) Medications Administered Discontinued Medications Generic Name Dose Route Start Last Admin Trade Name Freq PRN Reason Stop Dose Admin Diphenhydramine HCl 50 mg 03/23/25 00:56 03/23/25 01:08 Diphenhydramine Hcl 50 Mg/Ml Vial IVPUSH 03/23/25 00:57 50 mg ONCE ONE Administration Haloperidol Lactate 5 mg 03/23/25 00:56 03/23/25 01:08 Haloperidol Lactate 5 Mg/Ml Vial IVPUSH 03/23/25 00:57 5 mg ONCE ONE Administration Hydromorphone HCl 1 mg 03/23/25 00:56 03/23/25 01:08 Hydromorphone Hcl 1 Mg/Ml Syringe IVPUSH 03/23/25 00:57 1 mg ONCE ONE Administration Protocol Lactated Ringer's 1,000 mls @ 999 mls/hr 03/23/25 00:56 03/23/25 02:54 Lr IV 03/23/25 01:56 Infused .Q1H1M ONE Infusion Ketamine HCl 23 mg 03/23/25 02:57 03/23/25 03:56 Ketamine Hcl/Ns 100 Mg/10 Ml Syringe IVPUSH 03/23/25 02:58 23 mg ONCE ONE Administration Ketamine HCl 23 mg 03/23/25 03:44 03/23/25 04:17 Ketamine Hcl/Ns 100 Mg/10 Ml Syringe IVPUSH 03/23/25 03:45 Not Given ONCE ONE Critical Care Time Critical Care Time Critical Care Time: Yes Total Critical Care Time: 35 Attestation: Time is exclusive of separately billable procedures. Time includes: direct patient care, patient reassessment, coordination of patient care, multiple re-dosing of IV pain medications, interpretation of data (laboratory data, pulse oximetry), review of patient's medical records, medical consultation and documentation of patient care. Procedures excluded from critical care time: central intravenous line placement and electrocardiography. Discharge Plan Discharge Clinical Impression: Chronic abdominal pain Patient Disposition: Admitted As Inpatient Additional Instructions: DIAGNOSIS & TREATMENT: You were seen in the Emergency Department for your abdominal pain. We performed lab work which did not reveal any acute abnormalities that would explain your symptoms. FURTHER CARE: We have not found any emergent physical exam or lab abnormalities that would require admission to the hospital today. Many people who come to the ER with abdominal pain do not leave with a specific diagnosis at the end of their visit. In the Emergency Department we try to make sure that there is no emergent problem that needs surgery or antibiotics right now. This does not mean that your evaluation is complete--please be sure to follow up with your regular doctor as additional testing as an outpatient may be indicated. Continue to take your medications as prescribed. Please be certain to drink plenty of fluids over the next several. You should advance your diet as tolerated. You may wish to start with the BRAT diet (bananas, rice, applesauce, toast). WHEN YOU SHOULD BE SEEN NEXT: Please follow-up with your primary care provider within the next 2-3 days for reevaluation of your symptoms. WHEN TO RETURN TO THE ED: Monitor your symptoms closely and return to the emergency department immediately for any new/worsening symptoms, worsening abdominal pain, pain which changes location (particularly if it moved to the right lower quadrant), nausea, vomiting, blood in your stool, black/tarry stools, chest pain, shortness of breath, fevers, chills, night sweats, you are unable to arrange follow-up care, or any other concerning symptoms. Print Language: Afghan
--- NOTE | 2025-03-23 05:45 | PC.NURSE ---
this RN attempted to give pt d/c instructions after provider explained. Pt states she wants to talk to provider again as she does not feel she is stable enough to go home as she is usually admitted. Provider advised.
[2025-03-23 05:57] LABS: Appearance Urine Clear; Glucose Urine UA Negative (Negative); PH 6.5 (5.0-9.0); Specific Gravity - Urine 1.010 (1.005-1.025); UMIC TRIGGER UACC YES
[2025-03-23 06:06] LABS: UACC Culture Trigger YES
[2025-03-23 08:21] VITALS: BP 118/83; PULSE 90; RESP 16; TEMP 36.8; O2SAT 96
--- NOTE | 2025-03-23 08:42 | PHA.MEDREC ---
Addendum entered by Rhett Wilkins [facility] 03/23/25 09:06: MED REC REVIEWED BY [facility] Original Note: Pharmacy Consult ? Medication Reconciliation Pharmacy has completed the medication reconciliation. Spoke with pt and she confirmed her medications. Pt here last 01/27-02/06 and stated there was no changes from that DC. Pt confirmed shes been taking Docusate BID, she still takes Fludrocortisone QD; claims shows LF 08/21 for 30 days as needed, her Dr changed the Hydroxychloroquine 200mg from 2 tabs daily to 1 tabs daily in the last week, pt confirmed her Lisdexamfetamine 40mg tab as needed and states she does not want to take those while being in the hospital, she takes her Methotrexate 15mg tab once a week on Fridays (Lt 03/20), she states she still takes Prednisone and her Dr told her to take 10mg QD now until told otherwise in the last week, she takes Risedronate once a week on (Lt 03/17) and she takes Wegovy once a week on (Lt 03/21).
[2025-03-23 09:13] VITALS: BP 97/54; PULSE 84; RESP 16; TEMP 36.4; O2SAT 97
--- OUTSIDE RECORDS SUMMARY | 2025-03-23 13:49 | XMS_ITS | Clinical Summary ---
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 Care Teams Material Reprocessing Associate Relationship Specialty Start Date End Date Mejia Triplett PA [address] [place] [address] PCP - General Occupational Medicine 02/15/18
--- OUTSIDE RECORDS SUMMARY | 2025-03-23 13:49 | XMS_ITS | Encounter Summary ---
Author Organization [facility] Address [address] [place] [address] Phone Care Team Providers Care Prep Manager Name Role Phone Sanitno Palomino PA-C Primary Care Provider [phone] Encounter Details Date Type Department Care Team (Late st Contact Info) Description 11/14/2024 Office Communication [facility] [address] [place] [phone] David Figueroa MD [address] [place] [phone] Social History Tobacco Use Types Packs/Day Years [...] Visit [facility] [address] [place] [id number] Robinson Enciso DO [address] [place] [address] documented as of this encounter Visit Diagnoses Not on filedocumented in this encounter Care Teams Prep Manager Relationship Specialty Start Date End Date Santino Palomino PA-C [address] [place] [address] PCP - General Physician Van Cdl Driver 11/11/24 documented as of this encounter
--- OUTSIDE RECORDS SUMMARY | 2025-03-23 13:49 | XMS_ITS | Encounter Summary ---
Author Organization [facility] Address [address] [place] [address] Care Team Providers Care Truck Driver Rubbish Collector Name Role Phone Santino Palomino Primary Care Provider [phone] Reason for Visit * Reason Onset Date Comments PAC Rx Questions- 08/19/2024 Encounter Details Date Type Department Care Team (Late st Contact Info) Description 08/19/2024 Telephone [facility] [address] [place] [address] Telephone Intake, Staff PAC Rx Questions- Social [...] 08/19/2024 10:15 AM EDT Alexey calling from [facility] for patient Pt is established with Patient told pharmacy she was going to be switching over from [facility] & switching back to [facility] Pharm[facility] just needs someone to confirm Please contact pharmacy @ [phone] and you can ask for alexey Thank you PAC documented in this encounter Plan of Treatment Upcoming Encounters Date Type Department Care Team (Late st Contact Info) Description 04/17/2025 9:45 AM EST Appointment [facility] [address] [place] [address] documented as of this encounter Visit Diagnoses Not on filedocumented in this encounter Care Teams Truck Driver Rubbish Collector Relationship Specialty Start Date End Date Santino Palomino PA [address] [place] [address] PCP - General 11/02/23 documented as of this encounter
--- OUTSIDE RECORDS SUMMARY | 2025-03-23 13:49 | XMS_ITS | Encounter Summary ---
Author Organization [facility] Address [address] [place] [address] Care Team Providers Care Hepatology Physician Name Role Phone Snatino Palomino Primary Care Provider [phone] Encounter Details Date Type Department Care Team (Late st Contact Info) Description 12/23/[address] [facility] Interventional Radiology [address] [place] [address] Traci Robertson RN Social History Tobacco Use Types Packs/Day Years Used Date Smoking Tobacco: Never Passive Smoke Exposure: Never Smokeless Tobacco: Never Alcohol Use Standard Drinks/Week Comments Not Currently 0 (1 standard drink = 0.6 oz pur e alcohol) [facility] Utilities Answer Date Recorded In the [...] Info) Description 04/17/2025 9:45 AM EST Appointment [facility] [address] [place] [address] documented as of this encounter Visit Diagnoses Not on filedocumented in this encounter Care Teams Hepatology Physician Relationship Specialty Start Date End Date Santino Palomino PA [address] [place] [address] PCP - General 11/02/23 documented as of this encounter
--- OUTSIDE RECORDS SUMMARY | 2025-03-23 13:50 | XMS_ITS | Clinical Summary ---
Author Organization [facility] [address] [place] [address] Phone Care Team Providers Care Door Maker Name Role Phone Santino Palomino PA-C Primary [...] Visit [facility] [place], [address] [place] [address] Robinson Enciso, [address] [place] [id number] Health Maintenance Due Date Last Done Comments Breast Cancer Screening 1970 Hepatitis B Vaccine (1 of 3 - 19+ 3-dose series) 12/11 Pneumococcal Vaccine: 50+ Years (1 of 2 - PCV) 991 Colorectal Cancer Screening: Annual FOBT 12/11/2020 Colorectal Cancer Screening: Colonoscopy 12/11/2020 Colorectal Cancer Screening: Sigmoidoscopy 12/11/2020 Influenza Vaccine (#1) 2025 Insurance [employer] Care Teams Door Maker Relationship Specialty Start Date End Date Santino Palomino PA-C [address] [place] [address] PCP - General Physician Supervisor Final 11/11/24
--- OUTSIDE RECORDS SUMMARY | 2025-03-23 13:50 | XMS_ITS | Clinical Summary ---
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 Lower suspicion as doers not have hematuria on latest UA. 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 -Nephrology via Rayku said no further workup required inpatient, should [...] returned without gross or microscopic hematuria. Outpatient electronic heat seal operator concern for loin pain hematuria syndrome due [...] amenable to kidney biopsy; will follow-up with electronic heat seal operator outpatient Assessment & Plan (12/16/2024 3:03 PM [...] returned without gross or microscopic hematuria. 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 This is [...] her multiple autoimmune conditions, including Lupus and Orange's disease, patient experiences chronic pain. This is [...] her multiple autoimmune conditions, including Lupus and Orange's disease, patient experiences chronic pain. This is [...] her multiple autoimmune conditions, including Lupus and Orange's disease, patient experiences chronic pain. This is [...] her multiple autoimmune conditions, including Lupus and Orange's disease, patient experiences chronic pain. This is [...] her multiple autoimmune conditions, including Lupus and Orange's disease, patient experiences chronic pain. This is medically managed by outpatient pain clinic with a multimodal regimen. -Continue home nightly gabapentin -Switch to home oral pain regimen 12/11 -1 mg IV Dilaudid q6H -Bowel regimen as above Assessment & Plan (12/10/2024 1:08 PM EDT): Home meds: gabapentin 400mg daily, Oxycodone 10mg q4h PRN pain Due to her multiple autoimmune conditions, including Lupus and Orange's disease, patient experiences chronic pain. This is medically managed by outpatient pain clinic with a multimodal regimen. -Continue home nightly gabapentin -Switch to home oral pain regimen 12/11 -1 mg IV Dilaudid q6H -Bowel regimen as above Assessment & Plan (12/09/2024 5:23 PM EDT): Home meds: gabapentin 400mg daily, Oxycodone 10mg q4h PRN pain Due to her multiple autoimmune conditions, including Lupus and Orange's disease, patient experiences chronic pain. This is [...] her multiple autoimmune conditions, including Lupus and Orange's disease, patient experiences chronic pain. This is medically managed by outpatient pain clinic with a multimodal regimen. -Continue home nightly gabapentin -HOLD home oxycodone -1 mg IV Dilaudid Q4H d/c'd -Bowel regimen as above Assessment & Plan (12/06/2024 12:04 PM EDT): Home meds: gabapentin 400mg daily, Oxycodone 10mg q4h PRN pain Due to her multiple autoimmune conditions, including Lupus and Orange's disease, patient experiences chronic pain. This is [...] her multiple autoimmune conditions, including Lupus and Orange's disease, patient experiences chronic pain. This is [...] her multiple autoimmune conditions, including Lupus and Orange's disease, patient experiences chronic pain. This is [...] with hx of seronegative lupus, managed by [facility] rheumatology, receives Benlysta infusions every 28 days. [...] with hx of seronegative lupus, managed by [facility] rheumatology, receives Benlysta infusions every 28 days. [...] with hx of seronegative lupus, managed by [facility] rheumatology, receives Benlysta infusions every 28 days. [...] with hx of seronegative lupus, managed by [facility] rheumatology, receives Benlysta infusions every 28 days. [...] with hx of seronegative lupus, managed by [facility] rheumatology, receives Benlysta infusions every 28 days. [...] with hx of seronegative lupus, managed by [facility] rheumatology, receives Benlysta infusions every 28 days. [...] with hx of seronegative lupus, managed by [facility] rheumatology, receives Benlysta infusions every 28 days. [...] with hx of seronegative lupus, managed by [facility] rheumatology, receives Benlysta infusions every 28 days. [...] with hx of seronegative lupus, managed by [facility] rheumatology, receives Benlysta infusions every 28 days. [...] with hx of seronegative lupus, managed by [facility] rheumatology, receives Benlysta infusions every 28 days. [...] with hx of seronegative lupus, managed by [facility] rheumatology, receives Benlysta infusions every 28 days. [...] with hx of seronegative lupus, managed by [facility] rheumatology, receives Benlysta infusions every 28 days. [...] with hx of seronegative lupus, managed by [facility] rheumatology, receives Benlysta infusions every 28 days. [...] with hx of seronegative lupus, managed by [facility] rheumatology, receives Benlysta infusions every 28 days. [...] with hx of seronegative lupus, managed by [facility] rheumatology, receives Benlysta infusions every 28 days. [...] with hx of seronegative lupus, managed by [facility] rheumatology, receives Benlysta infusions every 28 days. [...] meds: Fludrocortisone 0.1mh/mL Patient with history of Orange disease, under good control. Patient lab trends suggestive of mild adrenal insufficiency with hyponatremia, hyperkalemia, and high urine sodium iso chronic steroid use. -See Lupus for steroid plan Assessment & Plan (12/16/2024 8:33 AM EDT): Home meds: Fludrocortisone 0.1mh/mL Patient with history of Orange disease, under good control. Patient lab trends suggestive of mild adrenal insufficiency with hyponatremia, hyperkalemia, and high urine sodium iso chronic steroid use. -See Lupus for steroid plan Assessment & Plan (12/15/2024 6:56 AM EDT): Home meds: Fludrocortisone 0.1mh/mL Patient with history of Orange disease, under good control. Patient lab trends [...] meds: Fludrocortisone 0.1mh/mL Patient with history of Orange disease, under good control. Patient lab trends suggestive of mild adrenal insufficiency with hyponatremia, hyperkalemia, and high urine sodium iso chronic steroid use. -See Lupus for steroid plan Assessment & Plan (2024 3:29 PM EDT): Home meds: Fludrocortisone 0.1mh/mL Patient with history of Orange disease, under good control. Patient lab trends suggestive of mild adrenal insufficiency with hyponatremia, hyperkalemia, and high urine sodium iso chronic steroid use. -See Lupus for steroid plan Assessment & Plan (12/11/2024 5:26 PM EDT): Home meds: Fludrocortisone 0.1mh/mL Patient with history of Orange disease, under good control. Patient lab trends suggestive of mild adrenal insufficiency with hyponatremia, hyperkalemia, and high urine sodium iso chronic steroid use. -Endocrine consulted, recs pending for steroid regimen and fludrocortisone -See Lupus for steroid plan Assessment & Plan (12/10/2024 5:31 PM EDT): Home meds: Fludrocortisone 0.1mh/mL Patient with history of Orange disease, under good control. Patient lab trends suggestive of mild adrenal insufficiency with hyponatremia and abdominal pain iso chronic steroid use. -Endocrine consulted, recs pending -See Lupus for steroid plan Assessment & Plan (12/10/2024 1:08 PM EDT): Home meds: Fludrocortisone 0.1mh/mL Patient with history of Orange disease, under good control. Patient lab trends [...] meds: Fludrocortisone 0.1mh/mL Patient with history of Orange disease, under good control. -See Lupus for steroid plan Assessment & Plan (12/07/2024 7:15 AM EDT): Home meds: Fludrocortisone 0.1mh/mL Patient with history of Orange disease, under good control. -See Lupus for steroid plan Assessment & Plan (12/06/2024 6:49 AM EDT): Home meds: Fludrocortisone 0.1mh/mL Patient with history of Orange disease, under good control. -See Lupus for steroid plan Assessment & Plan (12/05/2024 1:20 PM EDT): Home meds: Fludrocortisone 0.1mh/mL Patient with history of Orange disease, under good control. -See Lupus for steroid plan Assessment & Plan (12/04/2024 4:35 PM EDT): Home meds: Fludrocortisone 0.1mh/mL Patient with history of Orange disease, under good control. -See Lupus for [...] SIADH vs. adrenal insufficiency. 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: Rafael Mcdonough , I will endeavor [...] repeat in 4 weeks Liaise with her bench worker apprentice, who is: Rafael Mcdonough Transaminitis 10/12/2023 12/18/2024 [...] Team Description 03/19/2025 1:40 PM EDT Follow-Up [facility] [address] [place] [phone] Braille Teacher: Adonis Stone MD snf current use of systemic steroids (Primary Dx); SLE (systemic lupus erythematosus related syndrome) 02/18/2025 Refill [facility] [address] [place] [phone] Braille Teacher: Marie Giles MD Cervicalgia; Other forms of systemic lupus erythematosus, unspecified organ involvement status (HCC); Cognitive deficits; Other migraine without status migrainosus, not intractable 02/18/2025 Refill [facility] [address] [place] [phone] Braille Teacher: Adonis Stone MD SLE (systemic lupus erythematosus related syndrome) (HCC) 02/07/2025 myChart Message [facility] [address] [place] [phone] Braille Teacher: Adonis Stone MD Stopping prednisone 01/27/2025 Telephone [facility] [address] [place] [address] [phone] Braille Teacher: Adonis Stone MD 01/19/2025 Invisible Connecthart Message [facility] [address] [place] [address] Braille Teacher: Adonis Stone MD Please help 01/13/2025 Invisible Connecthart Message [facility] [address] [place] [phone] Braille Teacher: Adonis Stone MD Last 3 weeks 01/08/2025 Invisible Connecthart Message [facility] [address] [place] [address] [phone] Braille Teacher: Adonis Stone MD Joao Masterson missed our appt 12/30/2024 Telephone [facility] [address] [place] [phone] Patricia Clements LPN 12/26/2024 10:05 AM EDT - 12/26/2024 11:59 PM EDT Hospital Encounter [facility] Ul[facility] [address] [place] [phone] Richa Lorenz, Flank pain Discharge Disposition: Home or Self Care () 12/25/2024 Telephone [facility] [address] [place] [address] [phone] Nicci Brown, ALBA 12/25/2024 Invisible Connecthart Message [facility] [address] [place] [address] [phone] Braille Teacher: Adonis Stone MD New Right Elbow bursitis 12/23/2024 Telephone [facility] [address] [place] [address] [phone] Traci Robertson RN from Last 3 Months Social History Tobacco Use Types Packs/Day Years Used Date Smoking Tobacco: Never Passive Smoke Exposure: Never Smokeless Tobacco: Never Tobacco Cessation:Counseling Given: Not Answered Alcohol Use Standard Drinks/Week Comments Not Currently 0 (1 standard drink = 0.6 oz pur e alcohol) [facility] Utilities Answer Date Recorded In the [...] Info) Description 04/17/2025 9:45 AM EST Appointment [facility] [address] [place] [address] Health Maintenance Due Date Last Done Comments [...] Screening Completed 12/09/2024 Procedures * Due to [place] state law, this organization might not be [...] to Health Maintenance Results * Due to [place] state law, this organization might not be [...] y.o. female with a PMH of SLE, Orange's disease, Grave's disease, who with left flank pain and hematuria which has been ongoing for several months, intermittently worse. She was admitted at [facility] 10/2024 with similar symptoms and treated for possible lupus flare with IV steroids. 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 ATTENDING: Dr. Gopal Tate MD, the Attending physician, was on site and available for the entire procedure. OUT AND OUT CIGAR MAKER HAND: Mahin Vazquez NP MEDICATIONS: Medications Medication Event [...] or other complication. us Richa Lorenz DO [facility] US PROCEDURES Final Resu lt * Tissue [...] Classification Working Group. Kidney International (2018) 93, 9145-9843. CHRONICITY: # of glomeruli Global Sclerosis Segmental [...] structures. Deposits No deposits. Other No fibrils. [facility] MANUAL 5 10:13 AM [facility] at 1013 EDT Clinical History LEFT RENAL [facility] MANUAL 5 10:13 AM [facility] Gross Description 1. Renal Pelvis, Left Received fresh, labeled with the patient's name, MRN, date of , and left renal biopsy , are multiple gomez, cylindrical soft tissue cores (ranging from 0.6 x 0.1 x 0.1 cm to 1.7 x 0.1 x 0.1 cm). Gunstock Spray Unit Adjuster sections are submitted in cassette 1A. 2. Kidney, Left Received fresh, labeled with the patient's name, MRN, date of , and left renal biopsy , are multiple gomez, cylindrical soft tissue cores (ranging from 0.6 x 0.1 x 0.1 cm to 1.7 x 0.1 x 0.1 cm). A insurance healthcare representative section is submitted in Vinay's transport and forwarded to histology for immunofluorescence studies. 3. Kidney, Left Received fresh, labeled with the patient's name, MRN, date of , and left renal biopsy , are multiple gomez, cylindrical soft tissue cores (ranging from 0.6 x 0.1 x 0.1 cm to 1.7 x 0.1 x 0.1 cm). A insurance healthcare representative section is submitted in glutaraldehyde and forwarded for electron microscopy. [facility] MANUAL 5 10:13 AM EDT [facility] Gross Description User Grossing complete by Marissa Starr on 12/26/2024 1:49 PM [facility] MANUAL 5 10:13 AM EDT [employer] [facility] Embedded Images [facility] MANUAL 5 10:13 AM EDT [facility] Disclaimer Some of these tests were developed and their performance characteristics determined by the Immunoperoxidase/[facility] tology Laboratory of [facility]. They have not been cleared or [...] to perform high complexity clinical laboratory testing. [facility] MANUAL 5 10:13 AM EDT [facility] [employer] [employer] [facility] Resulting Agency Case was signed out at [facility], Department of Pathology, [employer] 3 CLIA [id number] [facility] MANUAL 5 10:13 AM EDT [facility] [employer] [employer] [facility] Report Header Surgical Pathology Report Case: [id number] Authorizing Provider: Richa Lorenz DO Collected: 12/26/2024 1128 Ordering Location: [facility] Received: 12/26/2024 1138 Pathologist: Jonny Messina MD Specimens: 1) - Renal Pelvis, Left, LEFT RENAL BIOPSY 2) - Kidney, Left 3) - Kidney, Left 10:13 AM EDT [facility] Tissue Entire left kidney / Unknown 12/26/2024 11:28 AM EDT 12/26/2024 11:38 AM EDT Comment:LEFT RENAL Tissue specimen (specimen) Entire left kidney / Unknown 12/26/2024 11:28 AM EDT 12/26/2024 11:38 AM EDT Tissue specimen (specimen) Entire left kidney / Unknown 12/26/2024 11:28 AM EDT 12/26/2024 11:38 AM EDT us Richa Lorenz DO LAB PATHOLOGY/CYTOLOGY ORDER MONET Final Result [facility] PATH[facility] LABORAT[facility] [address] [place] [address], [facility] LAB[facility]ORY [address] [place] [address] * (ABNORMAL) Basic metabolic panel (12/18/2024 4:41 AM EDT) NA 136 135 - 145 mmol/L 12/18/2024 5:15 AM EDT [facility] PATHOLOGY LABORATORY K 3.8 3.5 - 5.3 mmol/L 12/18/2024 5:15 AM EDT [facility] PATH[facility] LAB[facility] Cl 98 98 - 107 mmol/L 12/18/2024 5:15 AM EDT [facility] CO2 28 22 - 32 mmol/L 12/18/2024 5:15 AM EDT [facility] BUN 26(H) 7 - 23 mg/dL 12/18/2024 5:15 AM EDT [facility] PATHOLOG[facility] LAB[facility] Creatinine 0.95 0.50 - 1.20 mg/dL 12/18/2024 5:15 AM EDT [facility] Glucose 105(H) 65 - 99 mg/dL 12/18/2024 5:15 AM EDT [facility] Calcium 8.9 8.6 - 10.5 mg/dL 12/18/2024 5:15 AM EDT [facility] Anion Gap 10 5 - 15 12/18/2024 5:15 AM EDT [facility] eGFR 72 >=60 mL/min/1. 73m2 12/18/2024 5:15 AM EDT [facility] Comment:The estimated glomer ular [...] Hickman MD LAB BLOOD ORDERABLES Final Result [facility] [address] [place] [address], * Hepatitis Panel, Acute (12/09/2024 11:14 AM EDT) Hepatitis A IgM NON-REACT FINA NON-REACT FINA 12/10/2024 1:09 AM EDT elicit [facility] Hepatitis B Surface Antigen NON-REACT FINA NON-REACT FINA 12/10/2024 1:09 AM EDT elicit [facility] Hepatitis B Core Antibody NON-REACT FINA NON-REACT FINA 12/10/2024 1:09 AM EDT elicit [facility] Hepatitis C Antibody NON-REACT FINA NON-REACT FINA 12/10/2024 1:[email or web address] Comment: HCV antibody was non-reactive. There is no laboratory evidence of HCV infection. In most cases, no further action is required. However, if recent HCV exposure is suspected, a test for HCV RNA (test code 72971) is suggested. For additional information please refer to http://[employer].OpenCounter/faq/ZVC45f8 (This link is being provided for informational/ educational purposes only.) For additional information, please refer to http://[employer].OpenCounter/faq/AVS480 (This link is being provided for informational/ educational purposes only.) Blood Structure of peripheral vein / Unknown Venipuncture / Unknown 12/09/2024 11:14 AM EDT 12/09/2024 11:42 AM EDT [facility] 12/10/2024 1:09 AM EDT [facility] Received Date:[id number] Maisha Willett MD LAB BLOOD ORDERABLES Sarah l Result [facility] [address], [place] [address], elicit [facility] [address], [place] [address], from Last 3 Months or Most Recently [...] 11:11 PM 12/03/2024 11:28 PM Care Teams Online Content Editor Relationship Specialty Start Date End Date Santino Palomino PA [address] [place] [address] PCP - General 11/02/23
--- OUTSIDE RECORDS SUMMARY | 2025-03-23 13:50 | XMS_ITS | Encounter Summary ---
Author Organization [facility] Address [address] [place] [address] Phone Care Team Providers Care Weapons Electrical Engineering Officer Name Role Phone Santino Palomino PA-C Primary Care Provider [phone] Encounter Details Date Type Department Care Team (Late st Contact Info) Description 11/21/2024 Documentation Only [facility] [address] [place] [address] Ana Chau [address] [place] [address] Social History Tobacco Use Types [...] Visit [facility] [address] [place] [phone] Robinson Enciso DO [address] [place] [address] [place] [address] documented as of this encounter Visit Diagnoses Not on filedocumented in this encounter Care Teams Weapons Electrical Engineering Officer Relationship Specialty Start Date End Date Santino Palomino PA-C [address] [place], [place] [phone] PCP - General Physician Breeding Technician 11/11/24 documented as of this encounter
--- NOTE | 2025-03-23 15:12 | P.HPHOSP_ITS ---
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 She states that ?steroids are running my life? and she feels as though she can not tolerate going below a certain threshold however, when she does go below that threshold, all of her symptoms flare up again and she can not tolerate the pain or vomiting. Unable to hold down anything today. Last dose of pain medication was around 2:00 p.m.. Since that time has had severe abdominal pain and vomiting. No aldo hematuria. No bowel changes. Last bowel movement was 2 days ago. No reported hematochezia. No reported fever, chest pain, cough or cold-type symptoms. In ER, pain control inadequate. Decision to admit Review of Systems 2 Review of Systems: Denies chest pain Denies shortness of breath Denies nausea vomiting diarrhea Denies fever chills PMFSH Medical History Systemic lupus erythematosus Lupus (systemic lupus erythematosus) Social History Household Members: Significant Other Housing: House Do you presently have visiting nurse or other home services: No Patient Tobacco Use Status: Never used Tobacco Have you been hit, kicked, punched, or otherwise hurt by someone within the past year? If so, by whom?: No Do you feel safe in your current relationship?: Yes Is there a partner from a previous relationship who is making you feel unsafe now?: No Are you made to feel afraid or neglected: No Advance Directives: No Advance Directives Information Provided: No Do you have a plan to hurt others: No Plan Recently lost weight without trying: No Nutrition Risks: No Nutritional Risk Patient : No : No Poor oral hygiene: No service: No Meds Allergies Allergy/AdvReac Type Severity Reaction Status Date / Time metoclopramide (From Reglan) Allergy Anaphylaxis Verified 03/22/25 22:12 ondansetron (From Zofran) Allergy Anaphylaxis Verified 03/22/25 22:12 prochlorperazine (From Allergy Anaphylaxis Verified 03/22/25 22:12 Compazine) promethazine (From Phenergan) Allergy Anaphylaxis Verified 03/22/25 22:12 Active Medications: Current Medications Acetaminophen (Acetaminophen 325 Mg Tablet) 650 mg PO Q6H PRN PRN Reason: Pain, Mild 1-3,fever,headache Calcium Carbonate (Calcium Carbonate 750 Mg Tab.Chew) 750 mg PO Q4H PRN PRN Reason: Heartburn Diphenhydramine HCl (Diphenhydramine Hcl 50 Mg/Ml Vial) 25 mg IVPUSH Q4H PRN PRN Reason: Itching Last Admin: 03/23/25 11:57 Dose: 25 mg Docusate Sodium (Docusate Sodium 100 Mg Capsule) 100 mg PO BID [facility] Enoxaparin Sodium (Enoxaparin Sodium 40 Mg/0.4 Ml Syringe) 40 mg SUBCUT Q24H [facility] Fludrocortisone Acetate (Fludrocortisone Acetate 0.1 Mg Tablet) 0.1 mg PO DAILY [facility] Last Admin: 03/23/25 14:16 Dose: Not Given Folic Acid (Folic Acid 1 Mg Tablet) 1 mg PO DAILY [facility] Gabapentin (Gabapentin 400 Mg Capsule) 400 mg PO BEDTIME [facility] Hydromorphone HCl (Hydromorphone Hcl 1 Mg/Ml Syringe) 1 mg IVPUSH Q4H PRN; Protocol PRN Reason: Pain, Severe (Pain Scale 7-10) Last Admin: 03/23/25 12:00 Dose: 1 mg Hydroxychloroquine Sulfate (Hydroxychloroquine Sulfate 200 Mg Tablet) 200 mg PO DAILY [facility] Last Admin: 03/23/25 14:17 Dose: Not Given Magnesium Hydroxide (Milk Of Magnesia 30 Ml Oral.Susp) 30 ml PO DAILY PRN PRN Reason: Constipation Melatonin (Melatonin 3 Mg Tablet) 6 mg PO BEDTIME PRN PRN Reason: Insomnia Methotrexate (Methotrexate Sodium 2.5 Mg Tablet) 15 mg PO FR [facility] Non-Formulary Medication (Rimegepant [Nurtec Odt]) 75 mg PO DAILY PRN PRN Reason: headache Omeprazole (Omeprazole 20 Mg Capsule.Dr) 20 mg PO BEDTIME [facility] Oxycodone HCl (Oxycodone Hcl Immed Release 5 Mg Tablet) 10 mg PO Q4H PRN PRN Reason: Pain (Scale Score 4-6) Prednisone (Prednisone 10 Mg Tablet) 10 mg PO DAILY [facility] Last Admin: 03/23/25 14:17 Dose: Not Given Sodium Chloride (0.9 % Sodium Chloride Flush 3 Ml Syringe) 3 ml IVFLUSH QSHIFT [facility] Home Medications ?Medication ?Instructions ?Recorded ?Confirmed ?Last Taken ?Type calcium carbonate (Calcium 500) 500 mg PO BID 12/02/24 03/23/25 03/21/25 History fludrocortisone 0.1 mg tablet 0.1 mg PO DAILY 12/02/24 03/23/25 03/21/25 History folic acid 1 mg tablet 1 mg PO DAILY 12/02/2403/2303/21/25 History gabapentin 400 mg capsule 400 mg PO BEDTIME 12/02/24 1 03/21/25 History hydroxychloroquine 200 mg tablet 200 mg PO DAILY 12/0203/23/25 03/21/25 History lisdexamfetamine 40 mg capsule 40 mg PO DAILY PRN ADHD 12/02/24 03/23/25 Unknown History methotrexate sodium 2.5 mg tablet 15 mg PO FR 12/02/24 03/23/25 03/20/25 History omeprazole 20 mg capsule,delayed 20 mg PO BEDTIME 01/1903/23/25 03/21/25 History release oxycodone 10 mg tablet 10 mg PO Q4H PRN Pain (Scale Score 12/02/24 03/23/25 01/23/25 History 4-6) vitamin A 3,000 mcg (10,000 unit) 3,000 mcg PO DAILY 0 12/02/24 03/23/25 03/21/25 History capsule docusate sodium 100 mg capsule 100 mg PO BID 01/23/25 03/23/25 03/21/25 History (Colace) risedronate 35 mg tablet 35 mg PO TU@89901/23/2503/10/25 History semaglutide (weight loss) 1.7 1.7 mg subcut SA@89903/23/25 03/21/25 History mg/0.75 mL subcutaneous pen injector (Tarah) ondansetron 4 mg disintegrating 4 mg PO Q8H PRN nausea /vomiting 03/23/25 03/23/25 Unknown History tablet prednisone 10 mg tablet 10 mg PO DAILY 03/23/25 10/12/1903/21/25 History rimegepant 75 mg disintegrating 75 mg PO DAILY PRN hea dache 03/23/25 03/23/25 Unknown History tablet (Nurtec ODT) Physical Exam 2 Vital Signs and Narrative: Vital Signs: Last Vital Signs Temp 97.6 F 03/23/25 09:13 Pulse 84 03/23/25 09:13 Resp 16 03/23/25 09:13 BP 97/54 L 03/23/25 09:13 Pulse Ox 97 03/23/25 09:13 O2 Del Method Room Air 03/23/25 09:13 BMI result Body Mass Index 29.8 Const: Other: Awake alert no acute distress Resp: Other: Clear to auscultation bilaterally no rales rhonchi or wheezes Cardio: Other: No S4; positive S1-S2; no S3 murmurs rubs or gallops GI: Other: Soft nontender nondistended normoactive bowel sounds Extrem: Other: No edema bilaterally Results Labs 03/22/25 22:55 03/22/25 22:55 Labs: Laboratory Results - last 24 hr 03/22/25 03/23/25 22:55 05:49 MCV 88.5 MCH 29.9 MCHC 33.8 RDW 14.3 Plt Count 266 D MPV 9.4 Immature Gran % (Auto) 0.4 Neut % (Auto) 75.2 H Lymph % (Auto) 16.1 L [place] % (Auto) 7.5 Eos % (Auto) 0.4 Baso % (Auto) 0.4 Lymph # (Auto) 1.1 L [place] # (Auto) 0.5 Eos # (Auto) 0.0 Baso # (Auto) 0.0 Abs Immat Gran (auto) 0.03 Absolute Neuts (auto) 5.1 Absolute Nucleated RBC 0.000 Nucleated RBC % (auto) 0.0 Anion Gap 12 Estim Creat Clear Calc 74.9 Estimated GFR > 60 Random Glucose 98 Calcium 9.9 D Magnesium 1.9 Total Bilirubin 0.7 AST 50 H ALT 57 H Alkaline Phosphatase 72 C-Reactive Protein 0.62 H Total Protein 6.7 Albumin 4.3 Lipase 17 Urine Color Yellow Urine Appearance Clear Urine pH 6.5 Ur Specific [place] 1.010 Urine Protein Negative Urine Glucose (UA) Negative Urine Ketones Negative Urine Blood Negative Urine Nitrite Negative Ur Leukocyte Esterase Small (1+) H Urine RBC 0-2 Urine WBC 0-5 Ur Squamous Epith Cells 0-2 Urine Bacteria None Seen Hyaline Casts 0-2 Assessment and Plan (1) Chronic abdominal pain: Status: Acute (2) Autonomic dysfunction: Status: Acute Plan 54-year-old female with a history of lupus, [place]'s disease, GERD, neuropathy, chronic pain, recent hospitalization last month for 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 Pain poorly controlled in ER; decision to admit 1. Abdominal pain (in above backdrop) -consult renal -follow renals/divalent -no further imaging until seen by Nephrology 2. Lupus/[place]'s disease -stable and well compensated -continue outpatient therapies Lovenox Full code Patient will require overnight admission for pain control and renal evaluation Quality Stroke Does the patient have a stroke diagnosis?: No VTE Prior VTE?: No VTE Risk Level:: Medical - moderate - high VTE Device Contraindication: Treatment Not Indicated VTE Drug Contraindication: N/A - Med Ordered
[2025-03-23] MEDS: 0.9 % Sodium Chloride Flush 3 ML SYRINGE IVFLUSH ×2 (15:43→19:50)
--- NOTE | 2025-03-23 15:45 | MHC.CM.PN ---
PT REPORTS SHE LIVES WITH HER AND IS INDEPENDENT WITH SELF CARE SHE HAS ASPIRE FOR MONTHLY IV INFUSIONS COPY OF HCP REQUESTED PCP: RAZA FERRARO DCP: [facility] TO TRANSPORT
[2025-03-23 16:00] VITALS: BP 103/70; PULSE 81; RESP 19; TEMP 35.8; O2SAT 94
[2025-03-23 19:26] VITALS: BP 103/70; PULSE 96; RESP 18; TEMP 36.5; O2SAT 97
[2025-03-24 03:14] VITALS: BP 103/63; PULSE 102; RESP 18; TEMP 36.7; O2SAT 94
[2025-03-24 08:11] VITALS: BP 106/74; PULSE 92; RESP 18; TEMP 36.1; O2SAT 95
[2025-03-24] MEDS: 0.9 % Sodium Chloride Flush 3 ML SYRINGE IVFLUSH ×2 (08:14→15:17)
--- NOTE | 2025-03-24 13:10 | PM.CNNEP ---
History of Present Illness Reason for Consult Consult date: 03/24/25 Reason for consult: Evaluation of renal function and hematuria Chief Complaint Chief complaint: abd pain History of Present Illness Narrative: Domi is a 54-year-old woman who carries a diagnosis of SLE. She is on prednisone. She was on Benlysta which was later switched to saphleno. She believes she had side effects from sertraline a and this was discontinued. She has had microscopic hematuria. Apparently she underwent a kidney biopsy probably at [facility]. 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 In January she was admitted and evaluated for possible loin pain hematuria syndrome. She is on chronic opiate therapy. She has an appointment to see Dr. Enciso as an outpatient in the near future She has been admitted this time with flank pain. No gross hematuria. No no associated nausea or vomiting no dysuria. No diarrhea constipation. No fever no rash no joint pains. Review of Systems Constitutional: Denies fever(s) and Denies weight loss Cardiovascular: Denies chest pain Respiratory: Denies cough and Denies hemoptysis Gastrointestinal: Denies abdominal pain, Denies diarrhea and Denies nausea Denies focal weakness PMF Past Medical History Medical History Systemic lupus erythematosus Lupus (systemic lupus erythematosus) Social History Social History Household Members: Significant Other Housing: House Do you presently have visiting nurse or other home services: No Patient Tobacco Use Status: Never used Tobacco Currently Displaying Signs/Symptoms of Drug Intoxication Withdrawal: No Have you been hit, kicked, punched, or otherwise hurt by someone within the past year? If so, by whom?: No Do you feel safe in your current relationship?: Yes Is there a partner from a previous relationship who is making you feel unsafe now?: No Are you made to feel afraid or neglected: No Advance Directives: No Advance Directives Information Provided: No Do you have a plan to hurt others: No Plan Recently lost weight without trying: No Nutrition Risks: No Nutritional Risk Patient : No : No Poor oral hygiene: No service: No Meds Allergies Allergy/AdvReac Type Severity Reaction Status Date / Time metoclopramide (From Reglan) Allergy Anaphylaxis Verified 03/22/25 22:12 ondansetron (From Zofran) Allergy Anaphylaxis Verified 03/22/25 22:12 prochlorperazine (From Allergy Anaphylaxis Verified 03/22/25 22:12 Compazine) promethazine (From Phenergan) Allergy Anaphylaxis Verified 03/22/25 22:12 Active Medications: Current Medications Acetaminophen (Acetaminophen 325 Mg Tablet) 650 mg PO Q6H PRN PRN Reason: Pain, Mild 1-3,fever,headache Calcium Carbonate (Calcium Carbonate 750 Mg Tab.Chew) 750 mg PO Q4H PRN PRN Reason: Heartburn Diphenhydramine HCl (Diphenhydramine Hcl 50 Mg/Ml Vial) 25 mg IVPUSH Q4H PRN PRN Reason: Itching Last Admin: 03/24/25 09:14 Dose: 25 mg Docusate Sodium (Docusate Sodium 100 Mg Capsule) 100 mg PO BID [facility] Last Admin: 03/24/25 08:09 Dose: 100 mg Enoxaparin Sodium (Enoxaparin Sodium 40 Mg/0.4 Ml Syringe) 40 mg SUBCUT Q24H [facility] Last Admin: 03/24/25 10:54 Dose: 40 mg Fludrocortisone Acetate (Fludrocortisone Acetate 0.1 Mg Tablet) 0.1 mg PO DAILY [facility] Last Admin: 03/24/25 08:10 Dose: 0.1 mg Folic Acid (Folic Acid 1 Mg Tablet) 1 mg PO DAILY [facility] Last Admin: 03/24/25 08:09 Dose: 1 mg Gabapentin (Gabapentin 400 Mg Capsule) 400 mg PO BEDTIME [facility] Last Admin: 03/23/25 19:49 Dose: 400 mg Hydromorphone HCl (Hydromorphone Hcl 1 Mg/Ml Syringe) 1 mg IVPUSH Q6H PRN; Protocol PRN Reason: Pain, Severe (Pain Scale 7-10) Hydroxychloroquine Sulfate (Hydroxychloroquine Sulfate 200 Mg Tablet) 200 mg PO DAILY [facility] Last Admin: 03/24/25 08:10 Dose: 200 mg Magnesium Hydroxide (Milk Of Magnesia 30 Ml Oral.Susp) 30 ml PO DAILY PRN PRN Reason: Constipation Melatonin (Melatonin 3 Mg Tablet) 6 mg PO BEDTIME PRN PRN Reason: Insomnia Methotrexate (Methotrexate Sodium 2.5 Mg Tablet) 15 mg PO [facility] Non-Formulary Medication (Rimegepant [Nurtec Odt]) 75 mg PO DAILY PRN PRN Reason: headache Omeprazole (Omeprazole 20 Mg Capsule.Dr) 20 mg PO BEDTIME [facility] Last Admin: 03/23/25 19:49 Dose: 20 mg Oxycodone HCl (Oxycodone Hcl Immed Release 5 Mg Tablet) 10 mg PO Q4H PRN PRN Reason: Pain (Scale Score 4-6) Prednisone (Prednisone 10 Mg Tablet) 10 mg PO DAILY [facility] Last Admin: 03/24/25 08:10 Dose: 10 mg Sodium Chloride (0.9 % Sodium Chloride Flush 3 Ml Syringe) 3 ml IVFLUSH QSHIFT [facility] Last Admin: 03/24/25 08:14 Dose: 3 ml Home Medications ?Medication ?Instructions ?Recorded ?Confirmed ?Last Taken ?Type calcium carbonate (Calcium 500) 500 mg PO BID 12/02/24 03/23/25 03/21/25 History fludrocortisone 0.1 mg tablet 0.1 mg PO DAILY 12/02/24 03/23/25 03/21/25 History folic acid 1 mg tablet 1 mg PO DAILY 12/02/24 03/23/25 03/21/25 History gabapentin 400 mg capsule 400 mg PO BEDTIME 12/02/24 03/23/25 03/21/25 History hydroxychloroquine 200 mg tablet 200 mg PO DAILY 12/02/24 03/23/25 03/21/25 History lisdexamfetamine 40 mg capsule 40 mg PO DAILY PRN ADHD 12/02/24 03/23/25 Unknown History methotrexate sodium 2.5 mg tablet 15 mg PO FR 12/02/24 03/23/25 03/20/25 History omeprazole 20 mg capsule,delayed 20 mg PO BEDTIME 12/02/24 03/23/25 03/21/25 History release oxycodone 10 mg tablet 10 mg PO Q4H PRN Pain (Scale Score 12/02/24 03/23/25 01/23/25 History 4-6) vitamin A 3,000 mcg (10,000 unit) 3,000 mcg PO DAILY 12/02/24 03/23/25 03/21/25 History capsule docusate sodium 100 mg capsule 100 mg PO BID 01/23/25 03/23/25 03/21/25 History (Colace) risedronate 35 mg tablet 35 mg PO TU@0900 01/23/25 03/23/25 03/10/25 History semaglutide (weight loss) 1.7 1.7 mg subcut SA@0900 01/23/25 03/23/25 03/21/25 History mg/0.75 mL subcutaneous pen injector (Webradlyy) ondansetron 4 mg disintegrating 4 mg PO Q8H PRN nausea/vomiting 03/23/25 03/23/25 Unknown History tablet prednisone 10 mg tablet 10 mg PO DAILY 03/23/25 03/23/25 03/21/25 History rimegepant 75 mg disintegrating 75 mg PO DAILY PRN headache 03/23/25 03/23/25 Unknown History tablet (Nurtec ODT) Physical Exam Vital Signs: Last Vital Signs Temp 97.0 F 03/24/25 08:11 Pulse 92 03/24/25 08:11 Resp 18 03/24/25 08:11 BP 106/74 03/24/25 08:11 Pulse Ox 95 03/24/25 08:11 O2 Del Method Room Air 03/24/25 08:11 BMI result Body Mass Index 29.8 Const General: ill appearing Neck Neck: Yes supple Resp Auscultation: clear to auscultation bilaterally Cardio Palpation: no palpable S3 Heart sounds: no rubs GI Palpation (GI): Soft to palpation Auscultation: normal bowel sounds Neuro Motor exam (neuro): no asterixis Results Lab Results 03/22/25 22:55 03/22/25 22:55 Lab results: Chemistry 03/22/25 22:55 Sodium 133 L Potassium 4.2 Carbon Dioxide 25 BUN 15 Creatinine 0.85 Calcium 9.9 D Hematology 03/22/25 22:55 WBC 6.8 Hgb 14.3 Plt Count 266 D Urinalysis 03/23/25 05:49 Urine Color Yellow Urine Appearance Clear Urine pH 6.5 Ur Specific [place] 1.010 Urine Protein Negative Urine Glucose (UA) Negative Urine Ketones Negative Urine Blood Negative Urine Nitrite Negative Ur Leukocyte Esterase Small (1+) H Urine RBC 0-2 Urine WBC 0-5 Ur Squamous Epith Cells 0-2 Hyaline Casts 0-2 Assessment and Plan (1) Acute left flank pain: Status: Acute Plan Etiology for the flank/loin pain remains unclear. Urine appears benign. No significant hematuria or proteinuria. Renal function is stable with a creatinine of 0.8 mg/dL. History of SLE. She will repeat serologies. Track down kidney biopsy results. Concur with current medical management including hydration and analgesics. Procedures Date of Service Date of Service: 03/24/25
[2025-03-24] MEDS: oxyCODONE HCl Immed Release 5 MG TABLET 10 MG PO (13:30)
--- NOTE | 2025-03-24 14:43 | P.PNIM_ITS ---
Subjective Subjective Date of Service: 03/24/25 Interval History: No acute issues overnight. Essentially no change since admission Review of Systems Denies chest pain Denies shortness of breath Denies nausea vomiting diarrhea Denies fever chills Physical Exam 2 Vital Signs: Vital Signs: Last Vital Signs Temp 97.0 F 03/24/25 08:11 Pulse 92 03/24/25 08:11 Resp 18 03/24/25 08:11 BP 106/74 03/24/25 08:11 Pulse Ox 95 03/24/25 08:11 O2 Del Method Room Air 03/24/25 08:11 BMI result Body Mass Index 29.8 Const: Other: Awake alert no acute distress Resp: Other: Clear to auscultation bilaterally no rales rhonchi or wheezes Cardio: Other: No S4; positive S1-S2; no S3 murmurs rubs or gallops GI: Other: Soft nontender nondistended normoactive bowel sounds Extrem: Other: No edema bilaterally Objective Data Active Medications Acetaminophen (Acetaminophen 325 Mg Tablet) 650 mg PO Q6H PRN PRN Reason: Pain, Mild 1-3,fever,headache Calcium Carbonate (Calcium Carbonate 750 Mg Tab.Chew) 750 mg PO Q4H PRN PRN Reason: Heartburn Diphenhydramine HCl (Diphenhydramine Hcl 50 Mg/Ml Vial) 25 mg IVPUSH Q4H PRN PRN Reason: Itching Last Admin: 03/24/25 09:14 Dose: 25 mg Documented By: PERLA Docusate Sodium (Docusate Sodium 100 Mg Capsule) 100 mg PO BID [facility] Last Admin: 03/24/25 08:09 Dose: 100 mg Documented By: PERLA Enoxaparin Sodium (Enoxaparin Sodium 40 Mg/0.4 Ml Syringe) 40 mg SUBCUT Q24H [facility] Last Admin: 03/24/25 10:54 Dose: 40 mg Documented By: PERLA Fludrocortisone Acetate (Fludrocortisone Acetate 0.1 Mg Tablet) 0.1 mg PO DAILY [facility] Last Admin: 03/24/25 08:10 Dose: 0.1 mg Documented By: PERLA Folic Acid (Folic Acid 1 Mg Tablet) 1 mg PO DAILY [facility] Last Admin: 03/24/25 08:09 Dose: 1 mg Documented By: PERLA Gabapentin (Gabapentin 400 Mg Capsule) 400 mg PO BEDTIME [facility] Last Admin: 03/23/25 19:49 Dose: 400 mg Documented By: LIZET Hydromorphone HCl (Hydromorphone Hcl 1 Mg/Ml Syringe) 1 mg IVPUSH Q6H PRN; Protocol PRN Reason: Pain, Severe (Pain Scale 7-10) Hydroxychloroquine Sulfate (Hydroxychloroquine Sulfate 200 Mg Tablet) 200 mg PO DAILY [facility] Last Admin: 03/24/25 08:10 Dose: 200 mg Documented By: PERLA Magnesium Hydroxide (Milk Of Magnesia 30 Ml Oral.Susp) 30 ml PO DAILY PRN PRN Reason: Constipation Melatonin (Melatonin 3 Mg Tablet) 6 mg PO BEDTIME PRN PRN Reason: Insomnia Methotrexate (Methotrexate Sodium 2.5 Mg Tablet) 15 mg PO FR [facility] Non-Formulary Medication (Rimegepant [Nurtec Odt]) 75 mg PO DAILY PRN PRN Reason: headache Omeprazole (Omeprazole 20 Mg Capsule.Dr) 20 mg PO BEDTIME [facility] Last Admin: 03/23/25 19:49 Dose: 20 mg Documented By: LIZET Oxycodone HCl (Oxycodone Hcl Immed Release 5 Mg Tablet) 10 mg PO Q4H PRN PRN Reason: Pain (Scale Score 4-6) Last Admin: 03/24/25 13:30 Dose: 10 mg Documented By: PERLA Prednisone (Prednisone 10 Mg Tablet) 10 mg PO DAILY [facility] Last Admin: 03/24/25 08:10 Dose: 10 mg Documented By: PERLA Sodium Chloride (0.9 % Sodium Chloride Flush 3 Ml Syringe) 3 ml IVFLUSH QSHIFT [facility] Last Admin: 03/24/25 08:14 Dose: 3 ml Documented By: PERLA Labs 03/22/25 22:55 03/22/25 22:55 Microbiology Microbiology Results: Microbiology 03/23/25 Unknown Urine Culture - Final Urine clean catch - Clean Catch Midstream Assessment and Plan (1) Chronic abdominal pain: Status: Acute (2) Systemic lupus erythematosus: Status: Acute Plan 54-year-old female with a history of lupus, Jun's disease, GERD, neuropathy, chronic pain, recent hospitalization last month for 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 Pain poorly controlled in ER; decision to admit 1. 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
[2025-03-24 15:23] VITALS: BP 106/69; PULSE 92; RESP 19; TEMP 36.3; O2SAT 93
[2025-03-24 18:57] VITALS: BP 102/60; PULSE 103; RESP 18; TEMP 36.1; O2SAT 98
[2025-03-24 18:59] LABS: Appearance Urine Clear; Glucose Urine UA Negative (Negative); PH 6.5 (5.0-9.0); Specific Gravity - Urine 1.020 (1.005-1.025); UMIC TRIGGER UA YES
[2025-03-24 23:36] LABS: Total Protein Urine Random < 7 mg/dL (<12)
[2025-03-25 02:59] VITALS: BP 113/69; PULSE 92; RESP 18; TEMP 36.4; O2SAT 95
[2025-03-25 06:55] VITALS: BP 130/75; PULSE 94; RESP 17; TEMP 36.6; O2SAT 98
[2025-03-25] MEDS: 0.9 % Sodium Chloride Flush 3 ML SYRINGE IVFLUSH (07:59)
--- NOTE | 2025-03-25 11:10 | MHC.CM.PN ---
Addendum entered by Nohelia Montemayor 03/25/25 14:27: DC to home today self care. Her spouse will pick her up this afternoon. Original Note: Per MD rounds patient is ready to discharge today self care. She has arranged for her spouse to provide transportation home.
--- NOTE | 2025-03-25 13:13 | PM.DS ---
DS: Providers Provider Date of Service: 03/25/25 Date of admission: 03/23/25 06:08 Date of discharge: 03/25/25 Primary care physician: DANIEL Roe Consults: 03/23/25 15:18 Consult to Nephrology Routine Consulting Provider: [facility] Reason for consultation: flank pain Has provider been notified: No DS: Diagnosis Discharge Diagnosis (1) Chronic abdominal pain: Status: Acute (2) Systemic lupus erythematosus: Status: Acute DS: Summary Hospital Course Hospital Course: 54-year-old female with a history of lupus, Jun's disease, GERD, neuropathy, chronic pain, recent hospitalization last month for 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 She states that ?steroids are running my life? and she feels as though she can not tolerate going below a certain threshold however, when she does go below that threshold, all of her symptoms flare up again and she can not tolerate the pain or vomiting. Unable to hold down anything today. Last dose of pain medication was around 2:00 p.m.. Since that time has had severe abdominal pain and vomiting. No aldo hematuria. No bowel changes. Last bowel movement was 2 days ago. No reported hematochezia. No reported fever, chest pain, cough or cold-type symptoms. In ER, pain control inadequate. Decision to admit Hospital Course Patient admitted to general medical floor pain management was with Dilaudid and oxycodone. Initial workup unremarkable including labs and cultures. Patient was seen in consultation by renal; extensive lab work drawn inpatient has follow up with Dr. Enciso (nephrology) in 2 days. At this point in time she is medically acceptable to discharge without any medication changes. Further plans based on forthcoming data Time Attestation Discharge Coordination Time (in mins): 35 Quality: Safe Use of Opioids Does Pt have an Active Cancer Diagnosis on the Problem List?: No Quality: Stroke Does the patient have a stroke diagnosis?: No Physical Exam Vital Signs: Vital Signs: Last Vital Signs Temp 98 F 03/25/25 06:55 Pulse 94 03/25/25 06:55 Resp 17 03/25/25 06:55 BP 130/75 03/25/25 06:55 Pulse Ox 98 03/25/25 06:55 O2 Del Method Room Air 03/25/25 06:55 BMI result Body Mass Index 29.8 Const: Other: Awake alert no acute distress Resp: Other: Clear to auscultation bilaterally no rales rhonchi or wheezes Cardio: Other: No S4; positive S1-S2; no S3 murmurs rubs or gallops GI: Other: Soft nontender nondistended normoactive bowel sounds Extrem: Other: No edema bilaterally DS: Data Data Completed and Pending Labs on day of discharge: Laboratory Results - last 24 hr 03/24/25 03/24/25 13:38 Unknown C-React Prot High Sens 3.4 H Urine Color Dark Yellow Urine Appearance Clear Urine pH 6.5 Ur Specific [place]co 1.020 Urine Protein Negative Urine Glucose (UA) Negative Urine Ketones Negative Urine Blood Negative Urine Nitrite Negative Ur Leukocyte Esterase Moderate (2+) H Urine RBC 0-2 Urine WBC 6-10 H Ur Squamous Epith Cells 0-2 Urine Bacteria None Seen Hyaline Casts 0-2 U Random Total Protein < 7 Urine Creatinine 151.33 Discharge Plan Discharge Anticipated Discharge Date/Time: 03/25/25 13:04 Patient Disposition: Home, Self-Care Discharge Diagnosis: Flank pain Referrals: Santino Palomino PA [Primary Care Provider, Internal Medicine] - 1 Week Discharge Medications: Continued gabapentin 400 mg capsule 400 mg PO BEDTIME methotrexate sodium 2.5 mg tablet 15 mg PO FR omeprazole 20 mg capsule,delayed release(DR/EC) 20 mg PO BEDTIME folic acid 1 mg tablet 1 mg PO DAILY hydroxychloroquine 200 mg tablet 200 mg PO DAILY lisdexamfetamine 40 mg capsule 40 mg PO DAILY PRN (Reason: ADHD) oxycodone 10 mg tablet 10 mg PO Q4H PRN (Reason: Pain (Scale Score 4-6)) vitamin A 3,000 mcg (10,000 unit) Capsule 3,000 mcg PO DAILY calcium carbonate [Calcium 500] 500 mg calcium (1,250 mg) Tablet,Chewable 500 mg PO BID fludrocortisone 0.1 mg Tablet 0.1 mg PO DAILY Rx Instructions: ONLY TAKES WHEN NOT ON HIGHER DOSE OF PREDNISONE - NOT CURRENTLY TAKING PATIENT TAKES ONLY WHEN ON 15MG OF PRED risedronate 35 mg tablet 35 mg PO TU@0900 Wegovy 1.7 mg/0.75 mL pen injector 1.7 mg subcut SA@0900 docusate sodium [Colace] 100 mg Capsule 100 mg PO BID prednisone 10 mg tablet 10 mg PO DAILY ondansetron 4 mg tablet,disintegrating 4 mg PO Q8H PRN (Reason: nausea/vomiting) Nurtec ODT 75 mg tablet,disintegrating 75 mg PO DAILY PRN (Reason: headache) Discharge Orders: Discharge Order (Routine); Ordered 03/25/25 Ordered By: Jefe Soliz Diet: Advance to usual diet Activity on Discharge: As tolerated Stand Alone Forms: Patient Portal Discharge page Print Language: Occitan Care Plan Goals: Resume all medicines as taken prior to hospital Health Concerns: Follow up with Nephrology as scheduled; follow up with PCP next available Plan of Treatment: To be determined by Nephrology and forthcoming data Assessment: See discharge summary Patient Instructions: Chronic Abdominal Pain (DC)
[2025-03-25] MEDS: Heparin Sodium,Porcine Flush 500 UNIT/5 ML SYRINGE IVFLUSH (15:18)
[2025-03-25 15:41] VITALS: BP 103/66; PULSE 89; RESP 16; TEMP 36.9; O2SAT 93
[2025-03-26 22:29] LABS: Prot Elec - Albumin 3.9 g/dL (3.8-4.8); Prot Elec - Alpha1 0.3 g/dL (0.2-0.3); Prot Elec - Alpha2 0.8 g/dL (0.5-0.9); Prot Elec - Beta 1 0.5 g/dL (0.4-0.6); Prot Elec - Beta 2 0.4 g/dL (0.2-0.5); Prot Elec - Gamma 0.5 g/dL (0.8-1.7); Prot Elec - Total Protein 6.3 g/dL (6.1-8.1)
[2025-03-27 09:38] LABS: Anti Glomerular Basement Memb <1.0 AI
[2025-03-31 13:53] LABS: Anti Nuclear Antibody Screen NEGATIVE (NEGATIVE)
== END 2025-03-25 16:35 | disposition home or self-care (01) ==
LOC: HO.ED 03-23 06:03 → HO.EDOVER 03-23 07:04 → HO.S3 03-23 07:49 → HO.EDOVER 03-23 15:03 → HO.S3 03-23 15:03
PROVIDERS: Internal Medicine Hypertension Specialist; Admitting Provider Hospitalist; Emergency Provider Emergency Medicine; PCP Physician Assistant; Visit Provider Hospitalist
DX: G89.29 Other chronic pain (principal); R10.9 Unspecified abdominal pain; M32.9 Systemic lupus erythematosus, unspecified; R11.2 Nausea with vomiting, unspecified; E27.1 Primary adrenocortical insufficiency; R31.29 Other microscopic hematuria; Z79.899 Other long term (current) drug therapy
CPT/HCPCS: 36415; 80053; 81001; 81003; 82570; 83520; 83690; 83735; 84156; 84165; 85025; 86038; 86140; 86141; 86160; 87086; 96361; 96372; 96374; 96375; 96376; 99221; 99285; J1171; J1200; J1630; J1642; J1650; J7120

== ENCOUNTER → 2025-03-23 06:08 | Outpatient (BNV) | payer OTHER, SELFPAY | PROVIDERS: Admitting Provider Hospitalist; Emergency Provider Emergency Medicine; PCP Physician Assistant; Visit Provider Internal Medicine Hypertension Specialist | DX: R10.9 Unspecified abdominal pain (principal) | CPT/HCPCS: 99223 ==

== ENCOUNTER → 2025-03-23 06:08 | Outpatient (BNV) | payer OTHER, SELFPAY | PROVIDERS: Admitting Provider Hospitalist; Emergency Provider Emergency Medicine; PCP Physician Assistant; Visit Provider Hospitalist | DX: R10.9 Unspecified abdominal pain (principal); G89.29 Other chronic pain; G90.9 Disorder of the autonomic nervous system, unspecified | CPT/HCPCS: 99223 ==

== ENCOUNTER 2025-05-26 13:55 | Emergency (ER) | payer OTHER, SELFPAY ==
--- OUTSIDE RECORDS SUMMARY | 2025-05-20 23:59 | XMS_ITS | Continuity of Care Document ---
Author Organization [facility] Primary [facility] Address [address] [place] [address]- Care Team Providers Care Ap Processor Name Role Phone Santino Mtz Primary Care Physician [id number] Date(s[facility]/20/[facility] - 05/20/25 [employer] [address], [place] [address] Encounter Type: Triage Allergies, Adverse Reactions, Alerts Substance Criticality Severity Reaction Reaction Severity Status Zofran High criticality Moderate Dysphoria Act sheree Phenergan High criticality Moderate Dysphoria Act sheree Compazine 1 High criticality Severe Anaphylaxis Dysphoria Active Reglan High criticality Moderate Dysphoria Act sheree 1dysphoric reaction Immunizations Given and Recorded Vaccine Date Status Refusal Reason SARS-CoV-2 (COVID-19) mRNA-1273 vaccine 05/18/21 R ecorded SARS-CoV-2 (COVID-19) mRNA BNT-162b2 vac 10/07/20 Recorded SARS-CoV-2 (COVID-19) mRNA BNT-162b2 vac 09/16/20 Recorded tetanus/diphtheria/pertussis, acel(Tdap) 1 02/13/20 Given 1Result Comment: [facility] [id number] Medications Benlysta = 10 mg/kg, Once, 0 Refills, Maintenance, 11/02/24 1:13:00 PM EDT, Partial fill upon patient request if the prescription is for a schedule II opioid drug. Start Date: 11/02/24 Status: Ordered Medication Dispense Status: Completed Total Allowed Fills: 1 Fills Dispensed: 0 fludrocortisone 0.1 mg oral tablet 1 tablet = 0.1 mg, By Mouth, Daily, PRN rx'd by Dr Hall , endocrine, # 90 tablet, 3 Refills, Acute 08/21/25 8:36:00 AM EDT, 08/21/24 8:36:00 AM EDT, Tablet, [facility]/pharmacy #[id number], Partial fill upon patient request if the prescription is for a schedule II opioid drug., 160, cm, 08/06/24 14:14:00 EDT, Height, 78.6, kg, 08/04/24 13:40:00 EDT, Dry Weight Start Date: 08/21/24 Stop Date: 08/21/25 Status: Ordered Medication Dispense Status: Completed Quantity: 90.0 Unit: tablet Total Allowed Fills: 4 Fills Dispensed: 0 folic acid 1 mg oral tablet 1 mg, 1, tablet, By Mouth, Daily, # 30 tablet, Refills 0, Maintenance, 12/17/23 3:43:00 PM EDT, Partial fill upon patient request if the prescription is for a schedule II opioid drug. Start Date: 12/17/23 Status: Ordered Medication Dispense Status: Completed Quantity: 30.0 Unit: tablet Total Allowed Fills: 1 Fills Dispensed: 0 gabapentin 400 mg oral capsule 400 mg, 1, capsule, By Mouth, Daily, # 90 capsule, Refills 5, Tot. Refills 5, Maintenance, 07/11/24 3:45:00 PM EST, Route to Pharmacy Electronically, [facility]/pharmacy #[id number], Partial fill upon patient request if the prescription is for a schedule II opioid drug., 160, cm, 07/08/24 21:15:00 EST, Height, 77.5, kg, 07/08/24 21:15:00 EST, Dry Weight Start Date: 07/11/24 Status: Ordered Medication Dispense Status: Completed Quantity: 90.0 Unit: capsule Total Allowed Fills: 6 Fills Dispensed: 0 hydroxychloroquine 200 mg oral tablet 200 mg, 1, tablet, By Mouth, 2 times a day, # 180 tablet, Refills 0, Maintenance, 11/08/24 1:27:00 AM EDT, Partial fill upon patient request if the prescription is for a schedule II opioid drug. Start Date: 11/08/24 Status: Ordered Medication Dispense Status: Completed Quantity: 180.0 Unit: tablet Total Allowed Fills: 1 Fills Dispensed: 0 methotrexate 2.5 mg oral tablet 8 tablet = 20 mg, By Mouth, Every 7 days, TAKE 8 TABLETS (20 MG TOTAL) BY MOUTH ONCE A WEEK., 0 Refills, 04/18/24 1:26:00 PM EST, Partial fill upon patient request if the prescription is for a schedule II opioid drug. Start Date: 04/18/24 Status: Ordered Medication Dispense Status: Completed Total Allowed Fills: 1 Fills Dispensed: 0 methylPREDNISolone acetate 40 mg/mL injectable suspension See Instructions, INJECT 1ML INTRAMUSCULARLY ONCE NEEDED FOR SEVERE PAIN, IN CASE OF ADRENAL CRISIS, # 2 mL, 3 Refills, Maintenance, 11/07/24 3:54:00 PM EDT, [id number], 160, cm, 11/04/24 15:05:00 EDT, Height, 81.8, kg, 11/03/24 2:19:00 EDT, Dry Weight Start Date: 11/07/24 Status: Ordered Medication Dispense Status: Completed Quantity: 2.0 Unit: mL Total Allowed Fills: 1 Fills Dispensed: 0 Nurtec ODT 75 mg oral tablet, disintegrating 1 tablet = 75 mg, By Mouth, Once, 9 each, 0 Refill(s), DISSOLVE 1 TABLET (75 MG TOTAL) IN THE MOUTHAS NEEDED (FOR REALLY BAD HEADACHES) FOR UP TO 9 DOSES., # 9 tablet, 0 Refills, Soft Stop, 02/23/25 9:26:00 AM EDT, DIS Tablet, [id number], Partial fill upon patient request if the prescription is for a schedule II opioid drug., 160, cm, 02/23/25 9:02:00 EDT, Height, 78.1, kg, 02/17/25 6:37:00 EDT, Dry Weight Start Date: 02/23/25 Status: Ordered Medication Dispense Status: Completed Quantity: 9.0 Unit: tablet Total Allowed Fills: 1 Fills Dispensed: 0 omeprazole 20 mg oral enteric coated capsule 1 capsule = 20 mg, By Mouth, Daily, # 90 capsule, 1 Refills, Maintenance, 03/20/25 6:10:00 AM EDT, [id number], Partial fill upon patient request if the prescription is for a schedule II opioid drug., 160, cm, 03/12/25 13:59:00 EDT, Height, 78.1, kg, 02/17/25 6:37:00 EDT, Dry Weight Start Date: 03/20/25 Stop Date: 09/16/25 Status: Ordered Medication Dispense Status: Completed Quantity: 90.0 Unit: capsule Total Allowed Fills: 2 Fills Dispensed: 0 ondansetron 4 mg oral tablet, disintegrating 1 tablet, By Mouth, Every 8 hours, PRN NEEDED FOR NAUSEA/VOMITING, # 20 tablet, 6 Refills, Maintenance, 02/23/25 9:27:00 AM EDT, [facility]/pharmacy #[id number], 160, cm, 02/23/25 9:02:00 EDT, Height, 78.1, kg,02/17/25 6:37:00 EDT, Dry Weight Start Date: 02/23/25 Status: Ordered Medication Dispense Status: Completed Quantity: 20.0 Unit: tablet Total Allowed Fills: 7 Fills Dispensed: 0 oxyCODONE 15 mg oral tablet 1 tablet = 15 mg, By Mouth, Every 4 hours, PRN as needed for pain, 1 tab every 4 hour as needed forpain., # 168 tablet, 0 Refills, Maintenance, 05/18/25 1:07:00 PM EST, Tablet, [facility]/pharmacy #[id number], Partial fill upon patient request if the prescription is for a schedule II opioid drug. recent dose change okay to fill early, 160, cm, 04/29/25 13:11:00 EST, Height, 78.1, kg, 02/17/25 6:37:00 EDT, Dry Weight Start Date: 05/18/25 Stop Date: 06/15/25 Status: Ordered Medication Dispense Status: Completed Quantity: 168.0 Unit: tablet Total Allowed Fills: 1 Fills Dispensed: 0 PredniSONE By Mouth, Daily, 0 Refills, Maintenance, 02/17/25 6:35:00 AM EDT, Partial fill upon patient request if the prescription is for a schedule II opioid drug. Start Date: 02/17/25 Status: Ordered Medication Dispense Status: Completed Total Allowed Fills: 1 Fills Dispensed: 0 Vyvanse 40 mg oral capsule 1 capsule = 40 mg, By Mouth, Daily in AM, # 30 capsule, 0 Refills, Maintenance, 04/20/25 4:48:00 PMEST, Capsule, [id number], Partial fill upon patient request if the prescription is for a schedule II opioid drug., 160, cm, 04/15/25 8:28:00 EST, Height, 78.1, kg, 02/17/25 6:37:00 EDT, Dry Weight Start Date: 04/20/25 Status: Ordered Medication Dispense Status: Completed Quantity: 30.0 Unit: capsule Total Allowed Fills: 1 Fills Dispensed: 0 Zepbound 7.5 mg/0.5 mL subcutaneous solution = 7.5 mg, Subcutaneous Injection, Every week, rotate injection sites, # 4 each, 0 Refills, Maintenance, 05/19/25 11:45:00 AM EST, Solution, [id number], Partial fill upon patient request if the prescription is for a schedule II opioid drug., 160, cm, 04/29/25 13:11:00 EST, Height, 78.1, kg, 02/17/25 6:37:00 EDT, Dry Weight Start Date: 05/19/25 Status: Ordered Medication Dispense Status: Completed Quantity: 4.0 Unit: each Total Allowed Fills: 1 Fills Dispensed: 0 Problem List Condition Confirmation Course Effective Dates Status H ealth Status Informant [place]'s disease Confirmed Active ADD (attention deficit disorder) Confirmed Active IPMN (intraductal papillary mucinous neoplasm) Confirmed Active COVID-19 Confirmed Active Diverticulitis Confirmed Active Diverticulitis Confirmed Active Sphincter of Oddi dysfunction Confirmed Active Fracture of nasal bone Confirmed Active Hypokalemia Confirmed Active Hypokalemia Confirmed Active Cervicalgia Confirmed Active Obese class I Confirmed Active Pneumonia Confirmed Active SLE (systemic lupus erythematosus related syndrome) Confirmed Active Thin basement membrane nephropathy Confirmed Active Social History Social History Type Response Smoking Status Never (less than 100 in lifetime) entered on: 02/13/20 Sex Sex Representation Female (finding) Patient Care team information Care Team Personnel Name: Lien Palencia RN Position: S RN Member Role: Primary Care Nurse Name: Liz Devries RN Position: S RN Member Role: Primary Care Nurse Name: Mitch Lui LPN Position: S RN Member Role: Primary Care Nurse Name: Stas Fernandes RN Position: S RN Member Role: Primary Care Nurse Name: Jaspreet [INSTR]Wilma Position: [facility] RN Member Role: Primary Care Nurse Name: Jhon Beach MD Position: [facility] Renal MD Member Role: Lifetime Consulting Physician [facility] [place] [address]- Telecom: Name: Lb Leon RN Position: S RN Member Role: Primary Care Nurse Name: Yvonne Sal RN Position: S RN Member Role: Primary Care Nurse Name: Ishaan Arguelles RN Position: [facility] RN Member Role: Primary Care Nurse Name: Jennifer Donis RN Position: S RN Member Role: Primary Care Nurse Name: Santino Mtz Position: [facility] PCO Associate Professional Member Role: PCP Address: [address] [place] [address]- [place] Telecom: Name: Jayme Echavarria RN Position: [facility] RN Member Role: Primary Care Nurse Name: Idalia Quinones RN Position: [facility] RN Member Role: Primary Care Nurse Name: Phil Herr RN Position: [facility] RN Member Role: Primary Care Nurse Name: Vanessa Carlton RN Position: [facility] RN Member Role: Primary Care Nurse Name: Princess Sandra RN Position: [facility] RN Member Role: Primary Care Nurse Name: Monica Sesay LPN Position: [facility] RN Member Role: Primary Care Nurse Care Team Related Persons Name: LAURE VALDES Name: DEEP SCHAEFER Name: DEEP SCHAEFER Insurance Providers Guarantor name: MITCH SCHAEFER Health Plan Information #: 1 Payer: [employer] Payer Identifier: JIM Member Number: [id number] Group Number: [id number] Subscriber Identifier: JIM Relationship to Subscriber: self Coverage Type: Managed Care (Private) Coverage Verification Date: JIM Telecom: Address:
--- OUTSIDE RECORDS SUMMARY | 2025-05-20 23:59 | XMS_ITS | Continuity of Care Document ---
Author Organization [facility] Adult Address [address] [place] [address]- Care Team Providers Care Animal Caretaker Supervisor Name Role Phone Santino Mtz Primary Care Physician Encounter [facility] Date(s): 04/20/25 - 05/20/25 [facility] [address] [place] [address]- Encounter Type: Triage Allergies, Adverse Reactions, Alerts [...] tetanus/diphtheria/pertussis, acel(Tdap) 1 02/13/20 Given 1Result Comment: [facility] [id number] Medications Benlysta = 10 mg/kg, Once, 0 [...] AM EDT, 08/21/24 8:36:00 AM EDT, Tablet, [facility]/pharmacy #[id number], Partial fill upon patient request [...] 3:45:00 PM EST, Route to Pharmacy Electronically, [facility]/pharmacy #[id number], Partial fill upon patient request [...] Maintenance, 11/07/24 3:54:00 PM EDT, [id number], 160, cm, 11/04/24 15:05:00 EDT, Height, 81.8, [...] 6 Refills, Maintenance, 02/23/25 9:27:00 AM EDT, [facility]/pharmacy #[id number], 160, cm, 02/23/25 9:02:00 EDT, [...] Refills, Maintenance, 05/18/25 1:07:00 PM EST, Tablet, [facility]/pharmacy #[id number], Partial fill upon patient request [...] Effective Dates Status H ealth Status Informant Jun's disease Confirmed Active ADD (attention deficit disorder) [...] Care Nurse Name: Jhon Beach MD Position: [facility] Renal MD Member Role: Lifetime Consulting Physician [facility] [facility] [place] [address]- Telecom: Name: Lb Leon RN Position: S RN Member Role: Primary Care Nurse Name: Yvonne Sal RN Position: S RN Member Role: Primary Care Nurse Name: Ishaan Arguelles RN Position: [facility] RN Member Role: Primary Care Nurse Name: Jennifer Donis RN Position: S RN Member Role: Primary Care Nurse Name: Santino Mtz Position: [facility] PCO Associate Professional Member Role: PCP Address: [address] [place] [address]- [place] Telecom: Name: Jayme Echavarria RN Position: [facility] RN Member Role: Primary Care Nurse Name: Idalia Quinones RN Position: [facility] RN Member Role: Primary Care Nurse Name: Phil Herr RN Position: [facility] RN Member Role: Primary Care Nurse Name: Vanessa Carlton RN Position: [facility] RN Member Role: Primary Care Nurse Name: Princess Sandra RN Position: [facility] RN Member Role: Primary Care Nurse Name: Monica Sesay LPN Position: [facility] RN Member Role: Primary Care Nurse Care Team Related Persons Name: LAURE VALDES Name: DEEP SCHAEFER Name: DEEP SCHAEFER Insurance Providers Guarantor name: MITCH SCHAEFER Health Plan Information #: 1 Payer: [employer] Payer Identifier: JIM Member Number: [id number] Group Number: [id number] Subscriber Identifier: JIM Relationship to Subscriber: self Coverage Type: Managed Care (Private) Coverage Verification Date: JIM Telecom: Address:
--- OUTSIDE RECORDS SUMMARY | 2025-05-20 23:59 | XMS_ITS | Continuity of Care Document ---
Author Organization [facility] Primary [facility] Address [address] [place] [address]- Care Team Providers Care Tempering Oven Operator Name Role Phone Santino Mtz Primary Care Physician [phone] [id number] - 05[facility]20/[facility] [address], [place] [address] Encounter Type: Triage Allergies, Adverse [...] tetanus/diphtheria/pertussis, acel(Tdap) 1 02/13/20 Given 1Result Comment: [facility] [id number] Medications Benlysta = 10 mg/kg, Once, 0 [...] AM EDT, 08/21/24 8:36:00 AM EDT, Tablet, [facility]/pharmacy #[id number], Partial fill upon patient request if [...] 3:45:00 PM EST, Route to Pharmacy Electronically, [facility]/pharmacy #[id number], Partial fill upon patient request if [...] Maintenance, 11/07/24 3:54:00 PM EDT, [id number], 160, cm, 11/04/24 15:05:00 EDT, Height, 81.8, [...] 6 Refills, Maintenance, 02/23/25 9:27:00 AM EDT, [facility]/pharmacy #[id number], 160, cm, 02/23/25 9:02:00 EDT, Height, [...] Refills, Maintenance, 05/18/25 1:07:00 PM EST, Tablet, [facility]/pharmacy #[id number], Partial fill upon patient request if [...] Effective Dates Status H ealth Status Informant [place]'s disease Confirmed Active ADD (attention deficit disorder) [...] Care Nurse Name: Jhon Beach MD Position: [facility] Renal MD Member Role: Lifetime Consulting Physician [facility] [address] [place] [address]- Telecom: Name: Lb Leon RN Position: S RN Member Role: Primary Care Nurse Name: Yvonne Sal RN Position: S RN Member Role: Primary Care Nurse Name: Ishaan Arguelles RN Position: [facility] RN Member Role: Primary Care Nurse Name: Jennifer Donis RN Position: S RN Member Role: Primary Care Nurse Name: Santino Mtz Position: [facility] PCO Associate Professional Member Role: PCP Address: [address] [place] [address]- [place] Telecom: Name: Jayme Echavarria RN Position: [facility] RN Member Role: Primary Care Nurse Name: Idalia Quinones RN Position: [facility] RN Member Role: Primary Care Nurse Name: Phil Herr RN Position: [facility] RN Member Role: Primary Care Nurse Name: Vanessa Carlton RN Position: [facility] RN Member Role: Primary Care Nurse Name: Princess Sandra RN Position: [facility] RN Member Role: Primary Care Nurse Name: Monica Sesay LPN Position: [facility] RN Member Role: Primary Care Nurse Care Team Related Persons Name: LAURE VALDES Name: DEEP SCHAEFER Name: DEEP SCHAEFER Insurance Providers Guarantor name: MITCH SCHAEFER Health Plan Information #: 1 Payer: [employer] Payer Identifier: JIM Member Number: [id number] Group Number: [id number] Subscriber Identifier: JIM Relationship to Subscriber: self Coverage Type: Managed Care (Private) Coverage Verification Date: JIM Telecom: Address:
--- OUTSIDE RECORDS SUMMARY | 2025-05-20 23:59 | XMS_ITS | Continuity of Care Document ---
Author Organization [facility] Address [address] [place] [address]- Care Team Providers Care Group Leader [employer] Testing Name Role Phone Santino Mtz Primary Care Physician [phone] Encounter [facility] Date(s): 04/20/25 - 05/20/25 [facility] [address] [place] [address]- Encounter Type: Triage Allergies, Adverse Reactions, Alerts Substance Criticality Severity Reaction Reaction Severity Status Zofran High criticality Moderate Dysphoria Act sheree Compazine 1 High criticality Severe Anaphylaxis Dysphoria Active Reglan High criticality Moderate Dysphoria Act sheree Phenergan High criticality Moderate Dysphoria Act sheree 1dysphoric reaction Immunizations Given and Recorded Vaccine Date Status Refusal Reason SARS-CoV-2 (COVID-19) mRNA-1273 vaccine 05/18/21 R ecorded SARS-CoV-2 (COVID-19) mRNA BNT-162b2 vac 10/07/20 Recorded SARS-CoV-2 (COVID-19) mRNA BNT-162b2 vac 09/16/20 Recorded tetanus/diphtheria/pertussis, acel(Tdap) 1 02/13/20 Given 1Result Comment: [facility] [id number] Medications Benlysta = 10 mg/kg, Once, 0 [...] AM EDT, 08/21/24 8:36:00 AM EDT, Tablet, [facility]/pharmacy #[id number], Partial fill upon patient request if [...] 3:45:00 PM EST, Route to Pharmacy Electronically, [facility]/pharmacy #[id number], Partial fill upon patient request if [...] Maintenance, 11/07/24 3:54:00 PM EDT, [id number], 160, cm, 11/04/24 15:05:00 EDT, Height, 81.8, [...] 6 Refills, Maintenance, 02/23/25 9:27:00 AM EDT, [facility]/pharmacy #[id number], 160, cm, 02/23/25 9:02:00 EDT, Height, [...] Refills, Maintenance, 05/18/25 1:07:00 PM EST, Tablet, [facility]/pharmacy #[id number], Partial fill upon patient request if [...] Care Nurse Name: Jhon Beach MD Position: [facility] Renal MD Member Role: Lifetime Consulting Physician [facility] [address] [facility] [place] [address]- Telecom: Name: Lb Leon RN Position: S RN Member Role: Primary Care Nurse Name: Yvonne Sal RN Position: S RN Member Role: Primary Care Nurse Name: Ishaan Arguelles RN Position: [facility] RN Member Role: Primary Care Nurse Name: Jennifer Donis RN Position: S RN Member Role: Primary Care Nurse Name: Santino Mtz Position: [facility] PCO Associate Professional Member Role: PCP Address: [address] [place] [address]- [place] Telecom: Name: Jayme Echavarria RN Position: [facility] RN Member Role: Primary Care Nurse Name: Idalia Quinones RN Position: [facility] RN Member Role: Primary Care Nurse Name: Phil Herr RN Position: [facility] RN Member Role: Primary Care Nurse Name: Vanessa Carlton RN Position: [facility] RN Member Role: Primary Care Nurse Name: Princess Sandra RN Position: [facility] RN Member Role: Primary Care Nurse Name: Monica Sesay LPN Position: [facility] RN Member Role: Primary Care Nurse Care Team Related Persons Name: LAURE VALDES Name: DEEP SCHAEFER Name: DEEP SCHAEFER Insurance Providers Guarantor name: MITCH SCHAEFER Health Plan Information #: 1 Payer: [employer] Payer Identifier: JIM Member Number: [id number] Group Number: [id number] Subscriber Identifier: JIM Relationship to Subscriber: self Coverage Type: Managed Care (Private) Coverage Verification Date: JIM Telecom: Address:
--- OUTSIDE RECORDS SUMMARY | 2025-05-20 23:59 | XMS_ITS | Continuity of Care Document ---
Author Organization [facility] Address [address] [place] [address]- Care Team Providers Care Electric Shovel Operator Name Role Phone Santino Mtz Primary Care Physician [phone] Encounter [facility] Date(s): 04/20/25 - 05/20/[address] [facility] [address] [place] [address]- Encounter Type: Triage Allergies, Adverse Reactions, Alerts [...] tetanus/diphtheria/pertussis, acel(Tdap) 1 02/13/20 Given 1Result Comment: [facility] [id number] Medications Benlysta = 10 mg/kg, Once, 0 [...] AM EDT, 08/21/24 8:36:00 AM EDT, Tablet, [facility]/pharmacy #[id number], Partial fill upon patient request if [...] 3:45:00 PM EST, Route to Pharmacy Electronically, [facility]/pharmacy #[id number], Partial fill upon patient request if [...] Maintenance, 11/07/24 3:54:00 PM EDT, [facility], 160, cm, 11/04/24 15:05:00 EDT, Height, 81.8, [...] 6 Refills, Maintenance, 02/23/25 9:27:00 AM EDT, [facility]/pharmacy #[id number], 160, cm, 02/23/25 9:02:00 EDT, Height, [...] Refills, Maintenance, 05/18/25 1:07:00 PM EST, Tablet, [facility]/pharmacy #1157, Partial fill upon patient request if [...] Care Nurse Name: Jhon Beach MD Position: [facility] Renal MD Member Role: Lifetime Consulting Physician [facility] [address] [facility] [place] [address]- Telecom: Name: Lb Leon RN Position: S RN Member Role: Primary Care Nurse Name: Yvonne Sal RN Position: S RN Member Role: Primary Care Nurse Name: Ishaan Arguelles RN Position: [facility] RN Member Role: Primary Care Nurse Name: Jennifer Donis RN Position: S RN Member Role: Primary Care Nurse Name: Santino Mtz Position: [facility] PCO Associate Professional Member Role: PCP Address: [address] [place] [address]- [place] Telecom: Name: Jayme Echavarria RN Position: [facility] RN Member Role: Primary Care Nurse Name: Idalia Quinones RN Position: [facility] RN Member Role: Primary Care Nurse Name: Phil Herr RN Position: [facility] RN Member Role: Primary Care Nurse Name: Vanessa Carlton RN Position: [facility] RN Member Role: Primary Care Nurse Name: Princess Sandra RN Position: [facility] RN Member Role: Primary Care Nurse Name: Monica Sesay LPN Position: [facility] RN Member Role: Primary Care Nurse Care Team Related Persons Name: LAURE VALDES Name: DEEP SCHAEFER Name: DEEP SCHAEFER Insurance Providers Guarantor name: MITCH SCHAEFER Health Plan Information #: 1 Payer: [employer] Payer Identifier: JIM Member Number: [id number] Group Number: [id number] Subscriber Identifier: JIM Relationship to Subscriber: self Coverage Type: Managed Care (Private) Coverage Verification Date: JIM Telecom: Address:
--- OUTSIDE RECORDS SUMMARY | 2025-05-26 18:02 | XMS_ITS | Clinical Summary ---
Author Organization [facility] Address [address] [place] [address] Care Team Providers Care Sexual Health Physician Name Role Phone Santino Palomino Primary Care Provider [phone] Allergies Active Allergy Reactions Criticality Noted Date [...] & Plan (2024 3:29 PM EDT): Outpatient color control operator concern for LPHS due to symptom presentation and complex rheumalogic history on multiple immunosuppressive agents. Lower suspicion as doers not have hematuria on latest UA. -Nephrology via EPIC secure chat said no further workup required inpatient, should follow-up outpatient Assessment & Plan (12/11/2024 5:26 PM EDT): Outpatient color control operator concern for LPHS due to symptom presentation and complex rheumalogic history on multiple immunosuppressive agents. -Nephrology via Rosalind said no further workup required inpatient, should [...] returned without gross or microscopic hematuria. 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 [...] returned without gross or microscopic hematuria. 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 [...] returned without gross or microscopic hematuria. 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 This is [...] her multiple autoimmune conditions, including Lupus and Antrim's disease, patient experiences chronic pain. This is [...] her multiple autoimmune conditions, including Lupus and Antrim's disease, patient experiences chronic pain. This is [...] her multiple autoimmune conditions, including Lupus and Antrim's disease, patient experiences chronic pain. This is [...] her multiple autoimmune conditions, including Lupus and Antrim's disease, patient experiences chronic pain. This is [...] her multiple autoimmune conditions, including Lupus and Antrim's disease, patient experiences chronic pain. This is [...] her multiple autoimmune conditions, including Lupus and Antrim's disease, patient experiences chronic pain. This is medically managed by outpatient pain clinic with a multimodal regimen. -Continue home nightly gabapentin -HOLD home oxycodone -1 mg IV Dilaudid Q4H -Bowel regimen as above Assessment & Plan (12/08/2024 3:20 PM EDT): Home meds: gabapentin 400mg daily, Oxycodone 10mg q4h PRN pain Due to her multiple autoimmune conditions, including Lupus and Antrim's disease, patient experiences chronic pain. This is medically managed by outpatient pain clinic with a multimodal regimen. -Continue home nightly gabapentin -HOLD home oxycodone -1 mg IV Dilaudid Q4H -Bowel regimen as above Assessment & Plan (12/07/2024 8:54 AM EDT): Home meds: gabapentin 400mg daily, Oxycodone 10mg q4h PRN pain Due to her multiple autoimmune conditions, including Lupus and Antrim's disease, patient experiences chronic pain. This is medically managed by outpatient pain clinic with a multimodal regimen. -Continue home nightly gabapentin -HOLD home oxycodone -1 mg IV Dilaudid Q4H d/c'd -Bowel regimen as above Assessment & Plan (12/06/2024 12:04 PM EDT): Home meds: gabapentin 400mg daily, Oxycodone 10mg q4h PRN pain Due to her multiple autoimmune conditions, including Lupus and Antrim's disease, patient experiences chronic pain. This is [...] her multiple autoimmune conditions, including Lupus and Antrim's disease, patient experiences chronic pain. This is [...] her multiple autoimmune conditions, including Lupus and Antrim's disease, patient experiences chronic pain. This is medically managed by outpatient pain clinic with a multimodal regimen. -Continue home nightly gabapentin -HOLD home oxycodone -1 mg IV Dilaudid Q4H, consider transitioning back to her home oxycodone once acute flare resolves -Bowel regimen Assessment & Plan (12/04/2024 3:37 AM EDT): Due to her multiple autoimmune conditions, including Lupus and Antrim's disease, patient experiences chronic pain. This is [...] with hx of seronegative lupus, managed by [facility] rheumatology, receives Benlysta infusions every 28 [...] with hx of seronegative lupus, managed by [facility] rheumatology, receives Benlysta infusions every 28 [...] with hx of seronegative lupus, managed by [facility] rheumatology, receives Benlysta infusions every 28 [...] with hx of seronegative lupus, managed by [facility] rheumatology, receives Benlysta infusions every 28 [...] with hx of seronegative lupus, managed by [facility] rheumatology, receives Benlysta infusions every 28 [...] with hx of seronegative lupus, managed by [facility] rheumatology, receives Benlysta infusions every 28 [...] with hx of seronegative lupus, managed by [facility] rheumatology, receives Benlysta infusions every 28 [...] with hx of seronegative lupus, managed by [facility] rheumatology, receives Benlysta infusions every 28 [...] with hx of seronegative lupus, managed by [facility] rheumatology, receives Benlysta infusions every 28 [...] with hx of seronegative lupus, managed by [facility] rheumatology, receives Benlysta infusions every 28 [...] with hx of seronegative lupus, managed by [facility] rheumatology, receives Benlysta infusions every 28 [...] with hx of seronegative lupus, managed by [facility] rheumatology, receives Benlysta infusions every 28 [...] with hx of seronegative lupus, managed by [facility] rheumatology, receives Benlysta infusions every 28 [...] with hx of seronegative lupus, managed by [facility] rheumatology, receives Benlysta infusions every 28 [...] with hx of seronegative lupus, managed by [facility] rheumatology, receives Benlysta infusions every 28 [...] with hx of seronegative lupus, managed by [facility] rheumatology, receives Benlysta infusions every 28 [...] Thrush 10/11/2023 Graves' disease in remission 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 Patient lab trends suggestive of mild adrenal insufficiency with hyponatremia, hyperkalemia, and high urine sodium iso chronic steroid use. -See Lupus for steroid plan Assessment & Plan (12/16/2024 8:33 AM EDT): Home meds: Fludrocortisone 0.1mh/mL Patient with history of Antrim disease, under good control. Patient lab trends [...] meds: Fludrocortisone 0.1mh/mL Patient with history of Antrim disease, under good control. Patient lab trends [...] meds: Fludrocortisone 0.1mh/mL Patient with history of Antrim disease, under good control. Patient lab trends [...] meds: Fludrocortisone 0.1mh/mL Patient with history of Antrim disease, under good control. Patient lab trends [...] meds: Fludrocortisone 0.1mh/mL Patient with history of Antrim disease, under good control. -See Lupus for steroid plan Assessment & Plan (12/05/2024 1:20 PM EDT): Home meds: Fludrocortisone 0.1mh/mL Patient with history of Antrim disease, under good control. -See Lupus for steroid plan Assessment & Plan (12/04/2024 4:35 PM EDT): Home meds: Fludrocortisone 0.1mh/mL Patient with history of Jun disease, under good control. -See Lupus for steroid plan Assessment & Plan (12/04/2024 3:37 AM EDT): Patient with history of Antrim disease, under good control. - see Lupus [...] SIADH vs. adrenal insufficiency. -Trend BMP -See Antrim disease for endocrine recs -Fluid restriction due [...] & Plan (11/02/2023 4:46 PM EDT): Her immigration lawyer is: Rafael Mcdonough , I will endeavor [...] repeat in 4 weeks Liaise with her immigration lawyer, who is: Rafael Mcdonough Transaminitis 10/12/2023 12/18/2024 [...] Encounters Date Type Department Care Team Description 04/14/2025 Simple Car Wash Message [facility] [address] [place] [id number] Truck Bracer: Adonis Stone MD URGENT: Benlysta infusion!!!! 04/13/2025 Telephone [facility] [address] [place] [id number] Truck Bracer: Adonis Stone MD PAC Clinical Questions 04/07/2025 Yangaroo [facility] [address] [place] [id number] Truck Bracer: Adonis Stone MD Fyi 03/25/2025 [place] [facility] [address] [place] [id number] Truck Bracer: Adonis Stone MD High Sensitivity CRP results 03/19/2025 1:40 PM EDT Follow-Up [facility] [address] [place] [id number] Truck Bracer: Adonis Stone MD visual and stock associate current use of systemic steroids (Primary Dx); SLE (systemic lupus erythematosus related syndrome) from Last 3 Months Social History Tobacco Use Types Packs/Day Years Used Date Smoking Tobacco: Never Passive Smoke Exposure: Never Smokeless Tobacco: Never Tobacco Cessation:Counseling Given: Not Answered Alcohol Use Standard Drinks/Week Comments Not Currently 0 (1 standard drink = 0.6 oz pur e alcohol) [facility] Utilities Answer Date Recorded In the [...] 03/19/2025 1:42 PM EDT Plan of Treatment Health Maintenance Due Date [...] Screening and Follow-Up 05/28/2024 Influenza Vaccine (#1) 2024 COVID-19 Vaccine (4 - 2024-2 6 season) 2025 05/18/2021, 10/07/2020, 09/16/2020 Social Drivers of Health Sommer ual Screening 12/04/2025 12/04/2024 Diabetes Screening 12/19/2027 12/18/2024, 0 12/17/2024, 12/16/2024, Additional history exists DTaP,Tdap,and Td Vaccines (2 - Td or Tdap) 02/12/2030 02/13/2020 Hepatitis C Screening Completed 12/09/2024 Procedures * Due to [place] Doorm[employer]. law, this organization might not be sharing negative HIV tests. Procedure Name Priority Date/Time Associated Diagnosis Comments BASIC METABOLIC PANEL Routine 12/18/2024 4:41 AM EDT HEPATITIS PANEL, ACUTE STAT 12/09/2024 11:14 AM EDT from Last 3 Months or Most Recently Relevant to Health Maintenance Results * Due to [place] Doorm[place]. law, this organization might not be sharing negative HIV tests. * (ABNORMAL) Basic metabolic panel (12/18/2024 4:41 AM EDT) NA 136 135 - 145 mmol/L 12/18/2024 5:15 AM EDT [facility] K 3.8 3.5 - 5.3 mmol/L 12/18/2024 5:15 AM EDT [facility] Cl 98 98 - 107 mmol/L 12/18/2024 5:15 AM EDT [facility] CO2 28 22 - 32 mmol/L 12/18/2024 5:15 AM EDT [facility] BUN 26(H) 7 - 23 mg/dL 12/18/2024 5:15 AM EDT [facility] Creatinine 0.95 0.50 - 1.20 mg/dL 12/18/2024 5:15 AM EDT [facility] Glucose 105(H) 65 - 99 mg/dL 12/18/2024 5:15 AM EDT [facility] Calcium 8.9 8.6 - 10.5 mg/dL 12/18/2024 5:15 AM EDT [facility] Anion Gap 10 5 - 15 12/18/2024 5:15 AM EDT [facility] eGFR 72 >=60 mL/min/1. 73m2 12/18/2024 5:15 AM T [facility] Comment:The estimated glomer ular filtration rate (eGFR) is calculated using a new formula developed by the NKF-ASN task force to eliminate race-based correction factors. The new formula uses serum/plasma creatinine, age, and gender to determine eGFR. A value below 60mls/min might indicate kidney disease and will be flagged. For additional information, see Toribio roberts al, Am J Kidney Dis. 2021;79(2):268- 288, A Unifying Approach for GFR estimation: Recommendations of the NKF-ASN Task Force on Reassessing the Inclusion of Race in Diagnosing Kidney Disease . Blood Structure of peripheral vein / Unknown Venipuncture / Unknown 12/18/2024 4:41 AM EDT 12/18/2024 4:47 AM EDT Yudelka Hickman MD LAB BLOOD ORDERABLES Final Result [facility] [address] [place] [address], [place] * Hepatitis Panel, Acute (12/09/2024 11:14 AM EDT) Hepatitis A IgM NON-REACT FINA NON-REACT FINA 12/10/2024 1:09 AM EDT [facility] Hepatitis B Surface Antigen NON-REACT FINA NON-REACT FINA 12/10/2024 1:09 AM EDT [facility] Hepatitis B Core Antibody NON-REACT FINA NON-REACT FINA 12/10/2024 1:09 AM EDT [facility] Hepatitis C Antibody NON-REACT FINA NON-REACT FINA 12/10/2024 1:09 AM EDT [facility] Comment: HCV antibody was non-reactive. There is no laboratory evidence of HCV infection. In most cases, no further action is required. However, if recent HCV exposure is suspected, a test for HCV RNA (test code 26071) is suggested. For additional information please refer to http://[facility].CHOOMOGO/faq/YTF19f8 (This link is being provided for informational/ educational purposes only.) For additional information, please refer to http://[employer].CHOOMOGO/faq/TVY610 (This link is being provided for informational/ educational purposes only.) Blood Structure of peripheral vein / Unknown Venipuncture / Unknown 12/09/2024 11:14 AM EDT 12/09/2024 11:42 AM EDT Narrative [facility] - 12/10/2024 1:09 AM EDT [facility] Received Date:[id number] Maisha Willett MD LAB BLOOD ORDERABLES Sarah l Result [facility] [address] [place] [address] [address], [place] [address], [place] [phone] [facility] [address] [facility] [address], [place] [address], [place] [phone] from Last 3 Months or Most Recently [...] 11:11 PM 12/03/2024 11:28 PM Care Teams Sexual Health Physician Relationship Specialty Start Date End Date Santino Palomino PA [address] [place] [address] PCP - General 11/02/23
--- OUTSIDE RECORDS SUMMARY | 2025-05-26 18:02 | XMS_ITS | Clinical Summary ---
Author Organization [facility] Address [address] [place] [address] Care Team Providers Care Event Staff Name Role Phone Santino Palomino Primary Care Provider [phone] Allergies Active Allergy Reactions Criticality Noted Date Comments Prochlorperazine Anaphylaxis,Unknown High 01/03/2023 dysphoric reaction Medications BENLYSTA 200 mg/mL AtIn 10/02/2022 Active predniSONE (DELTASONE) 20 MG tablet Take 1 tablet (20 mg total) by mouth daily. Active gabapentin (NEURONTIN) 300 MG capsule Take 1 capsule (300 mg total) by mouth 3 times a day. Active omeprazole (PriLOSEC) [address] capsule Take 1 capsule (20 mg total) by mouth daily. Active hydrOXYchloroQU INE (PLAQUENIL) 200 mg tablet Take by mouth daily. Active lisdexamfetamin e (VYVANSE) 40 MG capsule Take 1 capsule (40 mg total) by mouth every morning. Active fludrocortisone (FLORINEF) 0.1 mg tablet TAKE 2 TABLETS BY MOUTH EVERY DAY ALLOW 15 EXTRA PILLS MONTHLY FOR STRESS DOSING (3 TABS) Active hyoscyamine sulfate (ANASPAZ) 0.125 mg TbDL Take 1 tablet (0.125 mg total) by mouth 3 times a day as needed for cramping for up to 30 days. 90 tablet 01/03/2023 Active Active Problems No known active problems Social History Tobacco Use Types Packs/Day Years Used Date Smoking Tobacco: Never Tobacco Cessation:Counseling Given: Not Answered Comments Unknown Sex and Gender Information Value Date Recorded Sex Assigned at Female 12/08/2022 9:12 AM EDT Legal Sex Female 9:10 AM EDT Gender Identity Female 12/08/2022 9:12 AM EDT Sexual Orientation Not on file Last Filed Vital Signs Vital Sign Reading Time Taken Comments Blood Pressure 107/72 01/03/2023 11:32 AM EDT Pulse 90 01/03/2023 11:32 AM EDT Temperature - - Respiratory Rate - - Oxygen Saturation - - Inhaled Oxygen Concentration - - Weight 75.3 kg (166 lb) 01/03/2023 11:32 AM EDT Height - - Body Mass Index - - Plan of Treatment Health Maintenance Due Date Last Done Comments Blood Pressure 1971 Lipid Panel 1971 Depression Screening 1983 Hepatitis C Screening 12/11/1989 Pap Smear 12/11/1992 Cervical Cancer Screening 12/11/2001 HPV/Cotest 12/11/2001 Breast Cancer Screening 2011 CT Colonography 12/11/2016 Colonoscopy 12/11/2016 Colorectal Cancer Screening 12/11/2016 FIT 12/11/2016 FOBT 12/11/2016 Multitarget Stool DNA (Cologuard) 12/11/2016 Sigmoidoscopy 12/11/2016 Pneumococcal Vaccine: 50+ Years (1 of 1 - PCV) 12/11/2021 Zoster Vaccine (1 of 2) 12/11/2021 COVID-19 Vaccine (3 - 2024-2 6 season) 2025 10/07/2020, 09/16/2020 Influenza Vaccine (#1) 2025 DTaP,Tdap,and Td Vaccines (2 - Td or Tdap) 02/12/2030 02/13/2020 Meningococcal B Vaccines Aged Out No longer eligible based on patient's age to complete this topic Meningococcal Vaccines Aged Out No lo nger eligible based on patient's age to complete this topic Insurance CIG[employer] CIGNA Care Teams Event Staff Relationship Specialty Start Date End Date Santino Palomino PA [address] [place] [address] PCP - General Physician Digital Camera Technician 12/08/22
--- OUTSIDE RECORDS SUMMARY | 2025-05-26 18:02 | XMS_ITS | Clinical Summary ---
Author Organization Patient Business Ser [facility] Address [address] [place] [address] Care Team Providers Care Engineering Supervisor Name Role Phone Mejia Triplett Primary Care Provider [phone] Allergies Active Allergy Reactions Criticality Noted Date [...] 10/07/2020,09/16/2020 Medical History Medical History Date Comments [place]'s disease ([facility] V24, [facility] V28) Lupus (systemic lupus erythematosus) ([facility] V2 4, [facility] V28) Neri's disease Social History [...] on file Sexual Orientation Not on file Last Filed [...] Screening 1971 Colorectal Cancer Screening: Colonoscopy 1971 Drug Screen 1971 Non-Opioid Controlled Substance Agreement 1971 Hepatitis B Vaccines (1 of 3 [...] currently active code status orders. Care Teams Engineering Supervisor Relationship Specialty Start Date End Date Mejia Triplett PA [address] [place] [address] PCP - General Occupational Medicine 02/15/18
--- OUTSIDE RECORDS SUMMARY | 2025-05-26 18:02 | XMS_ITS | Encounter Summary ---
Author Organization [facility] Address [address] [place] [address] Care Team Providers Care Machine Heel Builder Name Role Phone Santino Palomino Primary Care Provider [phone] Encounter Details Date Type Department Care Team (Late st Contact Info) Description 12/23/2024 Telephone [facility] Interventional Radiology [address] [place] [address] Traci Robertson RN Social History Tobacco Use Types Packs/Day Years Used Date Smoking Tobacco: Never Passive Smoke Exposure: Never Smokeless Tobacco: Never Alcohol Use Standard Drinks/Week Comments Not Currently 0 (1 standard drink = 0.6 oz pur e alcohol) [facility] Utilities Answer Date Recorded In the past [...] as of this encounter Plan of Treatment Not on file documented as of this encounter Visit Diagnoses Not on filedocumented in this encounter Care Teams Machine Heel Builder Relationship Specialty Start Date End Date Santino Palomino PA [address] [place] [address] PCP - General 11/02/23 documented as of this encounter
--- OUTSIDE RECORDS SUMMARY | 2025-05-26 18:02 | XMS_ITS | Encounter Summary ---
Author Organization [facility] Address [address] [place] [address] Phone Care Team Providers Care Locker Room Clerk Name Role Phone Santino Plaomino PA-C Primary Care Provider + [phone] Encounter Details Date Type Department Care Team (Late st Contact Info) Description 11/21/2024 Documentation Only [facility] [address] [place] [address] Ana Chau [address] [place] [phone] Social History Tobacco Use Types Packs/Day Years [...] Care Team (Late st Contact Info) Description 10/07/2025 1:45 PM EDT Office Visit [facility] [address] [place] [address] Robinson Enciso DO [address] [place] [address] [place] [address] documented as of this encounter Visit Diagnoses Not on filedocumented in this encounter Care Teams Locker Room Clerk Relationship Specialty Start Date End Date Santino Palomino PA-C [address] [place] [address] PCP - General Physician Cattle Shipper 11/11/24 documented as of this encounter
--- OUTSIDE RECORDS SUMMARY | 2025-05-26 18:02 | XMS_ITS | Encounter Summary ---
Author Organization [facility] Address [address] [place] [address] Care Team Providers Care Professor Of Art Name Role Phone Santino Palomino Primary Care Provider [phone] Reason for Visit * Reason Onset Date Comments PAC Rx Questions- 08/19/2024 Encounter Details Date Type Department Care Team (Late st Contact Info) Description 08/19/2024 Telephone [facility] [address] [place] [address] Telephone Intake, Staff PAC Rx Questions- Social [...] 08/19/2024 10:15 AM EDT Alexey calling from [facility] for patient Pt is established with Patient told pharmacy she was going to be switching over from [facility] back to [facility] just needs someone to confirm Please contact pharmacy @ [phone] and you can ask for alexey Thank you PAC documented in this encounter Plan of Treatment Not on file documented as of this encounter Visit Diagnoses Not on filedocumented in this encounter Care Teams Professor Of Art Relationship Specialty Start Date End Date Santino Palomino PA [address] [place] [address] PCP - General 11/02/23 documented as of this encounter
--- OUTSIDE RECORDS SUMMARY | 2025-05-26 18:02 | XMS_ITS | Clinical Summary ---
Author Organization [facility] Address [address] [place] [address] [place] [address] Phone Care Team Providers Care Cook Helper Preserves Name Role Phone Santino Palomino PA-C Primary Care Provider [phone] Allergies Active Allergy Reactions Criticality Noted Date Comments Metoclopramide Anaphylaxis,Anxiety, Oth er (see comments) High 11/11/2013 Other Reaction(s): Dysphoria Ondansetron Anaphylaxis,Anxiety, Oth er (see comments) High 11/11/2013 Other Reaction(s): Dysphoria Prochlorperazine Anaphylaxis,Other (s ee comments) High 02/11/2013 dysphoric reaction Promethazine Anaphylaxis,Anxiety, Oth er (see comments) High 11/11/2013 Other Reaction(s): Dysphoria Extreme paranoia/dysphoria Medications oxyCODONE-acetami nophen (PERCOCET) 7.5-325 MG per tablet Take 1 tablet by mouth Active Syringe/Needle, Disp, (B-D 3CC LUER-CONSUELO SYR 98AS9-5/2) 18G X 1-1/2 3 ML misc USE WITH SOLUMEDROL FOR ADRENAL CRISIS 4 Active fludrocortisone 0.1 MG tablet Take 0.1 mg by mouth in the morning. 8 08/22/19 26 Active folic acid (FOLVITE) 1 MG tablet Take 1,000 mcg by mouth 1 (one) time each day 5 Active gabapentin (NEURONTIN) 400 MG capsule Take 400 mg by mouth at bed time 5 Active methotrexate 2.5 MG tablet Take 15 mg by mouth 4 12/23/19 26 Active Nurtec 75 MG tablet dispersible Take 75 mg by mouth 4 Active omeprazole (PriLOSEC) [address] capsule Take 20 mg by mouth 5 Active ondansetron ODT (ZOFRAN-ODT) 4 MG dispersible tablet Take 1 tablet by mouth 5 Active hydroxychloroquin e (PLAQUENIL) 200 MG tablet Take 400 mg by mouth 5 02/20/20 26 Active predniSONE (DELTASONE) 20 MG tablet Take 24mg daily for 6 days (last day at that dose 12/24), then decrease by 1mg per week until you reach 10mg, then stay at that dose. 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 Graves' disease in remission 06/08/2003 [place] P[place]'s disease 12/15/1991 Encounters Date Type Department Care Team Description 04/08/2025 Telephone [facility] [address] [phone] Georgie Goldberg 04/06/2025 1:00 PM EST Clinical Support [facility] [address] [place] [address] Georgie Goldberg Chronic kidney disease, Stage II (mild) [N18.2] (Primary Dx); Systemic lupus erythematosus-related syndrome (HCC) [M32.10]; [place] P[place]'s disease (HCC) [E27.1] 03/30/2025 Orders Only [facility] [address] [place] [phone] Maria R Gilbert RN Systemic lupus erythematosus-related syndrome (HCC) (Primary Dx) 03/27/2025 3:45 PM EDT Office Visit [facility] [address] [place] [phone] Robinson Enciso DO Systemic lupus erythematosus with organ or system involvement, not otherwise specified (HCC) (Primary Dx); 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 Last 3 Months Immunizations Immunization Administration Dates Next Due Moderna SARS-COV-2 05/18/2021 Pfizer SARS-COV-2 10/07/2020,09/16/2020 Tdap 02/13/2020 Social History Tobacco Use Types Packs/Day Years Used Date Smoking Tobacco: Never Assessed Comments Unknown Sex and Gender Information Value Date Recorded Sex Assigned at Not on file Legal Sex Female 2:21 PM EDT Gender Identity Not on file Sexual Orientation Not on file Last Filed Vital Signs Vital Sign Reading Time Taken Comments Blood Pressure 104/68 04/06/2025 2:56 PM EST Pulse 83 04/06/2025 2:56 PM EST Temperature - - Respiratory Rate - - Oxygen Saturation - - Inhaled Oxygen Concentration - - Weight - - Height - - Body Mass Index - - Plan of Treatment Upcoming Encounters Date Type Department Care Team (Late st Contact Info) Description 10/07/2025 1:45 PM EDT Office Visit [facility] [address] [place] [phone] Robinson Enciso DO [address] [place] [address] [place] [address] Health Maintenance Due Date Last Done Comments Breast Cancer Screening 1970 Hepatitis B Vaccine (1 of 3 - 19+ 3-dose series) 12/11 Pneumococcal Vaccine: 50+ Years (1 of 2 - PCV) 991 Colorectal Cancer Screening: Annual FOBT 12/11/2020 Colorectal Cancer Screening: Colonoscopy 12/11/2020 Colorectal Cancer Screening: Sigmoidoscopy 12/11/2020 Influenza Vaccine (#1) 2025 Procedures Procedure Name Priority Date/Time Associated Diagnosis Comments C4 COMPLEMENT Routine 04/07/2025 12:00 AM EST Systemic lupus erythematosus-relat ed syndrome (HCC) C3 COMPLEMENT Routine 04/07/2025 12:00 AM EST Systemic lupus erythematosus-relat ed syndrome (HCC) ANTI-DNA ANTIBODY, DOUBLE-STRANDED Routine 04/07/2025 12:00 AM EST Systemic lupus erythematosus-relat ed syndrome (HCC) from Last 3 Months Results * Anti-DNA antibody, double-stranded (04/07/2025 12:00 AM EST) Pathologist [facility] DS DNA Ab <1 0 - 9 IU/mL [facility] Comment: Negative <5 Equivocal 5 - 9 Positive >9 Blood Venous blood / Unknown 04/07/2025 04/07/2025 Comment:Blood, Venou Guzman Zayas MD LAB BLOOD ORDERABLES Final Result [facility] [address] [place] [address] * C3 complement (04/07/2025 12:00 AM EST) Pathologist [facility] C3 Complement 124 82 - 167 mg/dL [facility] Blood Venous blood / Unknown 04/07/2025 04/07/2025 Comment:Blood, Venou Guzman Zayas MD LAB BLOOD ORDERABLES Final Result [facility] [address] [place] [address] * C4 complement (04/07/2025 12:00 AM EST) C4 Complement 20 12 - 38 mg/dL [facility] Blood Venous blood / Unknown 04/07/2025 04/07/2025 Comment:Blood, Venou Guzman Zayas MD LAB BLOOD ORDERABLES Final Result [facility] [address] [place] [address] from Last 3 Months Insurance Replaced By [facility] Care Teams Cook Helper Preserves Relationship Specialty Start Date End Date Santino Palomino PA-C [address] [place] [address] PCP - 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
== END 2025-05-26 15:00 | disposition left against medical advice (07) ==
PROVIDERS: Emergency Provider Emergency Medicine; PCP Physician Assistant
DX: R10.9 Unspecified abdominal pain (principal); M54.9 Dorsalgia, unspecified; Z53.21 Procedure and treatment not carried out due to patient leaving prior to being seen by health care provider

== ENCOUNTER → 2025-05-27 08:02 | Outpatient (BNV) | payer OTHER, SELFPAY | PROVIDERS: Emergency Provider Emergency Medicine Emergency Medical Services; PCP Physician Assistant; Visit Provider Radiology Diagnostic Radiology | DX: K57.30 Diverticulosis of large intestine without perforation or abscess without bleeding (principal); Z90.710 Acquired absence of both cervix and uterus; Z90.49 Acquired absence of other specified parts of digestive tract | CPT/HCPCS: 74177 ==

== ENCOUNTER → 2025-05-27 13:46 | Outpatient (BNV) | payer OTHER, SELFPAY | PROVIDERS: Admitting Provider Student in an Organized Health Care Education/Training Program; Emergency Provider Emergency Medicine Emergency Medical Services; PCP Physician Assistant; Visit Provider Student in an Organized Health Care Education/Training Program | DX: R11.2 Nausea with vomiting, unspecified (principal) | CPT/HCPCS: 99232 ==